=== PATIENT | female | born 1980 | race Caucasian/White ===

== ENCOUNTER 2019-08-20 11:53 | Emergency (ER) | payer BC, SELFPAY ==
--- NOTE | ~2019-08-20 | XR_ITS ---
EXAMINATION: XR knee RT min 4V DATE: 08/20/2019 12:21 INDICATION: Right knee pain post twisting injury 2 days prior TECHNIQUE: Anteroposterior, 2 oblique and crosstable lateral views of the right knee were obtained COMPARISON: None. FINDINGS: Alignment is normal. No fracture. Small right knee joint effusion without layering lipohemarthrosis. Soft tissues are otherwise unremarkable. IMPRESSION: 1. Small right knee joint effusion. No osseous abnormality. Reviewed, dictated and finalized at location A.
[2019-08-20 11:58] VITALS: BP 128/61; PULSE 84; RESP 16; TEMP 36.2; O2SAT 100
--- NOTE | 2019-08-20 12:03 | ED.LOWEXIN ---
HPI - Extremity Injury (Lower) General Chief Complaint: Extremity Injury, Lower Stated Complaint: knee injury Time Seen by Provider: 08/20/19 11:56 Source: patient Mode of arrival: ambulatory Limitations: no limitations History of Present Illness HPI Narrative: A 38 y/o female pt presents to the ED, with c/o rt knee injury that occurred at 1230PM yesterday. Pt states she was trying to help her sister move her anupama size mattress out of the basement and the mattress got stuck in the stairwell and when she tried stepping over the mattress she fell down on her rt knee. She states that she is unable to bare weight on her RLE and notes limited ROM to her rt knee, but states that elevating her knee with a pillow helps to alleviate her pain. She denies any fever, or N/V. Pt notes applying an noelle bandage to her rt knee prior to arrival. She has rt knee elevated in the ED and denies any pain in the ED. MD complaint: knee injury (rt) Onset (ago): day(s) Injury: Right: knee Type of Injury: blunt Place: home Relieving factors: other (elevation with pillow) Exacerbating factors: weight bearing Context: direct blow Associated symptoms: unable to bear weight Treatments prior to arrival: bandage (noelle bandage to rt knee) Related Data Allergies Allergy/AdvReac Type Severity Reaction Status Date / Time Penicillins Allergy Mild RASH Verified 08/20/19 11:58 Review of Systems Review of Systems: All systems reviewed & are unremarkable except as noted in HPI and below Constitutional: Constitutional: Denies fever(s) Gastrointestinal: Gastrointestinal: Denies nausea and Denies vomiting Musculoskeletal: Musculoskeletal: Reports arthralgias (rt knee, alleviated with elevation), Reports limited range of motion (rt knee) and Reports other (unable to bear weight on rt knee) PMF Past Medical History Medical History (Updated 08/20/19 @ 12:48 by Warren Moss DO) Anxiety Depression Herniated disc Mastitis Surgical History Surgical History (Updated 08/20/19 @ 12:32 by MARIEL Hurst) History of section Social History Social History (Updated 08/20/19 @ 12:32 by MARIEL Hurst) Smoking status: Never smoker Gender identity (if verbalized by the patient): Female Exam Narrative: Exam Narrative: APPEARANCE: No acute distress, nontoxic, resting in bed Eyes: EOMI HEENT: Normocephalic, atraumatic, RESPIRATORY: No respiratory distress MUSCULOSKELETAl: Tender palpation of her right anterior knee with mild swelling no ecchymosis, no tenderness with medial lateral posterior knee, pain with flexion greater than 45 degrees, no tenderness of the hip or ankle dorsalis pedis pulse 2+, neurovascular intact NEURO: Awake and alert. Following commands, speech normal, no focal deficits SKIN:: Warm, dry. Normal Color no rash or lesions Course Course Emergency Course: Discussed with patient results of workup and diagnosis. Discussed need for follow-up with primary care, proper use of medication, and reasons to return to the emergency department. Patient understands and agrees to current treatment plan Vital Signs Vital signs: Vital Signs Temperature 97.2 F L 08/20/19 11:58 Pulse Rate 84 08/20/19 11:58 Respiratory Rate 16 08/20/19 11:58 Blood Pressure 128/61 08/20/19 11:58 Pulse Oximetry 100 08/20/19 11:58 Temperature 97.2 F L 08/20/19 11:58 Pulse Rate 84 08/20/19 11:58 Respiratory Rate 16 08/20/19 11:58 Blood Pressure 128/61 08/20/19 11:58 Pulse Oximetry 100 08/20/19 11:58 MDM - Extremity Injury (Lower) Imaging Data Radiologist's impression: ITS Impressions Knee X-Ray 08/20/19 12:27 IMPRESSION: 1. Small right knee joint effusion. No osseous abnormality. Discharge Plan Discharge Clinical Impression: Right knee sprain Patient Disposition: Home, Self-Care Condition: Stable Instructions: Antibiotic Form, Knee Sprain (ED) Additional Instructions: Return
== END 2019-08-20 13:05 | disposition home or self-care (01) ==
PROVIDERS: Emergency Provider Emergency Medicine
DX: S83.91XA Sprain of unspecified site of right knee, initial encounter (principal); W18.09XA Striking against other object with subsequent fall, initial encounter
CPT/HCPCS: 73564; 99283

== ENCOUNTER 2020-12-04 07:48 | Outpatient (RCR) | payer BC, SELFPAY ==
[2020-12-03 10:12] LABS: Hematocrit 32.1 % (37.0-47.0); Hemoglobin 10.4 g/dL (12.0-15.0)
[2020-12-03 10:18] LABS: Glucose 1 Hour PP 50gm Dose 148 mg/dL
[2020-12-03 10:58] LABS: HIV 1/2 Ab P24 Ag Result Negative (Negative)
[2020-12-04 10:31] LABS: Rapid Plasma Reagin Non-Reactive (NonReactive)
[2020-12-04] MEDS: RHO(D) IMMUNE GLOBULIN 300 MCG/2 ML SYRINGE IM (14:19)
== END 2021-03-03 23:59 | disposition home or self-care (01) ==
LOC: ANHLAB 07:48
PROVIDERS: Visit Provider Obstetrics & Gynecology
DX: Z11.4 Encounter for screening for human immunodeficiency virus [HIV] (principal); Z29.13 Encounter for prophylactic Rho(D) immune globulin; O36.0130 Maternal care for anti-D [Rh] antibodies, third trimester, not applicable or unspecified; Z3A.00 Weeks of gestation of pregnancy not specified
CPT/HCPCS: 36415; 82947; 85014; 85018; 85461; 86592; 86703; 90384; 96372; G0432; J2790

== ENCOUNTER 2021-02-20 16:53 | Outpatient (CLI) | payer BC, SELFPAY ==
[2021-02-20 17:28] LABS: Hematocrit 34.7 % (37.0-47.0); Hemoglobin 11.4 g/dL (12.0-15.0); Mean Corpuscular HGB Conc 32.9 g/dl (32-36); Mean Corpuscular Hemoglobin 26.1 pg (26-34); Mean Corpuscular Volume 79.4 fl (80-100); Mean Platelet Volume 12.3 fl (7.4-10.4); Platelet Count Result 178 k/mm3 (150-375); Red Blood Count 4.37 M/mm3 (4.2-5.4); Red Cell Distribution Width 14.6 % (11.5-14.5); White Blood Count 7.2 K/mm3 (4.5-10.0)
[2021-02-21 11:03] LABS: Rapid Plasma Reagin Non-Reactive (NonReactive)
== END 2021-02-20 16:54 | disposition home or self-care (01) ==
LOC: ANHLAB 16:55
PROVIDERS: Visit Provider Obstetrics & Gynecology
DX: O34.211 Maternal care for low transverse scar from previous cesarean delivery (principal); Z3A.39 39 weeks gestation of pregnancy
CPT/HCPCS: 36415; 85027; 86592; 86850; 86900; 86901

== ENCOUNTER 2021-02-21 05:23 | Inpatient (IN) | payer BC, SELFPAY ==
--- NOTE | 2021-01-28 12:48 | PC.NURSE ---
VERIFIED WITH OR SCHEDULE AND PATIENT--C/S ON 02/21/21 AT 0730 PATIENT GIVEN REQUISITION FOR LAB DRAW ON 02/20/21 PATIENT-SURROGATE--BABY'S MOM KATRINA GALICIA WITH PATIENT AT [facility] AND SIGNED HEP B CONSENT
[2021-02-21] VITALS (89 sets, daily range): BP systolic 90–114; BP diastolic 46–97; PULSE 46–72; RESP 16–18; TEMP 35.8–36.3; O2SAT 98–100; BMI 38.0
--- OUTSIDE RECORDS SUMMARY | 2021-02-21 05:32 | XMS_ITS ---
:1980 Author Care Team Providers Name Role Phone [facility] Primary Care Provider [phone] Allergies Code Code System Name Reaction Severity Status Onset Penicillins ? ? Active ? Medications Name Status Start Date Stop Date ? ? aspirin 81 mg chewable tablet Active ? No t available BD Alcohol Swabs Completed ? 08/09/2020 USE DIRECTED BD Luer-Amol Syringe 1 mL Completed ? 021 USE TO DRAW UP AND INJ ESTRADIOL BD Luer-Amol Syringe 3 mL 18 x 1 1/2 Completed ? 08/09/2020 USE TO DRAW UP PROGESTERONE BD Regular Bevel Ericson 18 gauge x 1 1/2 Completed ? 08/09/2020 USE TO DRAW UP ESTRADIOL BD Regular Bevel Ericson 22 gauge x 1 1/2 Completed ? 08/09/2020 USE TO INJECT ESTRADIOL clindamycin HCl 300 mg capsule Completed ? 0 09/08/2019 complete needle collection system Completed ? 08/09/2020 USE DIRECTED dexamethasone 0.75 mg tablet Completed ? TAKE 1 TABLET BY MOUTH EVERY DAY diazepam 5 mg tablet Completed ? 09/08/2019 estradiol valerate 20 mg/mL intramuscular oil Completed ? 08/09/2020 INJECT 0.2 TO 0.6ML IN THE MUSCLE TWICE WEEKLY folic acid 1 mg tablet Active ? Not avail able freestyle mis lancets Active ? Not stephanie ilable FreeStyle Lancets 28 gauge Active ? Not a vailable USE TO TEST BLOOD SUGAR FOUR TIMES DAILY FreeStyle Lite Meter kit Active ? Not stephanie ilable USE TO TEST BLOOD SUGAR FreeStyle Lite Strips Active ?
--- OUTSIDE RECORDS SUMMARY | 2021-02-21 05:32 | XMS_ITS | Encounter Summary ---
:1980 Author Care Team Providers Name Role Phone [facility] Primary Care Provider [phone] Reason for Visit None recorded. Assessment and Plan 1. Gestational diabetes mellitus , class A>1< Diet teaching completed over t he phone. Went over ideal ranges for FBS and pp BS. Went over carb counting and carb ranges for each meal/snack. Gave ideas for foods to eat for meals/snacks. Pt likes oatmeal for breakfast and will switch to eggs instead. Discussed drink options and to avoid soda and juice. Pt likes sweet tea and pt will avoid this and try unsweet tea i f needed. Pt likes chocolate milk and told pt will either have to have a very small gl ass or drink plain skim milk instead. Told pt she can go online to [employer] for meal option s or to look up low carb meal recipes online for ideas as well. Pt hasn't picked up g lucometer yet as they are waiting for test strips to come in. Told pt to check BS Q ID and adjust diet to follow low carb diet to try to keep BS within normal range. Pt a magaña if sugars aren't controlled by diet we would discuss starting insulin. Went ove r NST schedule with pt and importance of keeping these appts and checking BS for her and baby's health. Pts questions were answered and pt verbalized understanding . MICAH good ? US, obstetric, biophysical profile + non-stress test Discussion Note: None recorded.Patient educational handouts: No information available. Plan of Care Reminders Provider Appointments Surg Post Op 02/28/2021 Shazia Tomlinson 10:00AM MD Leo ? Queenie on or around MICAH rodriguez RN 04/03/2021 Lab None ? ? recorded.
--- OUTSIDE RECORDS SUMMARY | 2021-02-21 05:32 | XMS_ITS | Encounter Summary ---
:1980 Author Care Team Providers Name Role Phone [facility] Primary Care Provider [phone] Reason for Visit OB visit Assessment and Plan 1. Advanced maternal age 2. Gestational diabetes mellitus , class A>1< Discussion Note: None recorded.Patient educational handouts: No information available. Plan of Care Reminders Provider Appointments Surg 02/28/2021 Alexis cervantes Post Op 10:00AM MD Leo ? Xany on or around MICAH rodriguez RN 04/03/2021 Lab None ? ? recorded. Referral None ? ? recorded. Procedures None ? ? recorded. Surgeries None ? ? recorded. Imaging None ? ? recorded. Medications Name Start Date ? ? aspirin 81 mg chewable tablet ? CHEW AND SWALLOW ONE TABLET BY MOUTH ONCE DAILY folic acid 1 mg tablet ? TAKE 1 TABLET BY MOUTH EVERY DAY freestyle mis lancets ? FreeStyle Lancets 28 gauge ? USE TO TEST BLOOD SUGAR FOUR TIMES DAILY FreeStyle Lite Meter kit ? USE TO TEST BLOOD SUGAR FreeStyle Lite Strips ? ? valacyclovir 500 mg tablet ? TK 1 T PO BID FOR 5 DAYS Medications Administered None recorded. Vitals Height Weight BMI Blood Pressure
--- OUTSIDE RECORDS SUMMARY | 2021-02-21 05:32 | XMS_ITS | Encounter Summary ---
:1980 Author Care Team Providers Name Role Phone [facility] Primary Care Provider [phone] Reason for Visit OB visit Assessment and Plan 1. Routine care 2. Gestational diabetes mellitus , class A>1< [...] recorded. Vitals Height Weight BMI Blood Pressure 5
--- OUTSIDE RECORDS SUMMARY | 2021-02-21 05:32 | XMS_ITS | Encounter Summary ---
:1980 Author Care Team Providers Name Role Phone [facility] Primary Care Provider [phone] Reason for Visit OB visit Assessment and Plan Assessment Note Patient is ___weeks . Discu ssed plan. 1. Routine care Discussion Note: None recorded.Patient educational handouts: No [...]
--- OUTSIDE RECORDS SUMMARY | 2021-02-21 05:32 | XMS_ITS | Encounter Summary ---
:1980 Author Care Team Providers Name Role Phone [facility] Primary Care Provider [phone] Reason for Visit None recorded. Assessment and [...] and pt verbalized understanding . MICAH good 2. Gestational diabetes mellitus ? US, obstetric, biophysical profile + non-stress test Discussion Note: None recorded.Patient educational handouts: No information available. Plan of Care Reminders Provider Appointments Surg Post Op 02/28/2021 Shazia Tomlinson 10:00AM MD Leo ? Queenie on or around MICAH rodriguez RN 04/03/2021 Lab None ?
--- OUTSIDE RECORDS SUMMARY | 2021-02-21 05:32 | XMS_ITS | Encounter Summary ---
:1980 Author Care Team Providers Name Role Phone [facility] Primary Care Provider [phone] Reason for Visit None recorded. Assessment and [...] pt verbalized understanding . MICAH good ? non-stress test Discussion Note: None recorded.Patient educational handouts: No information available. Plan of Care Reminders Provider Appointments Surg 02/28/2021 Alexis cervantes Post Op 10:00AM MD Leo ? Queenie on or around MICAH rodriguez RN 04/03/2021 Lab None ? ? recorded. Referral None ?
--- OUTSIDE RECORDS SUMMARY | 2021-02-21 05:32 | XMS_ITS | Encounter Summary ---
:1980 Author Care Team Providers Name Role Phone [facility] Primary Care Provider [phone] Reason for Visit None recorded. Assessment and Plan 1. Gestational diabetes mellitus , class A>1< ? non-stress test Discussion Note: None recorded.Patient educational handouts: No information available. Plan of Care Reminders Provider Appointments Surg 02/28/2021 Alexis cervantes Post Op 10:00AM MD Leo ? Xany on or around MICAH rodriguez RN 04/03/2021 Lab None ? ? recorded. Referral None ? ? recorded. Procedures None ? ? recorded. Surgeries None ? ? recorded. Imaging 02/18/2021 [place] Non-stress Test Medications Name Start Date ? ? aspirin [...] 5 DAYS Medications Administered None recorded. Vitals None recorded. Results
--- OUTSIDE RECORDS SUMMARY | 2021-02-21 05:32 | XMS_ITS ---
:1980 Author Care Team Providers Name Role Phone DR. AYAN LOJA Primary Care Provider [phone] DR. AYAN LOJA Referring Provider [phone] AYAN LOJA Primary Care Provider [phone] Allergies Code Code System Name Reaction Severity Status Onset Penicillins Rash ? Active ? Medications Name Status Start Date Stop Date ? ? albuterol sulfate HFA 90 mcg/actuation aerosol inhaler Active ? Not available INHALE 2 PUFFS PO Q 4 H PRN amoxicillin 500 mg capsule Unknown ? Not a vailable amoxicillin 875 mg-potassium clavulanate 125 mg tablet Active ? Not available TK 1 T PO BID WITH MORNING AND EVENING MEAL benzonatate 200 mg capsule Active ? Not a vailable TK ONE C PO TID PRF COUGH cefdinir 300 mg capsule Active ? Not avai lable TAKE 1 CAPSULE BY MOUTH TWICE A DAY cephalexin 500 mg capsule Unknown ? Not av ailable citalopram 40 mg tablet Completed ? 09/05/19 20 clindamycin HCl 300 mg capsule Active ? N ot available codeine 10 mg-guaifenesin 100 mg/5 mL oral liquid Active ? Not available TAKE 5 TO 10 ML BY MOUTH TWICE A DAY NEEDED dextroamphetamine-amphetamine ER 10 mg Unknown ? Not available 24hr capsule,extend release diazepam 5 mg tablet Active ? Not availab le dicyclomine 20 mg tablet Completed ? 020 duloxetine 30 mg capsule,delayed release Active ? Not available TAKE ONE CAPSULE BY MOUTH AT BEDTIME FOR 1 WEEK duloxetine 60 mg capsule,delayed release Active ? Not available TAKE ONE CAPSULE BY MOUTH AT BEDTIME gabapentin 300 mg capsule Active ? Not av
--- OUTSIDE RECORDS SUMMARY | 2021-02-21 05:33 | XMS_ITS | Encounter Summary ---
:1980 Author Care Team Providers Name Role Phone [facility] Primary Care Provider [phone] Reason for Visit None recorded. Assessment and Plan 1. Gestational diabetes mellitus ? US, obstetric, biophysical profile + non-stress test Discussion Note: None recorded.Patient educational handouts: No information available. Plan of Care Reminders Provider Appointments Surg Post Op 02/28/2021 Shazia Tomlinson 10:00AM MD Leo ? Xany on or around MICAH rodriguez RN 04/03/2021 Lab None ? ? recorded. Referral None ? ? recorded. Procedures None ? ? recorded. Surgeries None ? ? recorded. Imaging US, 01/07/2021 [place] [facility], Biophysical Profile + Non-stress Test Medications Name Start Date ? [...] TK 1 T PO BID FOR 5 DAY
--- OUTSIDE RECORDS SUMMARY | 2021-02-21 05:33 | XMS_ITS | Encounter Summary ---
:1980 Author Care Team Providers Name Role Phone [facility] Primary Care Provider [phone] Reason for Visit None recorded. Assessment and Plan 1. condition affecting obs tetrical care of mother ? US, obstetric, biophysical profile Discussion Note: None recorded.Patient educational handouts: No information available. Plan of Care Reminders Provider Appointments Surg Post Op 02/28/2021 Shazia Tomlinson 10:00AM MD Leo ? Xany on or around MICAH rodriguez RN 04/03/2021 Lab None ? ? recorded. Referral None ? ? recorded. Procedures None ? ? recorded. Surgeries None ? ? recorded. Imaging US, 02/04/2021 [place] [facility], Biophysical Profile Medications Name Start Date ? ? aspirin [...]
--- OUTSIDE RECORDS SUMMARY | 2021-02-21 05:33 | XMS_ITS | Encounter Summary ---
:1980 Author Care Team Providers Name Role Phone [facility] Primary Care Provider [phone] Reason for Visit OB visit Assessment and Plan 1. Routine care 2. IVF - in-vitro fertilization Discussion Note: None recorded.Patient educational handouts: No [...] Vitals Height Weight BMI Blood Pressure 5 ft
--- OUTSIDE RECORDS SUMMARY | 2021-02-21 05:33 | XMS_ITS | Encounter Summary ---
:1980 Author Care Team Providers Name Role Phone [facility] Primary Care Provider [phone] Reason for Visit None recorded. Assessment and [...] cervantes Post Op 10:00AM MD Leo ? Qeuenie on or around MIACH rodriguez RN 04/03/2021 Lab None ? ? recorded. Referral None ?
--- OUTSIDE RECORDS SUMMARY | 2021-02-21 05:33 | XMS_ITS | Encounter Summary ---
:1980 Author Care Team Providers Name Role Phone [facility] Primary Care Provider [phone] Reason for Visit None recorded. Assessment and [...]
--- OUTSIDE RECORDS SUMMARY | 2021-02-21 05:33 | XMS_ITS | Encounter Summary ---
:1980 Author Care Team Providers Name Role Phone [facility] Primary Care Provider [phone] Reason for Visit OB visit Assessment and [...]
--- OUTSIDE RECORDS SUMMARY | 2021-02-21 05:33 | XMS_ITS | Encounter Summary ---
:1980 Author Care Team Providers Name Role Phone [facility] Primary Care Provider [phone] Reason for Visit OB visit OB [id number] EDC 02/27/2021 L[facility] 03/24/2020 Assessment and Plan Assessment Note Patient is _33__weeks . Dis cussed plan. 1. Routine care Discussion Note: None recorded.Patient educational handouts: No information available. Plan of Care Reminders Provider Appointments Surg 02/28/2021 Alexis cervantes Post Op 10:00AM MD Leo ? Panfilony on or around RN Rony rodriguez RN 04/03/2021 Lab None ? ? [...] T PO BID FOR 5 DAYS Medications A
--- OUTSIDE RECORDS SUMMARY | 2021-02-21 05:33 | XMS_ITS | Encounter Summary ---
:1980 Author Care Team Providers Name Role Phone [facility] Primary Care Provider [phone] Reason for Visit None recorded. Assessment and [...]
--- OUTSIDE RECORDS SUMMARY | 2021-02-21 05:33 | XMS_ITS | Encounter Summary ---
:1980 Author Care Team Providers Name Role Phone [facility] Primary Care Provider [phone] Reason for Visit None recorded. Assessment and [...]
--- OUTSIDE RECORDS SUMMARY | 2021-02-21 05:33 | XMS_ITS | Encounter Summary ---
:1980 Author Care Team Providers Name Role Phone [facility] Primary Care Provider [phone] Reason for Visit None recorded. Assessment and [...] Surgeries None ? ? recorded. Imaging US, 01/21/2021 [place] [facility], Biophysical Profile + Non-stress Test Medications [...]
--- OUTSIDE RECORDS SUMMARY | 2021-02-21 05:33 | XMS_ITS | Encounter Summary ---
:1980 Author Care Team Providers Name Role Phone [facility] Primary Care Provider [phone] Reason for Visit OB visit Assessment and [...]
--- OUTSIDE RECORDS SUMMARY | 2021-02-21 05:33 | XMS_ITS | Encounter Summary ---
:1980 Author Care Team Providers Name Role Phone [facility] Primary Care Provider [phone] Reason for Visit None recorded. Assessment and [...] Surgeries None ? ? recorded. Imaging US, 01/14/2021 [place] [facility], Biophysical Profile + Non-stress Test Medications [...]
--- OUTSIDE RECORDS SUMMARY | 2021-02-21 05:33 | XMS_ITS | Encounter Summary ---
:1980 Author Care Team Providers Name Role Phone [facility] Primary Care Provider [phone] Reason for Visit None recorded. Assessment and Plan 1. Gestational diabetes mellitus ? US, obstetric, follow-up ? US, obstetric, biophysical profile + non-stress test Discussion Note: None recorded.Patient educational handouts: No information available. Plan of Care Reminders Provider Appointments Surg Post Op 02/28/2021 Shazia Tomlnison 10:00AM MD Leo ? Xany on or around MICAH rodriguez RN 04/03/2021 Lab None ? ? recorded. Referral None ? ? recorded. Procedures None ? ? recorded. Surgeries None ? ? recorded. Imaging US, 01/28/2021 [facility] [facility], Follow-up ? , 01/28/2021 [facility], Biophysical Profile + Non-stress Test Medications Name Start Date ? ? aspirin 81 mg chewable tablet ? CHEW AND SWALLOW ONE TABLET BY MOUTH ONCE DAILY folic acid 1 mg tablet ? TAKE 1 TABLET BY MOUTH EVERY DAY freestyle mis lancets ? FreeStyle Lancets 28 gauge ? USE TO TEST BLOOD SUGAR FOUR TIMES DAILY FreeStyl
--- OUTSIDE RECORDS SUMMARY | 2021-02-21 05:33 | XMS_ITS | Encounter Summary ---
:1980 Author Care Team Providers Name Role Phone [facility] Primary Care Provider [phone] Reason for Visit None recorded. Assessment and [...]
--- OUTSIDE RECORDS SUMMARY | 2021-02-21 05:34 | XMS_ITS | Encounter Summary ---
:1980 Author Care Team Providers Name Role Phone [facility] Primary Care Provider [phone] Reason for Visit None recorded. Assessment and [...] and pt verbalized understanding . MICAH good Discussion Note: None recorded.Patient educational handouts: No information available. Plan of Care Reminders Provider Appointments Surg 02/28/2021 Alexis cervantes Post Op 10:00AM MD Leo ? Queenie on or around MICAH rodriguez RN 04/03/2021 Lab None ? ? recorded. Referral None ? ? recorded.
--- OUTSIDE RECORDS SUMMARY | 2021-02-21 05:34 | XMS_ITS | Encounter Summary ---
:1980 Author Care Team Providers Name Role Phone [facility] Primary Care Provider [phone] Reason for Visit None recorded. Assessment and Plan 1. Gestational diabetes mellitus ? US, obstetric, follow-up Discussion Note: None recorded.Patient educational handouts: No information available. Plan of Care Reminders Provider Appointments Surg 02/28/2021 Alexis cervantes Post Op 10:00AM MD Leo ? Xany on or around MICAH rodriguez RN 04/03/2021 Lab None ? ? recorded. Referral None ? ? recorded. Procedures None ? ? recorded. Surgeries None ? ? recorded. Imaging US, 12/31/2020 [place] [facility], Follow-up Medications Name Start Date ? ? aspirin [...]
--- OUTSIDE RECORDS SUMMARY | 2021-02-21 05:34 | XMS_ITS | Encounter Summary ---
:1980 Author Care Team Providers Name Role Phone [facility] Primary Care Provider [phone] Reason for Visit OB visit 27w5d Assessment and Plan 1. Routine care Discussion Note: None recorded.Patient [...] Height Weight BMI Blood Pressure 5 ft 5 in 233 lbs 38.8 kg/m2 104/70 m
--- OUTSIDE RECORDS SUMMARY | 2021-02-21 05:34 | XMS_ITS | Encounter Summary ---
:1980 Author Care Team Providers Name Role Phone [facility] Primary Care Provider [phone] Reason for Visit OB visit 31w5d Assessment and Plan 1. Routine care Discussion [...] BMI Blood Pressure 5 ft 5 in 225 lbs 37.4 kg/m2 98/66 m
[2021-02-21] MEDS: LACTATED RINGERS 1,000 ML 125 ML IV CONT (06:30)
[2021-02-21 07:21] LABS: Glucose Point of Care 80 mg/dl (65-105)
--- NOTE | 2021-02-21 07:26 | WPDHPUPDATE1 ---
History and Physical Update Update Date/Time: 02/21/21 07:26 History and Physical has been reviewed, including an updated exam of the patient. There are NO changes in the patient's condition. Risks, benefits, and alternatives have been discussed and questions answered. Patient agrees to proceed with procedure.
--- NOTE | 2021-02-21 07:26 | PM.IMHP ---
H&P: HPI History of Present Illness Date/Time: 02/21/21 07:26 this patient is a 40-year-old multiparous female at term with a previous delivery. We have agreed to perform repeat delivery. Patient understands that injuries may occur that result in hospitalization, more surgery, and severe illness. She denies any nausea, vomiting, fever, chills. She denies any chest pain or shortness of breath. She denies any contractions, loss of fluid, vaginal bleeding. Chief Complaint: Term Review of Systems Review of Systems: All systems reviewed & are unremarkable except as noted in HPI and below PMFSH Past Medical History Medical History (Updated 02/21/21 @ 07:28 by Eligio Bailey MD) Anxiety Depression Herniated disc Mastitis Surgical History Surgical History (Updated 02/21/21 @ 07:28 by Eligio Bailey MD) History of section Family History Family History (Updated 01/28/21 @ 12:24 by Stacy Horne RN) Mother ALS (amyotrophic lateral sclerosis) Father Brain cancer Social History Social History (Updated 08/20/19 @ 12:32 by Kim Vilchis, [facility]) Smoking status: Never smoker Substance use: never Gender identity (if verbalized by the patient): Female Spiritual care concerns: No Meds Home Medications and Allergies Home Medications Medication Instructions Recorded Confirmed Type prenat.vits,amauri,[id number] 1 tablet PO DAILY 01/28/21 01/28/21 History [ #2] Allergies Allergy/AdvReac Type Severity Reaction Status Date / Time Penicillins Allergy Mild RASH Verified 08/20/19 11:58 Vital Signs Vital Signs - 24 hr 02/21/21 06:31 02/21/21 06:46 02/21/21 07:01 Pulse Rate 72 66 66 Blood Pressure 95/60 L 108/63 114/62 Exam Const: General: healthy appearing, comfortable and no acute distress Resp: Auscultation: clear to auscultation bilaterally, no rales, no rhonchi and no wheezes Cardio: Rate: regular rate Heart sounds: no click, no murmurs and no rubs GI: Inspection: non-distended Auscultation: normal bowel sounds Extrem: General: normal to inspection, no pedal edema and no calf tenderness Assessment and Plan Assessment and plan (1) Term : Code(s): Z34.90 - Encounter for supervision of normal , unspecified, unspecified trimester Status: Acute (2) Previous delivery, delivered: Code(s): O34.219 - Maternal care for unspecified type scar from previous delivery Status: Acute Additional Plan This patient is a 40-year-old female at term with previous delivery. With agreed to perform repeat delivery. She understands the risks, benefits, and alternatives. She has completed the informed consent process is ready to proceed.
[2021-02-21] MEDS: ceFAZolin 2 GM/D5W 50 ML 2 GM/50 ML BAG IVPB (07:29)
--- NOTE | 2021-02-21 08:30 | W.PM.PROC2 ---
Procedure Note - Detailed Date of Procedure 02/21/21 Pre-op Diagnosis Previous C/S Post-op Diagnosis same Procedure Performed Low-transverse section Surgeon Eligio Bailey MD Anesthesia spinal Indications prevous :LTCS Findings Normal gestational maternal anatomy, average size , normal Apgars. Description of Procedure The patient was taken the operating room. She was prepped and draped in dorsal supine position with a leftward tilt. This was done after spinal anesthetic was applied. A low-transverse skin incision was made and carried down till of the fascia with the knife. The fascial incision was made with the knife. The fascial incision was extended laterally with Crystal scissors. The fascia was tented upward superiorly and inferiorly the rectus muscles were dissected off bluntly. The rectus muscles were the midline. The preperitoneal fat and peritoneum were dissected open bluntly at the superior aspect of the rectus muscles. The peritoneal incision was extended superior and inferior with good position of bladder. The uterine incision was made with a scalpel down to the level of the amniotic cavity. The amniotic cavity was entered bluntly. The infant was delivered. The cord was clamped and cut and the infant was handed off to waiting pediatric staff. Cord bloods were obtained. The placenta was removed manually. The uterus was exteriorized. The uterus was cleared of all clots, debris and membranes. The uterus was closed in 0 Vicryl running lock fashion. An imbricating over a was placed along the incision line as well. The uterus was returned to the abdomen. The gutters were cleared of all clots and debris. The fascia was closed with 0 Vicryl running fashion. The subcutaneous tissue was irrigated pinpoint bleeders were cauterized. The skin was closed with subcuticular absorbable nery. The skin incision line was covered with glue. The patient tolerated the procedure well. She has taken recovery room in stable condition. Sponge lap and needle counts were correct x2. Estimated Blood Loss 670 Pathology yes Complications No immediate complications Condition stable Disposition PACU
--- NOTE | 2021-02-21 08:34 | LDADM ---
This patient, Stacey Gonzáles, was admitted to Labor/Delivery/Recovery 120 on 02/21/21 at 05:23. Plans for labor, pain management and were discussed with patient. Patient/family oriented to hospital policies and general routines including ID bracelet, bed and alarms, visiting hours, pain management, procedures, bathroom and other care routines, personal items, smoking policy, room service/diet and guest tray routines, infant security routines, and visiting hours. Patient/Family are encouraged to report perceived risks to care and to ask questions if they do not understand what they are told or what they should do. See OBIX for further documentation.
[2021-02-21] MEDS: OXYTOCIN 30 UNITS/NS 500 ML 30 UNITS/500 ML BAG 125 UNITS IV CONT ×2 (10:05→11:45)
[2021-02-21] MEDS: miSOPROStol 200 MCG TABLET 1000 MCG (10:05)
--- NOTE | 2021-02-21 10:23 | SUR.OPER ---
Dr Bailey notified of increase in bleeding, will be over to evaluate patient.
--- NOTE | 2021-02-21 10:44 | SUR.OPER ---
Dr Bailey here, by manual exam performed and a few small clots expressed. No further orders at this time.
--- NOTE | 2021-02-21 11:45 | PC.NURSE ---
Patient transferred to post room #279 per stretcher from labor and delivery. Support person present. Oriented to unit, room, information board, rooming in, admission packet and security measures. Patient verbalizes understanding.
[2021-02-21] MEDS: diphenhydrAMINE HCl INJ 50 MG/ML VIAL (12:04)
--- NOTE | 2021-02-21 12:15 | PC.NURSE ---
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 She has her own pump to use. Reviewed supply and demand, pumping schedule, hands on pumping and pumping log. Discussed correct flange size and comfort. Instructions given on breast pump care and usage, pumping schedule, nipple care, and collection and storage of breast milk. Pumping log provided and reviewed. Patient verbalizes understanding of instructions.
--- NOTE | 2021-02-21 13:30 | PC.NURSE ---
12 mls of breastmilk to fridge from pumping session.
[2021-02-21] MEDS: DEXTROSE 5%/0.45% SOD CHL 1,000 ML 125 ML IV CONT (14:49)
[2021-02-21] MEDS: SIMETHICONE 80 MG TAB.CHEW PO ×3 (14:49→19:46)
[2021-02-21] MEDS: IBUPROFEN 600 MG TABLET PO (17:30)
[2021-02-21] MEDS: DOCUSATE SODIUM 100 MG CAPSULE PO (17:30)
[2021-02-21] MEDS: HYDROcodone/acetaminophen (*CRX) 5-325 MG TABLET 1 TAB PO ×2 (19:46→21:23)
[2021-02-21] MEDS: LANOLIN (LANSINOH) 7.5 GM CREAM 1 APPLIC TOPICAL (19:48)
[2021-02-21] MEDS: LORATADINE 10 MG TABLET PO (21:23)
[2021-02-21 21:36] LABS: Hematocrit 27.4 % (37.0-47.0); Hemoglobin 9.1 g/dL (12.0-15.0)
[2021-02-21] MEDS: KCL 20 MEQ/D5/0.45% SOD CHL 1,000 ML 125 ML IV CONT (21:57)
[2021-02-22 00:24] VITALS: BP 92/60; PULSE 65; RESP 16; TEMP 36.1; O2SAT 97
[2021-02-22] MEDS: SIMETHICONE 80 MG TAB.CHEW PO ×5 (00:24→19:04)
[2021-02-22] MEDS: HYDROcodone/acetaminophen (*CRX) 10-325 MG TABLET 1 TAB PO ×5 (00:24→23:20)
[2021-02-22] MEDS: IBUPROFEN 600 MG TABLET PO ×4 (00:24→23:20)
[2021-02-22 05:30] VITALS: BP 90/44; PULSE 70; RESP 16; TEMP 36.1; O2SAT 98
--- NOTE | 2021-02-22 06:29 | PM.OBPNVD ---
OB - PN: Subj Subjective Date/time seen: 02/22/21 06:29 Patient comments: no complaints baby status: doing well OB - PN: Obj Data Labs CBC & Chem 7: 02/22/21 05:43 Labs: Laboratory Results - last 24 hr 02/21/21 02/21/21 07:17 21:30 Hgb 9.1 L Hct 27.4 L POC Capillary Glucose 80 OB - PN A/P Plan day: 1 Plan: routine care Time Spent With Patient Time: Total time spent is greater than 50% in coordination of care (as documented) at patient's floor/unit and/or counseling patient: Review of Systems Review of Systems: All systems reviewed & are unremarkable except as noted in HPI and below Exam Narrative: Incision CDI Const: General: cooperative and healthy appearing Psych: Attitude: cooperative Insight: Good insight present (Psych) Judgement: Good judgement present (Psych)
[2021-02-22 06:30] LABS: Basophils Percent Auto 0.3 % (0.2-1.2); Eosinophils Absolute Auto 0.1 K/mm3 (0-0.3); Eosinophils Percent Auto 1.4 % (0-4.4); Hematocrit 26.7 % (37.0-47.0); Hemoglobin 8.6 g/dL (12.0-15.0); Immature Granulocyte Absolute 0.03 K/mm3 (0.00-0.031); Immature Granulocyte Percent A 0.5 % (0-0.5); Lymphocytes Absolute Auto 1.37 K/mm3 (0.9-3.2); Lymphocytes Percent Auto 21.6 % (18.3-44.2); Mean Corpuscular HGB Conc 32.2 g/dl (32-36); Mean Corpuscular Hemoglobin 26.6 pg (26-34); Mean Corpuscular Volume 82.7 fl (80-100); Mean Platelet Volume 12.1 fl (7.4-10.4); Monocytes Absolute Auto 0.3 K/mm3 (0.1-0.6); Monocytes Percent Auto 5.2 % (2.6-8.5); Neutrophils Absolute Auto 4.5 K/mm3 (1.3-6.7); Platelet Count Result 121 k/mm3 (150-375); Red Blood Count 3.23 M/mm3 (4.2-5.4); Red Cell Distribution Width 14.6 % (11.5-14.5); White Blood Count 6.3 K/mm3 (4.5-10.0)
[2021-02-22 08:00] VITALS: BP 100/50; PULSE 67; RESP 18; TEMP 36.2
[2021-02-22] MEDS: POLYSACCHARIDE IRON COMPLEX 150 MG CAPSULE PO ×2 (08:39→16:08)
[2021-02-22] MEDS: LORATADINE 10 MG TABLET PO (08:40)
[2021-02-22] MEDS: DOCUSATE SODIUM 100 MG CAPSULE PO ×2 (08:40→16:08)
[2021-02-22] MEDS: MULTIVIT/MIN/PREN/FOL AC/IRON TABLET 1 TAB PO (08:40)
[2021-02-22] MEDS: HYDROcodone/acetaminophen (*CRX) 5-325 MG TABLET 1 TAB PO ×2 (08:40→16:09)
--- NOTE | 2021-02-22 11:29 | WPDANLDPN2 ---
Anes-Prog Note L&D Date/Time: 02/22/21 11:29 Comfortable throughout: section Neuraxial method: spinal Epidural/Spinal procedure site: clean & non-tender Neuro status: Neuro function grossly intact. Cardiovascular status: normal Respiratory status: normal Airway patency: baseline Mental status: baseline Post-Op hydration status: normal Vital Signs: Last Vital Signs Temp 36.2 C L 02/22/21 08:00 Pulse 67 02/22/21 08:00 Resp 18 02/22/21 08:00 BP 100/50 L 02/22/21 08:00 Pulse Ox 98 02/22/21 05:30 Pain score (VAS): 0 I/O: Intake & Output 02/21/21 02/22/21 02/22/21 23:59 07:59 15:59 Intake Total 3875 1900 500 Output Total 2200 2450 700 Balance 1675 -550 -200 Post-procedural complaints: none Patient feedback: Patient satisfied with anesthetic care.
--- NOTE | 2021-02-22 11:29 | WPDANLDNPN2 ---
Anes-Prog Note L&D-Neuraxial Date/Time: 02/22/21 11:29 Neuraxial medications: intrathecal PF morphine Opiod-related complaints: none Patient feedback: Patient satisfied with post-operative pain management.
[2021-02-22] MEDS: RHO(D) IMMUNE GLOBULIN 300 MCG/2 ML SYRINGE IM (17:34)
[2021-02-22 19:05] VITALS: BP 101/55; PULSE 82; RESP 18; TEMP 36.1; O2SAT 99
[2021-02-23] MEDS: HYDROcodone/acetaminophen (*CRX) 10-325 MG TABLET 1 TAB PO (06:26)
[2021-02-23] MEDS: IBUPROFEN 600 MG TABLET PO (06:26)
[2021-02-23] MEDS: LORATADINE 10 MG TABLET PO (07:56)
[2021-02-23] MEDS: MULTIVIT/MIN/PREN/FOL AC/IRON TABLET 1 TAB PO (07:56)
[2021-02-23] MEDS: POLYSACCHARIDE IRON COMPLEX 150 MG CAPSULE PO (07:56)
[2021-02-23] MEDS: DOCUSATE SODIUM 100 MG CAPSULE PO (07:56)
[2021-02-23] MEDS: SIMETHICONE 80 MG TAB.CHEW PO (07:56)
[2021-02-23 08:00] VITALS: BP 106/46; PULSE 73; RESP 18; TEMP 36.2
--- NOTE | 2021-02-23 10:09 | PM.OBPNVD ---
OB - PN: Subj Subjective Date/time seen: 02/23/21 10:09 Patient comments: no complaints, pain well controlled, incisional pain, tolerating diet and flatus present OB - PN: Obj Data Labs CBC & Chem 7: 02/22/21 05:43 Labs: Laboratory Results - last 24 hr 02/22/21 05:43 Blood Type B Negative Antibody Screen TNP Screen Negative Baby's Blood Type A pos Baby's ANABEL Negative Doses of RhIg Required 1 OB - PN A/P Plan day: 2 Plan: routine care Comments: POD#2 LTCS - no problems, Time Spent With Patient Time: Total time spent is greater than 50% in coordination of care (as documented) at patient's floor/unit and/or counseling patient: Exam Const: General: comfortable, no acute distress and alert Resp: Effort & Inspection: normal respiratory effort Auscultation: no crackles, no rales and no rhonchi Cardio: Rate: regular rate Heart sounds: no click, no murmurs and no rubs GI: Inspection: non-distended GI Palp: No Tenderness to palpation present (GI) Auscultation: normal bowel sounds Other: Incision - CDI Extrem: General: normal to inspection, no pedal edema and no calf tenderness
[2021-02-23] MEDS: HYDROcodone/acetaminophen (*CRX) 5-325 MG TABLET 1 TAB PO (10:38)
--- NOTE | 2021-02-23 10:46 | PC.NURSE ---
Self care discharge instructions given to pt. including follow up visit date and time. Pt. verbalized understanding. No questions or concerns verbalized.
[2021-02-26 10:15] VITALS: BP 121/71; PULSE 85; RESP 16; TEMP 36.6; O2SAT 99
--- NOTE | 2021-03-23 19:32 | PM.OBDSVD ---
DS: Admitting Diagnosis Discharge Date 02/23/21 Admitting Diagnosis term , previous DS: Discharge Diagnosis Discharge Diagnosis (1) Previous delivery, delivered: Code(s): O34.219 - Maternal care for unspecified type scar from previous delivery Status: Acute (2) Term : Code(s): Z34.90 - Encounter for supervision of normal , unspecified, unspecified trimester Status: Acute OB - DS: Summary OB Procedures : None OB Procedures Intrapartum: OB Procedures: : None Peripartum Data Procedures: Procedures Operation Date: 02/21/21 07:30 Actual Procedure Side Surgeon p Section Bilateral Eligio Bailey MD Time Spent with Patient Time attestation: Total time spent providing and/or coordinating discharge services: DS: Data Data Completed and Pending Completed studies during hospitalization: Pending at discharge 02/21/21 07:54 Surgical [PTH] Routine Discharge Plan Discharge Attending physician on discharge: nimesh Consulting providers: Rona Morelos Discharging Clinician: Rona Morelos Patient Disposition: Home, Self-Care Activity: pelvic rest Diet: regular Discharge Instructions: Education: Mom and Baby Guide Given to: Mother Follow-Up: Call your delivering provider's office for an appointment to be seen in: 1 Week Mom and baby should come to the [facility] for the follow-up appointment. Appointment Date/Time: Friday, February 26, 2021 at 10:00 am What to expect at your follow-up visit: Blood Pressure Check Physical Assessment Call [phone] if you are unable to keep your appointment time. BREAST CARE: * Wear a snug supportive bra. * For engorgement discomfort: Breast Feeding: * Apply warm moist washcloths * Express milk as needed to relieve engorgement * Wear loose clothing Bottle Feeding: * May apply ice packs * For sore nipples: * Identify correct latch-on * Apply warm moist washcloths before and after nursing * Air dry nipples after nursing * May apply Lansinoh cream to nipples ABDOMINAL INCISION: (if applicable) * Allow incision to air dry * Do NOT use lotions for powders on your incision * When showering, allow soap and water to run over the incision, but do not wash incision EPISIOTOMY/PERINEAL CARE: * Until bleeding stops, use your brittney bottle after urinating * Change your pad frequently throughout the day * You may take sitz baths several times a day (fill your bathtub with warm water and soak for 20 minutes.) Do NOT bathe in the water * No tub baths until seen by your physician - You may shower ACTIVITY: * Rest as much as possible. * Do not exercise or lift anything heavier than your baby (such as laundry or other children.) * Avoid stairs or driving as much as possible. * Do not put anything into the vagina. No douching, tampons, or sexual activity until seen by physician. NOTIFY PHYSICIAN IF YOU HAVE ANY QUESTIONS OR IF ANY OF THE FOLLOWING SYMPTOMS OCCUR: * If your incision becomes red, swollen, or more painful than what you have experienced in the hospital. * If your vaginal bleeding becomes foul smelling. * If your vaginal bleeding becomes more heavy than a period or if your bleeding changes from pink to bright red. However, you may pass an occasional walnut-sized clot once or twice for the first week . * If you experience a sharp, shooting pain in you calves. * If you discover a hard, reddened area on your breast or if you experience flu-like symptoms. DIET: * Eat regular, well-balanced meals. * Drink plenty of fluids daily. If , drink to thirst. Patient Instructions: Antibiotic Form Stand Alone Forms: General Discharge Information Follow-up/Referrals: Eligio Bailey MD [Physician
== END 2021-02-23 11:20 | disposition home or self-care (01) | DRG 788 ==
LOC: ANHLDR 05:30 → ANHOB2 12:12
PROVIDERS: Advanced Practice Midwife; Admitting Provider Obstetrics & Gynecology; Visit Provider Obstetrics & Gynecology
PROC: 10D00Z1 Extraction of Products of Conception, Low, Open Approach (ICD-10-PCS; CPT 59514; principal; 2021-02-21 07:30)
DX: O34.211 Maternal care for low transverse scar from previous cesarean delivery (principal); Z37.0 Single live birth; Z3A.39 39 weeks gestation of pregnancy; O24.429 Gestational diabetes mellitus in childbirth, unspecified control; Z23 Encounter for immunization
CPT/HCPCS: 36415; 82948; 85014; 85018; 85025; 85461; 88307; 90384; 90471; 90653; A9270; G0008; J0131; J0690; J1200; J2274; J2405; J2590; J2790; J3480; J7120

== ENCOUNTER 2021-10-03 20:16 | Observation (INO) | payer BC, SELFPAY ==
--- NOTE | ~2021-10-03 | MR_ITS ---
EXAMINATION: MR MRCP wo/w con/w 3D wo ind DATE: 10/05/2021 07:53 INDICATION: Cholecystitis. TECHNIQUE: Magnetic resonance imaging (MRI) of the abdomen was performed without and with 19 mL Multi Taina intravenous contrast. Sequences included coronal T2-weighted FS FSE, coronal T2-weighted FSE, a xial T1-weighted LAVA, coronal FS FIESTA, axial dual-echo T1-weighted SPGR, coronal lava-FLEX, sagitt al T2-weighted FSE, axial T2-weighted FSE, and axial DWI. Thick-slab T2-weighted FSE images were obta ined for magnetic resonance cholangiopancreatography (MRCP). Maximum intensity projection 3-D reconst ructions of the volumetric data were created by the technologist. Postcontrast sequences included cor onal LAVA-flex and time course of axial T1-weighted LAVA. COMPARISON: CT abdomen and pelvis 10/04/2021 FINDINGS: ABDOMEN MRI: There is no intracranial hemorrhage, acute infarction, or abnormal intracranial mass les ion. There are gallstones in the gallbladder which is normal in size. Gallbladder wall thickening is noted. The spleen is normal. Pancreas divisum is noted. The adrenal glands and kidneys are normal. Th ere are no dilated loops of bowel. There are no pathologically enlarged lymph nodes. There is no free intraperitoneal fluid. ABDOMEN MRCP: The common duct is mildly dilated to 7 mm. No choledocholithiasis. IMPRESSION: 1. Cholelithiasis. Gallbladder wall thickening may be seen with interstitial edema, chronic cholecyst itis, or chronic liver disease. 2. Mildly dilated common duct. No choledocholithiasis. Reviewed, dictated and finalized at location B. IMPRESSION: 1. Cholelithiasis. Gallbladder wall thickening may be seen with interstitial ed farzana, chronic cholecystitis, or chronic liver disease. 2. Mildly dilated common duct. No choledocholithiasis.
--- NOTE | ~2021-10-03 | CT_ITS ---
EXAMINATION: CT abdomen pelvis w con DATE: 10/04/2021 00:46 INDICATION: Right abdominal pain, nausea and vomiting. History of gallstones. TECHNIQUE: Computed tomography (CT) of the abdomen and pelvis was performed with 100 CC Omnipaque 300 intravenous contrast. Automated exposure control and iterative reconstruction technique were employe d. Exam dose: 1103.22 mGy-cm total exam DLP. COMPARISON: 01/10/2015 CT abdomen pelvis FINDINGS: Minimal bilateral lower lobe dependent atelectasis. Normal heart size. No pericardial or pleural effusion. Very small sliding hiatal hernia. There are stones in the dependent aspect of the gallbladder. There is gallbladder wall thickening. Ac chitina cholecystitis is suggested. Consider gallbladder ultrasound and possibly radionuclide hepatobilia ry scan as clinically appropriate. The common bile duct measures up to approximately 10 mm. Minimal intrahepatic bile duct dilatation. N o pancreatic duct dilatation. No hepatic, splenic, pancreatic, adrenal or renal space-occupying mass lesion. No urinary tract calcu lorna or hydroureteronephrosis. Normal caliber of the abdominal aorta. No intraperitoneal or retroperitoneal or pelvic mass lesion or adenopathy or ascites. An IUD is identified in appropriate position within the uterus. Adnexal areas and urinary bladder are unremarkable. Normal appendix. No bowel obstruction, bowel wall thickening, pneumatosis or intraperitoneal free air . Very small fat-containing umbilical hernia. IMPRESSION: Cholelithiasis and gallbladder wall thickening, suggesting acute cholecystitis Mild bile duct dilatation, common bile duct measuring up to 10 mm Reviewed, dictated and finalized at Location [facility]. Reviewed, dictated and finalized at location A. IMPRESSION: Cholelithiasis and gallbladder wall thickening, suggesting acute c holecystitis Mild bile duct dilatation, common bile duct measuring up to 10 mm
[2021-10-03 20:28] VITALS: BP 123/80; PULSE 64; RESP 18; TEMP 36.5; O2SAT 100
--- NOTE | 2021-10-03 20:32 | ECG_ITS ---
Measurements Intervals [place] Rate: 60 P: 18 KS: 149 QRS: 72 QRSD: 102 T: 42 QT: 429 QTc: 431 Interpretive Statements SINUS RHYTHM BASELINE ARTIFACT- I, II, III, AVR, AVL, AVF NORMAL ECG Electronically Signed On 10-03-2021 21:35:24 CDT by Eric Lundy D.O.
[2021-10-03 20:56] LABS: Basophils Absolute Auto 0.1 K/mm3 (0.0-0.1); Eosinophils Absolute Auto 0.2 K/mm3 (0-0.3); Eosinophils Percent Auto 1.8 % (0-4.4); Hematocrit 40.3 % (37.0-47.0); Hemoglobin 12.8 g/dL (12.0-15.0); Immature Granulocyte Absolute 0.02 K/mm3 (0.00-0.031); Immature Granulocyte Percent A 0.2 % (0-0.5); Lymphocytes Absolute Auto 2.32 K/mm3 (0.9-3.2); Mean Corpuscular HGB Conc 31.8 g/dl (32-36); Mean Corpuscular Hemoglobin 25.5 pg (26-34); Mean Corpuscular Volume 80.4 fl (80-100); Mean Platelet Volume 11.9 fl (7.4-10.4); Monocytes Absolute Auto 0.4 K/mm3 (0.1-0.6); Monocytes Percent Auto 5.3 % (2.6-8.5); Neutrophils Absolute Auto 5.3 K/mm3 (1.3-6.7); Neutrophils Percent Auto 63.7 % (45.5-73.1); Platelet Count Result 206 k/mm3 (150-375); Red Blood Count 5.01 M/mm3 (4.2-5.4); Red Cell Distribution Width 14.6 % (11.5-14.5); White Blood Count 8.3 K/mm3 (4.5-10.0)
[2021-10-03 20:56] LABS: Appearance Urine Clear (Clear); Bilirubin Urine Negative (Negative); Blood Urine Negative (Negative); Color Urine Yellow (Yellow); Glucose Urine UA Negative (Negative); Ketones Urine Negative (Negative); Leukocyte Esterase Ur Negative LEU/UL (Negative); Nitrate Urine Negative (Negative); Protein Urine Negative (Negative); pH Urine 7.5 (5.0-9.0)
[2021-10-03 20:57] LABS: Alanine Aminotransferase 53 U/L (6-35); Albumin Level 4.6 g/dL (3.5-5.1); Alkaline Phosphatase 92 U/L (38-126); Anion Gap 7 mmol/L (8-16); Aspartate Amino Transferase 98 U/L (14-36); Bilirubin,Total 0.8 mg/dL (0.2-1.3); Blood Urea Nitrogen 11 mg/dL (7-17); Calcium 9.2 mg/dL (8.4-10.2); Carbon Dioxide 29 mmol/L (22-30); Chloride 101 mmol/L (98-107); Estimated CRCL calculation 96 ml/min; Estimated Glomerular Filt Rate > 60; Glucose 99 mg/dL (65-110); Lipase 79 U/L (23-300); Potassium 3.8 mmol/L (3.4-5.0); Sodium 137 mmol/L (137-145)
[2021-10-03 21:09] LABS: Add Urine Microscopic? YES
[2021-10-03 21:12] LABS: Budding Yeast Urine Present /hpf; Mucus Urine Rare /lpf; Squamous Epithelial Cell Urine Moderate /hpf (Few); WBC Urine 0-3 /hpf
[2021-10-04 00:03] VITALS: BP 120/69; PULSE 57; RESP 16; O2SAT 99
[2021-10-04] MEDS: ONDANSETRON INJ 4 MG/2 ML VIAL IV PUSH (00:08)
[2021-10-04] MEDS: fentaNYL CITRATE INJ (*CRX) 100 MCG/2 ML VIAL 50 MCG IV PUSH (00:08)
[2021-10-04] MEDS: FAMOTIDINE 20 MG/2 ML VIAL IV PUSH (00:08)
[2021-10-04] MEDS: SODIUM CHLORIDE 0.9% IV 1,000 ML 999 ML IV CONT (00:09)
--- NOTE | 2021-10-04 01:32 | PC.NURSE ---
Assuming care of pt.
[2021-10-04 01:33] VITALS: BP 98/53; PULSE 54; RESP 18; O2SAT 100
--- NOTE | 2021-10-04 02:17 | ED.ABDPAIN ---
HPI - Abdominal Pain General Chief Complaint: Abdominal Pain Stated Complaint: gallbladder attack Time Seen by Provider: 10/03/21 23:16 Source: patient Mode of arrival: ambulatory History of Present Illness HPI narrative: 40-year-old female presents today with complaints of right shoulder pain and mid epigastric pain that started around 5 PM tonight. Patient with a history of gallstones but states she can normally tolerate the pain until things improve. Tonight she was not able to tolerate the pain. Patient states she ate to fried chicken tenders prior to the pain starting. Patient currently denies any fevers, diarrhea. Patient denies any alleviating factors at this time. Related Data Home Medications Medication Instructions Recorded Confirmed prenat.vits,amauri,[id number] 1 tablet PO DAILY 01/28/21 01/28/21 Allergies Allergy/AdvReac Type Severity Reaction Status Date / Time Penicillins Allergy Mild RASH Verified 08/20/19 11:58 Review of Systems Review of Systems: CONSTITUTIONAL: Denies fever, chills, or sweats. EYES: Denies visual changes, redness, or discharge. ENT: Denies rhinorrhea, congestion, sore throat, or otalgia. CARDIOVASCULAR: Denies chest pain, palpitations, or edema. RESPIRATORY: Denies cough or dyspnea. GASTROINTESTINAL: Right shoulder blade pain and midepigastric pain. Denies nausea, vomiting, or diarrhea. GENITOURINARY: Denies dysuria or hematuria. SKIN: Denies rash or itching. MUSCULOSKELETAL: Denies back pain, joint pain, or myalgia. NEUROLOGIC: Denies headache, numbness, dizziness, or weakness. PSYCHIATRIC: Denies anxiety or depression. [facility] Past Medical History Medical History Anxiety Depression Herniated disc Mastitis Surgical History Surgical History History of section Family History Family History Mother ALS (amyotrophic lateral sclerosis) Father Brain cancer Social History Social History Smoking status: Never smoker Substance use: never Gender identity (if verbalized by the patient): Female Spiritual care concerns: No Exam Narrative: GENERAL: Well-appearing, well-nourished, and in no acute distress. HEAD: Normocephalic, atraumatic. EYES: PERRLA and EOMI. ENT: Nares clear, no rhinorrhea or epistaxis. Mucous membranes moist. Oropharynx without tonsillar hypertrophy exudate or other lesions. Bilateral TMs pearly sosa nonbulging NECK: Supple. No adenopathy or masses. No carotid bruits or JVD CHEST: Clear to auscultation. No respiratory distress. No wheezes rales or rhonchi HEART: Regular rate and rhythm. No murmur heard. Normal peripheral pulses. ABDOMEN: Soft, tender, nondistended, normal active bowel sounds. EXTREMITIES: Normal range of motion. No edema. SKIN: Warm, dry, no rash. NEURO: No focal deficits. Alert and oriented x3. PSYCH: Normal mood and affect. Course Course Emergency Course: HPI as noted. Pain under control after medication. Results discussed with patient. Patient to be admitted to obs for further management with GI, surgery, and hospitalist. White count 8.3 hemoglobin 12.8 sodium 137 potassium 38 AST 98 ALT 53 alk phos 92 total bilirubin 1.8. Patient is nontoxic appearing. Consultations Consultation #1: Dr. Clarke consulted. Will see patient once admitted. Date: 10/04/21 Time: 02:22 Consultation #2: Dr. Dwyer consulted and will see patient in the am Date: 10/04/21 Time: 02:28 Vital Signs Vital signs: Vital Signs Temperature 36.5 C 10/03/21 20:28 Pulse Rate 64 10/03/21 20:28 Respiratory Rate 18 10/03/21 20:28 Blood Pressure 123/80 10/03/21 20:28 Pulse Oximetry 100 10/03/21 20:28 Temperature 36.5 C 10/03/21 20:28 Pulse Rate 54 L 10/04/21 01:33 Respiratory Rate 18 10/04/21 01:3
[2021-10-04 03:49] LABS: SARS-CoV-2 RNA PCR Negative
[2021-10-04 04:15] VITALS: BP 110/71; PULSE 52; RESP 16; O2SAT 100
[2021-10-04] MEDS: MORPHINE SULFATE (*CRX) 2 MG/ML INJ IV PUSH ×2 (04:34→08:58)
[2021-10-04] MEDS: SODIUM CHLORIDE 0.9% IV 1,000 ML 125 ML IV CONT ×2 (04:34→11:40)
[2021-10-04 05:27] VITALS: BP 106/61; PULSE 42; RESP 16; TEMP 36.1; O2SAT 98
[2021-10-04 10:11] LABS: Hematocrit 36.9 % (37.0-47.0); Hemoglobin 11.7 g/dL (12.0-15.0); Mean Corpuscular HGB Conc 31.7 g/dl (32-36); Mean Corpuscular Hemoglobin 25.6 pg (26-34); Mean Corpuscular Volume 80.7 fl (80-100); Mean Platelet Volume 11.8 fl (7.4-10.4); Platelet Count Result 191 k/mm3 (150-375); Red Blood Count 4.57 M/mm3 (4.2-5.4); Red Cell Distribution Width 14.6 % (11.5-14.5); White Blood Count 6.2 K/mm3 (4.5-10.0)
[2021-10-04 10:24] LABS: Alanine Aminotransferase 164 U/L (6-35); Albumin Level 3.6 g/dL (3.5-5.1); Alkaline Phosphatase 91 U/L (38-126); Anion Gap 6 mmol/L (8-16); Aspartate Amino Transferase 270 U/L (14-36); Blood Urea Nitrogen 7 mg/dL (7-17); Carbon Dioxide 24 mmol/L (22-30); Chloride 106 mmol/L (98-107); Estimated CRCL calculation 108 ml/min; Estimated Glomerular Filt Rate > 60; Glucose 101 mg/dL (65-110); Potassium 3.9 mmol/L (3.4-5.0); Sodium 136 mmol/L (137-145)
--- NOTE | 2021-10-04 11:00 | PM.CNGS ---
Assessment and Plan Assessment and plan (1) Cholelithiasis with chronic cholecystitis: Code(s): K80.10 - Calculus of gallbladder with chronic cholecystitis without obstruction Status: Chronic Assessment and Plan: Patient feeling better and thinks she may have passed a stone. She would like to try some solid food. Her exam is negative. All go ahead and start her on a low-fat diet. (2) Common bile duct dilatation: Code(s): K83.8 - Other specified diseases of biliary tract Status: Acute Assessment and Plan: Noted on CT scan done in the emergency room. (3) Transaminitis: Code(s): R74.01 - Elevation of levels of liver transaminase levels Status: Acute Assessment and Plan: Although LFTs are Karl today, patient is feeling better and may have passed a stone. Her exam is negative. Dr. Hollingsworth is to see. Will go ahead and start low-fat diet as I do not expect her to be having any procedures today. Recheck labs again tomorrow. History of Present Illness Consult details Consult date: 10/04/21 Reason for consult: abdominal pain Requesting physician: Liza Miles APRN Narrative: Patient is a 40-year-old woman who came to the emergency room last night with severe epigastric and right upper quadrant pain as well as pain in her right shoulder. The pain started last night after eating some fried chicken tenders. She has had pain like this before and knew she had gallstones. Usually the pain just goes away but this time it was more persistent and severe. She came to the emergency room and was evaluated. CT scan of the abdomen pelvis was done and showed gallstones with evidence of cholecystitis and gallbladder wall thickening. Her common bile duct was felt to be 12 mm in diameter and possibly a stone in the distal bowel common bile duct. Liver function tests were minimally elevated. Lipase and white blood cell count were normal. The patient's pain was severe and persistent and she was admitted. This morning she reports that her pain is not gone but much better. She did have a pain shot about an hour before I saw her. She has been tolerating clear liquids and would like her diet advanced. She reports that she thinks she passed a stone. Patient notes that her symptoms of gallbladder disease really started in May of 2020. She agreed to carried the baby after in vitro fertilization for a friend. The transfer was made in May of 2020 was associated with a lipid infusion. She developed pain after this. She was able to deliver the baby in last February. She has continued to have these kind of pains and was evaluated at 1 point at [place]. An MRI was done but follow-up fell through the cracks. She is seen now in consultation. Review of Systems Review of Systems: All systems reviewed & are unremarkable except as noted in HPI and below Constitutional: Constitutional: Denies chills and Denies fever(s) Cardiovascular: Cardiovascular: Denies chest pain, Denies diaphoresis, Denies dyspnea and Denies paroxysmal nocturnal dyspnea Respiratory: Respiratory: Denies chest congestion, Denies cough and Denies dyspnea Gastrointestinal: Gastrointestinal: Reports abdominal pain, Reports bloating and Reports nausea Integumentary/Breasts: Skin/Breast: Denies lesions and Denies rash PMFSH Past Medical History Medical History Anxiety Depression Herniated disc Mastitis Surgical History Surgical History History of section Family History Family History Mother ALS (amyotrophic lateral sclerosis) Father Brain cancer Social History Social History Smoking status: Never smoker Alcohol intake: never Substance use: never Gender identity (if verbalized by the patient):
--- NOTE | 2021-10-04 11:01 | PM.IMHP ---
H&P: HPI History of Present Illness Date/Time: 10/04/21 11:01 Chief Complaint: Right upper quadrant pain Narrative: Date of service: 10/04/2021 Stacey Gonzáles is a 40-year-old female with a history of anxiety and hypertension who presented to the emergency department on 10/04/2021 with complaints of right upper quadrant pain that radiated to the back. She states these issues correlate back to May 2020 when she was a surrogate and underwent a lipid infusion. Since that time she has had episodes of frequent discomfort that she describes like heartburn that occurs under her right rib cage and wraps around to her back. She has had issues with this for over a year and finally some friends suggested that it might be related to her gallbladder. Sometime last year she was evaluated in the ED for these complaints and was found to have elevated liver enzymes and was recommended to follow-up with GI for MRCP. Unfortunately MRCP was not completed and there was no further follow-up. She states that eventually she learned to manage the symptoms on her own. She identified all pork products as a trigger and avoided these foods. If she did feel symptoms coming on, she would take magnesium citrate to help ?pass stones. She has been taking this about every 2-3 weeks to help manage her symptoms. Yesterday afternoon she had some fried chicken strips and then developed this similar pain in her right upper quadrant like someone was pushing on my diaphragm. She had no relief with magnesium citrate and ultimately decided to seek evaluation in the ED. On presentation, LFTs were slightly elevated with normal total bilirubin and lipase, CT of the abdomen/pelvis showed cholelithiasis and gallbladder wall thickening suggesting acute cholecystitis as well as mild bile duct dilatation. At the time of my evaluation, her pain has improved and she feels that she possibly passed a stone as she is having much less discomfort. She did have an episode of emesis last night. Still endorses some mild nausea but has been able to tolerate clear liquids. Review of Systems Review of Systems: All systems reviewed with pertinent positives and negatives as per HPI. Patient denies shortness of breath, cough, chest pain. Last night had difficulty taking a deep breath due to pain but this has resolved. Last bowel movement was 2 days ago. She states she is prone to diarrhea. She denies dysuria, hematuria, urgency, frequency. No issues with ambulation. Denies dizziness, lightheadedness, weakness. No fevers or chills. PMFSH Past Medical History Medical History (Updated 10/04/21 @ 11:12 by Ozzy Clarke MD) Anxiety Depression Gestational diabetes Herniated disc Mastitis Surgical History Surgical History (Updated 10/04/21 @ 11:25 by Allie Tian PA-C) History of section History of fusion of cervical spine C5-C6 History of repair of ACL Family History Family History Mother ALS (amyotrophic lateral sclerosis) Father Brain cancer Social History Social History (Updated 10/04/21 @ 11:27 by Allie Tian PA-C) Social History: Ms. Gonzáles lives at home with her significant other and her 2 children. She is independent in her daily activities. 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 Shoemaker. She designates her significant other, Sanjay, as her surrogate decision maker. She would like to be a full code. Smoking packs per day: 1 Smoking cigarettes per day: 20.0 Years smoked: 8 Smoking pack-years: 8.00 Smoking status: Former smoker Alcohol intake: current Alcohol use details: Rare alcohol use every 3 months Substance use: never Gender identity (if verbalized by the patient): Female Spiritual care concerns: No Meds Home Medications and Allergies Home Medications Medication Instructions Dominic
--- NOTE | 2021-10-04 12:33 | WPDGICN ---
Assessment and Plan Assessment and plan (1) Cholelithiasis with chronic cholecystitis: Code(s): K80.10 - Calculus of gallbladder with chronic cholecystitis without obstruction Status: Chronic Assessment and Plan: will repeat set of liver enzymes and also get MRCP to assess if stones/sludge in bile duct, based on findings may need ercp already on iv antibiotics, timing of cholecystectomy per surgery team (2) Transaminitis: Code(s): R74.01 - Elevation of levels of liver transaminase levels Status: Acute Assessment and Plan: will repeat again tomorrow and see trend (3) Common bile duct dilatation: Code(s): K83.8 - Other specified diseases of biliary tract Status: Acute Assessment and Plan: mrcp to rule out choledocholithiasis (4) Nausea and vomiting in adult: Code(s): R11.2 - Nausea with vomiting, unspecified Status: Acute Assessment and Plan: improved GI Consult Note Consult date/time: 10/04/21 12:33 Reason for consult: cholecystitis, elevated liver enzymes HPI: Stacey Gonzáles is a 40 year old female with recurrent epigastric pain with radiation to RUQ since she was 05/2020 (she was a surrogate for a friend) and gave February by . She has been having more frequent recurrent pain every 1-2 weeks, she even went on May 2021 to ER at [place] with severe pain that lasted several minutes, she was told that had elevated liver enzymes and had MRI abdomen but sent home. She noted that pain will get worse after eating fatty meals or pork. This time pain was severe with similar distribution and stayed longer also had associated nausea and vomiting, no fever. CT scan reviewed and showed cholelithiasis and gallbladder wall thickening, suggesting acute cholecystitis, mild bile duct dilatation, common bile duct measuring up to 10 mm. Blood work showed bili 0.8 but up to 2, transaminases 160-200. Denies alcohol use, no history of pancreatitis. Lipase normal. Review of Systems Constitutional: Constitutional: Denies chills Eyes: Eyes: Denies blurry vision ENT: Reports Normal hearing present Cardiovascular: Cardiovascular: Denies lightheadedness Respiratory: Respiratory: Denies dyspnea Gastrointestinal: Gastrointestinal: Reports abdominal pain, Reports nausea and Reports vomiting Genitourinary: Genitourinary: Denies hematuria Musculoskeletal: Musculoskeletal: Denies neck pain Integumentary/Breasts: Skin/Breast: Denies dry skin Neurologic: Denies headache(s) Psychiatric: Psychiatric: Denies behavioral changes PMFSH Past Medical History Medical History (Updated 10/04/21 @ 12:40 by Mir Cai MD) Anxiety Depression Gestational diabetes Herniated disc Mastitis Nausea and vomiting in adult Surgical History Surgical History (Updated 10/04/21 @ 11:25 by Allie Tian PA-C) History of section History of fusion of cervical spine C5-C6 History of repair of ACL Family History Family History Mother ALS (amyotrophic lateral sclerosis) Father Brain cancer Social History Social History (Updated 10/04/21 @ 11:27 by Allie Tian PA-C) Social History: Ms. Gonzáles lives at home with her significant other and her 2 children. She is independent in her daily activities. 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 Shoemaker. She designates her significant other, Sanjay, as her surrogate decision maker. She would like to be a full code. Smoking packs per day: 1 Smoking cigarettes per day: 20.0 Years smoked: 8 Smoking pack-years: 8.00 Smoking status: Former smoker Alcohol intake: current Alcohol use details: Rare alcohol use every 3 months Substance use: never Gender identity (if verbalized by the patient): Female Spiritual care concerns: No Meds Home Medic
[2021-10-04 14:00] VITALS: BP 98/58; PULSE 54; RESP 16; TEMP 36.3; O2SAT 97
[2021-10-04] MEDS: FAMOTIDINE 20 MG TABLET PO (19:56)
[2021-10-04] MEDS: ACETAMINOPHEN 325 MG TABLET 650 MG PO (21:53)
[2021-10-04] MEDS: SODIUM CHLORIDE 0.9% IV 1,000 ML 80 ML IV CONT (21:54)
[2021-10-04 22:00] VITALS: BP 101/50; PULSE 53; RESP 18; TEMP 36.1; O2SAT 97
[2021-10-05 06:00] VITALS: BP 105/54; PULSE 60; RESP 16; TEMP 36.2; O2SAT 98
[2021-10-05 08:00] VITALS: O2SAT 100
[2021-10-05] MEDS: FAMOTIDINE 20 MG TABLET PO (08:20)
[2021-10-05 08:27] LABS: Basophils Percent Auto 0.7 % (0.2-1.2); Eosinophils Absolute Auto 0.1 K/mm3 (0-0.3); Eosinophils Percent Auto 2.8 % (0-4.4); Hematocrit 38.5 % (37.0-47.0); Hemoglobin 12.1 g/dL (12.0-15.0); Immature Granulocyte Absolute 0.02 K/mm3 (0.00-0.031); Immature Granulocyte Percent A 0.5 % (0-0.5); Lymphocytes Absolute Auto 1.33 K/mm3 (0.9-3.2); Lymphocytes Percent Auto 31.4 % (18.3-44.2); Mean Corpuscular HGB Conc 31.4 g/dl (32-36); Mean Corpuscular Hemoglobin 25.8 pg (26-34); Mean Corpuscular Volume 82.1 fl (80-100); Mean Platelet Volume 11.5 fl (7.4-10.4); Monocytes Absolute Auto 0.2 K/mm3 (0.1-0.6); Monocytes Percent Auto 5.4 % (2.6-8.5); Neutrophils Absolute Auto 2.5 K/mm3 (1.3-6.7); Neutrophils Percent Auto 59.2 % (45.5-73.1); Platelet Count Result 184 k/mm3 (150-375); Red Blood Count 4.69 M/mm3 (4.2-5.4); Red Cell Distribution Width 14.8 % (11.5-14.5); White Blood Count 4.2 K/mm3 (4.5-10.0)
[2021-10-05 08:35] LABS: Alanine Aminotransferase 182 U/L (6-35); Alkaline Phosphatase 108 U/L (38-126); Anion Gap 3 mmol/L (8-16); Aspartate Amino Transferase 114 U/L (14-36); Bilirubin,Total 0.8 mg/dL (0.2-1.3); Blood Urea Nitrogen 8 mg/dL (7-17); Calcium 8.2 mg/dL (8.4-10.2); Carbon Dioxide 27 mmol/L (22-30); Chloride 107 mmol/L (98-107); Estimated CRCL calculation 108 ml/min; Estimated Glomerular Filt Rate > 60; Glucose 89 mg/dL (65-110); Lipase 71 U/L (23-300); Potassium 4.2 mmol/L (3.4-5.0); Sodium 137 mmol/L (137-145)
--- NOTE | 2021-10-05 10:42 | PM.PNGS ---
Progress Note: A&P Assessment and Plan (1) Cholelithiasis with chronic cholecystitis: Qualifiers: Cholelithiasis location: gallbladder and bile duct Biliary obstruction: with biliary obstruction Qualified Code(s): K80.65 - Calculus of gallbladder and bile duct with chronic cholecystitis with obstruction Code(s): K80.10 - Calculus of gallbladder with chronic cholecystitis without obstruction Status: Chronic Assessment and Plan: patient doing very well at this time. LFTs are improved from yesterday. She has had no pain and is tolerating solid food. We are still pending the MRCP dictation but unless ERCP is planned, patient can be discharged today and my office will call her tomorrow to schedule for outpatient laparoscopic cholecystectomy with intraoperative cholangiogram. This can be done as an outpatient. I explained the procedure the risks the benefits the usual recovery and time off work to the patient. All questions were answered. She is feeling good and would like to go home today if possible. (2) Nausea and vomiting in adult: Code(s): R11.2 - Nausea with vomiting, unspecified Status: Resolved (3) Common bile duct dilatation: Code(s): K83.8 - Other specified diseases of biliary tract Status: Acute Assessment and Plan: Pending reading of MRI. Will do cholangiogram at time of laparoscopic cholecystectomy as mentioned above. (4) Transaminitis: Code(s): R74.01 - Elevation of levels of liver transaminase levels Status: Acute Assessment and Plan: Improved. Subjective Subjective Date/Time Seen: 10/05/21 10:42 Patient reports: feels better, pain is less ( no abdominal pain at all. Feels she passed a stone yesterday morning.), tolerating a regular diet and afebrile Review of Systems Review of Systems: All systems reviewed & are unremarkable except as noted in HPI and below Constitutional: Constitutional: Denies chills and Denies fever(s) Cardiovascular: Cardiovascular: Denies chest pain, Denies diaphoresis, Denies dyspnea and Denies paroxysmal nocturnal dyspnea Respiratory: Respiratory: Denies chest congestion, Denies cough and Denies dyspnea Gastrointestinal: Gastrointestinal: Reports as per HPI, Denies abdominal pain, Denies bloating, Denies heartburn, Denies nausea and Denies vomiting Integumentary/Breasts: Skin/Breast: Denies lesions and Denies rash Exam Const: General: comfortable and no acute distress; No confusion Orientation/consciousness: patient oriented x3 and No confusion GI: Inspection: non-distended and obesity GI Palp: Yes Soft to palpation, No Tenderness to palpation present (GI), No Guarding due to palpation present (GI), No Palpable mass present and No Rebound tenderness present Auscultation: normal bowel sounds Neuro: General: patient oriented x3, no focal motor deficits and No confusion Extrem: General: no calf tenderness and no edema Psych: Affect: normal affect Insight: Good insight present (Psych) Judgement: Good judgement present (Psych) Objective Data Vital Signs Vital Signs: Vital Signs - 24 hr 10/04/21 14:00 10/04/21 22:00 10/05/21 06:00 Temperature 36.3 C L 36.1 C L 36.2 C L Pulse Rate 54 L 53 L 60 Respiratory Rate 16 18 16 Blood Pressure 98/58 L 101/50 L 105/54 L Pulse Oximetry 97 97 98 10/05/21 08:00 Temperature Pulse Rate Respiratory Rate Blood Pressure Pulse Oximetry 100 Intake/Output Intake/Output: Intake & Output 10/02/21 10/03/21 10/04/21 10/05/21 23:59 23:59 23:59 23:59 Intake Total 5050 1370 Balance 5050 1370 Meds/Results Medications: Active Medications Generic Name Dose Route Start Last Admin Trade Name Freq PRN Reason Stop Dose Admin Acetaminophen 650 mg 10/04/21 11:32 10/04/21 21:53 Acetaminophen 325 Mg Tablet PO 650 mg Q4H PRN Administration Pain 1-3 Hydrocodone Bitart/Acetaminophen 1 tab 10/04/21 11:32 Hydrocodone/A
--- NOTE | 2021-10-05 11:05 | WPDGIPROGNO ---
Progress Note: A&P Assessment and Plan (1) Cholelithiasis with chronic cholecystitis: Qualifiers: Cholelithiasis location: gallbladder and bile duct Biliary obstruction: with biliary obstruction Qualified Code(s): K80.65 - Calculus of gallbladder and bile duct with chronic cholecystitis with obstruction Code(s): K80.10 - Calculus of gallbladder with chronic cholecystitis without obstruction Status: Chronic Assessment and Plan: clinically better with no more pain and tolerating diet surgery is planning cholecystectomy as outpatient MRCP was done but waiting for final report- if no stone in bile duct then she can home but if find choledocholithiasis then will need to stay for ercp (2) Nausea and vomiting in adult: Code(s): R11.2 - Nausea with vomiting, unspecified Status: Resolved Assessment and Plan: resolved (3) Common bile duct dilatation: Code(s): K83.8 - Other specified diseases of biliary tract Status: Acute Assessment and Plan: pending on MRCP report (4) Transaminitis: Code(s): R74.01 - Elevation of levels of liver transaminase levels Status: Acute Assessment and Plan: trending down wonder if stone already passed Subjective Date/time seen: 10/05/21 11:05 Interval history: no more pain and has been tolerating diet Review of Systems Review of Systems: All systems reviewed & are unremarkable except as noted in HPI and below Exam Const: General: comfortable and no acute distress HENMT: General nose exam: Normal nares present Eyes: General: appearance normal, both eyes and all related structures Neck: Neck: no JVD Resp: Auscultation: clear to auscultation bilaterally Cardio: Rate: regular rate Rhythm: regular rhythm GI: Inspection: non-distended GI Palp: Yes Soft to palpation and No Guarding due to palpation present (GI) Auscultation: normal bowel sounds Skin: General skin exam: normal color Neuro: Speech: normal speech Motor exam (neuro): Normal motor muscle tone present throughout Extrem: General: normal to inspection Psych: Mental Status: mental status grossly normal Objective Data Vital Signs Vital Signs: Vital Signs - 24 hr 10/04/21 14:00 10/04/21 22:00 10/05/21 06:00 Temperature 97.4 F L 97.0 F L 97.1 F L Pulse Rate 54 L 53 L 60 Respiratory Rate 16 18 16 Blood Pressure 98/58 L 101/50 L 105/54 L Pulse Oximetry 97 97 98 10/05/21 08:00 Temperature Pulse Rate Respiratory Rate Blood Pressure Pulse Oximetry 100 Intake/Output Intake/Output: Intake & Output 10/02/21 10/03/21 10/04/21 10/05/21 23:59 23:59 23:59 23:59 Intake Total 5050 1370 Balance 5050 1370 Meds/Results Medications: Active Medications Generic Name Dose Route Start Last Admin Trade Name Freq PRN Reason Stop Dose Admin Acetaminophen 650 mg 10/04/21 11:32 10/04/21 21:53 Acetaminophen 325 Mg Tablet PO 650 mg Q4H PRN Administration Pain 1-3 Hydrocodone Bitart/Acetaminophen 1 tab 10/04/21 11:32 Hydrocodone/Acetaminophen (*Crx) 5-325 Mg Tablet PO Q6H PRN Pain Rated 4-6 Enoxaparin Sodium 40 mg 10/05/21 09:00 10/05/21 08:20 Enoxaparin 40 Mg/0.4 Ml Syringe SUB-Q Not Given DAILY DALIA Famotidine 20 mg 10/04/21 21:00 10/05/21 08:20 Famotidine 20 Mg Tablet PO 20 mg Q12HR DALIA Administration Morphine Sulfate 2 mg 10/04/21 02:32 10/04/21 08:58 Morphine Sulfate (*Crx) 2 Mg/Ml Inj IV PUSH 2 mg Q2H PRN Administration Pain Rated 7-10 Ondansetron HCl 4 mg 10/04/21 02:32 Ondansetron Inj 4 Mg/2 Ml Vial IV PUSH Q4H PRN Nausea Radiology Results: ITS Impressions Abdomen/Pelvis CT 10/04/21 07:58 IMPRESSION: Cholelithiasis and gallbladder wall thickening, suggesting acute cholecystitis Mild bile duct dilatation, common bile duct measuring up to 10 mm Labs Labs: Laboratory Results - last 24 hr 10/05/21 10/05/21
[2021-10-05 14:00] VITALS: BP 113/60; PULSE 59; RESP 16; TEMP 36.2; O2SAT 99
--- NOTE | 2021-10-05 14:02 | PM.IMPN ---
Progress Note: A&P Assessment and Plan (1) Cholelithiasis with chronic cholecystitis: Qualifiers: Cholelithiasis location: gallbladder and bile duct Biliary obstruction: with biliary obstruction Qualified Code(s): K80.65 - Calculus of gallbladder and bile duct with chronic cholecystitis with obstruction Code(s): K80.10 - Calculus of gallbladder with chronic cholecystitis without obstruction Status: Chronic Assessment and Plan: Patient presented with right upper quadrant pain CT abdomen/pelvis showed cholelithiasis and gallbladder wall thickening concerning for acute cholecystitis Appreciate general surgery consultation Pain has resolved. Patient thinks that she passed a stone. Continue low-fat diet Plan for outpatient cholecystectomy Supportive care. Analgesics available as needed for pain (2) Common bile duct dilatation: Code(s): K83.8 - Other specified diseases of biliary tract Status: Acute Assessment and Plan: Evident on CT on presentation Appreciate gastroenterology consultation MRCP completed this morning, awaiting results Will make NPO at midnight in the event ERCP is indicated (3) Transaminitis: Code(s): R74.01 - Elevation of levels of liver transaminase levels Status: Acute Assessment and Plan: Trending down today Patient believes she has passed a stone which would explain these findings Total bilirubin levels have normalized today Appreciate gastroenterology evaluation Trend LFTs Await MRCP Subjective Date/time seen: 10/05/21 14:02 Interval history: Date of service: 10/05/2021 Stacey Gonzáles is a 40-year-old female with a history of anxiety and hypertension who is seen in follow-up for chronic cholecystitis and common bile duct dilatation. She is feeling better today. She has no abdominal pain. She is tolerating a low-fat diet. She still has a little bit of nausea but denies vomiting. Denies fever, chills, dizziness, lightheadedness, weakness. No SOB, cough, chest pain. She has no additional concerns. Review of Systems Review of Systems: All systems reviewed & are unremarkable except as noted in HPI and below Exam Narrative: General: Well-nourished, well-appearing 40 year-old female, sitting up in bed, comfortable, NARD Neuro: awake, alert and oriented x4, speech clear, no focal neuro deficits noted HEENMT: normocephalic, atraumatic, EOMI, sclerae anicteric, moist oral mucosa Respiratory: clear to auscultation bilaterally, nonlabored breathing Cardio: regular rate, regular rhythm with S1-S2 Abdomen: nondistended, normoactive bowel sounds, soft, nontender to palpation, Purcell sign negative Extremities: no edema, erythema, or tenderness to palpation, DP pulses 2+ bilaterally Skin: no rashes or lesions, warm and dry Psych: appropriate mood and affect, judgment and insight intact Objective Data Vital Signs Vital Signs: Vital Signs - 24 hr 10/04/21 22:00 10/05/21 06:00 10/05/21 08:00 Temperature 97.0 F L 97.1 F L Pulse Rate 53 L 60 Respiratory Rate 18 16 Blood Pressure 101/50 L 105/54 L Pulse Oximetry 97 98 100 Intake/Output Intake/Output: Intake & Output 10/02/21 10/03/21 10/04/21 10/05/21 23:59 23:59 23:59 23:59 Intake Total 5050 1610 Balance 5050 1610 Meds/Results Medications: Active Medications Generic Name Dose Route Start Last Admin Trade Name Daríoq PRN Reason Stop Dose Admin Acetaminophen 650 mg 10/04/21 11:32 10/04/21 21:53 Acetaminophen 325 Mg Tablet PO 650 mg Q4H PRN Administration Pain 1-3 Hydrocodone Bitart/Acetaminophen 1 tab 10/04/21 11:32 Hydrocodone/Acetaminophen (*Crx) 5-325 Mg Tablet PO Q6H PRN Pain Rated 4-6 Enoxaparin Sodium 40 mg 10/05/21 09:00 10/05/21 08:20 Enoxaparin 40 Mg/0.4 Ml Syringe SUB-Q Not Given DAILY [facility] Famotidine 20 mg 10/04/21 21:00 10/05/21 08:20 Famotidine 20 Mg Tablet PO 20 mg
--- NOTE | 2021-10-05 18:01 | PC.NURSE ---
Called Radiologist I have a STAT report of MRCP being sent ZECHARIAH.
--- NOTE | 2021-10-05 18:21 | PM.DS ---
DS: Admitting Diagnosis Discharge Date 10/05/2021 Admitting Diagnosis Cholecystitis DS: Discharge Diagnosis Discharge Diagnosis (1) Cholelithiasis with chronic cholecystitis: Qualifiers: Cholelithiasis location: gallbladder and bile duct Biliary obstruction: with biliary obstruction Qualified Code(s): K80.65 - Calculus of gallbladder and bile duct with chronic cholecystitis with obstruction Code(s): K80.10 - Calculus of gallbladder with chronic cholecystitis without obstruction Status: Chronic Assessment and Plan: Patient presented with right upper quadrant pain CT abdomen/pelvis showed cholelithiasis and gallbladder wall thickening concerning for acute cholecystitis Seen in consultation by General surgery Pain resolved. Patient believes that she passed a stone resulting in resolution of pain Maintain low-fat diet Plan for outpatient cholecystectomy. Follow-up with General surgery outpatient. She will be contacted for an appointment. Supportive care provided. (2) Common bile duct dilatation: Code(s): K83.8 - Other specified diseases of biliary tract Status: Acute Assessment and Plan: Evident on CT on presentation She was seen in consultation by Gastroenterology MRCP revealed mildly dilated common bile duct without evidence of choledocholithiasis Suspect patient passed a stone (3) Transaminitis: Code(s): R74.01 - Elevation of levels of liver transaminase levels Status: Acute Assessment and Plan: LFTs minimally elevated on presentation was sharp increased the following day Total bilirubin increased to 2.0 none normalized LFTs trended down, patient likely passed a stone which would explain these findings. No choledocholithiasis on MRCP Outpatient cholecystectomy being planned Repeat CMP in 1 week to monitor LFTs DS: Summary Hospital Course Hospital Course: Date of admission: 10/04/2021 Date of discharge: 10/05/2021 Stacey Gonzáles is a 40-year-old female with a history of anxiety and hypertension who presented to the emergency department on 10/04/2021 with complaints of right upper quadrant pain. On presentation, LFTs were slightly elevated with normal total bilirubin and lipase, CT of the abdomen/pelvis showed cholelithiasis and gallbladder wall thickening suggesting acute cholecystitis as well as mild bile duct dilatation. She was admitted to the hospitalist service for further evaluation management and seen in consultation by Gastroenterology and General surgery. Please see above for further details. She had symptomatic improvement and was able to tolerate a low-fat diet. She will follow-up with General surgery outpatient to plan cholecystectomy. She was feeling much improved was eager for discharge home. Given overall improvement, she was determined to no longer require inpatient care and was felt to be stable for discharge. Discussed worrisome signs and symptoms for which to return and she was educated on her medications. She was discharged in hemodynamically stable condition on 10/05/2021 Status at Discharge Functional status at discharge: independent ambulation Overall status at discharge: patient is progressing back to baseline Time Spent with Patient Time attestation: Total time spent providing and/or coordinating discharge services:45 minutes Time spent: Greater than 30 minutes Exam Narrative: General: Well-nourished, well-appearing 40 year-old female, sitting up in bed, comfortable, NARD Neuro: awake, alert and oriented x4, speech clear, no focal neuro deficits noted HEENMT: normocephalic, atraumatic, EOMI, sclerae anicteric, moist oral mucosa Respiratory: clear to auscultation bilaterally, nonlabored breathing Cardio: regular rate, regular rhythm with S1-S2 Abdomen: nondistended, normoactive bowel sounds, soft, nontender to palpation, Purcell sign negative Extremities: no edema, erythema, or tenderness to palpation, DP
== END 2021-10-05 18:38 | disposition home or self-care (01) ==
LOC: ANHED 10-04 02:24 → ANH3MEDSUR 10-04 03:25
PROVIDERS: Emergency Medicine; Physician Assistant; Admitting Provider Internal Medicine; Emergency Provider Nurse Practitioner Family; PCP Family Medicine Sports Medicine; Visit Provider Student in an Organized Health Care Education/Training Program
DX: K80.10 Calculus of gallbladder with chronic cholecystitis without obstruction (principal); K83.8 Other specified diseases of biliary tract; R10.13 Epigastric pain; M25.511 Pain in right shoulder; R74.01 Elevation of levels of liver transaminase levels; Z20.822 Contact with and (suspected) exposure to COVID-19
CPT/HCPCS: 36415; 74177; 74183; 76376; 80053; 81001; 81003; 81025; 83690; 85025; 85027; 93005; 96361; 96374; 96375; 96376; 99285; A9270; A9577; C9803; G0378; J2270; J2405; J3010; J7030; Q9967; U0003; U0005

== ENCOUNTER 2021-10-07 17:52 | Outpatient (CLI) | payer BC, SELFPAY ==
[2021-10-07 18:15] LABS: Alanine Aminotransferase 90 U/L (6-35); Albumin Level 4.7 g/dL (3.5-5.1); Alkaline Phosphatase 111 U/L (38-126); Amylase 90 U/L (30-110); Aspartate Amino Transferase 36 U/L (14-36); Bilirubin,Total 0.5 mg/dL (0.2-1.3); Lipase 81 U/L (23-300)
== END 2021-10-07 17:53 | disposition home or self-care (01) ==
LOC: ANHLAB 17:55
PROVIDERS: PCP Family Medicine Sports Medicine; Visit Provider Surgery
DX: K80.10 Calculus of gallbladder with chronic cholecystitis without obstruction (principal); Z01.818 Encounter for other preprocedural examination
CPT/HCPCS: 36415; 80076; 82150; 83690; 86850; 86900; 86901

== ENCOUNTER 2021-10-08 01:06 | Day surgery (SDC) | payer BC, SELFPAY ==
[2021-10-06 15:50] VITALS: BMI 35.6
--- NOTE | 2021-10-06 16:18 | PC.NURSE ---
Report to the Outpatient Waiting Room, entrance under the green pavilion located off [facility], at 1030 on 10-08-2021. OR Time: 1230. - You and your visitor will be asked a series of questions to screen for COVID 19 for your protection. - Only one visitor is allowed at this time. - The patient visitor is requested to leave or wait in car when not with patient. - A mask is required within the hospital. Patients may have clear liquids (water, carbonated beverages, clear teas, apple juice) until 3 hours prior to surgery with a maximum of 20 ounces. 0930 - No food from midnight until time of surgery - Infants may have breast milk until 4 hours before surgery, formula 6 hours prior to surgery. - Children will be allowed to drink immediately following surgery. If applicable, please bring a bottle or sippy cup to assist with drinking. Juice, water, soda, and popsicles are readily available. For infants on formula, please bring formula the day of surgery. Pacifiers are allowed. Take the following medications with a SIP of water the morning of surgery: None Medications to discontinue per physician: N/A Please no make-up, nail thai, hairspray, perfume, deodorant, or body powder the day of surgery. No jewelry (including any body piercings) or valuables the day of surgery, leave them at home. Please take a shower or bath the night before, or the morning of, surgery with an antibacterial soap. (Hibiclens) Wear comfortable, loose fitting clothing. Children are encouraged to wear pajamas. - Jewelry must be removed prior to entering the operating room. Rings and piercings that are not removed may be cut off. - The hospital will not accept responsibility for valuables. - Please leave all valuables, including medications, at home the day of surgery. If you are going home after surgery, a licensed water tanker driver must drive you home. - NO public transportation without another adult. - We recommend that an adult stay with you for 24 hours following discharge. - We also recommend that you do not drive, make important decision, drink alcoholic beverages, or take any drugs that were not prescribed by your health care provider for at least 24 hours after your discharge time. For Pediatric surgeries, we recommend two adults accompany the child home (only one inside the building at this time). Follow any additional instructions given to you from your surgeon. If you or anyone in your household have experienced Covid symptoms in the past week, please notify your surgeon or the nurse liaison at the phone number below for possible testing. Telephone instructions given to Stacey Gonzáles and asked if any additional questions and then verbalized understanding. Patient advised to call surgeon office or pre surgery nurse liaison [phone] if any additional questions.
[2021-10-08] VITALS (11 sets, daily range): BP systolic 111–140; BP diastolic 60–84; PULSE 52–95; RESP 10–20; TEMP 36.1–36.2; O2SAT 99–100
[2021-10-08] MEDS: ACETAMINOPHEN 500 MG TABLET 1000 MG PO (09:58)
[2021-10-08] MEDS: LACTATED RINGERS 1,000 ML 30 ML IV CONT ×2 (10:43→12:21)
[2021-10-08] MEDS: KETOROLAC 15 MG/ML VIAL (*BKC) IV PUSH (10:44)
--- NOTE | 2021-10-08 10:47 | WPDHPUPDATE1 ---
History and Physical Update Update Date/Time: 10/08/21 10:47 History and Physical has been reviewed, including an updated exam of the patient. There are NO changes in the patient's condition. Risks, benefits, and alternatives have been discussed and questions answered. Patient agrees to proceed with procedure.
--- NOTE | 2021-10-08 10:49 | WPDANESEPPF ---
Anes - Initial Pre Proc Eval Procedure: Operation Date: 10/08/21 12:30 Proposed Procedures p Laparoscopic Cholecystectomy with Intraoperative Cholangiogram - Ozzy Clarke MD Date/Time: 10/08/21 10:49 Surgeon: Ozzy Clarke MD Pre Op Diagnosis: Chronic Cholecystitis with Cholelithiasis Patient Data Age: 40 Gender: F Height: 1.65 m Weight: 95.6 kg Last Vital Signs Temp 36.1 C L 10/08/21 10:46 Pulse 66 10/08/21 10:46 Resp 16 10/08/21 10:46 BP 111/72 10/08/21 10:46 Pulse Ox 99 10/08/21 10:46 Allergies Allergy/AdvReac Type Severity Reaction Status Date / Time Penicillins AdvReac Mild RASH Verified 10/08/21 09:53 Home Medications Medication Instructions Recorded Confirmed Type No Home Medications 10/04/21 10/08/21 History Patient hx anesthesia problems: none Family hx anesthesia problems: none Results Review: All pre-operative results and documents have been reviewed as part of the pre-operative evaluation. [facility] Past Medical History Medical History Anxiety Depression Gestational diabetes Herniated disc Mastitis Nausea and vomiting in adult Surgical History Surgical History History of section History of fusion of cervical spine C5-C6 History of repair of ACL Family History Family History Mother ALS (amyotrophic lateral sclerosis) Father Brain cancer Social History Social History Social History: Ms. Gonzáles lives at home with her significant other and her 2 children. She is independent in her daily activities. 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 Shoemaker. She designates her significant other, Sanjay, as her surrogate decision maker. She would like to be a full code. Smoking packs per day: 1 Smoking cigarettes per day: 20.0 Years smoked: 10 Smoking pack-years: 10.00 Smoking status: Former smoker Tobacco type: cigarettes Smoking end date: 06/24/11 Alcohol intake: current Alcohol use details: very rarely Substance use: never Substance use type: does not use Living arrangements: with family Gender identity (if verbalized by the patient): Female Spiritual care concerns: No Anes - Eval Final PreProcedure Day of Procedure 10/08/21 10:49 Patient weight: obese Heart: regular rate and rhythm Lungs: clear to auscultation Airway: Mallampati scale class 1 Neurological: alert and oriented Last oral intake: >/= 8 hours ASA classification: II Emergent: no Anesthetic plan: proceed Anesthesia type and monitoring: general GIVS and standard monitoring Results Review: All pre-operative results and documents have been reviewed as part of the pre-operative evaluation. Informed Consent: The patient's anesthetic plan and its attendant risks and benefits were discussed with the patient/family/POA. Questions were solicited and answers provided to the satisfaction of the patient/family/POA.
[2021-10-08] MEDS: ceFAZolin 2 GM/D5W 50 ML 2 GM/50 ML BAG IVPB (11:21)
[2021-10-08] MEDS: LIDO 1%/EPINEPHRINE/PF 1:200,000 30 ML VIAL XX (11:58)
--- NOTE | 2021-10-08 12:31 | W.PM.PROC2 ---
Procedure Note - Detailed Date of Procedure 10/08/21 Pre-op Diagnosis Chronic Cholecystitis with Cholelithiasis Post-op Diagnosis Same Procedure Performed Laparoscopic cholecystectomy Surgeon Ozzy Clarke MD Wild Animal Caretaker CATRACHO Garcia. Anesthesia General and Local (1% lidocaine with epinephrine) Indications Patient is a 40-year-old woman who came to the emergency room last week with severe epigastric and right upper quadrant pain associated with vomiting. Imaging showed numerous gallstones with gallbladder wall thickening. She also had a slightly dilated common bile duct and elevated liver function tests. She improved while in the hospital and actually felt as though she may have passed a stone. Her pain resolved. Her liver function tests improved. She had an MRCP which was negative. We had initially planned on doing a cholecystectomy with intraoperative cholangiogram but since these other findings indicate common bile duct stones are unlikely, hand there is a nationwide as well as local shortage of contrast, it was explained to the patient that we will forego the cholangiogram. She is taken to surgery now for laparoscopic cholecystectomy. Findings Moderate chronic inflammation, no biliary ductal dilatation, stones evident in the gallbladder, no liver abnormalities. Description of Procedure The patient was taken to surgery and induced into general anesthesia. The abdomen is prepped and draped. Trocars were placed in the usual fashion using 1% lidocaine with epinephrine local anesthetic and applied Medical optical trocars. A 5 mm camera was used. The gallbladder was decompressed with a laparoscopic aspirator. The cholecystotomy was closed with a Vicryl endoloop. The gallbladder was then retracted anterosuperiorly. Traction was placed on the infundibulum and dissection carried out in the cholecystohepatic triangle. The cystic duct and cystic artery were dissected out very clearly. The gallbladder was dissected off the liver at its lower 3rd. Critical view was achieved. We securely clipped and divided the cystic artery and cystic duct. We then dissected the gallbladder off the liver and freed it entirely. The gallbladder was placed in an Endo-Catch bag and retrieved through the 10 11 epigastric trocar site without difficulty. We replaced the epigastric trocar and reviewed the right upper quadrant. There was no evidence of bleeding or bile leakage. We then evacuated CO2 and removed the trocar sleeves. Skin wounds were closed with subcuticular 4-0 Monocryl skin suture. The wounds were dressed with Exofin surgical adhesive. Patient was awakened and taken to recovery in good condition. Sponge and needle counts were correct x2. Estimated Blood Loss -5 Drains No Packing No Pathology Yes (Gallbladder) Complications No immediate complications Condition Stable Disposition PACU [facility] Billing Surgery - Charge Forward: Surgery Billing (Laparoscopic cholecystectomy)
[2021-10-08] MEDS: ONDANSETRON INJ 4 MG/2 ML VIAL IV PUSH (12:38)
[2021-10-08] MEDS: fentaNYL CITRATE INJ (*CRX) 100 MCG/2 ML VIAL 25 MCG IV PUSH ×3 (12:43→13:22)
[2021-10-08] MEDS: diphenhydrAMINE HCl INJ 50 MG/ML VIAL 25 MG IV PUSH (13:12)
[2021-10-08] MEDS: SCOPOLAMINE 1.5 MG PATCH TRANSDERM (13:13)
[2021-10-08] MEDS: oxyCODONE HCL (*CRX) 5 MG TAB IR PO (14:08)
== END 2021-10-08 15:00 | disposition home or self-care (01) ==
PROVIDERS: PCP Family Medicine Sports Medicine; Visit Provider Surgery
PROC: 0FT44ZZ Resection of Gallbladder, Percutaneous Endoscopic Approach (ICD-10-PCS; CPT 47562; principal; 2021-10-08 12:30)
DX: K80.10 Calculus of gallbladder with chronic cholecystitis without obstruction (principal); Z98.1 Arthrodesis status; Z87.891 Personal history of nicotine dependence; E66.9 Obesity, unspecified; Z68.35 Body mass index [BMI] 35.0-35.9, adult
CPT/HCPCS: 47562; 36415; 86850; 86900; 86901; 88304; A9270; C1713; J0690; J1100; J1170; J1200; J1885; J2250; J2405; J2704; J2710; J3010; J7120

== ENCOUNTER 2022-05-20 23:45 | Emergency (ER) | payer BC, SELFPAY ==
--- NOTE | ~2022-05-20 | XR_ITS ---
Clinical Indication: Chest pain PA and lateral views of the chest: Comparison: 08/13/2018 Findings: The lungs are clear, without evidence of focal consolidation or pleural effusion. Cardiome diastinal silhouette is within normal limits. Stable cervical spine fixation hardware. Impression: Clear lungs. Reviewed, dictated and finalized at [facility]. ITUAL MINISTER Impression: Clear lungs.
[2022-05-20 23:46] VITALS: BP 121/57; PULSE 66; RESP 18; TEMP 35.9; O2SAT 99
--- NOTE | 2022-05-20 23:48 | ECG_ITS ---
Measurements Intervals [place] Rate: 67 P: 41 MT: 166 QRS: 72 QRSD: 100 T: 46 QT: 415 QTc: 438 Interpretive Statements SINUS RHYTHM COMPARED TO ECG 10/03/2021 20:34:57 NO SIGNIFICANT CHANGES Electronically Signed On 05-21-2022 14:50:03 VIDEO PHOTOGRAPHER by Kg Marte M.D.
[2022-05-21 00:10] LABS: Basophils Percent Auto 0.6 % (0.2-1.2); Eosinophils Absolute Auto 0.1 K/mm3 (0-0.3); Hematocrit 36.3 % (37.0-47.0); Immature Granulocyte Absolute 0.01 K/mm3 (0.00-0.031); Immature Granulocyte Percent A 0.1 % (0-0.5); Lymphocytes Absolute Auto 1.61 K/mm3 (0.9-3.2); Lymphocytes Percent Auto 23.7 % (18.3-44.2); Mean Corpuscular HGB Conc 33.1 g/dl (32-36); Mean Corpuscular Hemoglobin 27.3 pg (26-34); Mean Corpuscular Volume 82.7 fl (80-100); Mean Platelet Volume 11.4 fl (7.4-10.4); Monocytes Absolute Auto 0.3 K/mm3 (0.1-0.6); Neutrophils Absolute Auto 4.7 K/mm3 (1.3-6.7); Neutrophils Percent Auto 69.6 % (45.5-73.1); Platelet Count Result 189 k/mm3 (150-375); Red Blood Count 4.39 M/mm3 (4.2-5.4); Red Cell Distribution Width 13.8 % (11.5-14.5); White Blood Count 6.8 K/mm3 (4.5-10.0)
[2022-05-21 00:25] LABS: Prothrombin Time 12.5 Seconds (11.1-14.7)
[2022-05-21 00:26] LABS: Partial Thromboplastin Time 31.9 SECONDS (22.3-36.8)
[2022-05-21 00:27] LABS: Alanine Aminotransferase 26 U/L (6-35); Albumin Level 4.6 g/dL (3.5-5.1); Alkaline Phosphatase 74 U/L (38-126); Anion Gap 8 mmol/L (8-16); Aspartate Amino Transferase 27 U/L (14-36); Bilirubin,Total 0.3 mg/dL (0.2-1.3); Blood Urea Nitrogen 13 mg/dL (7-17); Calcium 8.4 mg/dL (8.4-10.2); Carbon Dioxide 25 mmol/L (22-30); Chloride 102 mmol/L (98-107); Estimated CRCL calculation 106 ml/min; Estimated Glomerular Filt Rate > 60; Glucose 104 mg/dL (65-110); Lipase 117 U/L (23-300); Potassium 3.5 mmol/L (3.4-5.0); Sodium 135 mmol/L (137-145)
[2022-05-21 00:39] LABS: Troponin I < 0.012 ng/mL (0.000-0.034)
--- NOTE | 2022-05-21 01:20 | ED.CHESTPAIN ---
HPI - Chest Pain General Chief Complaint: Chest Pain Stated Complaint: chest squeezing Time Seen by Provider: 05/21/22 01:16 History of Present Illness HPI narrative: 41-year-old female history of anxiety and depression presents to the emergency room for evaluation of right-sided burning in her chest that lasted about 40 minutes. Denies any precipitating events. Also reports associated palpitations and diaphoresis. States that she was just sitting around when the symptoms started denies any alleviating or aggravating factors. Currently, patient is asymptomatic. Related Data Home Medications Medication Instructions Recorded Confirmed No Home Medications 10/23/21 10/23/21 Allergies Allergy/AdvReac Type Severity Reaction Status Date / Time Penicillins AdvReac Mild RASH Verified 10/23/21 09:03 Review of Systems Review of Systems: CONSTITUTIONAL: Reports diaphoresis EYES: Denies visual changes, redness, or discharge. ENT: Denies rhinorrhea, congestion, sore throat, or otalgia. CARDIOVASCULAR: Reports chest pain, palpitations RESPIRATORY: Denies cough or dyspnea. GASTROINTESTINAL: Denies abdominal pain, nausea, vomiting, or diarrhea. GENITOURINARY: Denies dysuria or hematuria. SKIN: Denies rash or itching. MUSCULOSKELETAL: Denies back pain, joint pain, or myalgia. NEUROLOGIC: Denies headache, numbness, dizziness, or weakness. PSYCHIATRIC: Denies anxiety or depression. [facility] Past Medical History Medical History Anxiety Depression Gestational diabetes Herniated disc Mastitis Nausea and vomiting in adult Surgical History Surgical History History of section History of fusion of cervical spine C5-C6 History of repair of ACL Hx laparoscopic cholecystectomy with IOC 10/08/21 Family History Family History Mother ALS (amyotrophic lateral sclerosis) Father Brain cancer Social History Social History Social History: Ms. Gonzáles lives at home with her significant other and her 2 children. She is independent in her daily activities. 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 Shoemaker. She designates her significant other, Sanjay, as her surrogate decision maker. She would like to be a full code. Smoking packs per day: 1 Smoking cigarettes per day: 20.0 Years smoked: 10 Smoking pack-years: 10.00 Smoking status: Former smoker Tobacco type: cigarettes Smoking end date: 06/24/11 Alcohol intake: current Alcohol use details: very rarely Substance use: never Substance use type: does not use Gender identity (if verbalized by the patient): Female Spiritual care concerns: No Exam Narrative: GENERAL: Well-appearing, well-nourished, no physical limitations, and in no acute distress. HEAD: Normocephalic, atraumatic. EYES: Conjunctivae normal, PERRLA and EOMI. CHEST: Clear to auscultation. No respiratory distress. No wheezes rales or rhonchi. HEART: Regular rate and rhythm. No murmur heard. Normal peripheral pulses. ABDOMEN: Soft, nontender, nondistended, normal active bowel sounds EXTREMITIES: Normal range of motion. No edema. No clubbing or cyanosis SKIN: Warm, dry, no rash. No noted wounds NEURO: No focal deficits. Alert and oriented x3. MAEW. CN's II-XI intact bilaterally, normal gait PSYCH: Cooperative. Normal mood and affect. Course Vital Signs Vital signs: Vital Signs Temperature 35.9 C L 05/20/22 23:46 Pulse Rate 66 05/20/22 23:46 Respiratory Rate 18 05/20/22 23:46 Blood Pressure 121/57 L 05/20/22 23:46 Pulse Oximetry 99 05/20/22 23:46 Oxygen Delivery Room Air 05/20/22 23:46 Temperature 35.9 C L 05/20/22 23:46 Pulse Rate 66 05/20/22 23:46 Respiratory Rate 18 05/20/22 23:46
[2022-05-21 02:58] LABS: Troponin I < 0.012 ng/mL (0.000-0.034)
== END 2022-05-21 03:22 | disposition home or self-care (01) ==
PROVIDERS: Emergency Medicine; Emergency Provider Nurse Practitioner Family; PCP Family Medicine Sports Medicine
DX: R07.9 Chest pain, unspecified (principal); Z98.1 Arthrodesis status; Z87.891 Personal history of nicotine dependence
CPT/HCPCS: 36415; 71046; 80053; 83690; 84484; 85025; 85610; 85730; 93005; 99284

== ENCOUNTER → 2023-04-29 09:17 | Outpatient (CLI) | payer BC, SELFPAY ==
--- NOTE | ~2023-04-29 | MMUS_ITS ---
EXAMINATION: MM diagnostic viji BI w cierra, US breast BI limited HISTORY: Left breast pain and tenderness TECHNIQUE: Craniocaudal, mediolateral, and mediolateral oblique 3-D tomosynthesis images of the breas ts were performed and synthetic 2-D images were generated. CAD analysis was submitted and interpreted . High resolution limited bilateral breast ultrasound was performed. COMPARISON: None, baseline BREAST PARENCHYMAL COMPOSITION: There are scattered areas of fibroglandular density. FINDINGS: MAMMOGRAPHIC FINDINGS: No suspicious mass, calcification, or architectural distortion are identified in either breast to sug gest malignancy. Focal asymmetry in the subareolar right breast disperses with spot compression. No m ammographic correlate is identified for the patient's reported breast pain. ULTRASOUND: No sonographic correlate is identified for the patient's left breast pain. No suspicious cystic or so lid mass is identified in the subareolar right breast. IMPRESSION: 1. No specific mammographic or sonographic correlate is identified for the patient's right breast maggie n Further evaluation at this time should be based on clinical assessment. Continued follow-up physica l examination is recommended. 2. Recommend routine screening mammography in one year. BI-RADS Category 1: Negative Reviewed, dictated and finalized at location A. OUT WAITER/WAITRESS IMPRESSION: 1. No specific mammographic or sonographic correlate is identified for the lyle ent's right breast pain Further evaluation at this time should be based on clin ical assessment. Continued follow-up physical examination is recommended. 2. Recommend routine screening mammography in one year. BI-RADS Category 1: Negative
== END ==
PROVIDERS: PCP Nurse Practitioner; Visit Provider Nurse Practitioner
DX: L98.8 Other specified disorders of the skin and subcutaneous tissue (principal); R92.8 Other abnormal and inconclusive findings on diagnostic imaging of breast
CPT/HCPCS: 76642; 77062; 77066; G0279

== ENCOUNTER 2023-10-05 23:21 | Inpatient (IN) | payer BC, SELFPAY ==
--- NOTE | ~2023-10-05 | US_ITS ---
EXAMINATION: US OB limited DATE: 10/06/2023 08:12 INDICATION: Possible miscarriage. TECHNIQUE: Real-time ultrasound of the pelvis was performed. The interpreting radiologist was not pre sent for the study. COMPARISON: None. FINDINGS: There is a single living fetus in transverse lie with vertex to maternal left. The placenta is anteri or and appears likely low-lying however the cervix is not clearly visualized. There is a central hypo echoic placental love. There is 3.9 x 2.3 x 4.3 cm hypoechoic likely subchorionic hematoma along the cephalad margin of the placenta. heart rate is 165 beats per minute (bpm). The amniotic fluid v olume is subjectively normal. IMPRESSION: 1. Single living fetus in transverse lie presentation with heart rate of 165 bpm. 2. 4.3 x 3.9 x 2.3 cm likely subchorionic hematoma along the cephalad margin of the placenta which al so appears relatively low-lying although the cervix was unable to be clearly visualized on the transa bdominal imaging. Reviewed, dictated and finalized at location A. IMPRESSION: 1. Single living fetus in transverse lie presentation with heart rate of 165 bpm. 2. 4.3 x 3.9 x 2.3 cm likely subchorionic hematoma along the cephalad margin of the placenta which also appears relatively low-lying although the cervix was u nable to be clearly visualized on the transabdominal imaging.
[2023-10-05 23:25] VITALS: BP 124/57; PULSE 70; RESP 18; TEMP 36.9; O2SAT 100
[2023-10-06] VITALS (137 sets, daily range): BP systolic 100–129; BP diastolic 51–86; PULSE 61–124; RESP 12–20; TEMP 36.1–37.4; O2SAT 96–100; BMI 37.4
[2023-10-06 00:04] LABS: Alanine Aminotransferase 15 U/L (6-35); Albumin Level 4.1 g/dL (3.5-5.1); Alkaline Phosphatase 64 U/L (38-126); Anion Gap 6 mmol/L (4-12); Aspartate Amino Transferase 20 U/L (14-36); Bilirubin,Total 0.5 mg/dL (0.2-1.3); Blood Urea Nitrogen 5 mg/dL (7-17); Calcium 8.9 mg/dL (8.4-10.2); Carbon Dioxide 22 mmol/L (22-30); Chloride 108 mmol/L (98-107); Estimated CRCL calculation 148 ml/min; Estimated Glomerular Filt Rate > 60; Glucose 91 mg/dL (65-110); Potassium 3.6 mmol/L (3.4-5.0); Sodium 136 mmol/L (137-145)
--- NOTE | 2023-10-06 00:05 | ED.FEMALEGU ---
HPI - Female Genitourinary General Chief complaint: Vaginal Bleeding Stated complaint: preg vag bleed Time Seen by Provider: 10/05/23 23:30 Source: patient Mode of arrival: ambulatory Limitations: no limitations History of Present Illness HPI Narrative: This is a 42-year-old female who is approximately 15 weeks who presents to the ED with chief complaint of sudden onset vaginal bleeding this evening 1 hour prior to arrival. Patient reports that she is currently undergoing surgery see for friend. This was an IVF . She is concerned she is having a miscarriage. Denies any abdominal pain or cramps, but does feel bloating. Denies fevers, chills, nausea, vomiting, lightheadedness, syncope, shortness of breath Related Data Home Medications Medication Instructions Recorded Confirmed No Home Medications 10/23/21 10/23/21 Allergies Allergy/AdvReac Type Severity Reaction Status Date / Time Penicillins AdvReac Mild RASH Verified 10/23/21 09:03 Review of Systems Review of Systems: All systems as dictated in [facility] Past Medical History Medical History Anxiety Depression Gestational diabetes Herniated disc Mastitis Nausea and vomiting in adult Surgical History Surgical History History of section History of fusion of cervical spine C5-C6 History of repair of ACL Hx laparoscopic cholecystectomy with IOC 10/08/21 Family History Family History Mother ALS (amyotrophic lateral sclerosis) Father Brain cancer Social History Social History Social History: Ms. Gonzáles lives at home with her significant other and her 2 children. She is independent in her daily activities. 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 Shoemaker. She designates her significant other, Sanjay, as her surrogate decision maker. She would like to be a full code. Smoking packs per day: 1 Smoking cigarettes per day: 20.0 Years smoked: 10 Smoking pack-years: 10.00 Smoking status: Former smoker Tobacco type: cigarettes Smoking end date: 06/24/11 Alcohol intake: current Alcohol use details: very rarely Substance use: never Substance use type: does not use Living arrangements: with family Gender identity (if verbalized by the patient): Female Spiritual care concerns: No Exam Narrative: GENERAL: Well-appearing, well-nourished, and in no acute distress. HEAD: Normocephalic, atraumatic. EYES: PERRLA and EOMI. ENT: Nares clear, no rhinorrhea or epistaxis. Mucous membranes moist. Oropharynx without tonsillar hypertrophy exudate or other lesions. NECK: Supple. No adenopathy or masses. CHEST: No respiratory distress. Clear to auscultation. No wheezes rales or rhonchi HEART: Regular rate and rhythm. No murmur heard. Normal peripheral pulses. ABDOMEN: Soft, nontender, nondistended, normal active bowel sounds. MSK: Normal range of motion. No edema. SKIN: Warm, dry, no rash. NEURO: Alert and oriented x3. No focal deficits. PSYCH: Normal mood and affect. Course Reevaluation(s) Reevaluation #1: Re-evaluation after nursing staff updated the patient is starting to miscarry. Able to visualize multiple blood clots in the container that nursing staff collected. Nursing staff also able to retrieve some of the materials from the toilet, and appears to be more blood clots. No specific visualization of tissue or placental tissue Consultations Consultation #1: Discussed the case with BRYNN Hurtado who was on-call for patient's OB. We discussed that patient is having an active miscarriage. She would like for the patient to be admitted for observation. We will have the patient go to the OB floor. She is
[2023-10-06 00:18] LABS: Basophils Percent Auto 0.5 % (0.2-1.2); Eosinophils Absolute Auto 0.1 K/mm3 (0-0.3); Eosinophils Percent Auto 1.6 % (0-4.4); Hematocrit 34.4 % (37.0-47.0); Hemoglobin 11.6 g/dL (12.0-15.0); Immature Granulocyte Absolute 0.06 K/mm3 (0.00-0.031); Immature Granulocyte Percent A 0.7 % (0-0.5); Lymphocytes Percent Auto 26.3 % (18.3-44.2); Mean Corpuscular HGB Conc 33.7 g/dl (32-36); Mean Corpuscular Volume 83.1 fl (80-100); Mean Platelet Volume 11.9 fl (7.4-10.4); Monocytes Absolute Auto 0.4 K/mm3 (0.1-0.6); Monocytes Percent Auto 4.1 % (2.6-8.5); Neutrophils Absolute Auto 5.8 K/mm3 (1.3-6.7); Neutrophils Percent Auto 66.8 % (45.5-73.1); Platelet Count Result 186 k/mm3 (150-375); Red Blood Count 4.14 M/mm3 (4.2-5.4); Red Cell Distribution Width 12.8 % (11.5-14.5); White Blood Count 8.7 K/mm3 (4.5-10.0)
[2023-10-06 01:14] LABS: INR 0.9; Prothrombin Time 12.5 Seconds (11.1-14.7)
[2023-10-06 01:15] LABS: Partial Thromboplastin Time 32.5 Seconds (22.3-36.8)
[2023-10-06] MEDS: SODIUM CHLORIDE 0.9% IV 1,000 ML 999 ML IV CONT (02:07)
[2023-10-06 02:08] LABS: Basophils Percent Auto 0.3 % (0.2-1.2); Eosinophils Absolute Auto 0.1 K/mm3 (0-0.3); Eosinophils Percent Auto 1.4 % (0-4.4); Hematocrit 31.2 % (37.0-47.0); Hemoglobin 10.7 g/dL (12.0-15.0); Immature Granulocyte Absolute 0.04 K/mm3 (0.00-0.031); Immature Granulocyte Percent A 0.4 % (0-0.5); Lymphocytes Absolute Auto 2.93 K/mm3 (0.9-3.2); Lymphocytes Percent Auto 29.5 % (18.3-44.2); Mean Corpuscular HGB Conc 34.3 g/dl (32-36); Mean Corpuscular Hemoglobin 28.5 pg (26-34); Mean Corpuscular Volume 83.2 fl (80-100); Mean Platelet Volume 11.9 fl (7.4-10.4); Monocytes Absolute Auto 0.4 K/mm3 (0.1-0.6); Monocytes Percent Auto 3.9 % (2.6-8.5); Neutrophils Absolute Auto 6.4 K/mm3 (1.3-6.7); Neutrophils Percent Auto 64.5 % (45.5-73.1); Platelet Count Result 196 k/mm3 (150-375); Red Blood Count 3.75 M/mm3 (4.2-5.4); Red Cell Distribution Width 12.7 % (11.5-14.5); White Blood Count 9.9 K/mm3 (4.5-10.0)
[2023-10-06] MEDS: ONDANSETRON INJ 4 MG/2 ML VIAL IV PUSH (02:08)
--- NOTE | 2023-10-06 02:08 | PC.NURSE ---
On pts arrival to ED pt was spotting bright red blood. Pt denied abd cramping, dizziness, lightheadedness. Around 0010 this RN went to pt room and pt stated I feel like I need to push something out . At this time pt walked to bathroom and sat on toilet. Pt passed 3-4 large clots which were all collected by this RN and placed in specimen container. Provider was made aware of pts condition at this time. Pt was cleaned up and brought back to room where she passed 2-3 more large clots. At this time pt is in room and has continued to have vaginal bleeding. Pt is saturating a pad in around 45 minutes. At this time pt is still actively miscarrying and passing products. Pt has not passed what has appeared to be a fetus at this time.
[2023-10-06] MEDS: HYDROcodone/acetaminophen (*CRX) 5-325 MG TABLET 1 TAB PO ×3 (02:19→16:43)
--- NOTE | 2023-10-06 02:40 | PC.NURSE ---
Called Dr. Etienne, orders received for observation, continuous LR at 100 ml/hr, NPO diet, norco and Tylenol for pain, repeat CBC and ultrasound were ordered for this morning.
[2023-10-06] MEDS: RHO(D) IMMUNE GLOBULIN 300 MCG/2 ML SYRINGE IM (02:48)
--- NOTE | 2023-10-06 03:00 | PC.NURSE ---
erp dr padilla called to bedside - upon rolling pt to clean her and replace depends, pt had approx 60ml of blood come out. ERP examined and approved to continue with transport to OB 1st floor.
[2023-10-06] MEDS: LACTATED RINGERS 1,000 ML 100 ML IV CONT (03:24)
--- NOTE | 2023-10-06 03:36 | PC.NURSE ---
T doppled at 0326. T 165-170's.
--- NOTE | 2023-10-06 03:38 | PC.NURSE ---
Called Dr. Etienne regarding FHT noted in 165-170 range via doppler. Orders for q4 vitals. No TOCO necessary at this time per Dr. Etienne. Orders to watch bleeding overnight and wait for ultrasound to further assess in the AM.
--- NOTE | 2023-10-06 04:53 | PC.NURSE ---
At 0321 scant rubra colored bleeding noted from vagina. No clots noted at this time.
--- NOTE | 2023-10-06 04:54 | PC.NURSE ---
At 0348 scant rubra bleeding noted from vagina. No clots noted at this time.
--- NOTE | 2023-10-06 04:58 | ADMGEN ---
This patient, Stacey Gonzáles, was admitted to Labor/Delivery/Recovery 110-00. Patient/family oriented to hospital policies and general routines including ID bracelet, bed and alarms, visiting hours, pain management, procedures, bathroom and other care routines, personal items, smoking policy, room service/diet, and visiting hours. Information on how to activate the Rapid Response Team has been discussed. Patient/Family are encouraged to report perceived risks to care and to ask questions if they do not understand what they are told or what they should do.
[2023-10-06] MEDS: ACETAMINOPHEN 325 MG TABLET 650 MG PO (05:39)
[2023-10-06 06:53] LABS: Basophils Percent Auto 0.3 % (0.2-1.2); Eosinophils Percent Auto 0.5 % (0-4.4); Hemoglobin 9.3 g/dL (12.0-15.0); Immature Granulocyte Absolute 0.05 K/mm3 (0.00-0.031); Immature Granulocyte Percent A 0.7 % (0-0.5); Lymphocytes Percent Auto 20.9 % (18.3-44.2); Mean Corpuscular HGB Conc 33.2 g/dl (32-36); Mean Corpuscular Hemoglobin 27.7 pg (26-34); Mean Corpuscular Volume 83.3 fl (80-100); Mean Platelet Volume 11.7 fl (7.4-10.4); Monocytes Absolute Auto 0.2 K/mm3 (0.1-0.6); Monocytes Percent Auto 3.1 % (2.6-8.5); Neutrophils Absolute Auto 5.7 K/mm3 (1.3-6.7); Neutrophils Percent Auto 74.5 % (45.5-73.1); Platelet Count Result 179 k/mm3 (150-375); Red Blood Count 3.36 M/mm3 (4.2-5.4); Red Cell Distribution Width 12.9 % (11.5-14.5); White Blood Count 7.7 K/mm3 (4.5-10.0)
--- NOTE | 2023-10-06 08:00 | PC.NURSE ---
0800: Dr. Bailey in unit. Orders for FFP and monitor patient's vital signs and blood loss
[2023-10-06 08:32] LABS: Hematocrit 26.6 % (37.0-47.0); Hemoglobin 8.9 g/dL (12.0-15.0)
[2023-10-06 08:51] LABS: Partial Thromboplastin Time 30.9 Seconds (22.3-36.8); Prothrombin Time 13.3 Seconds (11.1-14.7)
[2023-10-06 08:54] LABS: Fibrinogen 287 mg/dl (215-510)
--- NOTE | 2023-10-06 08:57 | PM.IMHP ---
H&P: HPI History of Present Illness Date/Time: 10/06/23 08:57 Chief Complaint: vaginal bleeding Narrative: 42-year-old 5 para 3013 at 14 weeks and 6 days gestation who presented with vaginal bleeding to the emergency department. She had significant prep flowing blood. The bleeding has persisted. She has lost over 1300 cc at this time. There is active bright red bleeding. Providing blood transfusion to the patient at this time. We are providing flash frozen plasma and copious fluids. The patient knows that she may have to reach a decision here shortly about D&C. She may require urgent/emergency D and C soon. stable at this time with hemoglobin of 8.9. Will likely begin D and C. I explained the procedure to the patient. She understands procedure. She understands the risks. She understands that injuries may occur as result in hospitalization, more surgery, and severe illness. She understands risk of hemorrhage and infection. She denies any nausea, vomiting, fever, chills. She denies any chest pain shortness of breath. Review of Systems Review of Systems: All systems reviewed & are unremarkable except as noted in HPI and below Constitutional: Constitutional: Denies chills, Reports fatigue, Denies fever(s) and Reports weakness Eyes: Eyes: Denies blurry vision, Denies change in vision, Denies loss of peripheral vision, Denies loss of vision, Denies other visual disturbances and Denies eye pain ENT: Denies vertigo, Denies dizziness, Denies hearing loss, Denies mouth pain, Denies nasal obstruction, Denies neck mass and Denies neck pain Cardiovascular: Cardiovascular: Denies chest pain, Denies diaphoresis, Denies syncope, Denies leg edema and Denies dyspnea Respiratory: Respiratory: Denies chest congestion, Denies cough, Denies hemoptysis, Denies dyspnea and Denies wheezing Gastrointestinal: Gastrointestinal: Denies abdominal pain, Denies constipation, Denies diarrhea, Denies nausea and Denies vomiting Genitourinary: Genitourinary: Denies hematuria, Denies change in libido, Denies nocturia, Denies genital lesions, Denies flank pain and Denies urinary urgency Musculoskeletal: Musculoskeletal: Denies abnormal gait, Denies back pain, Denies myalgias, Denies arthralgias, Denies joint swelling, Denies muscle weakness and Denies neck pain Integumentary/Breasts: Skin/Breast: Denies swelling, Denies breast pain, Denies breast mass, Denies dry skin, Denies nipple discharge, Denies unusual bruising and Denies jaundice Neurologic: Denies Neuro-related abnormal movements, Denies Abnormal speech present, Denies abnormal gait, Denies behavioral changes, Denies confusion, Denies vertigo, Denies dizziness, Denies syncope, Denies loss of vision, Denies memory loss, Denies convulsions and Denies weakness Psychiatric: Psychiatric: Denies abnormal sleep pattern, Denies behavioral changes, Denies change in libido, Denies confusion, Denies depression, Denies anhedonia and Denies memory loss Endocrine: Endocrine: Reports no additional endocrine complaints, Denies change in libido and Denies fatigue Hematologic/Lymphatic: Hematologic/Lymphatic: Reports no additional hematologic/lymphatic complaints Allergic/Immunologic: Allergic/Immunologic: Reports no additional allergic/immunologic complaints and Denies wheezing PMFSH Past Medical History Medical History Anxiety Depression Gestational diabetes Herniated disc Mastitis Nausea and vomiting in adult Surgical History Surgical History History of section History of fusion of cervical spine C5-C6 History of repair of ACL Hx laparoscopic cholecystectomy with IOC 10/08/21 Family History Family History Mother ALS (amyotrophic lateral sclerosis) Father Brain cancer Social History Social History (Reviewed
[2023-10-06] MEDS: TUBING, BLOOD PLUM PUMP TUBING 1 EACH XX ×2 (09:00→09:30)
[2023-10-06] MEDS: LACTATED RINGERS 1,000 ML 250 ML IV CONT (09:02)
[2023-10-06] MEDS: SODIUM CHLORIDE 0.9% IV 250 ML 30 ML IV CONT ×2 (09:07→09:18)
--- NOTE | 2023-10-06 09:13 | WPDHPUPDATE1 ---
History and Physical Update Update Date/Time: 10/06/23 09:13 History and Physical has been reviewed, including an updated exam of the patient. There are NO changes in the patient's condition. Risks, benefits, and alternatives have been discussed and questions answered. Patient agrees to proceed with procedure.
--- NOTE | 2023-10-06 10:42 | WPDANESEPPF ---
Anes - Initial Pre Proc Eval Procedure: Operation Date: 10/06/23 11:00 Proposed Procedures p Suction Dilatation and Curettage - Alexis Bailey MD Date/Time: 10/06/23 10:42 Surgeon: Golden Etienne MD Pre Op Diagnosis: Spontaneous Patient Data Age: 42 Gender: F Height: 1.65 m Weight: 102 kg Last Vital Signs Temp 98.5 F 10/06/23 10:21 Pulse 88 10/06/23 10:30 Resp 16 10/06/23 10:21 BP 106/69 10/06/23 10:30 Pulse Ox 100 10/06/23 10:35 O2 Del Method Room Air 10/06/23 04:55 Allergies Allergy/AdvReac Type Severity Reaction Status Date / Time Penicillins AdvReac Mild RASH Verified 10/06/23 06:32 Home Medications Medication Instructions Recorded Confirmed Type enoxaparin 40 mg/0.4 mL 40 mg subcut DAILY 10/06/23 10/06/23 History subcutaneous syringe (Lovenox) folic acid 1 tab-cap BYMOUTH DAILY 10/06/23 10/06/23 History [id number]-[id number] 1 mg 1 tablet PO DAILY 10/06/23 10/06/23 History tablet Laboratory Tests 10/05/23 10/06/23 10/06/23 23:40 00:22 00:22 WBC 8.7 K/mm3 (4.5-10.0) RBC 4.14 L M/mm3 (4.2-5.4) Hgb 11.6 L g/dL (12.0-15.0) Hct 34.4 L % (37.0-47.0) MCV 83.1 fl (80-100) MCH 28.0 pg (26-34) MCHC 33.7 g/dl (32-36) RDW 12.8 % (11.5-14.5) Plt Count 186 k/mm3 (150-375) MPV 11.9 H fl (7.4-10.4) Immature Gran % (Auto) 0.7 H % (0-0.5) Neut % (Auto) 66.8 % (45.5-73.1) Lymph % (Auto) 26.3 % (18.3-44.2) Prairie % (Auto) 4.1 % (2.6-8.5) Eos % (Auto) 1.6 % (0-4.4) Baso % (Auto) 0.5 % (0.2-1.2) Lymph # (Auto) 2.30 K/mm3 (0.9-3.2) Prairie # (Auto) 0.4 K/mm3 (0.1-0.6) Eos # (Auto) 0.1 K/mm3 (0-0.3) Baso # (Auto) 0.0 K/mm3 (0.0-0.1) Abs Immat Gran (auto) 0.06 H K/mm3 (0.00-0.031) Absolute Neuts (auto) 5.8 K/mm3 (1.3-6.7) Absolute Nucleated RBC 0.000 K/mm3 (0.0-0.012) Nucleated RBC % 0.0 % (0.0-0.2) PT INR APTT Fibrinogen Sodium 136 L mmol/L (137-145) Potassium 3.6 mmol/L (3.4-5.0) Chloride 108 H mmol/L (98-107) Carbon Dioxide 22 mmol/L (22-30) Anion Gap 6 mmol/L (4-12) BUN 5 L D mg/dL (7-17) Creatinine 0.50 L mg/dL (0.7-1.0) Estim Creat Clear Calc 148 ml/min Estimated GFR > 60 (59 - ) Glucose 91 mg/dL (65-110) Calcium 8.9 mg/dL (8.4-10.2) Total Bilirubin 0.5 mg/dL (0.2-1.3) AST 20 U/L (14-36) ALT 15 U/L (6-35) Alkaline Phosphatase 64 U/L (38-126) Total Protein 7.0 g/dL (6.3-8.2) Albumin 4.1 g/dL (3.5-5.1) Beta HCG, Quant 41850.00 mIU/ML Blood Type B Negative B Negative Antibody Screen Negative Screen Negative Baby's Blood Type Not Reportable Baby's ANABEL Not Reportable Doses of RhIg Required 1 Crossmatch See Detail 10/06/23 10/06/23 10/06/23 00:58 02:04 06:43 WBC 9.9 K/mm3 7.7 K/mm3 (4.5-10.0) (4.5-10.0) RBC 3.75 L M/mm3 3.36 L M/mm3 (4.2-5.4) (4.2-5.4) Hgb 10.7 L g/dL 9.3 L g/dL (12.0-15.0) (12.0-15.0) Hct 31.2 L % 28.0 L % (37.0-47.0) (37.0-47.0) MCV 83.2 fl 83.3 fl (80-100) (80-100) MCH 28.5 pg 27.7 pg (26-34) (26-34) MCHC 34.3 g/dl 33.2 g/dl (32-36) (32-36) RDW 12.7 % 12.9 % (11.5-14.5) (11.5-14.5) Plt Count 196 k/mm3 179 k/mm3 (150-375) (150-375) MPV 11.9 H fl 11.7 H fl (7.4-10.4) (7.4-10.4) Immature Gran % (Auto) 0.4 % 0.7 H % (0-0.5) (0-0.5) Neut % (Auto) 64.5 % 74.5 H % (45.5-73.1)
--- NOTE | 2023-10-06 10:59 | PC.NURSE ---
0959: ANÍBAL Alfaro at bedside to infuse FFP at a faster rate.
[2023-10-06] MEDS: ceFAZolin SODIUM 1 GM VIAL 2 GM IV PUSH (11:08)
[2023-10-06 11:10] LABS: Hematocrit 27.9 % (37.0-47.0); Hemoglobin 9.4 g/dL (12.0-15.0)
[2023-10-06] MEDS: OXYTOCIN 10 UNITS/ML VIAL 40 UNITS IM (11:10)
[2023-10-06] MEDS: CARBOPROST TROMETHAMINE 250 MCG/ML AMPUL IM (11:10)
[2023-10-06] MEDS: SODIUM CHLORIDE 0.9% IV 1,000 ML 100 ML IV CONT (11:44)
[2023-10-06] MEDS: LACTATED RINGERS 1,000 ML 30 ML IV CONT (11:44)
[2023-10-06] MEDS: fentaNYL CITRATE INJ (*CRX) 100 MCG/2 ML VIAL 25 MCG IV PUSH ×3 (12:04→12:28)
--- NOTE | 2023-10-06 12:17 | PC.NURSE ---
1030: Anesthesiology and OR team is at bedside. Report given to OR team. 1044: Patient taken to the OR.
--- NOTE | 2023-10-06 12:25 | W.PM.PROC2 ---
Procedure Note - Detailed Date of Procedure 10/06/23 Pre-op Diagnosis maternal hemorrhage, living 14 week gestation Post-op Diagnosis Same ( demise with treatment of hemorrhage) Procedure Performed suction D&C Surgeon Alexis Bailey MD Anesthesia MAC Indications missed Findings normal-appearing vulva vagina and cervix to. Large amount of products conception, parts, well-organized placenta, massive hemorrhage Description of Procedure the patient was taken the operating room. She was prepped and draped in dorsal lithotomy position after induction of mac anesthesia. A speculum was placed in the vagina. Cervix grasped with tenaculum. The cervix was dilated to about 2 cm Using Lopez dilators. A 14. Bengali curved curette was used to perform suction D&C. The curette was introduced and vacuum was applied. The curette was removed over all surfaces of the intrauterine cavity multiple times. ring forceps were used to remove parts. This required multiple applications of the ring forceps to obtain all parts. placenta was removed with ring forceps. Massive hemorrhage was occurring during the procedure. This was done until all the surfaces were clear and had the familiar grainy texture they can be felt through the instrument. A sharp curette was then used to curettage all the surfaces. The suction cup was then reapplied 1 more time to remove any debris. The instruments were removed. The speculum and tenaculum were removed. The patient tolerated the procedure well. She was taken recovery room stable condition. Estimated Blood Loss 1,700 Drains No Packing No Pathology Yes Complications No immediate complications Condition Stable Disposition PACU
[2023-10-06 13:08] LABS: Hematocrit 32.5 % (37.0-47.0); Hemoglobin 10.7 g/dL (12.0-15.0)
[2023-10-06 13:20] LABS: Fibrinogen 239 mg/dl (215-510); INR 1.1; Prothrombin Time 14.8 Seconds (11.1-14.7)
[2023-10-06 13:21] LABS: Partial Thromboplastin Time 29.6 Seconds (22.3-36.8)
--- NOTE | 2023-10-06 13:22 | PC.NURSE ---
1322: RN phoned pathology to inform them of parent's choice of home ([facility] in [facility]) and contact information for the receiving family of the surrogacy ([place]).
--- NOTE | 2023-10-06 13:29 | PC.NURSE ---
1329:MICAH Basilio received report from MICAH Churchill in recovery, patient will be transferred over to L & D shortly.
--- NOTE | 2023-10-06 13:40 | PC.NURSE ---
1340: Patient arrived on OB unit.
[2023-10-06] MEDS: miSOPROStol 25 MCG TABLET 1000 MCG VAGINAL (13:51)
[2023-10-06] MEDS: IBUPROFEN 600 MG TABLET PO (14:36)
--- NOTE | 2023-10-06 14:56 | PC.NURSE ---
1320: RN phoned OB to report vital signs, patient's pain, and patient's upset stomach. RN received orders for pain meds, regular diet, and repeat labs. OB stated can walk around and vital signs should be taken Q2H.
--- NOTE | 2023-10-06 16:08 | PC.NURSE ---
1530: MICAH Toussaint phoned Pathology to ask for the original copy of the disposition that was sent down earlier in the day. Pathology was gone for the day but library technical assistant stated they were looking at getting the paper sent back up to labor and delivery. 1550: RN phoned OR charge nurse to confirm time of . OR charge nurse stated the time of is 1110 on 10/06/23. 1600: [facility] coroner notified of . RN received permission to release the body from the dishwashing machine repairer. 1615: [facility] notified. Reference number [id number]
[2023-10-06] MEDS: SIMETHICONE 80 MG TAB.CHEW PO (16:42)
[2023-10-06 20:25] LABS: Hematocrit 29.5 % (37.0-47.0); Hemoglobin 9.9 g/dL (12.0-15.0); Mean Corpuscular HGB Conc 33.6 g/dl (32-36); Mean Corpuscular Hemoglobin 29.8 pg (26-34); Mean Corpuscular Volume 88.9 fl (80-100); Platelet Count Result 166 k/mm3 (150-375); Red Blood Count 3.32 M/mm3 (4.2-5.4); White Blood Count 10.1 K/mm3 (4.5-10.0)
[2023-10-06 20:37] LABS: Alanine Aminotransferase 41 U/L (6-35); Albumin Level 3.1 g/dL (3.5-5.1); Alkaline Phosphatase 57 U/L (38-126); Anion Gap 8 mmol/L (4-12); Aspartate Amino Transferase 70 U/L (14-36); Bilirubin,Total 0.7 mg/dL (0.2-1.3); Blood Urea Nitrogen 6 mg/dL (7-17); Calcium 8.4 mg/dL (8.4-10.2); Carbon Dioxide 15 mmol/L (22-30); Chloride 109 mmol/L (98-107); Estimated CRCL calculation 148 ml/min; Estimated Glomerular Filt Rate > 60; Glucose 180 mg/dL (65-110); Potassium 3.7 mmol/L (3.4-5.0); Sodium 132 mmol/L (137-145)
[2023-10-06 20:38] LABS: Prothrombin Time 13.7 Seconds (11.1-14.7)
[2023-10-06 20:39] LABS: Partial Thromboplastin Time 26.1 Seconds (22.3-36.8)
--- NOTE | 2023-10-06 22:09 | PC.NURSE ---
Spoke with Marta EL regarding patients recent lab results. Reported I &O's, QBL minimal at this time. Vitals stable. Orders received to removed 1 IV per patient request.
--- NOTE | 2023-10-06 22:21 | PC.NURSE ---
Half Dollar sized blood clot noted in urine at 1805. No other clots noted since that time.
[2023-10-07] VITALS (8 sets, daily range): BP systolic 110–126; BP diastolic 58–63; PULSE 69–85; RESP 16; TEMP 36.8–37.1; O2SAT 97–100
--- NOTE | 2023-10-07 02:28 | PC.NURSE ---
Scant old bleed noted on brittney pad. No bright red bleeding at this time.
--- NOTE | 2023-10-07 05:32 | PC.NURSE ---
at 0420 scant old bleed noted on brittney pad. No bright red bleeding at this time.
[2023-10-07 06:07] LABS: Hematocrit 23.4 % (37.0-47.0); Hemoglobin 8.1 g/dL (12.0-15.0); Immature Platelet Fraction Pct 9.4 % (0.9-11.2); Mean Corpuscular HGB Conc 34.6 g/dl (32-36); Mean Corpuscular Volume 86.7 fl (80-100); Mean Platelet Volume 12.2 fl (7.4-10.4); Platelet Count Result 125 k/mm3 (150-375); Red Cell Distribution Width 14.3 % (11.5-14.5); White Blood Count 8.2 K/mm3 (4.5-10.0)
[2023-10-07] MEDS: ACETAMINOPHEN 500 MG TABLET 1000 MG PO (07:17)
--- NOTE | 2023-10-07 07:50 | PC.NURSE ---
Dr. Bailey at the bedside. discussing POC with the pt. Pt requesting to go home today. okay with pt going home at this time. wanted the pt to see him early next week in the office. All question by pt and support person answered by Dr. Bailey in the room. Discharge order received.
--- NOTE | 2023-10-07 07:51 | PM.OBPNVD ---
OB - PN: Subj Subjective Date/time seen: 10/07/23 07:51 Interval history: ambulating, weak, denies shortness of breath or chest pain, OB - PN: Obj Data Labs 10/07/23 05:37 10/06/23 19:46 Labs: Laboratory Results - last 24 hr 10/06/23 10/06/23 10/06/23 00:22 00:22 08:06 WBC RBC Hgb 8.9 L Hct 26.6 L MCV MCH MCHC RDW Plt Count MPV % Immature Plt Fraction PT INR APTT Fibrinogen Sodium Potassium Chloride Carbon Dioxide Anion Gap BUN Creatinine Estim Creat Clear Calc Estimated GFR Glucose Calcium Total Bilirubin AST ALT Alkaline Phosphatase Total Protein Albumin Blood Type B Negative B Negative Antibody Screen Negative Screen Negative Doses of RhIg Required 1 Crossmatch See Detail 10/06/23 10/06/23 10/06/23 08:31 11:00 12:59 WBC RBC Hgb 9.4 L 10.7 L Hct 27.9 L 32.5 L MCV MCH MCHC RDW Plt Count MPV % Immature Plt Fraction PT 13.3 14.8 H INR 1.0 1.1 APTT 30.9 29.6 Fibrinogen 287 239 Sodium Potassium Chloride Carbon Dioxide Anion Gap BUN Creatinine Estim Creat Clear Calc Estimated GFR Glucose Calcium Total Bilirubin AST ALT Alkaline Phosphatase Total Protein Albumin Blood Type Antibody Screen Screen Doses of RhIg Required Crossmatch 10/06/23 10/07/23 19:46 05:37 WBC 10.1 H 8.2 RBC 3.32 L 2.70 L Hgb 9.9 L 8.1 L Hct 29.5 L 23.4 L MCV 88.9 D 86.7 MCH 29.8 D 30.0 MCHC 33.6 34.6 RDW 14.0 14.3 Plt Count 166 125 L MPV 12.0 H 12.2 H % Immature Plt Fraction 9.4 PT 13.7 INR 1.0 APTT 26.1 Fibrinogen Sodium 132 L Potassium 3.7 Chloride 109 H Carbon Dioxide 15 L Anion Gap 8 BUN 6 L Creatinine 0.50 L Estim Creat Clear Calc 148 Estimated GFR > 60 Glucose 180 H Calcium 8.4 Total Bilirubin 0.7 AST 70 H ALT 41 H Alkaline Phosphatase 57 Total Protein 5.0 L Albumin 3.1 L Blood Type Antibody Screen Screen Doses of RhIg Required Crossmatch Imaging Radiologist's impression: Impressions Obstetrics Ultrasound 10/06/23 08:20 IMPRESSION: 1. Single living fetus in transverse lie presentation with heart rate of 165 bpm. 2. 4.3 x 3.9 x 2.3 cm likely subchorionic hematoma along the cephalad margin of the placenta which also appears relatively low-lying although the cervix was unable to be clearly visualized on the transabdominal imaging. OB - PN A/P Assessment and Plan (1) Maternal hemorrhaging affecting delivery: Code(s): O67.9 - Intrapartum hemorrhage, unspecified Status: Acute Plan 42-year-old with placenta previa / marginal previa/ low-lying placenta with hemorrhage that required delivery of 14 week gestation. Hemoglobin 8, ambulating, minimal symptoms. Discharge home. Given discharge instructions. Tolerating p.o., ambulating, minimal vaginal bleeding. Vital signs normal Time Spent With Patient Time: Total time spent is greater than 50% in coordination of care (as documented) at patient's floor/unit and/or counseling patient: Review of Systems Review of Systems: All systems reviewed & are unremarkable except as noted in HPI and below Constitutional: Constitutional: Denies chills, Denies fatigue, Denies fever(s) and Denies weakness Eyes: Eyes: Denies blurry vision, Denies change in vision, Denies loss of peripheral vision, Denies loss of vision, Denies other visual disturbances and Denies eye pain ENT: Denies vertigo, Denies dizziness, Denies hearing loss, Denies mouth pain, Denies nasal obstruction, Denies neck mass and Denies neck pain Cardiovascular: Cardiovascular: Denies chest pain, Denies diaphoresis, Denies syncope, Denies leg edema and Denies dyspnea Respiratory: Respiratory:
--- NOTE | 2023-10-07 08:01 | PM.OBDSVD ---
DS: Admitting Diagnosis Discharge Date October 07, 2023 Admitting Diagnosis maternal hemorrhage DS: Discharge Diagnosis Discharge Diagnosis (1) Maternal hemorrhaging affecting delivery: Code(s): O67.9 - Intrapartum hemorrhage, unspecified Status: Acute (2) 14 weeks gestation of : Code(s): Z3A.14 - 14 weeks gestation of Status: Acute (3) Termination of : Status: Acute OB - DS: Summary OB Procedures : None and Other ( transfusion) OB Procedures Intrapartum: Other ( termination, suction D&C) OB Procedures: : Transfusion Peripartum Data Procedures: Procedures Operation Date: 10/06/23 11:00 Actual Procedure Side Surgeon p Suction Dilatation and Curettage Not Applicable Alexis Bailey MD Time Spent with Patient Time attestation: Total time spent providing and/or coordinating discharge services: DS: Data Data Completed and Pending Pending studies at discharge: Pending at discharge 10/06/23 00:56 Surgical [PTH] Routine 10/06/23 11:23 Surgical [PTH] Routine Labs on day of discharge: Labs from last 24 hours 10/07/23 10/06/23 10/06/23 05:37 19:46 12:59 WBC 8.2 10.1 H RBC 2.70 L 3.32 L Hgb 8.1 L 9.9 L 10.7 L Hct 23.4 L 29.5 L 32.5 L MCV 86.7 88.9 D MCH 30.0 29.8 D MCHC 34.6 33.6 RDW 14.3 14.0 Plt Count 125 L 166 MPV 12.2 H 12.0 H % Immature Plt Fraction 9.4 PT 13.7 14.8 H INR 1.0 1.1 APTT 26.1 29.6 Fibrinogen 239 Sodium 132 L Potassium 3.7 Chloride 109 H Carbon Dioxide 15 L Anion Gap 8 BUN 6 L Creatinine 0.50 L Estim Creat Clear Calc 148 Estimated GFR > 60 Glucose 180 H Calcium 8.4 Total Bilirubin 0.7 AST 70 H ALT 41 H Alkaline Phosphatase 57 Total Protein 5.0 L Albumin 3.1 L Blood Type Antibody Screen Screen Doses of RhIg Required Crossmatch 10/06/23 10/06/23 10/06/23 11:00 08:31 08:06 WBC RBC Hgb 9.4 L 8.9 L Hct 27.9 L 26.6 L MCV MCH MCHC RDW Plt Count MPV % Immature Plt Fraction PT 13.3 INR 1.0 APTT 30.9 Fibrinogen 287 Sodium Potassium Chloride Carbon Dioxide Anion Gap BUN Creatinine Estim Creat Clear Calc Estimated GFR Glucose Calcium Total Bilirubin AST ALT Alkaline Phosphatase Total Protein Albumin Blood Type Antibody Screen Screen Doses of RhIg Required Crossmatch 10/06/23 10/06/23 00:22 00:22 WBC RBC Hgb Hct MCV MCH MCHC RDW Plt Count MPV % Immature Plt Fraction PT INR APTT Fibrinogen Sodium Potassium Chloride Carbon Dioxide Anion Gap BUN Creatinine Estim Creat Clear Calc Estimated GFR Glucose Calcium Total Bilirubin AST ALT Alkaline Phosphatase Total Protein Albumin Blood Type B Negative B Negative Antibody Screen Negative Screen Negative Doses of RhIg Required 1 Crossmatch See Detail Discharge Plan Discharge Consulting providers: Darrion Callahan Discharging Clinician: Alexis Bailey Patient Disposition: Home, Self-Care Activity: as tolerated and pelvic rest Diet: as tolerated Discharge Instructions: Follow-Up: Call your Provider's office for an appointment to be seen in: [facility] to [facility] for a follow-up visit: Appointment Date/Time: at What to expect at your follow-up visit: Call [phone] if you are unable to keep your appointment time. EPISIOTOMY/PERINEAL CARE: * Until bleeding stops, use your brittney bottle after urinating * Change your pad frequently throughout the day * You may take sitz baths several times a day (fill your bathtub with warm water and soak for 20 minutes.) Do NOT bathe in the water * No tub baths until seen by your physician - You may show
== END 2023-10-07 08:58 | disposition home or self-care (01) | DRG 770 ==
LOC: ANHED 10-06 01:16 → ANHLDR 10-06 02:14
PROVIDERS: Admitting Provider Obstetrics & Gynecology; Emergency Provider Physician Assistant; PCP Family Medicine; Visit Provider Obstetrics & Gynecology
PROC: 10D17ZZ Extraction of Products of Conception, Retained, Via Natural or Artificial Opening (ICD-10-PCS; principal; 2023-10-06 11:00)
DX: O02.1 Missed abortion (principal); Z3A.14 14 weeks gestation of pregnancy; O67.8 Other intrapartum hemorrhage
CPT/HCPCS: 36415; 36430; 76815; 80053; 84702; 85014; 85018; 85025; 85027; 85055; 85384; 85461; 85610; 85730; 86850; 86900; 86901; 86920; 86923; 88305; 90384; 96361; 96372; 96374; 99285; A9270; G0378; G0379; J0690; J2210; J2250; J2405; J2590; J2790; J3010; J7030; J7050; J7120; P9016; P9017

== ENCOUNTER 2023-10-18 20:33 | Emergency (ER) | payer BC, SELFPAY ==
[2023-10-18 20:35] VITALS: BP 116/69; PULSE 80; RESP 16; TEMP 36.6; O2SAT 100
[2023-10-18 21:47] LABS: Basophils Absolute Auto 0.1 K/mm3 (0.0-0.1); Basophils Percent Auto 0.8 % (0.2-1.2); Eosinophils Absolute Auto 0.2 K/mm3 (0-0.3); Hematocrit 29.4 % (37.0-47.0); Hemoglobin 9.3 g/dL (12.0-15.0); Immature Granulocyte Absolute 0.08 K/mm3 (0.00-0.031); Immature Granulocyte Percent A 1.1 % (0-0.5); Lymphocytes Absolute Auto 2.72 K/mm3 (0.9-3.2); Mean Corpuscular HGB Conc 31.6 g/dl (32-36); Mean Corpuscular Hemoglobin 28.4 pg (26-34); Mean Corpuscular Volume 89.9 fl (80-100); Mean Platelet Volume 11.4 fl (7.4-10.4); Monocytes Absolute Auto 0.4 K/mm3 (0.1-0.6); Monocytes Percent Auto 4.8 % (2.6-8.5); Neutrophils Absolute Auto 4.2 K/mm3 (1.3-6.7); Neutrophils Percent Auto 55.3 % (45.5-73.1); Platelet Count Result 247 k/mm3 (150-375); Red Blood Count 3.27 M/mm3 (4.2-5.4); Red Cell Distribution Width 14.1 % (11.5-14.5); White Blood Count 7.6 K/mm3 (4.5-10.0)
[2023-10-18 21:57] LABS: Alanine Aminotransferase 27 U/L (6-35); Albumin Level 4.2 g/dL (3.5-5.1); Alkaline Phosphatase 62 U/L (38-126); Anion Gap 9 mmol/L (4-12); Aspartate Amino Transferase 24 U/L (14-36); Bilirubin,Total 0.4 mg/dL (0.2-1.3); Blood Urea Nitrogen 10 mg/dL (7-17); Calcium 9.2 mg/dL (8.4-10.2); Carbon Dioxide 23 mmol/L (22-30); Chloride 106 mmol/L (98-107); Estimated CRCL calculation 108 ml/min; Estimated Glomerular Filt Rate > 60; Glucose 101 mg/dL (65-110); Potassium 3.5 mmol/L (3.4-5.0); Sodium 138 mmol/L (137-145)
[2023-10-18 21:58] LABS: INR 0.9; Prothrombin Time 12.9 Seconds (11.1-14.7)
--- NOTE | 2023-10-18 22:00 | ED.FEMALEGU ---
HPI - Female Genitourinary General Chief complaint: Vaginal Bleeding Stated complaint: vaginal bleeding Time Seen by Provider: 10/18/23 21:27 History of Present Illness HPI Narrative: 42-year-old female, presents to the emergency department for vaginal bleeding pain. Patient was seen in our emergency department on 10/06/2023 for vaginal bleeding during 14 weeks of . Patient was admitted to to the OB floor for heavy vaginal bleeding. Unfortunately patient had undergo blood transfusion during admission. She underwent a D&C with Dr. Bailey on 10/06/23 for demise with treatment of hemorrhage. She is discharged home on 10/07/2023. States he has had steady bleeding since her D and C, however she presents today due to increase and flow. States last night around 10:00 p.m. she had a gush of blood. Then today around 10:00 a.m. she be and past seen clots the size of golf balls with increase in flow. She states she was having to change her pad every 2 hours. She is reporting some lightheadedness but denies loss of consciousness, abdominal pain, fever, nausea or vomiting, dysuria. Related Data Home Medications Medication Instructions Recorded Confirmed folic acid 1 tab-cap BYMOUTH DAILY 10/06/23 10/06/23 [id number] 1 mg 1 tablet PO DAILY 10/06/23 10/06/23 tablet Allergies Allergy/AdvReac Type Severity Reaction Status Date / Time Penicillins AdvReac Mild RASH Verified 10/18/23 20:37 PMFSH Past Medical History Medical History Anxiety Depression Gestational diabetes Herniated disc Mastitis Nausea and vomiting in adult Surgical History Surgical History History of section History of fusion of cervical spine C5-C6 History of repair of ACL Hx laparoscopic cholecystectomy with IOC 10/08/21 Family History Family History Mother ALS (amyotrophic lateral sclerosis) Father Brain cancer Social History Social History Social History: Ms. Gonzáles lives at home with her significant other and her 2 children. She is independent in her daily activities. 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 Shoemaker. She designates her significant other, Sanjay, as her surrogate decision maker. She would like to be a full code. Smoking packs per day: 1 Smoking cigarettes per day: 20.0 Years smoked: 10 Smoking pack-years: 10.00 Smoking status: Former smoker Tobacco type: cigarettes Smoking end date: 06/24/11 Alcohol intake: current Alcohol use details: very rarely Substance use: never Substance use type: does not use Living arrangements: with family Gender identity (if verbalized by the patient): Female Spiritual care concerns: No Exam Narrative: GENERAL: Well-appearing, well-nourished, and in no acute distress. HEAD: Normocephalic, atraumatic. EYES: PERRLA and EOMI. ENT: Nares clear, no rhinorrhea or epistaxis. Mucous membranes moist. NECK: Supple. No adenopathy or masses. CHEST: No respiratory distress. Clear to auscultation. HEART: Regular rate and rhythm. No murmur heard. Normal peripheral pulses. ABDOMEN: Soft, nontender, nondistended, normal active bowel sounds. : Normal external genitalia. Moderate blood in vaginal vault with 1 dime-sized clot removed. Noadnexal masses or tenderness. MSK: Normal range of motion. No edema. SKIN: Warm, dry, no rash. NEURO: Alert and oriented x3. No focal deficits. PSYCH: Normal mood and affect. Course Vital Signs Vital signs: Vital Signs Temperature 98 F 10/18/23 20:35 Pulse Rate 80 10/18/23 20:35 Respiratory Rate 16 10/18/23 20:35 Blood Pressure 116/69 10/18/23 20:35 Pulse Oximetry 100 10/18/23 20:35 Oxygen D
[2023-10-18 22:01] LABS: Bacteria Urine None Seen /hpf; Non Pathogenic Casts 0-2; RBC Urine >100 /hpf (0-2); Squamous Epithelial Cell Urine None Seen /hpf (Few)
[2023-10-18] MEDS: SODIUM CHLORIDE 0.9% IV 1,000 ML 999 ML IV CONT ×2 (22:01→22:40)
[2023-10-18 22:11] LABS: Appearance Urine Turbid (Clear); Bilirubin Urine 1+ (Negative); Blood Urine 3+ (Negative); Glucose Urine UA Negative (Negative); Ketones Urine Negative (Negative); Leukocyte Esterase Ur 1+ LEU/UL (Negative); Nitrate Urine Negative (Negative); Protein Urine 2+ mg/dL (Negative); Specific Grav Ur 1.024 (1.001-1.035)
[2023-10-18 22:14] LABS: Color Urine Dark Brown (Yellow)
[2023-10-18 22:15] LABS: Add Urine Microscopic? YES
[2023-10-18 22:26] LABS: Beta HCG Quantitative 75.94 mIU/ML
[2023-10-18 23:45] VITALS: BP 118/60; PULSE 74; RESP 16; O2SAT 100
[2023-10-19] MEDS: CEPHALEXIN 500 MG CAPSULE PO (00:14)
== END 2023-10-19 00:22 | disposition home or self-care (01) ==
PROVIDERS: Emergency Provider Physician Assistant; PCP Family Medicine
DX: O02.1 Missed abortion (principal); R82.90 Unspecified abnormal findings in urine; Z98.1 Arthrodesis status; Z90.49 Acquired absence of other specified parts of digestive tract; Z87.891 Personal history of nicotine dependence
CPT/HCPCS: 36415; 80053; 81001; 84702; 85025; 85610; 85730; 86850; 86880; 86900; 86901; 86902; 87086; 87088; 96360; 99284; A9270; J7030

== ENCOUNTER 2024-07-14 10:16 | Outpatient (CLI) | payer BC, SELFPAY ==
[2024-07-14 10:40] LABS: Basophils Absolute Auto 0.1 K/mm3 (0.0-0.1); Eosinophils Absolute Auto 0.2 K/mm3 (0-0.3); Eosinophils Percent Auto 2.9 % (0-4.4); Hematocrit 38.3 % (37.0-47.0); Hemoglobin 12.3 g/dL (12.0-15.0); Immature Granulocyte Absolute 0.02 K/mm3 (0.00-0.031); Immature Granulocyte Percent A 0.3 % (0-0.5); Lymphocytes Percent Auto 30.8 % (18.3-44.2); Mean Corpuscular HGB Conc 32.1 g/dl (32-36); Mean Corpuscular Hemoglobin 25.9 pg (26-34); Mean Corpuscular Volume 80.8 fl (80-100); Mean Platelet Volume 11.8 fl (7.4-10.4); Monocytes Absolute Auto 0.3 K/mm3 (0.1-0.6); Monocytes Percent Auto 4.6 % (2.6-8.5); Neutrophils Absolute Auto 3.5 K/mm3 (1.3-6.7); Neutrophils Percent Auto 60.4 % (45.5-73.1); Platelet Count Result 260 k/mm3 (150-375); Red Blood Count 4.74 M/mm3 (4.2-5.4); Red Cell Distribution Width 14.6 % (11.5-14.5); White Blood Count 5.9 K/mm3 (4.5-10.0)
[2024-07-14 10:48] LABS: Add Urine Microscopic? YES; Appearance Urine Cloudy (Clear); Bacteria Urine None Seen /hpf; Bilirubin Urine Negative (Negative); Blood Urine Negative (Negative); Color Urine Yellow (Yellow); Glucose Urine UA Negative (Negative); Ketones Urine Negative (Negative); Leukocyte Esterase Ur Negative LEU/UL (Negative); Nitrate Urine Negative (Negative); Non Pathogenic Casts 0-2; Protein Urine Trace mg/dL (Negative); RBC Urine 0-2 /hpf (0-2); Specific Grav Ur 1.017 (1.001-1.035); Squamous Epithelial Cell Urine Occasional /hpf (Few); Urobilinogen Urine 0.2 mg/dL (<2.0); WBC Urine 0-5 /hpf (0-3); pH Urine 8.5 (5.0-9.0)
--- OUTSIDE RECORDS SUMMARY | 2024-07-14 10:53 | XMS_ITS | Continuity of Care Document ---
Author Organization [facility] Address [address] [place] [address] Phone Care Team Providers Care Commissary Agent Name Role Phone No Information Unavailable Unavailable Medications Medication Instructions Dosage Effective Dates (start - stop) Status Comments Ultram 50 mg Tab Take one tablet by m outh every six to eight hours as needed - Active Advance Directives Directive Yes / No Effective Date File Name No Information Encounters Encounter Description Practice Location Reason(s) For Visit Diagnoses Date Provider Providers Copied on Encounter [facility], [facility] [place], [place], [id number], tel:[phone] No Information Jan- 2200 7 No Information [facility], [address] [place] [address], [id number], tel:[phone] No Information Jan- 2200 7 Dilcia Johnston. [facility] [place], [place], [facility], . tel:[phone] Referring Provider: Black Can MD B, [address] [place] [address] [address], [place], [address]. tel:[phone] Family History Family Member Type Diagnosis Age At Onset No Information Payers Payer name Insurance type Covered alliance party ID Authoriza tion(s) No Information Social History Type Description Quantity Date Captured Comments Sex Female Smoking Status No Information Chief Complaint And Reason For Visit No Information Reason For Referral Reason For Referral No Information History Of Present Illness Encounter Date Complaint History Of Prese nt Illness No Information Functional Status Date Functional Assessmen t No Information Instructions Date Instruction Additional Infor mation No Information Assessments Type Assessment Date No Information Patient Care Teams Name Effective Dates (start - stop) Status Members No Information
--- OUTSIDE RECORDS SUMMARY | 2024-07-14 10:53 | XMS_ITS | Encounter Summary ---
Author Organization [facility] Address [address] [place] [address] Care Team Providers Care Corporate Services Manager Name Role Phone Unavailable Primary Care Provider Unavailabl e Encounter Details Date Type Department Care Team (Late st Contact Info) Description 07/11/2024 External Device Data [facility] ABSTRACTION Provider, Abstract NO ADDRESS ON FILE Social History Tobacco Use Types Packs/Day Years Used Date Smoking Tobacco: Former Cigarettes Smokeless Tobacco: Never Alcohol Use Standard Drinks/Week Comments Not Currently 0 (1 standard drink = 0.6 oz pur e alcohol) Feeling Safe Answer Date Recorded Are you in a relationship wi th someone who hurts you emotionally and/or physically? 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 Gender Identity Not on file Sexual Orientation Not on file documented as of this encounter Plan of Treatment Upcoming Encounters Date Type Department Care Team (Late st Contact Info) Description 08/09/2024 9:00 AM CDT Office Visit [facility] at the [facility] Medicine [address] [place] [address] Ashley Felix PA-C [address] [place] [address] documented as of this encounter Visit Diagnoses Not on filedocumented in this encounter
--- OUTSIDE RECORDS SUMMARY | 2024-07-14 10:53 | XMS_ITS | Patient Health Record ---
Author Organization [facility] Address [address] [place] [place] [address] Care Team Providers Care Biofuels Research Scientist Name Role Phone Roberth Sunshine [phone] ALLERGIES No Known Allergies REASON FOR REFERRAL No Information MEDICATIONS Medication SIG (Take, Route, Frequency, Duration) Notes Start Date End Date Status Methylphenidate HCl ER 20 MG Oral for 30 Active Diclofenac Sodium 75 MG 1 tablet with fo od or milk Orally Twice a day for 30 day(s) 11/18/2021 Active SOCIAL HISTORY Tobacco Use: Social History Observation Description Date Details (start date - stop date) Never Smoker NA - NA Sex Assigned At : Social History Observation Description Sex Assigned At Unknown Tobacco Use/Smoking Question Answer Notes Are you a nonsmoker PROBLEMS Problem Type ICD Code Onset Dates Problem Status W/U Status Risk SNOMED Code Notes Problem Cervical post-laminectomy syndrome (M96.1) Active confirmed Cervical post-laminectomy syndrome (115375548) Problem Cervical spinal stenosis (M48.02) Active confirmed Cervical s tracey stenosis (18447430) Problem Bulge of cervical disc without myelopathy (M50.20) Active confirmed Displacement of cervical intervertebral disc without myelopathy (25611239) Problem 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
--- OUTSIDE RECORDS SUMMARY | 2024-07-14 10:54 | XMS_ITS | Data Portability ---
Author Organization [facility] [place] Address [address] [place] [address] [place] [address] Care Team Providers Care Field Enumerator Name Role Phone MULTICARE SPECIALIST Primary Care Provider [phone] Assessment No assessment recorded. Plan of Treatment Reminders Order Date Submit Date Provider Last Modified By Organization Details Last Modified Time Details Appointments None recorded. Lab CBC w/ auto diff [address] [facility] (Lab), [address] [facility], [place], [address], 4 03:58:59 iron + TIBC + ferritin, serum [address] [facility] (Lab), [address] [place], [address], 4 03:59:00 hCG, qualitative , serum [address] [facility] (Lab), [address] [place], [address], 4 03:59:01 drug screen, urine 2023 024 [email or web address] [place], [address], [address], [place], [address], 4 12:55:15 CT + NG + TV, RNA, unspecified specimen [address] [facility] (Lab), [address], [place], [address], 17:33:01 test, urine 2023 024 [email or web address] 1 [address], [address], [place], [address], 16:04:18 Referral None recorded. Procedures None recorded. Surgeries None recorded. Imaging US, obstetric, nuchal translucenc y 2023 024 [email or web address] [address], [address], [place], [address], 18:40:57 Medication Orders None recorded. Patient TargetsNo targets recorded. Patient InstructionsNo instructions recorded. Reason for Referral None Reported. Results Created Date Observation Date Name Description Value Unit Range Abnormal Flag Note LastModifiedBy Organization Detail LastModifiedTime 09/28/19 24 09/28/2023 [UNIT Y] GENA Vincent sickle cell disease/beta -thalassemia /hemoglobino pathies carrier screen NEGATI VE normal Not Available [facility] [address] [facility], [place], [address], 09/28/2023 02:01:25 09/28/19 24 09/28/2023 [UNIT Y] GENA Vincent alpha-thalas semia carrier screen NEGATI VE normal Not Available [facility] [address] [facility], [place], [address], 09/28/2023 02:01:25 09/28/19 24 09/28/2023 [UNIT Y] GENA Vincent cystic fibrosis carrier screen NEGATI VE normal Not Available [facility] [address], [place], [address], 09/28/2023 02:01:25 09/28/19 24 09/28/2023 [UNIT Y] GENA Vincent spinal muscular atrophy carrier screen NEGATI VE 2 SMN1 copies , SNP not presen t normal Not Available [facility] [address], [place], [address], 09/28/2023 02:01:25 09/28/19 24 09/28/2023 [UNIT Y] GENA Vincent for detailed report, see pdf See PDF normal Not Available [facility] [address] [facility], [place], [address], 09/28/2023 02:01:25 09/29/19 24 09/29/2023 [UNIT Y] ANEUP LOIDY NIPT redraw requested? No normal Not Available [facility] [address] [facility], [place], [address], 09/29/2023 02:59:08 09/29/19 24 09/29/2023 [UNIT Y] ANEUP LOIDY NIPT fraction 9.5% normal Not Available [facility] [address] [facility], [place], [address], 09/29/2023 02:59:08 09/29/19 24 09/29/2023 [UNIT Y] ANEUP LOIDY NIPT nipt comment abnormal NIPT was unabl e to deter mine sex. In addit ion, monos louis X and sex chrom osome aneup loidy canno t be exclu ded for this sampl e. Prena devorah diagn osis via [facility] or amnio cente sis can be consi dered for monos louis X and sex chrom osome aneup loidy . Not Available [facility] [address] [facility], [place], [address], 09/29/2023 02:59:08 09/29/19 24 09/29/2023 [UNIT Y] ANEUP LOIDY NIPT sex chromosome aneuploidy NO CALL abnormal Not Available [facility] [address] [facility], [place], [address], 09/29/2023 02:59:08 09/29/19 24 09/29/2023 [UNIT Y] ANEUP LOIDY NIPT monosomy X NO CALL abnormal Not Available [facility] [address] [facility], [place], [address], 09/29/2023 02:59:08 09/29/19 24 09/29/2023 [UNIT Y] ANEUP LOIDY NIPT trisomy 13 LOW RISK <1 in 10,000 normal Not Available [facility] [address] [facility], [place], [address], 09/29/2023 02:59:08 09/29/19 24 09/29/2023 [UNIT Y] ANEUP LOIDY NIPT trisomy 18 LOW RISK <1 in 10,000 normal Not Available [facility] [address] [facility], [place], [address], 09/29/2023 02:59:08 09/29/19 24 09/29/2023 [UNIT Y] ANEUP LOIDY NIPT trisomy 21 LOW RISK <1 in 10,000 normal Not Available [facility] [address] [facility], [place], [address], 09/29/2023 02:59:08 09/29/19 24 09/29/2023 [UNIT Y] ANEUP LOIDY NIPT sex N/A abnormal Not Available [facility] [address] [place] [address], [place], [address], 09/29/2023 02:59:08 09/29/19 24 09/29/2023 [UNIT Y] ANEUP LOIDY NIPT gestation SINGLE TON normal Not Available [facility] [address] [facility], [place], [address], 09/29/2023 02:59:08 09/29/19 24 09/29/2023 [UNIT Y] ANEUP LOIDY NIPT for detailed report, see pdf See PDF normal Not Available [facility] [address] [facility], [place], [address], 09/29/2023 02:59:08 10/01/19 24 10/01/2023 [UNIT Y] ANEUP LOIDY NIPT fraction 9.0% normal Not Available [facility] [address] [facility] , [place], [address], 10/01/2023 17:01:56 10/01/19 24 10/01/2023 [UNIT Y] ANEUP LOIDY NIPT sex chromosome aneuploidy NOT DETECT ED normal Not Available [facility] [address] [facility], [place], [address], 10/01/2023 17:01:56 10/01/19 24 10/01/2023 [UNIT Y] ANEUP LOIDY NIPT monosomy X LOW RISK <1 in 10,000 normal Not Available [facility] [address] [facility], [place], [address], 10/01/2023 17:01:56 10/01/19 24 10/01/2023 [UNIT Y] ANEUP LOIDY NIPT trisomy 13 LOW RISK <1 in 10,000 normal Not Available [facility] [address] [facility], [place], [address], 10/01/2023 17:01:56 10/01/19 24 10/01/2023 [UNIT Y] ANEUP LOIDY NIPT trisomy 18 LOW RISK <1 in 10,000 normal Not Available [facility] [address] [facility], [place], [address], 10/01/2023 17:01:56 10/01/19 24 10/01/2023 [UNIT Y] ANEUP LOIDY NIPT trisomy 21 LOW RISK <1 in 10,000 normal Not Available [facility] [address] [facility], [place], [address], 10/01/2023 17:01:56 10/01/19 24 10/01/2023 [UNIT Y] ANEUP LOIDY NIPT sex MALE normal Not Available [facility] [address] [facility], [place], [address], 10/01/2023 17:01:56 10/01/19 24 10/01/2023 [UNIT Y] ANEUP LOIDY NIPT gestation SINGLE TON EGG DONOR normal Not Available [facility] [address], [place], [address], 10/01/2023 17:01:56 10/01/19 24 10/01/2023 [UNIT Y] ANEUP LOIDY NIPT this result reflects an amended result normal AMEND ED REPOR T: Origi nal repor t was a no call for sex/S Rylie. Clini c repor ts an egg donor (age unkno wn) was used for this pregn scott. This amend ed repor t repla louisa the previ ous repor t and provi melissa resul ts for sex/S Rylie. Not Available [facility] [address], [place], [address], 10/01/2023 17:01:56 10/01/19 24 10/01/2023 [UNIT Y] ANEUP LOIDY NIPT for detailed report, see pdf See PDF normal Not Available [facility] [address], [place], [address], 10/01/2023 17:01:56 08/26/19 24 08/26/2023 CT/GC AND TRICH OMONA S VAGIN RAMIRO (RRNA ), URINE chlamydia trachomatis, PCR Negati ve negati ve Not Available [facility] (Lab) [address] [place], [address], 08/27/2023 17:33:01 08/26/19 24 08/26/2023 CT/GC AND TRICH OMONA S VAGIN RAMIRO (RRNA ), URINE neisseria gonorrhoeae, PCR Negati ve negati ve Not Available [facility] (Lab) [address] [facility], [place], [address], 08/27/2023 17:33:01 08/26/19 24 08/26/2023 CT/GC AND TRICH OMONA S VAGIN RAMIRO (RRNA ), URINE trichomonas vaginalis ribosomal RNA (rrna) Negati ve negati ve Not Available [facility] (Lab) [address] [facility], [place], [address], 08/27/2023 17:33:01 08/26/19 24 08/26/2023 pregn scott test, urine HCG positi ve Not Available [address], [place], [address], 08/26/2023 16:04:03 09/20/19 24 09/20/2023 CBC W/DIF F WBC 6.1 10'3/ uL 3.5-10 .5 Not Available [facility] (Lab) [address], [place], [address], 09/21/2023 05:41:55 09/20/19 24 09/20/2023 CBC W/DIF F RBC 4.74 10'6/ uL (based on docume nted legal sex) 3.80-5 .20 Not Available [facility] (Lab) [address], [place], [address], 09/21/2023 05:41:55 09/20/19 24 09/20/2023 CBC W/DIF F HGB 13.1 g/dL (based on docume nted legal sex) 11.6-1 5.4 Not Available [facility] (Lab) [address], [place], [address], 09/21/2023 05:41:55 09/20/19 24 09/20/2023 CBC W/DIF F HCT 40.0 % (based on docume nted legal sex) 34.0-4 5.0 Not Available [facility] (Lab) [address], [place], [address], 09/21/2023 05:41:55 09/20/19 24 09/20/2023 CBC W/DIF F MCV 84.4 fL 80.0-9 9.0 Not Available [facility] (Lab) [address], [place], [address], 09/21/2023 05:41:55 09/20/19 24 09/20/2023 CBC W/DIF F MCH 27.6 pg 27.0-3 4.0 Not Available [facility] (Lab) [address], [place], [address], 09/21/2023 05:41:55 09/20/19 24 09/20/2023 CBC W/DIF F MCHC 32.8 g/dL 32.0-3 5.5 Not Available [facility] (Lab) [address], [place], [address], 09/21/2023 05:41:55 09/20/19 24 09/20/2023 CBC W/DIF F RDW 13.2 % 11.0-1 5.0 Not Available [facility] (Lab) [address], [place], [address], 09/21/2023 05:41:55 09/20/19 24 09/20/2023 CBC W/DIF F plt 167 10'3/ uL 150-40 0 Not Available [facility] (Lab) [address], [place], [address], 09/21/2023 05:41:55 09/20/19 24 09/20/2023 CBC W/DIF F MPV 12.7 fL 8.8-12 .1 high Not Available [facility] (Lab) [address], [place], [address], 09/21/2023 05:41:55 09/20/19 24 09/20/2023 CBC W/DIF F NRBC's 0.0 % 0.0 Not Available [facility] (Lab) [address], [place], [address], 09/21/2023 05:41:55 09/20/19 24 09/20/2023 CBC W/DIF F absolute NRBCs 0.0 10'3/ uL no refere nce range establ ished Not Available [facility] (Lab) [address], [place], [address], 09/21/2023 05:41:55 09/20/19 24 09/20/2023 CBC W/DIF F neutrophils 66.1 % 34.0-7 3.0 Not Available [facility] (Lab) [address] [facility], [place], [address], 09/21/2023 05:41:55 09/20/19 24 09/20/2023 CBC W/DIF F lymphocytes 26.3 % 15.0-5 0.0 Not Available [facility] (Lab) [address] [facility], [place], [address], 09/21/2023 05:41:55 09/20/19 24 09/20/2023 CBC W/DIF F monocytes 4.8 % 1.0-15 .0 Not Available [facility] (Lab) [address] [facility], [place], [address], 09/21/2023 05:41:55 09/20/19 24 09/20/2023 CBC W/DIF F eosinophils 1.8 % 0.0-8. 0 Not Available [facility] (Lab) [address] [facility], [place], [address], 09/21/2023 05:41:55 09/20/19 24 09/20/2023 CBC W/DIF F basophils 0.5 % 0.0-2. 0 Not Available [facility] (Lab) [address] [place], [address], 09/21/2023 05:41:55 09/20/19 24 09/20/2023 CBC W/DIF F immature granulocytes 0.5 % no define d refere nce range Not Available [facility] (Lab) [address] [place], [address], 09/21/2023 05:41:55 09/20/19 24 09/20/2023 CBC W/DIF F absolute neutrophils 4.0 10'3/ uL 1.5-8. 0 Not Available [facility] (Lab) [address] [place], [address], 09/21/2023 05:41:55 09/20/19 24 09/20/2023 CBC W/DIF F absolute lymphocytes 1.6 10'3/ uL 1.0-4. 0 Not Available [facility] (Lab) [address] [facility], [place], [address], 09/21/2023 05:41:55 09/20/19 24 09/20/2023 CBC W/DIF F absolute monocytes 0.3 10'3/ uL 0.2-1. 0 Not Available [facility] (Lab) [address] [facility], [place], [address], 09/21/2023 05:41:55 09/20/19 24 09/20/2023 CBC W/DIF F absolute eosinophils 0.1 10'3/ uL 0.0-0. 6 Not Available [facility] (Lab) [address] [facility], [place], [address], 09/21/2023 05:41:55 09/20/19 24 09/20/2023 CBC W/DIF F absolute basophils 0.0 10'3/ uL 0.0-0. 3 Not Available [facility] (Lab) [address] [facility], [place], [address], 09/21/2023 05:41:55 09/20/19 24 09/20/2023 CBC W/DIF F absolute immature granulocytes 0.0 10'3/ uL 0.00-0 .10 2023 2:22 AM: P indic ates parti al resul ts on a panel have been relea sed. Addit ional resul ts will follo w. 2023 2:22 AM: This resul t has been final verif ied. No addit ional or cain ed resul ts are expec margaret. Not Available [facility] (Lab) [address] [facility], [place], [address], 09/21/2023 05:41:55 04/29/09/20/2023 HEPAT ITIS B SURFA CE ANTIG EN hepatitis B surface antigen Non-re active non-re active This assay was perfo rmed using [employer] n reage nts and test kits. Value s obtai nila with other assay metho ds or kits canno t be used inter cain eably . Not Available [facility] (Lab) [address] [place], [address], 09/21/2023 05:41:56 09/20/19 24 09/20/2023 HEPAT ITIS C ANTIB TANO SCREE N, REFLE X TO CONFI RMATI ON hepatitis C antibody Non-re active non-re active Antib odies to HCV Not Detec margaret, does not exclu de the possi bilit y of expos ure to HCV. Not Available [facility] (Lab) [address] [facility], [place], [address], 09/21/2023 05:41:56 09/20/19 24 09/20/2023 HIV 1/2 ANTIG EN/AN TIBOD Y, REFLE X CONFI RMATI ON HIV antigen/anti body Nonrea ctive nonrea ctive HIV-1 antig en and HIV-1 /HIV- 2 antib odies were not detec margaret. No labor atory evide nce of HIV infec tion. Not Available [facility] (Lab) [address] [place], [address], 09/21/2023 05:41:57 09/20/19 24 09/20/2023 RUBEL LA IGG ANTIB TANO, QUANT rubella antibodies, IgG Reacti ve reacti ve Not Available [facility] (Lab) [address] [place], [address], 09/21/2023 05:41:57 09/20/19 24 09/20/2023 RUBEL LA IGG ANTIB TANO, QUANT rubella antibodies, IgG quant 16.8 IU/mL >=10 Non-r eacti ve (Non- Immun e) <10 IU/mL React caroline (Immu ne) > or = 10 IU/mL Not Available [facility] (Lab) [address], [place], [address], 09/21/2023 05:41:57 09/20/19 24 09/20/2023 TYPE/ RH/SC REEN ABO/Rh type B NEG Not Available [facility] (Lab) [address] [facility], [place], [address], 09/21/2023 05:41:57 09/20/19 24 09/20/2023 TYPE/ RH/SC REEN antibody screen NEG Not Available [facility] (Lab) [address] [facility], [place], [address], 09/21/2023 05:41:57 09/20/19 24 09/20/2023 TYPE/ RH/SC REEN exp date 2023 23:59 Not Available [facility] (Lab) [address], [place], [address], 09/21/2023 05:41:57 09/20/19 24 09/20/2023 RPR SCREE N, REFLE X TITER /CONF IRMAT ION RPR screen Nonrea ctive nonrea ctive Not Available [facility] (Lab) [address], [place], [address], 09/21/2023 05:41:58 09/20/19 24 09/20/2023 HEMOG LOBIN A1C hemoglobin A1C 5.0 % 0-5.6 The Ameri can Diabe magaly [employer] iatio n recom mends that a prima ry goal of thera py jae d be a HBA1C of < 7% and that physi cians shoul d reeva luate the treat ment regim en in patie nts with HBA1C value s consi stent ly > 8%. <5.7% Marysol l 5.7 - 6.4% Incre ased risk for diabe magaly >=6.5 % Diagn ostic of diabe magaly <7.0% Goal of thera py >8.0% Actio n sugge sted Not Available [facility] (Lab) [address] [place], [address], 09/21/2023 05:41:58 09/20/19 24 09/20/2023 CULTU RE: URINE result report SEE RESULT S BELOW Test: Cultu re: Urine Speci men Sourc e: Urine Voide d Speci men Type: Urine Speci men Date: 2023 12:16 PM Resul t Date: 024 5:43 AM Resul t Statu s: Final resul t Abnor mal: No Resul ting Lab: [facility] [address] [facility] [address] Tel: CULTU RE ----- ----- ----- --- No growt h in 1 day (dete ction level of 10,00 0 colon ies / ml.) Not Available [facility] (Lab) [address] [facility], [place], [address], 09/22/2023 06:54:46 09/20/19 24 09/20/2023 drug scree n, urine Amphetamines : negati ve Not Available [facility] [address], [place], [address], 09/20/2023 12:54:48 09/20/19 24 09/20/2023 drug scree n, urine Cannabinoids : negati ve Not Available [facility] [address], [place], [address], 09/20/2023 12:54:48 09/20/19 24 09/20/2023 drug scree n, urine Cocaine: negati ve Not Available [facility] [address], [place], [address], 09/20/2023 12:54:48 09/20/19 24 09/20/2023 drug scree n, urine Opiates: negati ve Not Available [facility] [address], [place], [address], 09/20/2023 12:54:48 09/20/19 24 09/20/2023 drug scree n, urine Phenocyclidi ne: negati ve Not Available [facility] [address], [place], [address], 09/20/2023 12:54:48 09/20/19 24 09/20/2023 drug scree n, urine Barbiturates : negati ve Not Available [facility] [address], [place], [address], 09/20/2023 12:54:48 09/20/19 24 09/20/2023 drug scree n, urine Benzodiazepi ramiro: negati ve Not Available [facility] [address], [place], [address], 09/20/2023 12:54:48 09/20/19 24 09/20/2023 drug scree n, urine Ethanol: negati ve Not Available [facility] [address], [place], [address], 09/20/2023 12:54:48 09/20/19 24 09/20/2023 drug scree n, urine Hallucinogen s: negati ve Not Available [facility] [address], [place], [address], 09/20/2023 12:54:48 09/20/19 24 09/20/2023 drug scree n, urine Inhalants: negati ve Not Available [facility] [address], [place], [address], 09/20/2023 12:54:48 09/20/19 24 09/20/2023 drug scree n, urine Anabolic Steroids: negati ve Not Available [facility] [address], [place], [address], 09/20/2023 12:54:48 09/20/19 24 09/20/2023 drug scree n, urine Other: negati ve Not Available [facility] [address], [place], [address], 09/20/2023 12:54:48 10/12/19 24 10/12/2023 CBC W/DIF F WBC 5.9 10'3/ uL 3.5-10 .5 Not Available [facility] (Lab) [address], [place], [address], 10/13/2023 03:58:59 10/12/19 24 10/12/2023 CBC W/DIF F RBC 3.07 10'6/ uL (based on docume nted legal sex) 3.80-5 .20 low Not Available [facility] (Lab) [address], [place], [address], 10/13/2023 03:58:59 10/12/19 24 10/12/2023 CBC W/DIF F HGB 9.1 g/dL (based on docume nted legal sex) 11.6-1 5.4 low Not Available [facility] (Lab) [address], [place], [address], 10/13/2023 03:58:59 10/12/19 24 10/12/2023 CBC W/DIF F HCT 28.7 % (based on docume nted legal sex) 34.0-4 5.0 low Not Available [facility] (Lab) [address], [place], [address], 10/13/2023 03:58:59 10/12/19 24 10/12/2023 CBC W/DIF F MCV 93.5 fL 80.0-9 9.0 Not Available [facility] (Lab) [address], [place], [address], 10/13/2023 03:58:59 10/12/19 24 10/12/2023 CBC W/DIF F MCH 29.6 pg 27.0-3 4.0 Not Available [facility] (Lab) [address] [facility], [place], [address], 10/13/2023 03:58:59 10/12/19 24 10/12/2023 CBC W/DIF F MCHC 31.7 g/dL 32.0-3 5.5 low Not Available [facility] (Lab) [address] [facility], [place], [address], 10/13/2023 03:58:59 10/12/19 24 10/12/2023 CBC W/DIF F RDW 14.8 % 11.0-1 5.0 Not Available [facility] (Lab) [address] [facility], [place], [address], 10/13/2023 03:58:59 10/12/19 24 10/12/2023 CBC W/DIF F plt 179 10'3/ uL 150-40 0 Not Available [facility] (Lab) [address] [facility], [place], [address], 10/13/2023 03:58:59 10/12/19 24 10/12/2023 CBC W/DIF F MPV 12.5 fL 8.8-12 .1 high Not Available [facility] (Lab) [address] [facility], [place], [address], 10/13/2023 03:58:59 10/12/19 24 10/12/2023 CBC W/DIF F NRBC's 0.0 % 0.0 Not Available [facility] (Lab) [address] [facility], [place], [address], 10/13/2023 03:58:59 10/12/19 24 10/12/2023 CBC W/DIF F absolute NRBCs 0.0 10'3/ uL no refere nce range establ ished Not Available [facility] (Lab) [address] [facility], [place], [address], 10/13/2023 03:58:59 10/12/19 24 10/12/2023 CBC W/DIF F neutrophils 62.4 % 34.0-7 3.0 Not Available [facility] (Lab) [address] [facility], [place], [address], 10/13/2023 03:58:59 10/12/19 24 10/12/2023 CBC W/DIF F lymphocytes 28.8 % 15.0-5 0.0 Not Available [facility] (Lab) [address] [place], [address], 10/13/2023 03:58:59 10/12/19 24 10/12/2023 CBC W/DIF F monocytes 3.9 % 1.0-15 .0 Not Available [facility] (Lab) [address] [place], [address], 10/13/2023 03:58:59 10/12/19 24 10/12/2023 CBC W/DIF F eosinophils 2.9 % 0.0-8. 0 Not Available [facility] (Lab) [address] [facility], [place], [address], 10/13/2023 03:58:59 10/12/19 24 10/12/2023 CBC W/DIF F basophils 0.7 % 0.0-2. 0 Not Available [facility] (Lab) [address] [place], [address], 10/13/2023 03:58:59 10/12/19 24 10/12/2023 CBC W/DIF F immature granulocytes 1.3 % no define d refere nce range Not Available [facility] (Lab) [address] [place], [address], 10/13/2023 03:58:59 10/12/19 24 10/12/2023 CBC W/DIF F absolute neutrophils 3.7 10'3/ uL 1.5-8. 0 Not Available [facility] (Lab) [address] [place], [address], 10/13/2023 03:58:59 05/21/20 24 10/12/2023 CBC W/DIF F absolute lymphocytes 1.7 10'3/ uL 1.0-4. 0 Not Available [facility] (Lab) [address] [facility], [place], [address], 10/13/2023 03:58:59 10/12/19 24 10/12/2023 CBC W/DIF F absolute monocytes 0.2 10'3/ uL 0.2-1. 0 Not Available [facility] (Lab) [address] [facility], [place], [address], 10/13/2023 03:58:59 10/12/19 24 10/12/2023 CBC W/DIF F absolute eosinophils 0.2 10'3/ uL 0.0-0. 6 Not Available [facility] (Lab) [address] [facility], [place], [address], 10/13/2023 03:58:59 10/12/19 24 10/12/2023 CBC W/DIF F absolute basophils 0.0 10'3/ uL 0.0-0. 3 Not Available [facility] (Lab) [address] [facility], [place], [address], 10/13/2023 03:58:59 10/12/19 24 10/12/2023 CBC W/DIF F absolute immature granulocytes 0.1 10'3/ uL 0.00-0 .10 2023 2:02 AM: P indic ates parti al resul ts on a panel have been relea sed. Addit ional resul ts will follo w. 2023 2:02 AM: This resul t has been final verif ied. No addit ional or cain ed resul ts are expec margaret. Not Available [facility] (Lab) [address] [facility], [place], [address], 10/13/2023 03:58:59 10/12/19 24 10/12/2023 AUBREY TIN / IRON / TRANS AUBREY N / TIBC iron 28 ug/dL 40-170 low Not Available [facility] (Lab) [address] [facility], [place], [address], 10/13/2023 03:59:00 10/12/19 24 10/12/2023 AUBREY TIN / IRON / TRANS AUBREY N / TIBC transferrin 319 mg/dL 200-36 0 Not Available [facility] (Lab) [address], [place], [address], 10/13/2023 03:59:00 10/12/19 24 10/12/2023 AUBREY TIN / IRON / TRANS AUBREY N / TIBC ferritin 11.9 NG/mL 8.0-25 2.0 Not Available [facility] (Lab) [address], [place], [address], 10/13/2023 03:59:00 10/12/19 24 10/12/2023 AUBREY TIN / IRON / TRANS AUBREY N / TIBC TIBC 447 ug/dL 250-45 0 Not Available [facility] (Lab) [address], [place], [address], 10/13/2023 03:59:00 10/12/19 24 10/12/2023 AUBREY TIN / IRON / TRANS AUBREY N / TIBC iron saturation 6 % 20-55 low Not Available [facility] (Lab) [address], [place], [address], 10/13/2023 03:59:00 10/12/19 24 10/12/2023 HCG(H UMAN CHORI ONIC GONAD OTROP IN), QUALI TATIV E SERUM bhcg, qualitative, blood Positi ve negati ve abnormal Not Available [facility] (Lab) [address], [place], [address], 10/13/2023 03:59:01 08/25/19 24 04/29/2023 MAMMO , diagn ostic , digit al, bilat eral No observ ation record ed. [email or web address] [address], [place], [address], 08/25/2023 15:22:33 08/26/19 24 08/26/2023 US, obste tric, 1st trime ster No observ ation record ed. [email or web address] [address] [address], [place], [address], 08/30/2023 11:48:24 09/16/19 24 09/16/2023 US, obste tric, nucha l trans lucen cy No observ ation record ed. [email or web address] [facility] [address], [place], [address], 09/16/2023 17:46:11 09/16/19 24 09/16/2023 US, obste tric, follo w-up No observ ation record ed. [email or web address] [address], [place], [address], 09/17/2023 15:39:42 10/06/19 24 10/06/2023 US, obste tric, 2nd or 3rd trime ster No observ ation record ed. [email or web address] [facility] [address], [place], [address], 10/06/2023 14:19:29 06/17/19 25 06/17/2024 imagi ng/di agnos tic resul t No observ ation record ed. [facility] [address], [place], [address], 06/18/2024 10:53:55 Result Notes None recorded. Problems Name Problem SNOMED Code Status Onset Date Resolution Date Notes Provider Name and Address Organization Details Recorded Time Pregnanc y 90625434 Completed 202003/10/2021 Maria Cohen [place], [place] - [facility] 13:52:40 IVF - in-vitro fertiliz ation pregnanc y [id number] 102 Completed Surrogat e- MFM - 12/04/20 1430. echo was WNL. 36 wk antenata l testing Kerline coombs, [facility] 12:02:46 Deliveri es by [id number] Completed X2 - to repeat - Pt schd 02/21/21 Kerline coombs, [facility] 12:02:46 Low lying placenta 435759545 Completed 202012/04/2020 Complete Previa noted 10/09/20. Placenta location being followed by MFM. REsolved Kerline coombs, [facility] 12:02:46 Advanced maternal age 811763428 Completed ASA per MFM Kerline coombs, [facility] 12:02:46 Gestatio nal diabetes mellitus 20468544 Completed BS QID, Getting 1x/wk antenata l testing Kerline hernandez null, [facility] 12:02:46 Obesity 444046419 Completed 37 wk antenata l testing - 1x/wk Kerline coombs, [facility] 12:02:46 Pregnanc y 20068865 Completed 202310/15/2023 Maria Cohen [facility], [facility] 4 13:52:40 Deliveri es by [id number] Completed X3 Maria Cohen [facility], [facility] 4 13:52:38 IVF - in-vitro fertiliz ation pregnanc y [id number] 102 Completed Maria Cohen [facility], [facility] 4 13:52:38 Surrogat e pregnanc y 743123657 Completed disconti nue Lovenox at 18 weeks Maria Cohen null, [facility] 13:52:38 Problem Notes None recorded. Procedures Surgical History Date Name Laterality Status Provider Name and Address Organization Details Recorded Time 024 embryo transfer [facility] 08/27/2023 20:05:57 023 Date of Last Mammogram completed [facility] 08/27/2023 20:03:03 023 Date of Last Pap Smear completed [facility] 08/26/2023 15:58:46 022 Hysteroscopy completed [facility] 08/26/2023 16:02:36 022 SECTION (SURG) completed [facility] 08/26/2023 16:03:33 022 cholecystectomy completed [facility] 08/26/2023 16:03:00 021 IUD Insertion completed [facility] 04/29/2021 15:50:56 021 IUD Insertion completed Alexis Bailey MD [address], [place], [address], [facility] 04/02/2021 15:23:53 021 SECTION (SURG) completed Selina Blackmon [facility] 02/24/2021 10:39:01 021 embryo transfer completed [facility] 08/27/2023 20:06:35 020 reconstruction of anterior cruciate ligament of knee joint completed [facility] 08/09/2020 14:47:19 020 IUD Removal completed Rona Morelos CNM [address], [place], [address], [place] [facility] 09/08/2019 11:07:49 020 cervical discography completed Estefanía [facility] 09/08/2019 19:16:55 014 section completed [facility] 01/16/2021 12:13:14 012 section completed Estefanía [facility] 01/16/2021 12:13:21 Endometrial Biopsy completed [facility] [email or web address] [facility] 08/26/2023 15:57:36 Imaging Results Imaging Date Name Status LastModified by Organization Details LastModified Time 04/29/2023 MAMMO, diagnostic, digital, bilateral completed [facility] [address], [place], [address], 08/25/2023 15:22:33 08/26/2023 US, obstetric, 1st trimester completed [email or web address] [address], [place], [address], 08/30/2023 11:48:24 09/16/2023 US, obstetric, nuchal translucency completed [email or web address] [facility] [address], [place], [address], 09/16/2023 17:46:11 09/16/2023 US, obstetric, follow-up completed [facility], [place], [address], 09/17/2023 15:39:42 10/06/2023 US, obstetric, 2nd or 3rd trimester completed [email or web address] [facility] [address], [place], [address], 10/06/2023 14:19:29 06/17/2024 imaging/diagnost ic result completed [facility] [address] [place], [place], [address], 06/18/2024 10:53:55 Procedure Notes None recorded. Medical Equipment None Reported. Allergies Allergen ID Allergen Name Allergen Category Reaction Reaction Severity Criticality Documentation Date Start Date Code Code System Note Provider Name and Address Organization Details Recorded Time 214 Product containin g penicilli n (product) medicatio n Not available Not available Not available 09/08/2019 [id number] SNOMED Estefanía Espinal [facility] 0 11:08:40 Medications Name Sig Start Date Stop Date Status Note LastModified by Organization Details LastModified Time complete needle collection system USE DIRECTED 08/09 completed Not Available Not Available Not Available freestyle mis lancets 03/19 completed Not Available Not Available Not Available insulin syringe U-100 with needle 1/2 mL 29 USE TO INJECT LEUPROLID E 04/07 completed Not Available Not Available Not Available medroxyprog esterone 10 mg tablet TAKE 1 TABLET BY MOUTH DAILY 04/07 completed Not Available Not Available Not Available Mirena 21 mcg/24 hr (up to 8 years) 52 mg intrauterin e device Take by intrauter ine route. 04/07 completed Not Available Not Available Not Available clindamycin HCl 300 mg capsule 09/07 completed Not Available Not Available Not Available cefpodoxime 200 mg tablet active Not Available Not Available Not Available valacyclovi r 1 gram tablet TAKE 2 TABLETS BY MOUTH TWICE DAILY active Not Available Not Available No t Available hydrocodone 5 mg-acetamin ophen 325 mg tablet TAKE 1 TABLET BY MOUTH EVERY 3 HOURS NEEDED FOR PAIN 03/19 completed Not Available Not Available Not Available ondansetron HCl 8 mg tablet 08/09 completed Not Available Not Available Not Available FreeStyle Lancets 28 gauge USE TO TEST BLOOD SUGAR FOUR TIMES DAILY 03/19 completed Not Available Not Available Not Available metronidazo le 0.75 % (37.5 mg/5 gram) vaginal gel Insert 1 applicato rful every day by vaginal route at bedtime for 5 days. 08/09 completed Not Available Not Available Not Available insulin syringe U-100 with needle 1 mL 29 gauge x 7/16 USE DIRECTED TO INJECT LEUPROLID 04/07 completed Not Available Not Available Not Available valacyclovi r 500 mg tablet TK 1 T PO BID FOR 5 DAYS 03/19 completed Not Available Not Available Not Available ciprofloxac in 500 mg tablet TAKE 1 TABLET BY MOUTH TWICE DAILY 04/07 completed Not Available Not Available Not Available ketorolac 10 mg tablet 08/09 completed Not Available Not Available Not Available progesteron e 50 mg/mL intramuscul ar oil INJECT 1 TO 2 ML INTO THE MUSCLE IN THE EVENING DIRECTED ON THE CYCLE CALENDAR active Not Available Not Available No t Available methocarbam ol 750 mg tablet 08/09 completed Not Available Not Available Not Available estradiol valerate 20 mg/mL intramuscul ar oil INJECT 0.2 ML TO 0.6 ML IN THE MUSCLE IN THE EVENING 2 TIMES A WEEK DIRECTED ON CYCLE CALENDAR 04/07 completed Not Available Not Available Not Available hydrocodone 7.5 mg-acetamin ophen 325 mg tablet 08/09 completed Not Available Not Available Not Available dexamethaso ne 0.75 mg tablet TAKE 1 TABLET BY MOUTH DAILY active Not Available Not Available No t Available aspirin 81 mg chewable tablet CHEW AND SWALLOW ONE TABLET BY MOUTH ONCE DAILY 04/29 completed Not Available Not Available Not Available estradiol 2 mg tablet TAKE 1 TABLET BY MOUTH TWICE DAILY FOR 1 WEEK DIRECTED. INCREASE TO 3 TIMES DAILY WEEKS FOLLOWING DIRECTED ON CYCLE CALENDAR 09/19 completed Not Available Not Available Not Available BD Regular Bevel [place] 22 gauge x 1 1/2 USE TO INJECT ESTRADIOL 08/09 completed Not Available Not Available Not Available folic acid 1 mg tablet TAKE 1 TABLET BY MOUTH DAILY active Not Available Not Available No t Available alcohol swabs USE DIRECTED 04/07 completed Not Available Not Available Not Available norethindro ne acetate 1 mg-ethinyl estradiol 20 mcg tablet TK 1 T PO QD 08/09 completed Not Available Not Available Not Available ergocalcife rol (vitamin D2) 1,250 mcg (50,000 unit) capsule TAKE ONE CAPSULE BY MOUTH WEEKLY active Not Available Not Available No t Available ibuprofen 600 mg tablet 09/07 completed Not Available Not Available Not Available methylpredn isolone 4 mg tablets in a dose pack 09/07 completed Not Available Not Available Not Available BD Luer-Amol Syringe 3 mL 18 x 1 1/2 USE FOR INJECTION OF PROGESTER ONE 08/25 completed Not Available Not Available Not Available doxycycline hyclate 100 mg tablet TAKE 1 TABLET BY MOUTH TWICE DAILY 04/07 completed Not Available Not Available Not Available leuprolide 1 mg/0.2 mL subcutaneou s kit INJECT 5-10 UNITS UNDER THE SKIN IN THE MORNING DIRECTED ON CYCLE CALENDAR 08/25 completed Not Available Not Available Not Available diazepam 5 mg tablet 09/07 completed Not Available Not Available Not Available amoxicillin 875 mg-potassiu m clavulanate 125 mg tablet TAKE 1 TABLET BY MOUTH TWICE DAILY FOR 7 DAYS 04/07 completed Not Available Not Available Not Available enoxaparin 40 mg/0.4 mL subcutaneou s syringe ADMINISTE R 0.4 ML UNDER THE SKIN EVERY DAY active Not Available Not Available No t Available Sharps Container FOR DISPOSAL OF NEEDLES 08/25 completed Not Available Not Available Not Available Ovidrel 250 mcg/0.5 mL subcutaneou s syringe SUBCUTANE OUS DIRECTED 08/09 completed Not Available Not Available Not Available 03/19 completed Not Available Not Available Not Available Synera 70 mg-70 mg patch UNWRAP AND APPLY 1 PATCH TO SKIN 20 MINUTES BEFORE INJECTION 08/09 completed Not Available Not Available Not Available BD Luer-Amol Syringe 1 mL USE FOR ESTRADIOL VALERATE 04/07 completed Not Available Not Available Not Available FreeStyle Lite Meter kit USE TO TEST BLOOD SUGAR 03/19 completed Not Available Not Available Not Available FreeStyle Lite Strips 03/19 completed Not Available Not Available Not Available BD Regular Bevel [place] 21 gauge x 1 1/2 USE TO INJECT PROGESTER ONE 08/25 completed Not Available Not Available Not Available BD Regular Bevel [place] 18 gauge x 1 1/2 USE DIRECTED TO DRAW UP ESTRADIOL 04/07 completed Not Available Not Available Not Available Thrivite Rx 29 mg iron-1 mg tablet TAKE ONE TABLET BY MOUTH DAILY active Not Available Not Available No t Available Isibloom 0.15 mg-0.03 mg tablet TAKE 1 ACTIVE TABLET BY MOUTH DAILY. TAKE ACTIVE TABLETS ONLY. 04/07 completed Not Available Not Available Not Available Vitals Date Recorded Body height Body mass index (BMI) Body weight Systolic blood pressure Diastolic blood pressure Provider Name and Address Organization Details Last Updated DateTime 08/26/2023 165.1 cm 37.8 kg/m2 776390.4 7 g 112 mm[Hg] 61 mm[Hg] Estefanía Espinal [facility] 15:56:51 Date Recorded Body height Body mass index (BMI) Body weight Systolic blood pressure Diastolic blood pressure Provider Name and Address Organization Details Last Updated DateTime 09/20/2023 165.1 cm 37.4 kg/m2 052373.2 8325 g 119 mm[Hg] 78 mm[Hg] Courtney [facility] 12:50:08 Date Recorded Body height Body mass index (BMI) Systolic blood pressure Diastolic blood pressure Provider Name and Address Organization Details Last Updated DateTime 10/12/2023 165.1 cm 36.6 kg/m2 129 mm[Hg] 81 mm[Hg] [facility] 10/12/2023 11:09:14 Date Recorded Body weight Provider Name an d Address Organization Details Last Updated DateTime 10/12/2023 48185.3214 g Maria Cohen [facility] 10/15/2023 13:52:38 Social History Question Answer Notes LastModified by Organizat ion Details LastModified Time Tobacco Smoking Status [facility]/07/2023 15:33:35 Do You Have An Advance Directive? No [email or web address] Information not available 08/09/2020 What Is Your Level Of Alcohol Consumption? None [email or web address] Information not available 09/08/2019 If You Are , What Was Your Level Of Alcohol Consumption Prior To ? Occasional Information not available 04/07/2023 Are You Blind Or Do You Have Difficulty Seeing? No Information not available 08/09/2020 What Is Your Level Of Caffeine Consumption? Occasional [email or web address] Information not available 09/06/2020 How Much Tobacco Do You Chew? None [email or web address] Information not available 08/09/2020 In The 14 Days Before Symptom Onset, Have You Had Close Contact With A Laboratory-confir med COVID-19 While That Case Was Ill? No [email or web address] Information not available 08/09/2020 In The 14 Days Before Symptom Onset, Have You Had Close Contact With A Person Who Is Under Investigation For COVID-19 While That Person Was Ill? No [email or web address] Information not available 08/09/2020 Have You Been To An Area Known To Be High Risk For COVID-19? No [email or web address] Information not available 02/11/2021 Are You Currently Employed? Yes [email or web address] Information not available 09/20/2023 Are You Deaf Or Do You Have Serious Difficulty Hearing? No [email or web address] Information not available 08/09/2020 What Type Of Diet Are You Following? REGULAR [email or web address] Information not available 08/09/2020 What Is The Highest Grade Or Level Of School You Have Completed Or The Highest Degree You Have Received? 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 No [email or web address] Information not available 08/09/2020 What Was The Date Of Your Most Recent Tobacco Screening? 08/26/2023 [email or web address] Information not available 08/26/2023 Do You Use Protection During Sex? Always [email or web address] Information not available 08/09/2020 Do You Use Your Seat Belt Or Car Seat Routinely? Yes [email or web address] Information not available 08/09/2020 Do You Have Smoke And Carbon Monoxide Detectors In Your Home? Yes [email or web address] Information not available 08/09/2020 How Much Tobacco Do You Smoke? No [email or web address] Information not available 08/09/2020 Do You Feel Stressed (tense, Restless, Nervous, Or Anxious, Or Unable To Sleep At Night)? IT4460-1 [email or web address] Information not available 08/09/2020 Do You Use Any Illicit Or Recreational Drugs? No [email or web address] Information not available 08/09/2020 Do You Use Sunscreen Routinely? Yes [email or web address] Information not available 08/09/2020 Have You Used IV Drugs? No [email or web address] Information not available 08/09/2020 Do You Or Have You Ever Used Any Other Forms Of Tobacco Or Nicotine? No [email or web address] Information not available 04/07/2023 Sex: Unknown Functional Status Question Answer Note LastModified by Organizat ion Details LastModified Time Do you have difficulty walking or climbing stairs? No [email or web address] Information not available 08/26/2023 Are you able to walk? [email or web address] Information not available 08/09/2020 Are you able to care for yourself? Yes [email or web address] Information not available 08/26/2023 Do you have difficulty dressing or bathing? No [email or web address] Information not available 08/26/2023 What is your exercise level? Moderate [email or web address] Information not available 08/09/2020 Mental Status None recorded. Family History Relationship Description Onset Age of this Age Resolved Age Notes LastModified by Organization Details LastModified Time Mother Depressive disorder [email or web address] Not available 2020 10:59:29 Mother Depressive disorder [email or web address] Not available 2023 13:52:26 Maternal Aunt Acute hepatitis [email or web address] Not available 2023 13:52:26 Medical History Condition Response Allergies (Food, seasonal, environmental ) N Other N Breast Cancer N Drug/Latex Allergies/Reactions N Blood Transfusion N Dermatologic Disorders N Lung Disease N Defects or Inherited Disease N Breast Problem N Gestational Diabetes N Hematologic disorders N Anesthesia Complications N History of STI Y Deep Vein Thrombosis N Polycystic ovary syndrome N Anxiety Disorder N Autoimmune disease N Arthritis N Infertility N Polyps N Acid Reflux (GERD) N History of abnormal pap N Cancer N Stroke N Varicosities N Neurologic/Epilepsy Y Endometriosis N High Cholesterol N Headaches N Fibromyalgia N Kidney Disease N Heart Problems N Kidney or Bladder Problems N Thyroid Problems N GI Problems N Eating Disorder N Anemia N Art (IVF or FET) Y Psychiatric Illness N Ovarian Cancer N Diabetes N Pulmonary (TB, Asthma) N Hepatitis/Liver Disease N No Past Medical History N Eczema N Urinary Tract Infection N Abuse/Domestic Violence N Asthma N Trauma/Violence N Depression/ depression N Heart Disease N Pre-Eclampsia N Hypertension N Osteoporosis N Thrombophilias N Gynecological History Statement/Question Response Date of Last Mammogram 04/29/2023 Date of LMP 06/07/2023 On BCP's at Conception? N N Was last menstrual period normal Y STIs/STDs Y HPV Vaccine N Duration of Flow (days) 5 14 Age at First Child 31 Frequency of Cycle (Q days) 30 Sexually Active? N Menses Monthly Y Date of DEXA bone scan Age of first menstrual cycle 16 Date of Last Pap Smear 04/07/2023 Sexual Problems? N LMP Approximate N Obstetrics History GPAL:G 5 P 3 0 1 3 Type Value Full Term 3 Spontaneous 1 Living 3 Total 5 Past Encounters Encounter ID Performer Location Encounter Start Date Encounter Closed Date Diagnosis/Indication Diagnosis SNOMED-CT Code Diagnosis ICD10 Code Diagnosis Note [id number] Rona Morelos [facility] [address] [address] 09/08/2019 10:34:09 09/08/2019 11:45:01 [id number] Rona Morelos [facility] [address],[place] [address] 08/09/2020 13:56:28 08/09/2020 15:46:17 Amenorrhea 75270661 N91.2 reviewed folder, precaution s, office, f/u new ob and first look [id number] Maria [facility] [address],[place] [address] 08/09/2020 13:57:13 08/12/2020 08:01:48 [id number] [facility] [address],[place] [address] 08/20/2020 11:51:20 08/20/2020 12:42:05 screening 405062377 Z36.89 [id number] Alexis Bailey MD [facility] [address],[place] [address] 09/06/2020 15:35:29 09/06/2020 16:52:33 Routine care 824654304 Z34.82 [id number] [facility] [address],[place] [address] 10/08/2020 11:51:50 10/08/2020 12:07:59 Routine care 492711893 Z34.92 [id number] [facility] [address],[place] [address] 11/05/2020 10:17:22 11/05/2020 10:50:14 Routine care 243065060 Z34.92 [id number] [facility] [address],[place] [address] 12/03/2020 11:05:47 12/04/2020 13:28:33 Routine care 479723663 Z34.92 [id number] [facility] [address],[place] [address] 12/17/2020 10:12:17 12/17/2020 11:03:58 Routine care 689153845 Z34.92 [id number] Maria [facility] [address],[place] [address] 12/13/2020 12:24:11 12/13/2020 13:20:37 Gestational diabetes mellitus class A1 90280871 O24.410 Diet teaching completed over the phone. Went over ideal ranges for FBS and pp BS. Went over carb counting and carb ranges for each meal/snack . Gave ideas for foods to eat for meals/snac ks. Pt likes oatmeal for breakfast and will switch to eggs instead. Discussed drink options and to avoid soda and juice. Pt likes sweet tea and pt will avoid this and try unsweet tea if needed. Pt likes chocolate milk and told pt will either have to have a very small glass or drink plain skim milk instead. Told pt she can go online to [employer] for meal options or to look up low carb meal recipes online for ideas as well. Pt hasn't picked up glucometer yet as they are waiting for test strips to come in. Told pt to check BS QID and adjust diet to follow low carb diet to try to keep BS within normal range. Pt aware if sugars aren't controlled by diet we would discuss starting insulin. Went over NST schedule with pt and importance of keeping these appts and checking BS for her and baby's health. Pts questions were answered and [place] [id number] Ofelia Pancharissetamra [facility] [address],[place] [address] 12/31/2020 10:42:25 12/31/2020 11:52:06 Routine care 784366523 Z34.92 [id number] [facility] [address],[place] [address] 12/31/2020 10:40:50 12/31/2020 11:16:04 Gestational diabetes mellitus 45443620 O24.410 O36.63X0 Z3A.31 [id number] Paty [facility] [address],[place] [address] 01/07/2021 09:25:07 01/07/2021 10:09:14 Gestational diabetes mellitus class A1 35902088 O24.410 Diet teaching completed over the phone. Went over ideal ranges for FBS and pp BS. Went over carb counting and carb ranges for each meal/snack . Gave ideas for foods to eat for meals/snac ks. Pt likes oatmeal for breakfast and will switch to eggs instead. Discussed drink options and to avoid soda and juice. Pt likes sweet tea and pt will avoid this and try unsweet tea if needed. Pt likes chocolate milk and told pt will either have to have a very small glass or drink plain skim milk instead. Told pt she can go online to [employer] for meal options or to look up low carb meal recipes online for ideas as well. Pt hasn't picked up glucometer yet as they are waiting for test strips to come in. Told pt to check BS QID and adjust diet to follow low carb diet to try to keep BS within normal range. Pt aware if sugars aren't controlled by diet we would discuss starting insulin. Went over NST schedule with pt and importance of keeping these appts and checking BS for her and baby's health. Pts questions were answered and [place] [id number] [facility] [address],[place] [address] 01/07/2021 09:26:23 01/07/2021 10:31:17 Gestational diabetes mellitus [id number] O24.410 O36.63X0 Z3A.32 [id number] Alexis Bailey MD [facility] [address],[place] [address] 01/07/2021 09:26:39 01/07/2021 11:29:20 Routine care [id number] Z34.92 [id number] [facility] [address],[place] [address] 01/14/2021 09:39:34 01/14/2021 10:44:37 Gestational diabetes mellitus [id number] O24.410 Z3A.33 [id number] Aelxis Bailey MD [facility] [address],[place] [address] 01/14/2021 09:39:34 01/14/2021 10:44:37 Gestational diabetes mellitus class A1 [id number] O24.410 Diet teaching completed over the phone. Went over ideal ranges for FBS and pp BS. Went over carb counting and carb ranges for each meal/snack . Gave ideas for foods to eat for meals/snac ks. Pt likes oatmeal for breakfast and will switch to eggs instead. Discussed drink options and to avoid soda and juice. Pt likes sweet tea and pt will avoid this and try unsweet tea if needed. Pt likes chocolate milk and told pt will either have to have a very small glass or drink plain skim milk instead. Told pt she can go online to ADA for meal options or to look up low carb meal recipes online for ideas as well. Pt hasn't picked up glucometer yet as they are waiting for test strips to come in. Told pt to check BS QID and adjust diet to follow low carb diet to try to keep BS within normal range. Pt aware if sugars aren't controlled by diet we would discuss starting insulin. Went over NST schedule with pt and importance of keeping these appts and checking BS for her and baby's health. Pts questions were answered and pt verbalized understand ing. MICAH good [id number] Rona Morelos CNM [facility] [address],[place] [address] 01/14/2021 09:39:34 01/14/2021 10:44:37 Routine care [id number] Z34.93 [id number] Quique Rocmarisolseymour [facility] [address],[place] [address] 01/21/2021 09:26:12 01/21/2021 11:03:11 Gestational diabetes mellitus class A1 [id number] O24.410 Diet teaching completed over the phone. Went over ideal ranges for FBS and pp BS. Went over carb counting and carb ranges for each meal/snack . Gave ideas for foods to eat for meals/snac ks. Pt likes oatmeal for breakfast and will switch to eggs instead. Discussed drink options and to avoid soda and juice. Pt likes sweet tea and pt will avoid this and try unsweet tea if needed. Pt likes chocolate milk and told pt will either have to have a very small glass or drink plain skim milk instead. Told pt she can go online to ADA for meal options or to look up low carb meal recipes online for ideas as well. Pt hasn't picked up glucometer yet as they are waiting for test strips to come in. Told pt to check BS QID and adjust diet to follow low carb diet to try to keep BS within normal range. Pt aware if sugars aren't controlled by diet we would discuss starting insulin. Went over NST schedule with pt and importance of keeping these appts and checking BS for her and baby's health. Pts questions were answered and pt verbalized understand ing. MICAH good [id number] Adeline Barksdale [facility] [address],[place] [address] 01/21/2021 09:27:39 01/21/2021 11:04:50 Gestational diabetes mellitus [id number] O24.410 Z3A.34 [id number] Alexis Bailey MD [facility] [address],[place] [address] 01/21/2021 09:27:56 01/21/2021 11:26:33 Routine care [id number] Z34.92 51153 Adeline Barksdale [facility] [address],[facility] [place] [address] 01/28/2021 09:31:47 01/28/2021 12:21:48 Gestational diabetes mellitus [id number] O24.410 O36.8330 Z3A.35 78954 M Paty [facility] [address],[place] [address] 01/28/2021 09:34:07 01/28/2021 10:40:08 Gestational diabetes mellitus class A1 [id number] O24.410 Diet teaching completed over the phone. Went over ideal ranges for FBS and pp BS. Went over carb counting and carb ranges for each meal/snack . Gave ideas for foods to eat for meals/snac ks. Pt likes oatmeal for breakfast and will switch to eggs instead. Discussed drink options and to avoid soda and juice. Pt likes sweet tea and pt will avoid this and try unsweet tea if needed. Pt likes chocolate milk and told pt will either have to have a very small glass or drink plain skim milk instead. Told pt she can go online to ADA for meal options or to look up low carb meal recipes online for ideas as well. Pt hasn't picked up glucometer yet as they are waiting for test strips to come in. Told pt to check BS QID and adjust diet to follow low carb diet to try to keep BS within normal range. Pt aware if sugars aren't controlled by diet we would discuss starting insulin. Went over NST schedule with pt and importance of keeping these appts and checking BS for her and baby's health. Pts questions were answered and pt verbalized understand ing. MICAH good [id number] Radha Rosado MD [facility] [address],[place] [address] 01/28/2021 09:39:14 01/29/2021 12:46:06 Routine care [id number] Z34.83 IVF - in-v itro fertilization [id number] 2102 O09.819 26519 Phuong Avalos [facility] [address],[place] [address] 02/04/2021 09:22:14 02/04/2021 11:53:50 Gestational diabetes mellitus class A1 [id number] O24.410 Diet teaching completed over the phone. Went over ideal ranges for FBS and pp BS. Went over carb counting and carb ranges for each meal/snack . Gave ideas for foods to eat for meals/snac ks. Pt likes oatmeal for breakfast and will switch to eggs instead. Discussed drink options and to avoid soda and juice. Pt likes sweet tea and pt will avoid this and try unsweet tea if needed. Pt likes chocolate milk and told pt will either have to have a very small glass or drink plain skim milk instead. Told pt she can go online to ADA for meal options or to look up low carb meal recipes online for ideas as well. Pt hasn't picked up glucometer yet as they are waiting for test strips to come in. Told pt to check BS QID and adjust diet to follow low carb diet to try to keep BS within normal range. Pt aware if sugars aren't controlled by diet we would discuss starting insulin. Went over NST schedule with pt and importance of keeping these appts and checking BS for her and baby's health. Pts questions were answered [place] [id number] Maria Cohen [facility] [address],[facility] [place] [address] 02/04/2021 09:22:44 02/04/2021 12:12:02 condition affecting obstetrical care of mother [id number] O36.8330 [id number] Radha Rosado MD [facility] [address],[facility] [place] [place] [address] 02/04/2021 09:23:06 02/05/2021 14:26:13 Advanced maternal age [id number] O09.523 Gestationa l diabetes mellitus class A1 [id number] O24.410 [id number] M Paty [facility] [address],[place] [address] 02/11/2021 09:38:41 02/11/2021 11:01:00 Gestational diabetes mellitus class A1 [id number] O24.410 Diet teaching completed over the phone. Went over ideal ranges for FBS and pp BS. Went over carb counting and carb ranges for each meal/snack . Gave ideas for foods to eat for meals/snac ks. Pt likes oatmeal for breakfast and will switch to eggs instead. Discussed drink options and to avoid soda and juice. Pt likes sweet tea and pt will avoid this and try unsweet tea if needed. Pt likes chocolate milk and told pt will either have to have a very small glass or drink plain skim milk instead. Told pt she can go online to ADA for meal options or to look up low carb meal recipes online for ideas as well. Pt hasn't picked up glucometer yet as they are waiting for test strips to come in. Told pt to check BS QID and adjust diet to follow low carb diet to try to keep BS within normal range. Pt aware if sugars aren't controlled by diet we would discuss starting insulin. Went over NST schedule with pt and importance of keeping these appts and checking BS for her and baby's health. Pts questions were answered and pt verbalized understand ing. MICAH good [id number] Alexis Bailey MD [facility] [address],[place] [address] 02/11/2021 09:39:20 02/11/2021 11:59:34 Routine care [id number] Z34.92 [id number] Stacey Pollack [facility] [address],[facility] [place] [address] 02/11/2021 09:40:24 02/11/2021 13:38:05 Gestational diabetes mellitus class A1 [id number] O24.410 Z3A.37 Diet teaching completed over the phone. Went over ideal ranges for FBS and pp BS. Went over carb counting and carb ranges for each meal/snack . Gave ideas for foods to eat for meals/snac ks. Pt likes oatmeal for breakfast and will switch to eggs instead. Discussed drink options and to avoid soda and juice. Pt likes sweet tea and pt will avoid this and try unsweet tea if needed. Pt likes chocolate milk and told pt will either have to have a very small glass or drink plain skim milk instead. Told pt she can go online to ADA for meal options or to look up low carb meal recipes online for ideas as well. Pt hasn't picked up glucometer yet as they are waiting for test strips to come in. Told pt to check BS QID and adjust diet to follow low carb diet to try to keep BS within normal range. Pt aware if sugars aren't controlled by diet we would discuss starting insulin. Went over NST schedule with pt and importance of keeping these appts and checking BS for her and baby's health. Pts questions were answered and [place] [id number] Quique Paty [facility] [address],[place] [address] 02/18/2021 09:31:47 02/18/2021 10:37:11 Gestational diabetes mellitus class A1 [id number] O24.410 [id number] Kathleen Leggett [facility] [address],[place] [address] 02/18/2021 09:34:30 02/18/2021 11:21:07 Gestational diabetes mellitus class A1 [id number] O24.410 Z3A.37 Diet teaching completed over the phone. Went over ideal ranges for FBS and pp BS. Went over carb counting and carb ranges for each meal/snack . Gave ideas for foods to eat for meals/snac ks. Pt likes oatmeal for breakfast and will switch to eggs instead. Discussed drink options and to avoid soda and juice. Pt likes sweet tea and pt will avoid this and try unsweet tea if needed. Pt likes chocolate milk and told pt will either have to have a very small glass or drink plain skim milk instead. Told pt she can go online to ADA for meal options or to look up low carb meal recipes online for ideas as well. Pt hasn't picked up glucometer yet as they are waiting for test strips to come in. Told pt to check BS QID and adjust diet to follow low carb diet to try to keep BS within normal range. Pt aware if sugars aren't controlled by diet we would discuss starting insulin. Went over NST schedule with pt and importance of keeping these appts and checking BS for her and baby's health. Pts questions were answered and pt verbalized understand ing. MICAH good Gestationa l diabetes mellitus [id number] O24.410 Z3A.38 [id number] Radha Rosado MD [facility] [address],[place] [address] 02/18/2021 09:34:48 02/18/2021 11:21:19 Routine care 737019454 Z34.83 Gestationa l diabetes mellitus class A1 [id number] O24.410 [id number] Alexis Bailey MD [facility] [address],[place] [address] 02/28/2021 10:53:52 02/28/2021 11:47:48 Postoperative care 080290569 Z48.89 This patient is a 40-year-ol d female who presents for postop follow-up. She is 1 week postop from a delivery. Her incision is clean dry and intact. She has no complaints . Her bleeding is minimal. She denies any nausea, vomiting, fever, chills. She denies any chest pain or shortness of breath. Her baby is doing well. Her mood is good. [id number] Alexis Bailey MD [facility] [address],[place] [address] 03/12/2021 16:35:02 03/12/2021 17:06:57 Complication of obstetrical surgical wound 82122475 O90.89 40-year-ol d female who is about 2 weeks post from a delivery. She had concerned about a a subcuticul ar suture that was exposed. It was a staple. The staple was removed. There was an area that was weeping slightly. I think it will be fine. She will observe closely. [id number] Alexis Bailey MD [facility] [address],[place] [address] 03/19/2021 15:14:24 03/19/2021 15:47:43 care 348342021 Z39.2 this patient is a 40-year-ol d female presents for follow-up. She is not bleeding. She is no longer breastfeed ing. She would like Mirena IUD. Her mood is good. The baby is well. She has not had sex. She will follow-up for IUD insertion. [id number] Alexis Bailey MD [facility] [address],[place] [address] 04/02/2021 14:47:10 04/02/2021 15:56:04 Screening procedure 53271910 Z13.9 Venereal d isease screening 872157378 Z11.3 Contracept ion care management 889143955 Z30.9 IUD was inserted. She tolerated well. She will follow-up in 1 month. [id number] Alexis Bailey MD [facility] [address],[place] [address] 04/29/2021 15:30:25 04/30/2021 09:58:50 Contraception care management 981727671 Z30.9 This patient is a 40-year-ol d who presents for IUD check. She has no complaints . She was examined with a speculum. The cervix appears normal, the IUD string appears normally placed, the IUD was not visible. She will follow up as needed. [id number] MELITA Shirley [facility] [address],[place] [address] 04/07/2023 15:33:04 04/07/2023 16:21:47 Gynecologic examination 28758310 Z01.419 WWEpap updatedSTI testing declinedUT D with PCP for routine labs Suggested Calcium with Vitamin D daily. Patient advised to get an annual flu shot in the fall and she could obtain at [facility] or [facility] take care clinic. Also to obtain TDap vaccinatio n if you have not had one in the last 10 years. Recommend yearly mammograms . Encouraged monthly self breast exams. Encourage safe sexual practices, to use condoms and limit partners if not already in a monogamous relationsh ip. Engage in daily exercise of low impact aerobic exercise 45-60 minutes 4-5 times weekly. Avoid tobacco and illicit drugs as well as using moderation with alcohol intake less than 1-2 8 oz beverages daily. This lifestyle behavior pattern will lead to less health conditions and longer life span. If BMI greater than 25 dietary consult advised. All questions have been answered. Patient appears to understand informatio n, but if you have any questions please call or respond to this email. Lesion of skin of breast [id number] 79959 L98.8 imaging orderedpre cautions discussed [id number] Stacey Pollack [facility] [address],[place] [address] 08/26/2023 14:54:46 08/26/2023 15:21:01 [id number] Alexis Bailey MD [facility] [address],[place] [address] 08/26/2023 14:55:29 08/26/2023 16:27:21 Amenorrhea 53546715 N91.2 42-year-ol d female, multiparou s with amenorrhea and a positive test. She had an ultrasound today that revealed a 9 week gestation. She is a surrogate for another colpo. She had IVF. Her date should be solid. We talked about care in detail. Talked about genetic screening, exercise, diet, over-the-c ounter medication s. She will begin routine care next visit Venereal d isease screening [id number] Z11.3 [id number] Adeline [facility] [address],[place] [address] 09/16/2023 13:52:18 09/16/2023 14:38:47 screening 006397614 Z36.82 Z3A.12 [id number] Alexis Bailey MD [facility] [address],[place] [address] 09/20/2023 12:15:03 09/20/2023 13:41:25 Routine care 834117611 Z34.92 [id number] Alexis Bailey MD [facility] [address],[place] [address] 10/12/2023 10:57:25 10/12/2023 12:03:10 Anemia 848239131 D64.9 -mate rnal hemorrhage 28381559 O36.8999 this patient is a 42-year-ol d female with recent surgically terminated due to massive maternal hemorrhage . Her bleeding is minimal today. As expected it is light. She has reasonable energy. She denies any shortness of breath or dizziness. We will check CBC iron levels. To check quantitati ve HCG as well. We discussed the events of last week. She is doing well emotionall y. Her mood seems reasonable . She will follow-up as needed. spent 20 minutes face-to-fa ce. More than 50% was counseling . Health Concerns Section Related Observation LastModified by Organization Detai ls LastModified Time None Recorded Concern Status LastModified by Organization Details LastModified Time None Recorded Advance Directives Directive N: Payers Encounter Date Sequence Insurance Name Policy Number Policy Gonzalez Covered Member ID Gonzalez Member ID Guarantor Name 08/26/2023 1 [place] [id number] Stacey Gonzáles [id number] Stacey Gonzáles 08/26/2023 1 [place] [id number] Stacey Gonzáles [id number] Stacey Gonzáles 09/16/2023 1 [place] [id number] Stacey Gonzáles [id number] Stacey Gonzáles 09/20/2023 1 [place] [id number] Stacey Gonzáles [id number] Stacey Gonzáles 10/12/2023 1 [place] [id number] Stacey Gonzáles [id number] Stacey Gonzáles Notes Date Note Type Note Provider Name and Address Organization Details Recorded Time 08/26/2023 text/html 42-year-old female, multiparous with amenorrhea and a positive test. She had an ultrasound today that revealed a 9 week gestation. She is a surrogate for another colpo. She had IVF. Her date should be solid. We talked about care in detail. Talked about genetic screening, exercise, diet, hurp-unp-wccaagn medications. She will begin routine care next visit Alexis Bailey MD [address], [place], [address], [facility] 08/26/2023 16:22:59 10/12/2023 text/html this patient is a 42-year-old female with recent surgically terminated due to massive maternal hemorrhage. Her bleeding is minimal today. As expected it is light. She has reasonable energy. She denies any shortness of breath or dizziness. We will check CBC iron levels. To check quantitative HCG as well. We discussed the events of last week. She is doing well emotionally. Her mood seems reasonable. She will follow-up as needed. Alexis Bailey MD [address], [place], [address], [facility] 10/12/2023 11:58:48 OBGyn Episode Ob Episode Information Episode Created Date Number of Fetuses Patient Bloodtype Patient rh Status Prepregnancy Weight lbs Domestic Partner Domestic Partner Phone Father Name Honing Machine Operator Semiautomatic Status 09/08/19 20 1 CLOSED Fetus Data First Name Last Name Admitted to NICU Weight (g) Sex Living Outcome Pediatric Complications Fetus ID Race Codes Race Delivery Type 4252.42 5 M Full Term 602 Primary Geovanny Calculation Initial Geovanny Date Initial Exam Date Initial Exam Provider Initial Ultrasound Date Last Menstrual Period Date Ultra Sound Weeks Gestation 0 Eighteen To Twenty Week Geovanny Update Ultra Sound Date Fundal Height At Umbil Quickening Date Ultra Sound Latest Weeks Gestation Final Geovanny Confirmed By Final Geovanny Confirmed Date Final Geovanny Date Ultra Sound Latest Days Gestation 0 0 Menstrual History Last Menstrual Date Menses Monthly On Bcp Conception Prior Menses Frequency Hcg Plus Date Menarche Onset Age Delivery Information Delivery Date Delivery Type Labor Anesthesia Weeks Gestation Incision Type Labor Labor Length Hrs Delivered By Post Complications Tubal Sterilization Discharge Date Comments 2 41 Finn- transvers e Discharge Information Feeding Method Contraceptive Method Maternal HG B and HCT Levels Ob Episode Information Episode Created Date Number of Fetuses Patient Bloodtype Patient rh Status Prepregnancy Weight lbs Domestic Partner Domestic Partner Phone Father Name Honing Machine Operator Semiautomatic Status 09/08/19 20 1 CLOSED Fetus Data First Name Last Name Admitted to NICU Weight (g) Sex Living Outcome Pediatric Complications Fetus ID Race Codes Race Delivery Type 3997.05 2704 M Full Term 603 Repeat Geovanny Calculation Initial Geovanny Date Initial Exam Date Initial Exam Provider Initial Ultrasound Date Last Menstrual Period Date Ultra Sound Weeks Gestation 0 Eighteen To Twenty Week Geovanny Update Ultra Sound Date Fundal Height At Umbil Quickening Date Ultra Sound Latest Weeks Gestation Final Geovanny Confirmed By Final Geovanny Confirmed Date Final Geovanny Date Ultra Sound Latest Days Gestation 0 0 Menstrual History Last Menstrual Date Menses Monthly On Bcp Conception Prior Menses Frequency Hcg Plus Date Menarche Onset Age Delivery Information Delivery Date Delivery Type Labor Anesthesia Weeks Gestation Incision Type Labor Labor Length Hrs Delivered By Post Complications Tubal Sterilization Discharge Date Comments 4 39 Emigdio Discharge Information Feeding Method Contraceptive Method Maternal HG B and HCT Levels Ob Episode Information Episode Created Date Number of Fetuses Patient Bloodtype Patient rh Status Prepregnancy Weight lbs Domestic Partner Domestic Partner Phone Father Name Honing Machine Operator Semiautomatic Status 09/08/19 20 1 CLOSED Fetus Data First Name Last Name Admitted to NICU Weight (g) Sex Living Outcome Pediatric Complications Fetus ID Race Codes Race Delivery Type , Spontane ous 604 Geovanny Calculation Initial Geovanny Date Initial Exam Date Initial Exam Provider Initial Ultrasound Date Last Menstrual Period Date Ultra Sound Weeks Gestation 0 Eighteen To Twenty Week Geovanny Update Ultra Sound Date Fundal Height At Umbil Quickening Date Ultra Sound Latest Weeks Gestation Final Geovanny Confirmed By Final Geovanny Confirmed Date Final Geovanny Date Ultra Sound Latest Days Gestation 0 0 Menstrual History Last Menstrual Date Menses Monthly On Bcp Conception Prior Menses Frequency Hcg Plus Date Menarche Onset Age Delivery Information Delivery Date Delivery Type Labor Anesthesia Weeks Gestation Incision Type Labor Labor Length Hrs Delivered By Post Complications Tubal Sterilization Discharge Date Comments 2008 miscarria ge Discharge Information Feeding Method Contraceptive Method Maternal HG B and HCT Levels Ob Episode Information Episode Created Date Number of Fetuses Patient Bloodtype Patient rh Status Prepregnancy Weight lbs Domestic Partner Domestic Partner Phone Father Name Honing Machine Operator Semiautomatic Status 09/07/19 21 1 B Negative 223 CLOSED Fetus Data First Name Last Name Admitted to NICU Weight (g) Sex Living Outcome Pediatric Complications Fetus ID Race Codes Race Delivery Type Sarah la 3657.08 57 F true Full Term 9173 Repeat Problems Problem Notes declines CF/SMAKP spoke with Amina Pedraza and pt is allowed to have 1 support person and 2 parents in the hospital with her as of 12/31/20 Problem Name Start Date End Date Resolution Snomed Code Not e Advanced maternal age [id number] ASA per [facility] Obesity [id number] 37 wk ante testing - 1x/wk IVF - in-vitro fertilization [id number] Surrogate- [facility] - 12/04/20 1430. echo was WNL.36 wk testing Low lying placenta 11/05/2020 12/04/2020 SELFRESOLVED [id number] Complete Previa noted 10/09/20. Placenta location being followed by [facility]. REsolved Gestational diabetes mellitus 11860878 BS QID, Getting 1x/wk testing Deliveries by [id number] X2 - to repeat - Pt schd 02/21/21 Geovanny Calculation Initial Geovanny Date Initial Exam Date Initial Exam Provider Initial Ultrasound Date Last Menstrual Period Date Ultra Sound Weeks Gestation 02/27/2021 09/06/2020 08/09/2020 11 Eighteen To Twenty Week Geovanny Update Ultra Sound Date Fundal Height At Umbil Quickening Date Ultra Sound Latest Weeks Gestation Final Geovanny Confirmed By Final Geovanny Confirmed Date Final Geovanny Date Ultra Sound Latest Days Gestation 0 [email or web address] 09/06/2020 02/28/20 21 0 Pre- Flowsheet Flowsheet Date 09/06/2020 Wright Score Blood Edema Fundus Height Fundus Units Glucose Ketones Leukocytes Nitrite Labor Signs Protein Cervic Dilation Cervic Effacement Cervic Station 15 Type Weight in lbs Pre/Post Dialysis Refused Weight 230.594986858143 BP Diastolic BP Location Tested BP Systolic BP Type 71 R arm 109 sitting Fetus Heart Rate Present A 150 Fetus Movement Comments This patient is a 39-year-ol d 4 para 2011 at 15 weeks gestation who presents for initial visit. She has a history of 2 deliveries. We plan to repeat that. She is an IVF . We will obtain a 20 week level 2 ultrasound and MFM consult. She will follow-up in 4 weeks. We will begin routine care. Likely NSTs and growth ultrasounds , possible echo. Await MFM recommendation. Flowsheet Date 10/08/2020 Wright Score Blood Edema Fundus Height Fundus Units Glucose Ketones Leukocytes Nitrite Labor Signs Protein Cervic Dilation Cervic Effacement Cervic Station none 20 trace Type Weight in lbs Pre/Post Dialysis Refused Weight 228.742329109898 BP Diastolic BP Location Tested BP Systolic BP Type 72 113 Fetus Heart Rate Present A 150 Fetus Movement A Yes Comments Doing well. Baseline anatomy tomorrow. Exam per Z. Due SNM. Flowsheet Date 11/05/2020 Wright Score Blood Edema Fundus Height Fundus Units Glucose Ketones Leukocytes Nitrite Labor Signs Protein Cervic Dilation Cervic Effacement Cervic Station none 23 trace Type Weight in lbs Pre/Post Dialysis Refused Weight 231.489823540820 BP Diastolic BP Location Tested BP Systolic BP Type 67 104 Fetus Heart Rate Present A 145 Fetus Movement A Yes Comments Doing great. U/S yesterday. Plan to repeat in 4 weeks. Visit per Z. Due SNM. Flowsheet Date 12/03/2020 Wright Score Blood Edema Fundus Height Fundus Units Glucose Ketones Leukocytes Nitrite Labor Signs Protein Cervic Dilation Cervic Effacement Cervic Station none 29 trace Type Weight in lbs Pre/Post Dialysis Refused Weight 233.731067885971 BP Diastolic BP Location Tested BP Systolic BP Type 70 104 Fetus Heart Rate Present A 142 Fetus Movement A Yes Comments Doing well. States echo was normal. Results requested. U/S with mfm tomorrow. Had 28 week labs today. Will return tonight or tomorrow for rhogam. Flowsheet Date 12/13/2020 Wright Score Blood Edema Fundus Height Fundus Units Glucose Ketones Leukocytes Nitrite Labor Signs Protein Cervic Dilation Cervic Effacement Cervic Station Type Weight in lbs Pre/Post Dialysis Refused BP Diastolic BP Location Tested BP Systolic BP Type Fetus Heart Rate Present Fetus Movement Comments Flowsheet Date 12/17/2020 Wright Score Blood Edema Fundus Height Fundus Units Glucose Ketones Leukocytes Nitrite Labor Signs Protein Cervic Dilation Cervic Effacement Cervic Station neg trace 30 trace Type Weight in lbs Pre/Post Dialysis Refused Weight 228.194592008699 BP Diastolic BP Location Tested BP Systolic BP Type 72 107 Fetus Heart Rate Present A 162 Fetus Movement A Yes Comments Doing well. Blood sugars loo k great. Flowsheet Date 12/31/2020 Wright Score Blood Edema Fundus Height Fundus Units Glucose Ketones Leukocytes Nitrite Labor Signs Protein Cervic Dilation Cervic Effacement Cervic Station Type Weight in lbs Pre/Post Dialysis Refused BP Diastolic BP Location Tested BP Systolic BP Type Fetus Heart Rate Present Fetus Movement Comments Flowsheet Date 12/31/2020 Wright Score Blood Edema Fundus Height Fundus Units Glucose Ketones Leukocytes Nitrite Labor Signs Protein Cervic Dilation Cervic Effacement Cervic Station trace 34 trace Type Weight in lbs Pre/Post Dialysis Refused Weight 225.396271414910 BP Diastolic BP Location Tested BP Systolic BP Type 66 98 Fetus Heart Rate Present Fetus Movement A Yes Comments Doing well. U/S today. LGA w ith increased abd circ. Placental sonolucencies as seen on previous u/s. Will await recommendations. Blood sugar very well controlled. Encouraged tdap. Encouraged to schedule pre admit. Will call to discuss visitor plan d/t surrogacy. Flowsheet Date 01/07/2021 Wright Score Blood Edema Fundus Height Fundus Units Glucose Ketones Leukocytes Nitrite Labor Signs Protein Cervic Dilation Cervic Effacement Cervic Station Type Weight in lbs Pre/Post Dialysis Refused BP Diastolic BP Location Tested BP Systolic BP Type Fetus Heart Rate Present Fetus Movement Comments Flowsheet Date 01/07/2021 Wright Score Blood Edema Fundus Height Fundus Units Glucose Ketones Leukocytes Nitrite Labor Signs Protein Cervic Dilation Cervic Effacement Cervic Station Type Weight in lbs Pre/Post Dialysis Refused BP Diastolic BP Location Tested BP Systolic BP Type Fetus Heart Rate Present Fetus Movement Comments Flowsheet Date 01/07/2021 Wright Score Blood Edema Fundus Height Fundus Units Glucose Ketones Leukocytes Nitrite Labor Signs Protein Cervic Dilation Cervic Effacement Cervic Station 32 trace Type Weight in lbs Pre/Post Dialysis Refused Weight 224.382707394918 BP Diastolic BP Location Tested BP Systolic BP Type 68 R arm 122 sitting Fetus Heart Rate Present A 145 Fetus Movement A Yes Comments normal blood glucose, discus se breast pump, reminded that legal papers for surrogacy need to be in order before admission Flowsheet Date 01/14/2021 Wright Score Blood Edema Fundus Height Fundus Units Glucose Ketones Leukocytes Nitrite Labor Signs Protein Cervic Dilation Cervic Effacement Cervic Station Type Weight in lbs Pre/Post Dialysis Refused BP Diastolic BP Location Tested BP Systolic BP Type Fetus Heart Rate Present Fetus Movement Comments Flowsheet Date 01/14/2021 Wright Score Blood Edema Fundus Height Fundus Units Glucose Ketones Leukocytes Nitrite Labor Signs Protein Cervic Dilation Cervic Effacement Cervic Station Type Weight in lbs Pre/Post Dialysis Refused BP Diastolic BP Location Tested BP Systolic BP Type Fetus Heart Rate Present Fetus Movement Comments Flowsheet Date 01/14/2021 Wright Score Blood Edema Fundus Height Fundus Units Glucose Ketones Leukocytes Nitrite Labor Signs Protein Cervic Dilation Cervic Effacement Cervic Station neg trace trace Type Weight in lbs Pre/Post Dialysis Refused Weight 224.878451813519 BP Diastolic BP Location Tested BP Systolic BP Type 66 100 Fetus Heart Rate Present Fetus Movement A Yes Comments patient states that having s ome BH contractions and swelling. growth 80% BPP 12/29, doing well, preadmit scheduled Flowsheet Date 01/21/2021 Wright Score Blood Edema Fundus Height Fundus Units Glucose Ketones Leukocytes Nitrite Labor Signs Protein Cervic Dilation Cervic Effacement Cervic Station Type Weight in lbs Pre/Post Dialysis Refused BP Diastolic BP Location Tested BP Systolic BP Type Fetus Heart Rate Present Fetus Movement Comments Flowsheet Date 01/21/2021 Wright Score Blood Edema Fundus Height Fundus Units Glucose Ketones Leukocytes Nitrite Labor Signs Protein Cervic Dilation Cervic Effacement Cervic Station Type Weight in lbs Pre/Post Dialysis Refused BP Diastolic BP Location Tested BP Systolic BP Type Fetus Heart Rate Present Fetus Movement Comments Flowsheet Date 01/21/2021 Wright Score Blood Edema Fundus Height Fundus Units Glucose Ketones Leukocytes Nitrite Labor Signs Protein Cervic Dilation Cervic Effacement Cervic Station 34 trace Type Weight in lbs Pre/Post Dialysis Refused Weight 224.371166930376 BP Diastolic BP Location Tested BP Systolic BP Type 67 R arm 108 sitting Fetus Heart Rate Present A 140 Fetus Movement A Yes Comments to schedule Octobe r, 1 reactive NST, normal BPP Flowsheet Date 01/28/2021 Wright Score Blood Edema Fundus Height Fundus Units Glucose Ketones Leukocytes Nitrite Labor Signs Protein Cervic Dilation Cervic Effacement Cervic Station Type Weight in lbs Pre/Post Dialysis Refused BP Diastolic BP Location Tested BP Systolic BP Type Fetus Heart Rate Present Fetus Movement Comments Flowsheet Date 01/28/2021 Wright Score Blood Edema Fundus Height Fundus Units Glucose Ketones Leukocytes Nitrite Labor Signs Protein Cervic Dilation Cervic Effacement Cervic Station Type Weight in lbs Pre/Post Dialysis Refused BP Diastolic BP Location Tested BP Systolic BP Type Fetus Heart Rate Present Fetus Movement Comments Flowsheet Date 01/28/2021 Wright Score Blood Edema Fundus Height Fundus Units Glucose Ketones Leukocytes Nitrite Labor Signs Protein Cervic Dilation Cervic Effacement Cervic Station neg trace trace Type Weight in lbs Pre/Post Dialysis Refused Weight 224.247580912598 BP Diastolic BP Location Tested BP Systolic BP Type 67 111 Fetus Heart Rate Present A 155 Fetus Movement A Yes Comments Doing well. Sugars perfect. Tdap is done, also had COVID vaccine. GBS next visit. R CS scheduled. NSt today NR, but BPP 12/29, growth 66%. Precautions given. Flowsheet Date 02/04/2021 Wright Score Blood Edema Fundus Height Fundus Units Glucose Ketones Leukocytes Nitrite Labor Signs Protein Cervic Dilation Cervic Effacement Cervic Station Type Weight in lbs Pre/Post Dialysis Refused BP Diastolic BP Location Tested BP Systolic BP Type Fetus Heart Rate Present Fetus Movement Comments Flowsheet Date 02/04/2021 Wright Score Blood Edema Fundus Height Fundus Units Glucose Ketones Leukocytes Nitrite Labor Signs Protein Cervic Dilation Cervic Effacement Cervic Station Type Weight in lbs Pre/Post Dialysis Refused BP Diastolic BP Location Tested BP Systolic BP Type Fetus Heart Rate Present Fetus Movement Comments Flowsheet Date 02/04/2021 Wright Score Blood Edema Fundus Height Fundus Units Glucose Ketones Leukocytes Nitrite Labor Signs Protein Cervic Dilation Cervic Effacement Cervic Station neg trace 37 trace Type Weight in lbs Pre/Post Dialysis Refused Weight 228.564968736859 BP Diastolic BP Location Tested BP Systolic BP Type 68 111 Fetus Heart Rate Present A 135 Fetus Movement A Yes Comments Doing very well. GBS done. N ST reactive. BS perfect with fastings 69-86, Flowsheet Date 02/11/2021 Wright Score Blood Edema Fundus Height Fundus Units Glucose Ketones Leukocytes Nitrite Labor Signs Protein Cervic Dilation Cervic Effacement Cervic Station Type Weight in lbs Pre/Post Dialysis Refused BP Diastolic BP Location Tested BP Systolic BP Type Fetus Heart Rate Present Fetus Movement Comments Flowsheet Date 02/11/2021 Wright Score Blood Edema Fundus Height Fundus Units Glucose Ketones Leukocytes Nitrite Labor Signs Protein Cervic Dilation Cervic Effacement Cervic Station Type Weight in lbs Pre/Post Dialysis Refused BP Diastolic BP Location Tested BP Systolic BP Type Fetus Heart Rate Present Fetus Movement Comments Flowsheet Date 02/11/2021 Wright Score Blood Edema Fundus Height Fundus Units Glucose Ketones Leukocytes Nitrite Labor Signs Protein Cervic Dilation Cervic Effacement Cervic Station 37 trace Type Weight in lbs Pre/Post Dialysis Refused Weight 227.363537918168 BP Diastolic BP Location Tested BP Systolic BP Type 70 R arm 109 sitting Fetus Heart Rate Present A 149 Fetus Movement A Yes Comments Excellent blood sugar contro l, reassuring testing Flowsheet Date 02/18/2021 Wright Score Blood Edema Fundus Height Fundus Units Glucose Ketones Leukocytes Nitrite Labor Signs Protein Cervic Dilation Cervic Effacement Cervic Station Type Weight in lbs Pre/Post Dialysis Refused BP Diastolic BP Location Tested BP Systolic BP Type Fetus Heart Rate Present Fetus Movement Comments Flowsheet Date 02/18/2021 Wright Score Blood Edema Fundus Height Fundus Units Glucose Ketones Leukocytes Nitrite Labor Signs Protein Cervic Dilation Cervic Effacement Cervic Station Type Weight in lbs Pre/Post Dialysis Refused BP Diastolic BP Location Tested BP Systolic BP Type Fetus Heart Rate Present Fetus Movement Comments Flowsheet Date 02/18/2021 Wright Score Blood Edema Fundus Height Fundus Units Glucose Ketones Leukocytes Nitrite Labor Signs Protein Cervic Dilation Cervic Effacement Cervic Station neg trace 39 trace Type Weight in lbs Pre/Post Dialysis Refused Weight 228.754491513352 BP Diastolic BP Location Tested BP Systolic BP Type 71 104 Fetus Heart Rate Present A 155 Fetus Movement A Yes Comments Sugars perfect. Monitoring g reat today. CS in 3 days. Questions answered. Flowsheet Date 02/28/2021 Wright Score Blood Edema Fundus Height Fundus Units Glucose Ketones Leukocytes Nitrite Labor Signs Protein Cervic Dilation Cervic Effacement Cervic Station Type Weight in lbs Pre/Post Dialysis Refused Weight 214.152865347286 BP Diastolic BP Location Tested BP Systolic BP Type 77 R arm 118 sitting Fetus Heart Rate Present Fetus Movement Comments Menstrual History Last Menstrual Date Menses Monthly On Bcp Conception Prior Menses Frequency Hcg Plus Date Menarche Onset Age Genetic Screening And Infection History Question Response Note Mental Retardation/Autism false Patient's Age Will Be 35 Years Or Older At Estim ated Date of Delivery false Thalassemia (Chinese, Burkinan, Mediterranean, Or Background): MCV < 80 false Neural Tube Defect (Meningomyelocele, Spina Bifi da, Or Anencephaly) false Congenital Heart Defect false Down Syndrome false Nghia-Sachs (eg, Adventism, Cajun, Wallisian-Honduran) f alse Sawyer Disease false Sickle Cell Disease Or Trait () false Hemophilia Or Other Blood Disorders false Muscular Dystrophy false Cystic Fibrosis false Kirksey's Chorea false Intellectual Disability/Autism false If Yes, Was Person Tested For Fragile X? false Other Inherited Genetic Or Chromosomal Disorder false Maternal Metabolic Disorder (eg, Type 1 Diabetes , PKU) false Patient Or Baby's Father Had A Child With Defects Not Listed Above false Recurrent Loss, Or A Stillbirth false Medications (including Suppl ements, Vitamins, Herbs, OTC Drugs), Illicit/Recreational Drugs, Alcohol false If Yes, Agent(s) And Strength/Dosage false Any Other Genetic History false Live With Someone With TB Or Exposed To TB false Patient Or Partner Has History Of Genital Herpes false Rash Or Viral Illness Since Last Menstrual Perio d false History Of STD, Gonorrhea, Chlamydia, HPV, Syphi lis false Other Infection History false History of HIV false History of Hepatitis false Prior GBS-infected child false Hemoglobinopathy Or Carrier false Other Structural Defect false Recent Travel History Outside of Country false Delivery Information Delivery Date Delivery Type Labor Anesthesia Weeks Gestation Incision Type Labor Labor Length Hrs Delivered By Post Complications Tubal Sterilization Discharge Date Comments 1 None [facility] 39.1 Low Transvers e false Alexis Bailey MD c/s x2, maternal obesity, gdm, ama, ivf surrogate Discharge Information Feeding Method Contraceptive Method Maternal HG B and HCT Levels Ob Episode Information Episode Created Date Number of Fetuses Patient Bloodtype Patient rh Status Prepregnancy Weight lbs Domestic Partner Domestic Partner Phone Father Name Honing Machine Operator Semiautomatic Status 09/20/19 24 1 B Negative 227 CLOSED Fetus Data First Name Last Name Admitted to NICU Weight (g) Sex Living Outcome Pediatric Complications Fetus ID Race Codes Race Delivery Type [id number] Problems Problem Notes Problem Name Start Date End Date Resolution Snomed Code Not e Deliveries by [id number] X3 IVF - in-vitro fertilization [id number] Surrogate [id number] discontinue Lovenox at 18 weeks Geovanny Calculation Initial Geovanny Date Initial Exam Date Initial Exam Provider Initial Ultrasound Date Last Menstrual Period Date Ultra Sound Weeks Gestation 03/28/2024 09/20/2023 09/16/2023 06/24/2023 12 Eighteen To Twenty Week Geovanny Update Ultra Sound Date Fundal Height At Umbil Quickening Date Ultra Sound Latest Weeks Gestation Final Geovanny Confirmed By Final Geovanny Confirmed Date Final Geovanny Date Ultra Sound Latest Days Gestation 0 [email or web address] 09/20/2023 03/30/20 24 0 Pre- Flowsheet Flowsheet Date 09/20/2023 Wright Score Blood Edema Fundus Height Fundus Units Glucose Ketones Leukocytes Nitrite Labor Signs Protein Cervic Dilation Cervic Effacement Cervic Station neg none none trace Type Weight in lbs Pre/Post Dialysis Refused Weight 225.074981507982 BP Diastolic BP Location Tested BP Systolic BP Type 78 L arm 119 sitting Fetus Heart Rate Present A 145 Fetus Movement A No Comments 42-year-old 5 para 3 013 at 12 weeks' gestation who presents for initial care. This is an IVF . She has a surrogate . It is IVF. Discussed IVF additional care. Twenty week ultrasound here and echo at [facility]. Discussed genetic testing. Discussed care in detail : Vaccinations, precautions. To begin care. Flowsheet Date 10/12/2023 Wright Score Blood Edema Fundus Height Fundus Units Glucose Ketones Leukocytes Nitrite Labor Signs Protein Cervic Dilation Cervic Effacement Cervic Station Type Weight in lbs Pre/Post Dialysis Refused Weight 220.516904193357 BP Diastolic BP Location Tested BP Systolic BP Type 81 L arm 129 sitting Fetus Heart Rate Present Fetus Movement Comments Menstrual History Last Menstrual Date Menses Monthly On Bcp Conception Prior Menses Frequency Hcg Plus Date Menarche Onset Age 0206/24/2023 Genetic Screening And Infection History Question Response Note Mental Retardation/Autism false Patient's Age Will Be 35 Years Or Older At Estim ated Date of Delivery false Thalassemia (Chinese, Burkinan, Mediterranean, Or Background): MCV < 80 false Neural Tube Defect (Meningomyelocele, Spina Bifi da, Or Anencephaly) false Congenital Heart Defect false Down Syndrome false Nghia-Sachs (eg, Adventism, Cajun, Wallisian-Honduran) f alse Sawyer Disease false Sickle Cell Disease Or Trait () false Hemophilia Or Other Blood Disorders false Muscular Dystrophy false Cystic Fibrosis false Kirksey's Chorea false Intellectual Disability/Autism false If Yes, Was Person Tested For Fragile X? false Other Inherited Genetic Or Chromosomal Disorder false Maternal Metabolic Disorder (eg, Type 1 Diabetes , PKU) false Patient Or Baby's Father Had A Child With Defects Not Listed Above false Recurrent Loss, Or A Stillbirth false Medications (including Suppl ements, Vitamins, Herbs, OTC Drugs), Illicit/Recreational Drugs, Alcohol false If Yes, Agent(s) And Strength/Dosage false Any Other Genetic History false Live With Someone With TB Or Exposed To TB false Patient Or Partner Has History Of Genital Herpes false Rash Or Viral Illness Since Last Menstrual Perio d false History Of STD, Gonorrhea, Chlamydia, HPV, Syphi lis false Other Infection History false History of HIV false History of Hepatitis false Prior GBS-infected child false Hemoglobinopathy Or Carrier false Other Structural Defect false Recent Travel History Outside of Country false Delivery Information Delivery Date Delivery Type Labor Anesthesia Weeks Gestation Incision Type Labor Labor Length Hrs Delivered By Post Complications Tubal Sterilization Discharge Date Comments 4 14.6 Maternal hemorrhag e. demise with suction D&C to stop hemorrhag e. Discharge Information Feeding Method Contraceptive Method Maternal HG B and HCT Levels
--- OUTSIDE RECORDS SUMMARY | 2024-07-14 10:54 | XMS_ITS | Patient Health Record ---
Author Organization [facility] Address [address] [place] [address] Care Team Providers Care Client Support Associate Name Role Phone Bal Antonio Unavailable [phone] [facility], Provider Unavailable Unavailab le Allergies Allergen (clinical drug ingredient) Drug/Non Drug Allergy documented on EMR Reaction Allergy Type Onset Date Status Penicillin Urinary burning Drug Allergy Active Reason For Referral No Information Medications Medication SIG (Take, Route, Frequency, Duration) Notes Start Date End Date Status METHYLPHENIDATE 20 mg/8 hr 1 tab(s) orally once a day for 30 day(s) Active NASAL WASHES N/A DIRECTED INTRANASALLY NEEDED for 30 *Please review for potential replacement for e-prescription and drug interaction check* Active Methylphenidate 20 MG/8 HR 1 TAB(S) ORALLY ONCE A DAY for 30 DAY(S) *Please review and pick correct strength-formulat ion from [employer] options. If intended option is not shown, discontinue and re-order from Quick Search* Active Fluticasone Propionate 50 MCG/ACT 2 spray(s) in each nostril BID for 30 day(s) Active FLUTICASONE NASAL 50 mcg/inh 2 spray(s) in each nostril BID for 30 day(s) Active Cetirizine HCl 10 MG 1 tab(s) orally once a day for 30 days Active CETIRIZINE 10 mg 1 tab(s) orally once a day for 30 days Active Social History Tobacco Use: Social History Observation Description Date Details (start date - stop date) Never Smoker NA - NA Smoking Smart Form: Question Answer Notes Are you a: never smoker Problems Problem Type SNOMED Code ICD Code Onset Dates Problem Status W/U Status Risk Notes Problem Chronic allergic conjunctivitis (79767681) Other chronic allergic conjunctivitis (H10.45) Active confirmed Problem Allergic rhinitis caused by pollen (disorder) (89015819) Allergic rhinitis due to pollen (J30.1) Active confirmed Problem Allergic rhinitis (84688536) Other allergic rhinitis (J30.89) Active confirmed Problem Allergic rhinitis caused by animal hair and dander (211260784991091) Allergic rhinitis due to animal (cat) (dog) hair and dander (J30.81) Active confirmed Problem Elevated blood pressure reading without diagnosis of hypertension (938042533) Elevated blood-pressure reading, without diagnosis of hypertension (R03.0) Active confirmed Problem Pruritus (364759947) Pruritus, unspecified (L29.9) Active confirmed Problem Allergy to penicillin (90456019) Allergy status to penicillin (Z88.0) Active confirmed Problem Lactose intolerance, unspecified (E73.9) Active confirmed Encounters Encounter Location Date Provider Diagnosis [address] [address] 11/06/2023 Provider [facility] Plan Of Treatment No Information Insurance Providers Payer Name Payer Address Payer Phone Subscriber Number Group Number Insured Name Patient Relationship to Insured Coverage Start Date Coverage End Date [facility] [address] [place] [address] [id number] Stacey Gonzáles Self - patient is the insured Medical (General) History Medical History History ICD Code acdf Torn ACL Csection 2011, 11/2013, 02/2021 Gall bladder removal Surgical History Surgery Date(Month/Year) ACDF 05/2019 ACL 12/2019 C sections gall bladder 10/2021
--- OUTSIDE RECORDS SUMMARY | 2024-07-14 10:54 | XMS_ITS | Clinical Summary ---
Author Organization [facility] Address [address] [place] [address] Phone Care Team Providers Care Environmental Technology Professor Name Role Phone Unavailable Primary Care Provider Unavailabl e Allergies Active Allergy Reactions Criticality Noted Date Comments Milk Containing Products (Dairy) Abdominal Pain Low 02/10/2022 Penicillins Other (See Comments) 08/27/2021 Skin burning effect Medications multivitamin (DAILY-JEAN-CLAUDE) tablet Take 1 Tablet by mouth daily. Active ondansetron (ZOFRAN ODT) 8 mg Tablet, Rapid Dissolve Dissolve 1 tablet on top of tongue then swallow with saliva every 8 hours as needed for nausea or vomiting 20 Tablet 5 9:57 AM STITCHER FEEDER 06/26/19 25 Active HYDROcodone-acet aminophen (NORCO) 5-325 mg tabletIndication s:Left knee pain, unspecified chronicity Take 1-2 Tablets by mouth every 6 hours as needed for Pain, Moderate. Max Daily Amount: 8 Tablets 20 Tablet 07/07/19 25 Active ketorolac tromethamine (TORADOL) 10 mg tablet Take 1 Tablet (10 mg) by mouth every 6 hours as needed for Pain. 20 Tablet 5 9:57 AM STITCHER FEEDER 06/26/19 25 025 HYDROcodone-acet aminophen (NORCO) 7.5-325 mg TabletIndication s:Left knee pain, unspecified chronicity Take 1-2 Tablets by mouth every 4 hours as needed for Pain, Moderate. Max Daily Amount: 12 Tablets 20 Tablet 06/26/19 25 025 Discontinued HYDROcodone-acet aminophen (NORCO) 7.5-325 mg TabletIndication s:Left knee pain, unspecified chronicity Take 1-2 Tablets by mouth every 4 hours as needed for Pain, Moderate. Max Daily Amount: 12 Tablets 20 Tablet 9:57 AM STITCHER FEEDER 06/26/19 25 025 Discontinued Active Problems No known active problems Encounters Date Type Department Care Team Description 07/12/2024 9:00 AM STITCHER FEEDER Office Visit [facility] Orthopedic Surgery at the [facility] [address] [place] [address] Ashley Felix PA-C Left knee pain, unspecified chronicity (Primary Dx) 07/11/2024 External Device Data STL ABSTRACTION Provider, Abstract 07/07/2024 Orders Only [facility] Orthopedic Surgery at the [facility] [address] [place] [address] Ashley Felix PA-C Left knee pain, unspecified chronicity (Primary Dx) 07/04/2024 External Device Data STL ABSTRACTION Provider, Abstract 06/28/2024 11:28 AM STITCHER FEEDER - 06/28/2024 11:59 PM STITCHER FEEDER Hospital Encounter [facility] Radiology [address] [place] [address] Rodolfo Dinh MD Discharge Disposition: Home or Self Care 06/28/2024 9:52 AM STITCHER FEEDER Anesthesia Event [facility] [address] [place] [address] Jordan Reyna MD Friedrich, Daniel R, AA-C 06/28/2024 9:34 AM STITCHER FEEDER - 06/28/2024 11:12 AM STITCHER FEEDER Surgery [facility] [address] [place] [address] Rodolfo Dinh MD LT KNEE ACL REPAIR W/ AUTOGRAFT ARTHROSCOPIC 06/28/2024 6:40 AM STITCHER FEEDER - 06/28/2024 11:59 PM STITCHER FEEDER Hospital Encounter [facility] Radiology [address] [place] [address] Discharge Disposition: Home or Self Care 06/28/2024 6:33 AM STITCHER FEEDER - 06/28/2024 1:16 PM STITCHER FEEDER Hospital Encounter [facility] [address] [place] [address] Rodolfo Dinh MD Rupture of anterior cruciate ligament of left knee, initial encounter Discharge Disposition: Home or Self Care 06/26/2024 Orders Only [facility] Orthopedic Surgery at the [facility] [address] [place] [address] Rodolfo Dinh MD Left knee pain, unspecified chronicity (Primary Dx) 06/26/2024 Orders Only [facility] Orthopedic Surgery at the [facility] [address] [place] [address] Ashley Felix PA-C Left knee pain, unspecified chronicity (Primary Dx) 06/22/2024 Orders Only [facility] Orthopedic Surgery at the [facility] [address] [place] [address] Katie Garcia 06/20/2024 External Device Data STL ABSTRACTION Provider, Abstract 06/14/2024 External Device Data STL ABSTRACTION Provider, Abstract 06/14/2024 External Device Data STL ABSTRACTION Provider, Abstract 05/23/2024 9:00 AM STITCHER FEEDER Office Visit [facility] Orthopedic Surgery at the [facility] [address] [place] [address] Rodolfo Dinh MD Complete tear of anterior cruciate ligament of left knee, initial encounter (Primary Dx) 05/06/2024 10:15 AM STITCHER FEEDER Ancillary Procedure [facility] [address] [place] [address] Crow Vázquez, Chronic pain of left knee; Knee instability, left 05/02/2024 External Device Data STL ABSTRACTION Provider, Abstract 05/01/2024 11:15 AM STITCHER FEEDER Ancillary Procedure [facility] Orthopedic Surgery at the [facility] [address] [place] [address] Crow Vázquez, Left knee pain, unspecified chronicity 05/01/2024 11:00 AM STITCHER FEEDER Office Visit [facility] Sports Medicine at the [facility] Performance Medicine [address] [place] [address] Crow Vázquez, Chronic pain of left knee (Primary Dx); Knee instability, left from Last 3 Months Social History Tobacco Use Types Packs/Day Years Used Date Smoking Tobacco: Former Cigarettes Smokeless Tobacco: Never Tobacco Cessation:Counseling Given: Not Answered Alcohol Use Standard Drinks/Week Comments Not Currently 0 (1 standard drink = 0.6 oz pur e alcohol) Feeling Safe Answer Date Recorded Are you in a relationship wi th someone who hurts you emotionally and/or physically? Patient unable to answer 06/28/2024 Comments No Sex and Gender Information Value Date Recorded Sex Assigned at Not on file Legal Sex Female 11:56 AM STITCHER FEEDER Gender Identity Not on file Sexual Orientation Not on file Last Filed Vital Signs Vital Sign Reading Time Taken Comments Blood Pressure 107/63 06/28/2024 1:00 PM STITCHER FEEDER Pulse 50 06/28/2024 1:00 PM STITCHER FEEDER Temperature 36.4 C (97.6 F) 06/28/2024 11:55 AM STITCHER FEEDER Respiratory Rate 13 06/28/2024 1:00 PM STITCHER FEEDER Oxygen Saturation 100% 06/28/2024 1:00 PM STITCHER FEEDER Inhaled Oxygen Concentration - - Weight 84.8 kg (187 lb) 06/28/2024 6:53 AM STITCHER FEEDER Height 165.1 cm (5' 5 ) 06/28/2024 6:53 AM STITCHER FEEDER Body Mass Index 31.12 06/28/2024 6:53 AM STITCHER FEEDER Plan of Treatment Upcoming Encounters Date Type Department Care Team (Late st Contact Info) Description 08/09/2024 9:00 AM CDT Office Visit [facility] Orthopedic Surgery at the [facility] Medicine [address] [place] [address] Ashley Felix PA-C [address] [place] [address] Health Maintenance Due Date Last Done Comments Pre-Diabetes and Diabetes Screening 1982 DTAP/TDAP/TD VACCINES (1 - Tdap) 2001 HEPATITIS B VACCINES (1 of 3 - 19+ 3-dose series) 2001 CERVICAL CANCER SCREENING 2012 BREAST CANCER SCREENING 2022 INFLUENZA VACCINE (#1) 2023 Preventative Visit- Commercial 05/24/2024 04/07/2023, 09/08/2019 HPV VACCINES Aged Out No longer eligi ble based on patient's age to complete this topic Medical Devices Implanted Type Area Cutter Hand Device Identifier Shelf Expiration Date Model / Serial / Lot Barrier Interceed Adh 3x4in 4350 - [id number] Implanted:Qty: 1 on 03/12/2022 by Mitch Gee MD at [facility] Adhesion Barrier N/A: Uterus [employer]- [employer] [id number] 07/21/2026 4350 / / [id number] Tightrope Ii Btb W/ Deploying Suture [id number] - [id number] Implanted:Qty: 1 on 06/28/2024 by Rodolfo Dinh MD at [facility] [place] Left: Knee [employer] 01/22/2028 [id number]-[id number] / / [id number] Description:REQ [id number] Screw Mary Intfr [id number] - [id number] Implanted:Qty: 1 on 06/28/2024 by Rodolfo Dinh MD at [facility] Screw Left: Knee J[employer]J- [employer] 10/21/2026 [id number] Description:Requisition # [id number] Acdf Plate And Screws Whole Patella Ligament Implanted:Qty: 1 on 06/28/2024 by Rodolfo Dinh MD at [facility] Left: Knee [employer] 09/19/[id number] / [id number] / Explanted Type Area Cutter Hand Device Identifier Shelf Expiration Date Model / Serial / Lot Iud Explanted:Qty: 1 on 03/12/2022 by Mitch Gee MD at [facility] N/A: Uterus Procedures Procedure Name Priority Date/Time Associated Diagnosis Comments AL ARTHRS AIDED ANT CRUCIATE LIGM RPR/AGMNTJ/RCNSTJ 06/28/2024 9:34 AM STITCHER FEEDER Rupture of anterior cruciate ligament of left knee, initial encounter IR INJECTION Routine 06/28/2024 9:17 AM STITCHER FEEDER AL ANESTHESIA BLOCK PB PLACEHOLDER CHARGE Routine 06/28/2024 9:12 AM STITCHER FEEDER POC , URINE Routine 06/28/2024 6:56 AM STITCHER FEEDER XR SURGICAL IMAGES LINK Routine 06/28/2024 MRI KNEE WO CONTRAST LEFT Routine 05/06/2024 10:02 AM STITCHER FEEDER Chronic pain of left knee Knee instability, left XR KNEE 4+ VW LEFT Stat 05/01/2024 11 :19 AM STITCHER FEEDER Left knee pain, unspecified chronicity from Last 3 Months Results * IR INJECTION (06/28/2024 9:17 AM STITCHER FEEDER) Narrative 06/28/2024 9:17 AM STITCHER FEEDER Order information only. Exam was auto-finalized. Jordan Reyna MD IR ORDERABLES Final Result * AL ANESTHESIA BLOCK PB PLACEHOLDER CHARGE (06/28/2024 9:12 AM STITCHER FEEDER) Narrative Jordan Reyna MD - 06/28/2024 9:12 AM STITCHER FEEDER Jordan Reyna MD 06/28/2024 9:13 AM Patient location during procedure: Pre-op Reason for block: at surgeon's request and post-op pain management Staffing Performed: Anesthesiologist (/) Authorized by: Jordan Reyna MD Performed by: Jordan Reyna MD Preanesthetic Checklist Completed: patient identified, IV checked, site marked, risks and benefits discussed, surgical consent, monitors and equipment checked, pre-op evaluation and timeout performed Hand hygiene performed prior to procedure Patient was prepped and draped in usual sterile fashion Patient position: Supine Prep: ChloraPrep Patient monitoring: Continuous pulse oximetry and Heart rate Block Region: Lower Extremity Block Block Type: Adductor Canal Block Laterality: Left Injection technique: Single-shot Oracle Identification: ultrasound guided Local infiltration anesthetic: Lidocaine 2%- 1 mL. Local injected: Bupivacaine 0.25% Total Volume Injected (mL): 30 Needle Needle type: Short-bevel Needle gauge: 22 G Needle length: 8 cm. Needle localization: Ultrasound guidance Nerve Stimulator or Paresthesia Response Motor response or paresthesia obtained mA ms Depth (cm) Sedation Given: Midazolam (mg): 2 Patient Response: Awake and Responsive to verbal stimuli Assessment Paresthesia pain: None Heart rate change: no Slow fractionated injection: yes Narrative Injections made incrementally with aspirations every (mL): 5 Events: easy and well tolerated and no block events Outcome: Complete Additional Notes I have discussed with the patient, and/or surrogate, the placement of an adductor canal nerve block for postoperative pain management. We have discussed the risks, benefits, complications and side effects. We have also discussed alternative methods of postoperative analgesia. The patient, and/or surrogate, understands and wishes to proceed with the procedure. Heart rate and Sp02 monitored during and immediately following procedure and stable throughout. us Jordan Reyna MD PROCEDURE/MINOR SURGICAL ORDERA BLES Final Result * POC , URINE (06/28/2024 6:56 AM STITCHER FEEDER) HCG QUAL URINE Negative Negative 06/28/2024 6:[address] [facility] Urine 06/28/2024 6:56 AM STITCHER FEEDER 06/28/2024 7:03 AM STITCHER FEEDER [facility] - 06/28/2024 6:56 AM STITCHER FEEDER Positive : Result is greater than or equal to 25 mIU/mL Negative: Result is less than 25 mIU/mL Invalid: Result is borderline or indeterminate,send to lab for serum test methodology. us Rodolfo Dinh MD POINT OF CARE TESTING Final Result [facility] CLIA# [id number] [address] [place] [address] * XR SURGICAL IMAGES LINK (06/28/2024) Anatomical Region Laterality Modality Other 06/28/2024 us Rodolfo Dinh MD DIAGNOSTIC IMAGING ORDERABLE S Final Result * MRI KNEE WO CONTRAST LEFT (05/06/2024 10:02 AM STITCHER FEEDER) Anatomical Region Laterality Modality Lower Extremity Magnetic Resonan ce 05/06/2024 10:0 2 AM STITCHER FEEDER Impressions 05/06/2024 10:25 AM STITCHER FEEDER IMPRESSION: 1. Complete or near-complete tear of the left anterior cruciate ligament at its mid substance. 2. Bone contusions of the posterior aspects of the left medial and lateral tibial plateau. 3. Mild partial-thickness tricompartmental left knee chondrosis with trace effusion and small Dominguez's cyst. Narrative 05/06/2024 10:25 AM STITCHER FEEDER EXAM: MRI KNEE WO CONTRAST LEFT DATE: 05/06/2024 CLINICAL HISTORY: Left knee pain, swelling and instability TECHNIQUE: Multiplanar, multisequence magnetic resonance images of the left knee were obtained by the technologist and submitted for review. Comparison was made to left knee radiographs performed May 01, 2024. FINDINGS: In the medial compartment, the meniscus is intact. There is mild partial-thickness chondrosis of the central weightbearing medial femoral condyle and medial tibial plateau. There is a focus of moderate bone marrow edema in the posterior aspect of medial tibial plateau without associated fracture line. In the lateral compartment, the meniscus is intact. There is mild partial-thickness chondrosis of the central weightbearing lateral femoral condyle and lateral tibial plateau. There is a focus of moderate bone marrow edema in the posterior aspect of the lateral tibial plateau without associated fracture line. In the patellofemoral compartment, there is mild partial-thickness chondrosis of the median ridge and lateral patellar facet and trochlear articular cartilage without subchondral edema. There is a complete or near complete tear of the anterior cruciate ligament at its midsubstance. The posterior cruciate ligament and collateral ligaments are normal. The extensor mechanism is intact. A trace effusion is present with a small Dominguez's cyst. No loose bodies are identified in the knee joint. There is mild anterior subluxation of the tibia and relation to the femur. 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 A tiny T1 and T2 hypointense bone marrow lesion in the posterior aspect of the medial femoral condyle without surrounding bone marrow edema is energy conservation representative of a bone island. The surrounding muscles are normal. There is mild anterior knee subcutaneous edema. Procedure Note Stacey Abbasi MD - 05/06/2024 EXAM: MRI KNEE WO CONTRAST LEFT DATE: 05/06/2024 CLINICAL HISTORY: Left knee pain, swelling and instability TECHNIQUE: Multiplanar, multisequence magnetic resonance images of the left knee were obtained by the technologist and submitted for review. Comparison was made to left knee radiographs performed May 01, 2024. FINDINGS: In the medial compartment, the meniscus is intact. There is mild partial-thickness chondrosis of the central weightbearing medial femoral condyle and medial tibial plateau. There is a focus of moderate bone marrow edema in the posterior aspect of medial tibial plateau without associated fracture line. In the lateral compartment, the meniscus is intact. There is mild partial-thickness chondrosis of the central weightbearing lateral femoral condyle and lateral tibial plateau. There is a focus of moderate bone marrow edema in the posterior aspect of the lateral tibial plateau without associated fracture line. In the patellofemoral compartment, there is mild partial-thickness chondrosis of the median ridge and lateral patellar facet and trochlear articular cartilage without subchondral edema. There is a complete or near complete tear of the anterior cruciate ligament at its midsubstance. The posterior cruciate ligament and collateral ligaments are normal. The extensor mechanism is intact. A trace effusion is present with a small Dominguez's cyst. No loose bodies are identified in the knee joint. There is mild anterior subluxation of the tibia and relation to the femur. 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 A tiny T1 and T2 hypointense bone marrow lesion in the posterior aspect of the medial femoral condyle without surrounding bone marrow edema is energy conservation representative of a bone island. The surrounding muscles are normal. There is mild anterior knee subcutaneous edema. IMPRESSION: 1. Complete or near-complete tear of the left anterior cruciate ligament at its mid substance. 2. Bone contusions of the posterior aspects of the left medial and lateral tibial plateau. 3. Mild partial-thickness tricompartmental left knee chondrosis with trace effusion and small Dominguez's cyst. us Crow Vázquez DO MR ORDERABLES Final Result * XR KNEE 4+ VW LEFT (05/01/2024 11:19 AM STITCHER FEEDER) Anatomical Region Laterality Modality Lower Extremity Computed Radiogr aphy 05/01/2024 11:1 9 AM STITCHER FEEDER Impressions 05/01/2024 12:48 PM STITCHER FEEDER IMPRESSION: 1. Minimal degenerative changes of the left knee without acute radiographic process. DICTATION LOCATION: Location 4 Narrative 05/01/2024 12:48 PM STITCHER FEEDER EXAM: XR left knee four views. DATE: 05/01/2024 11:19 AM. HISTORY: Left knee pain. COMPARISON: None. FINDINGS: AP standing views and tunnel views of both knees, with lateral and patellar sunrise views of the left knee. On the right side there is postoperative change with a metallic density along the distal lateral aspect of the femoral diaphysis. Normal alignment of the medial and lateral compartments of the right knee without visible fracture. On the left side there is mild spurring of the tibial spines. Normal osseous alignment. No fracture or dislocation. No suprapatellar effusion. Mild medial compartment narrowing. Procedure Note Omar Moses DO - 05/01/2024 EXAM: XR left knee four views. DATE: 05/01/2024 11:19 AM. HISTORY: Left knee pain. COMPARISON: None. FINDINGS: AP standing views and tunnel views of both knees, with lateral and patellar sunrise views of the left knee. On the right side there is postoperative change with a metallic density along the distal lateral aspect of the femoral diaphysis. Normal alignment of the medial and lateral compartments of the right knee without visible fracture. On the left side there is mild spurring of the tibial spines. Normal osseous alignment. No fracture or dislocation. No suprapatellar effusion. Mild medial compartment narrowing. IMPRESSION: 1. Minimal degenerative changes of the left knee without acute radiographic process. DICTATION LOCATION: Location 4 Crow Vázquez DO DIAGNOSTIC IMAGING OR DERABLES Final Result from Last 3 Months Insurance BS BLUE ACCESS/TRUE BLUE PPO RX [employer]ER[employer] Commercial BS BLUE ACCESS CHOICE Advance Directives For more information, please contact: [phone] * Full Code (Latest Code Status on File) Date Activated Date Inactivated Comments 06/28/2024 6:40 AM 06/28/2024 3:26 PM * Full Code Date Activated Date Inactivated Comments 03/12/2022 9:23 AM 03/12/2022 6:26 PM
--- OUTSIDE RECORDS SUMMARY | 2024-07-14 10:54 | XMS_ITS | Encounter Summary ---
Author Organization [facility] Address [address] [place] [address] Care Team Providers Care Barge Loader Name Role Phone Mark Gonzalez MD Primary Care Provider [phone] Reason for Visit * Reason Onset Date Comments Appointment 01/04/2024 Encounter Details Date Type Department Care Team (Late st Contact Info) Description 01/04/2024 Telephone [facility] - Centralized Scheduling [address] [place] [id number] Jayy Argueta MD [address] [id number] Appointment Social History Tobacco Use Types Packs/Day Years Used Date Smoking Tobacco: Never Smokeless Tobacco: Never Alcohol Use Standard Drinks/Week Comments Not Currently 0 (1 standard drink = 0.6 oz pur e alcohol) Sex and Gender Information Value Date Recorded Sex Assigned at Not on file Gender Identity Not on file Sexual Orientation Not on file documented as of this encounter Miscellaneous Notes * Telephone Encounter - May Meza - 01/04/2024 12:32 PM CDT Pt returning office call to schedule for MFM. Pt can be reached at [phone]. documented in this encounter Plan of Treatment Not on file documented as of this encounter Visit Diagnoses Not on filedocumented in this encounter Care Teams Barge Loader Relationship Specialty Start Date End Date Mark Gonzalez MD [facility] [place] [address] PCP - General Family Medicine 05/02/18 documented as of this encounter
--- OUTSIDE RECORDS SUMMARY | 2024-07-14 10:54 | XMS_ITS | Referral Summary ---
Author Organization [facility] Address [address] [place] [address] Care Team Providers Care Group Leader Name Role Phone Mark Gonzalez MD Primary Care Provider [phone] Source Comments [facility],non-[facility] Affiliates and Associated Physician Practices is amultiple site organization consisting of ambulatory clinics and hospital sitesin [place], [place], [place] and [place]. This disclosure is being madepursuant to the Care Everywhere program and may not contain all information available regarding this patient. Last updated 18.[facility] Allergies Active Allergy Reactions Criticality Noted Date Comments Penicillins Other 10/07/2020 Pain with urination Medications * Be aware that medications may not be up to date on this document. Alwaysverify current medications with the patient. Medication Sig Dispensed Refills Start Date End Date Status folic acid (FOLVITE) 1 MG tablet Take 1 mg by mouth once daily Active Vit-Fe Fumarate-FA ( VITAMIN) 28-0.8 MG tablet Take 1 tablet by mouth once daily Active aspirin (ASPIRIN) 81 MG chew tabletIndications: preeclampsia prevention Take 1 (one) tablet by mouth once daily Reasons: preeclampsia prevention 100 tablet 10/09/2020 Active Additional Information Patient not taking.Reported on 02/02/2024 calcium carbonate (TUMS) 500 MG chew tablet Take 1 tablet by mouth as needed for Heartburn Active Active Problems Problem Noted Date Diagnosed Date History of placenta previa 02/02/2024 in person acting as gestational surrog ate 10/09/2020 Overview (12/04/2020): Biological mother of fetus is Bal Lr [healthy mom]. Brother with cleft palate. Preimplantation screening & genetics. echocardiogram: unremarkable History of delivery, antepartum 021 Assessment & Plan (10/09/2020 6:24 PM CDT): Planning for repeat CS. Placenta previa without hemorrhage, antepartum 0 10/09/2020 Assessment & Plan (12/04/2020 4:22 PM CDT): Resolved. Assessment & Plan (10/09/2020 6:52 PM CDT): We discussed the potential for placenta accreta in the setting of placenta previa and previous deliveries. The frequency of placenta accreta in women having their 3rd , with the diagnosis of placenta previa, was: 40%. I discussed the nature and complication of placenta previa including the indication for delivery prior to 39 weeks. Maternal Medicine recommendations: 1. Increased supervision of the patient around the time of the 2nd COVID-19 vaccine 2. re-evaluate for signs of placenta accreta and placentation in 4 weeks In vitro fertilization 10/07/2020 Overview (10/09/2020): Embryo transfer day: 06/11/20= JOHNNIE 02/28/2021. Assessment & Plan (10/09/2020 6:39 PM CDT): Biological mother of fetus reports that 40 embryos were evaluated and aneuploidy screening was performed--records of pre implantation evaluation NOT available for review to know what screening was performed. No malformations demonstrated on today's exam. Maternal Medicine recommendations: 1. please provide the records of the preimplantation genetic screening 2. echocardiogram at 28 weeks Resolved Problems Problem Noted Date Diagnosed Date Resolved Date AMA (advanced maternal age) multigravida 35+, second trimester 10/07/2020 02/02/2024 Overview (10/07/2020): B-, Ab:Negative, Rubella-?, Rpr-NR, HIV-NR, Hbsag-NR H/h/p: 13.7; 41.2; 251 Assessment & Plan (12/04/2020 4:22 PM CDT): Increased risk of gestational hypertension, preeclampsia, gestational diabetes, labor, morbidity, placental complications such as abruption and previa, delivery via and dysfunctional labor, and other maternal morbidity/mortality. 1. Continue aspirin Assessment & Plan (10/09/2020 6:27 PM CDT): Advanced maternal age The obstetric risks of advanced maternal age were discussed, including but not limited to the increased risk of gestational hypertension, preeclampsia, gestational diabetes, labor, morbidity, placental complications such as abruption and previa, delivery via and dysfunctional labor, and other maternal morbidity/mortality. Maternal Medicine recommendations: 1. aspirin prescribed for preeclampsia risk reduction--81 mg daily due to comorbid placenta previa Social History Tobacco Use Types Packs/Day Years Used Date Smoking Tobacco: Never Smokeless Tobacco: Never Alcohol Use Standard Drinks/Week Comments Not Currently 0 (1 standard drink = 0.6 oz pur e alcohol) Education Answer Date Recorded What is the highest level of school you have completed or the highest degree you have received? Some college, no degree 02/02/2024 Sex and Gender Information Value Date Recorded Sex Assigned at Not on file Gender Identity Not on file Sexual Orientation Not on file Last Filed Vital Signs Vital Sign Reading Time Taken Comments Blood Pressure 126/84 02/02/2024 9:13 AM CDT Pulse 80 02/02/2024 9:13 AM CDT Temperature 37.1 C (98.7 F) 05/19/2019 10:59 AM WORK COUNSELOR Respiratory Rate 16 05/19/2019 10:59 AM WORK COUNSELOR Oxygen Saturation 98% 05/19/2019 10:59 AM WORK COUNSELOR Inhaled Oxygen Concentration - - Weight 93.9 kg (207 lb) 02/02/2024 9:13 AM CDT Height 165.1 cm (5' 5 ) 02/02/2024 9:13 AM CDT Body Mass Index 34.45 02/02/2024 9:13 AM CDT Plan of Treatment Not on file Care Teams Group Leader Relationship Specialty Start Date End Date Mark Gonzalez MD [address] [place] [address] PCP - General Family Medicine 05/02/18
--- OUTSIDE RECORDS SUMMARY | 2024-07-14 10:54 | XMS_ITS | Clinical Summary ---
Author Organization [facility] Address [address] [place] [address] Care Team Providers Care Glory Hole Tender Name Role Phone Mark Gonzalez MD Primary Care Provider [phone] Allergies Active Allergy Reactions Criticality Noted Date Comments Milk Containing Products (Dairy) Other (See comments) Low 02/10/2022 Penicillins Other (See comments) Low 03/14/2019 States turns my urine to acid Skin burning effect Pain with urination Medications venlafaxine XR (EFFEXOR-XR) 37.5 mg 24 hr capsule Take 37.5 mg by mouth daily. 4 8 Active methylphenidate CD (METADATE CD) 40 mg CR capsuleIndicati ons:hypersomnia Take 1 capsule (40 mg total) by mouth every morning 30 capsule 9 Active Additional Information Patient not taking.Reported on 09/06/2023 methylphenidate HCl (RITALIN) 5 mg tabletIndicatio ns:hypersomnia Take one or two as needed during the day for severe sleepiness 60 tablet 9 Active Additional Information Patient not taking.Reported on 09/06/2023 leuprolide 1 mg/0.2 mL kit INJECT 5-10 UNITS UNDER THE SKIN IN THE MORNING DIRECTED ON CYCLE CALENDAR 4 Active enoxaparin (LOVENOX) 40 mg/0.4 mL syringe INJECT 40 MG UNDER THE SKIN ONCE DAILY DIRECTED 4 Active folic acid (FOLVITE) 1 mg tablet Take 1 tablet (1,000 mcg total) by mouth daily Active progesterone 50 mg/mL injection INJECT 1 TO 2 ML INTO THE MUSCLE IN THE EVENING DIRECTED ON THE CYCLE CALENDAR Active Active Problems Problem Noted Date Diagnosed Date Hypersomnia 02/23/2018 Arthralgia of ankle 10/10/2014 Surgical History Surgery Date Site/Laterality Comments SECTION Family History Medical History Relation Name Comments Alcohol abuse Father Family history of alcoholism - (Added by TW Conv) Cancer Father Family history of malignant neoplasm - (Added by TW Conv) Relation Name Status Comments Father Social History Tobacco Use Types Packs/Day Years Used Date Smoking Tobacco: Former Cigarettes Q uit: 2012 Smokeless Tobacco: Never Alcohol Use Standard Drinks/Week Comments Yes 1 (1 standard drink = 0.6 oz pur e alcohol) Comments Unknown Sex and Gender Information Value Date Recorded Sex Assigned at Not on file Legal Sex Female 5:58 AM YARDING SUPERVISOR Gender Identity Not on file Sexual Orientation Not on file 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 on file Not o n file Obstetrics History Para Term AB IAB SAB Ectopic Multiple Livin g Live Births 1 Date Outcome GA Total Labor Labor/2nd/3rd Weight Sex Type Anes PTL Lisa A1 A5 Name Clin Last Filed Vital Signs Vital Sign Reading Time Taken Comments Blood Pressure 105/72 09/06/2023 12:41 PM CDT Pulse 75 09/06/2023 12:41 PM CDT Temperature 36.6 C (97.9 F) 09/06/2023 12:41 PM CDT Respiratory Rate 16 09/06/2023 12:41 PM CDT Oxygen Saturation 98% 09/06/2023 12:41 PM CDT Inhaled Oxygen Concentration - - Weight 82.1 kg (181 lb) 05/31/2018 1:08 PM YARDING SUPERVISOR Height 165.1 cm (5' 5 ) 05/31/2018 1:08 PM YARDING SUPERVISOR Body Mass Index 30.12 05/31/2018 1:08 PM YARDING SUPERVISOR Plan of Treatment Health Maintenance Due Date Last Done Comments Breast Cancer Screening-Mammogram 1982 Cervical Cancer Screening 1982 Depression Screening 1982 Hepatitis C Screening 1982 Varicella Vaccines (1 of 2 - 13+ 2-dose series) 12/12/1995 Hepatitis B Screening 2000 Regular Well Visit/Exam 18-64 2000 Pneumococcal vaccine <65 (1 of 2 - PCV) 2001 Zoster Vaccine (1 of 2) 2001 Covid-19 Vaccine (3 - Pfizer risk series) 09/08/2020 08/11/2020, 07/18/2020 Influenza Vaccine (#1) 2024 02/23/2021 DTaP/Tdap/Td Vaccine (2 - Td or Tdap) 12/31/2030 12/31/2020 HPV Vaccines Aged Out No longer eligi ble based on patient's age to complete this topic Insurance [facility] Address: [address] [address] [place] [address] [facility]/PPO Address: [address] [address] [place] [address] [facility] Care Teams Glory Hole Tender Relationship Specialty Start Date End Date Mark Gonzalez MD [facility] [place] [address] PCP - General Family Medicine 12/29/17
--- OUTSIDE RECORDS SUMMARY | 2024-07-14 10:54 | XMS_ITS | Referral Summary ---
Author Organization [facility] Address [address] [place] [address] Care Team Providers Care Community Support Professional Name Role Phone Mark Gonzalez MD Primary Care Provider [phone] Allergies Active Allergy Reactions Criticality Noted Date [...] THE EVENING DIRECTED ON THE CYCLE CALENDAR 4 Active Active Problems Problem Noted Date Diagnosed Date Hypersomnia 02/23/2018 Arthralgia of ankle 10/10/2014 Social History Tobacco Use Types Packs/Day Years Used Date Smoking Tobacco: Former Cigarettes Q uit: 2011 Smokeless Tobacco: Never Alcohol Use Standard Drinks/Week Comments Yes 1 (1 standard drink = 0.6 oz pur e alcohol) Comments Unknown Sex and Gender Information Value Date Recorded Sex Assigned at Not on file Legal Sex Female 5:58 AM SURGICAL INSTRUMENTS INSPECTOR Gender Identity Not on file Sexual Orientation Not on file 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 on file Not o n file Last Filed Vital Signs Vital Sign Reading Time Taken Comments Blood Pressure 105/72 09/06/2023 12:41 PM CDT Pulse 75 09/06/2023 12:41 PM CDT Temperature 36.6 C (97.9 F) 09/06/2023 12:41 PM CDT Respiratory Rate 16 09/06/2023 12:41 PM CDT Oxygen Saturation 98% 09/06/2023 12:41 PM CDT Inhaled Oxygen Concentration - - Weight 82.1 kg (181 lb) 05/31/2018 1:08 PM SURGICAL INSTRUMENTS INSPECTOR Height 165.1 cm (5' 5 ) 05/31/2018 1:08 PM SURGICAL INSTRUMENTS INSPECTOR Body Mass Index 30.12 05/31/2018 1:08 PM SURGICAL INSTRUMENTS INSPECTOR Plan of Treatment Not on file Insurance [facility] Address: [facility] [address] [place] [address] [facility] Address: [address] [address] [place] [address] Care Teams Community Support Professional Relationship Specialty Start Date End Date Mark Gonzalez MD [address] [place] [address] PCP - General Family Medicine 12/29/17
--- OUTSIDE RECORDS SUMMARY | 2024-07-14 10:54 | XMS_ITS | Patient Health Summary ---
Author Organization [facility] Address [address] [place] [address] Care Team Providers Care Senior Asic Engineer Name Role Phone Mark Gonzalez MD Primary Care Provider Note from [facility],non-owned Affiliates and Associated Physician Practices is amultiple site organization consisting of ambulatory clinics and hospital sitesin [place], [place], [place] and [place]. This disclosure is being madepursuant to the Care Everywhere program and may not contain all information available regarding this patient. Last updated 18.[facility] Allergies * Penicillins(Other) Medications * Be aware that medications may not be up to date on this document. Alwaysverify current medications with the patient. * folic acid (FOLVITE) 1 MG tablet Take 1 mg by mouth once daily * Vit-Fe Fumarate-FA ( VITAMIN) 28-0.8 MG tablet Take 1 tablet by mouth once daily * aspirin (ASPIRIN) 81 MG chew tablet(Started 10/09/2020) Take 1 (one) tablet by mouth once daily Reasons: preeclampsia prevention * calcium carbonate (TUMS) 500 MG chew tablet Take 1 tablet by mouth as needed for Heartburn Active Problems Problem Noted Date Diagnosed Date History of placenta previa 02/02/2024 in person acting as gestational surrog ate 10/09/2020 History of delivery, antepartum 021 Placenta previa without hemorrhage, antepartum 0 10/09/2020 In vitro fertilization 10/07/2020 Resolved Problems Problem Noted Date Diagnosed Date Resolved Date AMA (advanced maternal age) multigravida 35+, second trimester 10/07/2020 02/02/2024 Social History Tobacco Use Types Packs/Day Years [...] 37.1 C (98.7 F) 05/19/2019 10:59 AM HIGH PRESSURE FIRER Respiratory Rate 16 05/19/2019 10:59 AM HIGH PRESSURE FIRER Oxygen Saturation 98% 05/19/2019 10:59 AM HIGH PRESSURE FIRER Inhaled Oxygen Concentration - - Weight 93.9 kg (207 lb) 02/02/2024 9:13 AM CDT Height 165.1 cm (5' 5 ) 02/02/2024 9:13 AM CDT Body Mass Index 34.45 02/02/2024 9:13 AM CDT Procedures * SONOGRAM - COMPLETE(Performed 12/04/2020) Performed for Placenta previa without hemorrhage, antepartum (HCC), History of delivery, antepartum ([facility]), In vitro fertilization, in person acting as gestational surrogate ([facility]), AMA (advanced maternal age) multigravida 35+, second trimester ([facility]) * ECHO CONSULT - (Performed 11/27/2020) Performed for in person acting as gestational surrogate ([facility]) * SONOGRAM - COMPLETE(Performed 11/05/2020) Performed for Placenta previa without hemorrhage, antepartum (HCC), History of delivery, antepartum (HCC), In vitro fertilization, in person acting as gestational surrogate ([facility]), AMA (advanced maternal age) multigravida 35+, second trimester (HCC) * SONOGRAM - COMPLETE(Performed 10/09/2020) Performed for In vitro fertilization, AMA (advanced maternal age) multigravida 35+, second trimester ([facility]), Encounter for anatomic survey (HCC) * CULTURE URINE(Performed 11/02/2013) Results * SONOGRAM - COMPLETE (12/04/2020 2:36 PM CDT) Only the most recent of3 resultswithin the time period is included. Anatomical Region Laterality Modality Other 12/04/2020 2:36 PM CDT Narrative 12/04/2020 4:15 PM CDT [facility] PHONE: FAX: [email or web address]. Name: MARYLIN NAVARRETE. No: [id number] Study Date: 12/04/2020 2:36pm , Age: 07 1980, 39 Pregnancies: 4, Para 2 Height: 65 in Weight: 224 lb LMP: Unknown GA by Base: 27w5d JOHNNIE: 02/28/2021 GA by US: 28w4d JOHNNIE: 02/22/2021 GA Selected: 27w5d (From [facility]) JOHNNIE: 02/28/2021 Referring MD: Alexis Bailey MD Route Cdl Driver: Alem Manning, [facility], RDCS CPT4: 41792,94371 BMI: 37.27 Hist/Ind: IVF /Surrogate AMA x2 Low-lying placenta MEASUREMENTS & AGE GROWTH EVALUATION Measurement GA Range Srce %for GA Ratios ----- ---- ------- BPD 7.0 cm 28w0d (96r9b-04a5s) Hadl BPD 46% FL/BPD 0.79 (0.71 - 0.87) HC 26.5 cm 28w6d (41f0l-35b6g) Hadl HC 57% FL/AC 0.21 (0.20 - 0.24) AC 25.9 cm 30w0d (30n1c-70h7l) Hadl AC 94% HC/AC 1.02 (1.00 - 1.18) FL 5.5 cm 29w0d (73l9w-71s4r) Hadl FL 72% CI 0.73 (0.70 - 0.86) HL 5.1 cm 30w0d (63g3z-26x0l) Young HL 87% GA for sonogram 28w4d (71w7m-07e1m) Weight Estimate: based on (BPD,HC,AC,FL) Hadlock Weight: 1390 gm (1187-1593gm) Had : 3lbs, 1oz Normal: 1166 gm (875-1458gm) Hadl Wt% 93% for 27w5d Cervix: Length: 4.3 cm Approach: transvaginal Heart Rate: 158 bpm Amniotic Fluid Index: 05.5cm (Deepest Pocket) EVAL, PLACENTA Presentation: cephalic Placenta: posterior:fundal Previa: no previa seen Heart Rate: 158 bpm Amniotic Fluid Volume: normal Anatomy!Normal!Abnormal!Suboptimal!Prev. Seen!Comments Cranium ! x ! ! ! ! Stomach ! x ! ! ! ! Kidneys ! x ! ! ! ! Bladder ! x ! ! ! ! CLINICAL SUMMARY Study Number: 3 A follow up exam was performed. A single fetus is identified in the cephalic presentation. The measurements today are consistent with Excessive growth. The JOHNNIE is based on embryo transfer day ( confirmed ). The amniotic fluid volume is normal. The placenta is posterior,fundal. There are multiple placental sonolucencies--one of them underlies the placental cord insertion. IMPRESSION: Single, live, IUP 27w5d. excessive growth. Enlarged abdominal circumference normal amniotic fluid. No major malformations demonstrated within the limitations of today's exam No placenta previa Multiple placental sonolucencies RECOMMEND: Reevaluate growth at 32 weeks due to BMI Thank you for the opportunity to participate in the care of your patient. Kathy Rice MD <Electronic Signature> 12/04/2020 03:57pm R Davi Bailey MD [facility] ORDERABLES * ECHO CONSULT - (11/27/2020 1:10 PM CDT) 11/27/2020 1:10 PM CDT Narrative Procedure Note Loren Lao MD - 11/27/[address] [place] [address] Fax Echocardiogram Report Pat.Name: MARYLIN NAVARRETE.ID: [id number] St.Date: 11/27/2020 Refer.MD: Loren Lao Exam Time: 1:10:00 PM Study Type: Echo Age: 7 1980,39Y Sex: FEMALE Sonogrphr: Katie Sandoval, [facility] Pat. Stat.:Outpatient Reason for Study: IVF, surrogate, MOB had a PDA ligation. SUMMARY: Study Data: GA: 26/6 weeks. JOHNNIE: 02/27/2021 . : 4. Para: 2. Type: Monte. Lie: Vertex. Impression: The echocardiogram was within normal limits; however small atrial and ventricular septal defects and persistent ductus arteriosus cannot be excluded as findings. Findings: Anatomic Relationships: Left sided cardiac apex (levocardia). There is normal visceral-cardiac situs, and normal segmental cardiac anatomical relationship. Systemic Veins: There is normal systemic venous return. Pulmonary Veins: The visualized pulmonary veins drain normally to the left atrium. Right Atrium: The right atrial size is normal. Left Atrium: The left atrial size is normal. Atrial Septum: Patent foramen ovale is seen with the foramen flap bowing from right to left and color flow is right to left. Tricuspid Valve: The tricuspid valve is structurally normal. The inflow pattern is normal. Tricuspid velocity is within the normal range. There is no regurgitation present. Mitral Valve: The mitral valve is structurally normal. The inflow pattern is normal. Mitral velocity is within the normal range. There is no regurgitation present. Right Ventricle: The cavity size is normal. The wall thickness is normal. The systolic function is normal. RV Outflow Tract: The outflow tract is normal. Left Ventricle: The cavity size is normal. The wall thickness is normal. The systolic function is normal. LV Outflow Tract: The outflow tract is normal. Ventricular Septum: There is no defect with no shunting. Pulmonary Valve: Leaflets exhibited normal mobility. The transpulmonic velocity is within the normal range. There is no regurgitation present. Aortic Valve: Leaflets exhibited normal mobility. The transaortic velocity is within the normal range. There is no regurgitation present. Pulmonary Artery: The MPA is normal with confluent branch pulmonary arteries. Aorta: aortic arch visualized and is without obstruction by 2D, color flow and Doppler. Ductus Arteriosus: The antegrade flow velocity and pattern in the ductal arch is normal. A normal ductus arteriosus is appreciated. Hydrops Assessment: No pericardial effusion. No evidence of ascites or pleural effusion. Rhythm: The rhythm is normal. There is 1:1 AV conduction. Dopplers: Flow in the ductus venosus is normal. The umbilical vein flow pattern is normal. The umbilical artery flow pattern is normal. MEASUREMENTS: DOPPLER Mitral Valve MV pkE -0.36 m/s MV E/A 0.72 no unit MV pkA -0.5 m/s Tricuspid Valve TV pkE -0.37 m/s TV E/A 0.6 no unit TV pkA -0.62 m/s Aortic Valve AVpkVel 0.57 m/s Pulmonic Valve PV pkVel 0.44 m/s Heart Rate HR 134 bpm Signed 11/27/2020 05:49 PM Loren Lao MD Loren Lao MD ECHO ORDERABLES Performing Organization Address [facility] de Phone Number [facility] [address] [place] [address] * CULTURE URINE (11/02/2013 12:30 PM CDT) Culture Urine Less than 10,000 CFU/ML of Normal Urogenital/ Skin Holli [facility] Comment:After 24 hours Urine specimen (specimen) URINE SPECIMEN OBTAINED BY CLEAN CATCH PROCEDURE / Unknown 11/02/2013 12:30 PM CDT 11/03/2013 12:36 PM CDT Narrative [facility] - 11/04/2013 2:26 PM CDT HarshaSpecimen#[id number] Harsha Loc/Rm/Bed: POST PART/117/00 CLN CATCH U No additional growth at 48 hours Historical Provider LAB - MICROBIOLOG Y ORDERABLES [facility] [address] [place] [address], [facility] [phone] Care Teams Senior Asic Engineer Relationship Specialty Start Date End Date Mark Gonzalez MD [address] [place] [address] PCP - General Family Medicine 05/02/18
--- OUTSIDE RECORDS SUMMARY | 2024-07-14 10:54 | XMS_ITS ---
Author Organization [facility] Address [address] [place] [address] Care Team Providers Care Pathology Secretary/Transcriptionist Name Role Phone Bal Antonio Unavailable [phone] ZZ-Migration, Provider Unavailable Unavailab le Allergies Allergen (clinical drug ingredient) Drug/Non Drug Allergy documented on EMR Reaction Allergy Type Onset Date Status Penicillin Urinary burning Drug Allergy Active REASON FOR VISIT Multum To Medispan Conversion Encounter Medications Medication SIG (Take, Route, Frequency, Duration) Notes Start Date End Date Status NASAL WASHES N/A DIRECTED INTRANASALLY NEEDED for 30 *Please review for potential replacement for e-prescription and drug interaction check* Active Methylphenidate 20 MG/8 HR 1 TAB(S) ORALLY ONCE A DAY for 30 DAY(S) *Please review and pick correct strength-formulat ion from Medispan options. If intended option is not shown, discontinue and re-order from Quick Search* Active Fluticasone Propionate 50 MCG/ACT 2 spray(s) in each nostril BID for 30 day(s) Active Cetirizine HCl 10 MG 1 tab(s) orally once a day for 30 days Active Encounters Encounter Location Date Provider Diagnosis [facility] [address] [place] [address] 11/06/2023 Provider ZZ-Migration Plan Of Treatment No Information Progress Notes * Stacey NAVARRETEDOB: 3 (43 yo F)Acc No.[id number]:11/06/2023 Patient: Stacey GRIDER Provider: Zoya Dimas :1980 A ge:42 Y S ex:Female Date:11/06/2023 Address:[facility] Subjective: * Chief Complaints: * 1 . Multum To Medispan Conversion Encounter. * Medical History: * Medications: T aking Methylphenidate 20 MG/8 HR TABLET, EXTENDED RELEASE 1 TAB(S) ORALLY ONCE A DAY , Notes to Pharmacist: *Please review and pick correct strength-[facility]ulation from [facility] options. If intended option is not shown, discontinue and re-order from Quick Search*, Taking Cetirizine HCl 10 MG Tablet 1 tab(s) orally once a day , Taking Fluticasone Propionate 50 MCG/ACT Suspension 2 spray(s) in each nostril BID , Taking NASAL WASHES N/A 1 QUART OF STERILIZED TAP WATER OR DISTILLED WATER, 1 TSP NACL, 1 PINCH OF BAKING SODA DIRECTED INTRANASALLY NEEDED , Notes to Pharmacist: *Please review for potential replacement for e-prescription and drug interaction check* * Allergies: P enicillin: Urinary burning. Objective: * Vitals: Assessment: Plan: * Treatment: * Billing Information: * Visit Code: * Procedure Codes: * Electronic signature of Aure SandovalJaime-Migration on 07/14/2024 at 10:53 AM BRAN MIXER Sign off status: Pending * Provider: Zoya Dimas Date: 0 11/06/2023 Generated for Ja santana/Kalie/Sharath on: 0 07/14/2024 10:53 AM BRAN MIXER
--- OUTSIDE RECORDS SUMMARY | 2024-07-14 10:54 | XMS_ITS | Clinical Summary ---
Author Organization [facility] Address [address] [place] [address] Care Team Providers Care Assembler Dc Field Yoke Name Role Phone Mark Gonzalez MD Primary Care Provider [phone] Source Comments [facility],non[facility] Affiliates and Associated Physician Practices is amultiple site organization consisting of ambulatory clinics and hospital sitesin [place], [place], [place] and [place]. This disclosure is being madepursuant to the Care Everywhere program and may not contain all information available regarding this patient. 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 Oxygen Saturation 98% 05/19/2019 10:59 AM PANAMA HAT 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 PRESS OPERATOR Inhaled Oxygen Concentration - - Weight 93.9 kg (207 lb) 02/02/2024 9:13 AM CDT Height 165.1 cm (5' 5 ) 02/02/2024 9:13 AM CDT Body Mass Index 34.45 02/02/2024 9:13 AM CDT Plan of Treatment Health Maintenance Due Date Last Done Comments LIPID TESTING 1982 MAMMOGRAM 1982 HIV SCREENING 1997 HEPATITIS C SCREENING 12/06/2000 DTAP/TDAP/TD VACCINES (1 - Tdap) 2001 HEPATITIS B VACCINE (1 of 3 - 19+ 3-dose series) 2001 COVID-19 VACCINE (3 - 2023-2 5 season) 2024 08/11/2020, 07/18/2020 INFLUENZA VACCINE (#1) 2024 02/23/2021 SCREENING FOR DIABETES 02/02/2024 DEPRESSION SCREENING 05/24/2024 PAP SMEAR 08/25/2026 08/26/2023, 08/09/2020 ZOSTER VACCINE (1 of 2) 2032 HIB VACCINE Aged Out No longer eligi ble based on patient's age to complete this topic HPV VACCINE Aged Out No longer eligi ble based on patient's age to complete this topic MENINGOCOCCAL (Group B) VACCINE Aged Out No longer eligible b ased on patient's age to complete this topic MENINGOCOCCAL VACCINE Aged Out No sonia ruperto eligible based on patient's age to complete this topic PNEUMOCOCCAL VACCINE Aged Out No long er eligible based on patient's age to complete this topic Care Teams Assembler Dc Field Yoke Relationship Specialty Start Date End Date Mark Gonzalez MD [facility] [place] [address] PCP - General Family Medicine 05/02/18
--- OUTSIDE RECORDS SUMMARY | 2024-07-14 10:54 | XMS_ITS | Clinical Summary ---
Author Organization [facility] Address [address] [place] [address] Care Team Providers Care Seo Expert Name Role Phone Crow Jay MD [facility] Viki Covington MD Primary Care Provider [phone] Allergies Active Allergy Reactions Criticality Noted Date Comments Penicillins Other (see comment) 03/14/2019 States turns my urine to acid Medications venlafaxine XR 37.5 MG 24 hr capsule Take 37.5 mg by mouth daily. 8 Active levonorgestrel 20 MCG/24HR IUD 1 Device by Intrauterine route. Active Calcium Carbonate Antacid 600 MG Chew Tab Chew 1 tablet by mouth daily. Active Cholecalciferol (VITAMIN D) 125 MCG (5000 UT) Cap Take 1 tablet by mouth daily. Will start Active hydrocodone-noelle taminophen 5-325 MG tabletIndicatio ns:Acute Pain < 7 Day Supply Take 1-2 tablets by mouth every 6 (six) hours as needed for Pain (incisional). Indications: Acute Pain < 7 Day Supply 40 tablet 0 Active diazepam (VALIUM) 5 MG tabletIndicatio ns:Foraminal stenosis of cervical region,Cervical disc herniation,S/P cervical spinal fusion,Spinal stenosis of cervical region Take 1 tablet (5 mg total) by mouth every 8 (eight) hours as needed (Spasms). 30 tablet 0 Active Additional Information Patient taking differently:5 mg Oral Every 8 hours PRN, Spasms,Indications: taking sporadically, does not seem to help much, Reported on 06/22/2019 methylPREDNISol one, SANJUANITA, 4 MG tabletIndicatio ns:S/P cervical spinal fusion,Cervical disc herniation Follow package directions 1 each 0 Active methocarbamol 750 MG TabIndications: S/P cervical spinal fusion,Cervical disc herniation Take 1 tablet (750 mg total) by mouth 4 (four) times daily. 50 tablet 1 0 Active Active Problems Problem Noted Date Diagnosed Date Other muscle spasm 07/03/2019 S/P cervical spinal fusion 06/07/2019 Spinal stenosis of cervical region 02/24/2019 Cervical disc herniation 02/24/2019 Foraminal stenosis of cervical region 02/24/2019 Degenerative disc disease, cervical 02/24/2019 Facet arthropathy, cervical 02/24/2019 Family History Medical History Relation Comments Cancer Father brain Seizures Father 06/25 pastora surger y Stroke Father due to brain can cer ALS Mother Relation Status Comments Brother Alive Father Mother Son Alive Social History Tobacco Use Types Packs/Day Years Used Date Smoking Tobacco: Former Cigarettes Q uit: 2011 Smokeless Tobacco: Never Alcohol Use Standard Drinks/Week Comments No 0 (1 standard drink = 0.6 oz pur e alcohol) AUDIT-C Answer Date Recorded Frequency of Alcohol Consumption Never 03/14/2019 Average Number of Drinks Not on file 019 Frequency of Binge Drinking Not on file 02/22 Comments No Sex and Gender Information Value Date Recorded Sex Assigned at Not on file Legal Sex Female 3:23 PM CDT Gender Identity Not on file Sexual Orientation Not on file Last Filed Vital Signs Vital Sign Reading Time Taken Comments Blood Pressure 130/70 07/03/2019 9:31 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 Pulse 66 07/03/2019 9:31 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 Temperature 36.8 C (98.3 F) 06/14/2019 8:18 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 Respiratory Rate 18 06/08/2019 12:1 6 PM ASSISTANT FIELD HOCKEY COACH Oxygen Saturation 98% 07/03/2019 9:31 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 Inhaled Oxygen Concentration - - Weight 100.1 kg (220 lb 9.6 oz) 07/03/2019 9:31 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 Height 165.1 cm (5' 5 ) 07/03/2019 9:31 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 Body Mass Index 36.71 07/03/2019 9:31 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 Plan of Treatment Health Maintenance Due Date Last Done Comments Cervical Cancer Screening Pa p Smear (Age 30 to 64) Every 3 Years 1982 Annual Physical 1985 Hepatitis C 2000 DTaP, Tdap and Td Vaccines ( 1 - Tdap) 2001 Hepatitis B Vaccines (1 of 3 - 19+ 3-dose series) 2001 Cervical Cancer Screening Pa p with HPV Testing (Age 30 to 64) Every 5 Years 2012 Cervical Cancer Screening with HPV 2012 Mammogram Screening 2022 COVID-19 Vaccine ( - 2023-2 5 season) 2024 Influenza Adult (#1) 2024 HPV Vaccines Aged Out No longer eligi ble based on patient's age to complete this topic Meningococcal B Vaccine Aged Out No l onger eligible based on patient's age to complete this topic Meningococcal Vaccine Aged Out No sonia ruperto eligible based on patient's age to complete this topic Pneumococcal Vaccine: Pediat rics (0 to 5 Years) and At-Risk Patients (6 to 64 Years) Aged Out No longer eligible b ased on patient's age to complete this topic RSV Immunizations Under 20 Months Aged Out No longer eligible based on patient's age to complete this topic Medical Devices Implanted Type Area Director Dermatology Device Identifier Shelf Expiration Date Model / Serial / Lot Putty Appling Matrix Dbm/Dbf Bone 6cc - [id number] Implanted:Qty : 1 on 06/07/2019 by Crow Jay MD at [facility] N/A: Spine Cervical [employer] 06/14/2019 [id number] / / [id number] [place] Metalene 6mm Spacer Implanted:Qty : 1 on 06/07/2019 by Crow Jay MD at [facility] N/A: Spine Cervical SEASPINE [id number] 04/06/2023 [id number] / / [id number] Screw Variable Self Drilling Chava 14mm - [id number] Implanted:Qty : 4 on 06/07/2019 by Crow Jay MD at [facility] N/A: Spine Cervical CHAVA SPINE - DIV CHAVA HERMINIO [id number] / / Plate Cervical Aviator Chava 12mm - [id number] Implanted:Qty : 1 on 06/07/2019 by Crow Jay MD at [facility] N/A: Spine Cervical CHAVA SPINE - DIV CHAVA HERMINIO [id number] / / Explanted Type Area Director Dermatology Device Identifier Shelf Expiration Date Model / Serial / Lot Distration Pin 12mm - [id number] Explanted:Qty: 2 on 06/07/2019 at [facility] N/A: Spine Cervical MEDICAL INC [id number]-[id number] / / Insurance [facility] [address] Advance Directives * Full Code (Latest Code Status on File) Date Activated Date Inactivated Comments 06/07/2019 2:41 PM 06/08/2019 6:48 PM Care Teams Seo Expert Relationship Specialty Start Date End Date Viki Martin MD [address] [place] [address] PCP - General RHEUMATOLOGY 06/13/19 Crow Jay MD Surgeon NEUROLOGICAL SURGERY 05/26/19
[2024-07-14 11:05] LABS: Alanine Aminotransferase 23 U/L (6-35); Albumin Level 4.4 g/dL (3.5-5.1); Alkaline Phosphatase 65 U/L (38-126); Anion Gap 9 mmol/L (4-12); Aspartate Amino Transferase 23 U/L (14-36); Bilirubin,Total 0.7 mg/dL (0.2-1.3); Blood Urea Nitrogen 10 mg/dL (7-17); Calcium 9.3 mg/dL (8.4-10.2); Carbon Dioxide 27 mmol/L (22-30); Chloride 103 mmol/L (98-107); Cholesterol 181 mg/dL (0-200); Estimated Glomerular Filt Rate > 60; Glucose 90 mg/dL (65-110); HDL Direct 55 mg/dL; Potassium 4.2 mmol/L (3.4-5.0); Sodium 139 mmol/L (137-145); Triglycerides 142 mg/dL (<150)
[2024-07-14 11:15] LABS: LDL Cholesterol Direct 83 mg/dL
== END 2024-07-14 10:17 | disposition home or self-care (01) ==
LOC: ANHLAB 10:18
PROVIDERS: PCP Nurse Practitioner; Visit Provider Nurse Practitioner
DX: Z00.00 Encounter for general adult medical examination without abnormal findings (principal)
CPT/HCPCS: 36415; 80053; 80061; 81001; 84443; 85025

== ENCOUNTER 2024-10-21 07:18 | Emergency (ER) | payer BC, SELFPAY ==
[2024-10-21] VITALS (23 sets, daily range): BP systolic 92–111; BP diastolic 51–68; PULSE 53–67; RESP 12–20; TEMP 36.6; O2SAT 97–100
--- NOTE | ~2024-10-21 | XR_ITS ---
EXAMINATION: XR chest 2V 10/21/2024 07:53 INDICATION: Chest pain PROCEDURE: 2 view chest COMPARISON: 05/21/2022 FINDINGS: The lungs are clear. The cardiomediastinal silhouette is within normal limits. There are no pleural effusions. There is no pneumothorax suspected. IMPRESSION: 1: NO ACUTE CARDIOPULMONARY DISEASE. Reviewed, dictated and finalized at location A.
--- NOTE | 2024-10-21 07:20 | ECG_ITS ---
Test Date: 2024-10-21 07:28:59 Measurements Intervals Hayden Rate: 64 P: 49 MO: 168 QRS: 65 QRSD: 98 T: 45 QT: 408 QTc: 423 Interpretive Statements SINUS RHYTHM WITHIN NORMAL LIMITS WARNING: DATA QUALITY MAY AFFECT INTERPRETATION No previous ECG available for comparison Electronically Signed On 10-21-2024 07:47:26 CDT by Ángel Riggs M.D.
--- OUTSIDE RECORDS SUMMARY | 2024-10-21 07:20 | XMS_ITS | Continuity of Care Document ---
Author Organization [facility] Address [address] [place] [address] Phone Care Team Providers Care R&D Lab Technician Name Role Phone No Information Unavailable Unavailable [...] Diagnoses Date Provider Providers Copied on Encounter [facility], [facility] [place], [place], [id number], tel:[phone] No Information Jan- 2200 7 No Information [facility], [address] [place] [address], [id number], tel:[phone] [facility] No Information Jan- 2200 7 Dilcia Johnston. [facility] [place], [place], [facility], . tel:[phone] Referring Provider: Black Can MD B, [address] [place] [address] [address], [place], [address]. tel:[phone] Family History Family Member Type Diagnosis Age At Onset No Information Payers Payer name Insurance type Covered libertarian ID Authoriza tion(s) No Information Social History [...]
--- OUTSIDE RECORDS SUMMARY | 2024-10-21 07:20 | XMS_ITS | Patient Health Record ---
Author Organization Replaced By [facility] [place] ([address]) Address [address] [place] [address] Care Team Providers Care Radio Installer Automobile Name Role Phone Bal Antonio Unavailable [phone] ZZ-Migration, Provider Unavailable Unavailab le Allergies Allergen [...] review and pick correct strength-formulat ion from [employer]end[employer]an options. If intended option is not shown, [...] Status Risk Notes Problem Chronic allergic conjunctivitis (78107334) Other chronic allergic conjunctivitis (H10.45) Active confirmed Problem Allergic rhinitis caused by pollen (disorder) (33966496) Allergic rhinitis due to pollen (J30.1) Active confirmed Problem Allergic rhinitis (85923155) Other allergic rhinitis (J30.89) Active confirmed Problem Allergic rhinitis caused by animal hair and dander (548761861507866) Allergic rhinitis due to animal (cat) (dog) hair and dander (J30.81) Active confirmed Problem Elevated blood pressure reading without diagnosis of hypertension (950723198) Elevated blood-pressure reading, without diagnosis of hypertension (R03.0) Active confirmed Problem Pruritus (377119253) Pruritus, unspecified (L29.9) Active confirmed Problem Allergy to penicillin (05317128) Allergy status to penicillin (Z88.0) Active confirmed Problem Intolerance to lactose (finding) (786610675) Lactose intolerance, unspecified (E73.9) Active confirmed Encounters Encounter Location Date Provider Diagnosis [facility] - [address] [address] 11/06/2023 Provider ZZ-Migration Plan Of Treatment No Information Insurance Providers Payer Name Payer Address Payer Phone Subscriber Number Group Number Insured Name Patient Relationship to Insured Coverage Start Date Coverage End Date [facility] [id number] [place] [phone] [id number] Stacey Gonzáles Self - patient is the insured Medical (General) History Medical History History ICD Code acdf Torn ACL Csection 2011, 11/2013, 02/2021 Gall bladder removal Surgical History Surgery Date(Month/Year) ACDF 05/2019 ACL 12/2019 C sections gall bladder 10/2021
--- OUTSIDE RECORDS SUMMARY | 2024-10-21 07:21 | XMS_ITS | Clinical Summary ---
Author Organization [facility] Address [address] [place] [address] Phone Care Team Providers Care Replanter Name Role Phone Unavailable Primary Care Provider [...] needed for nausea or vomiting 20 Tablet 06/28/2024 9:57 AM BRAZER HELPER INDUCTION 5 Active HYDROcodone-acet aminophen (NORCO) 5-325 mg tabletIndication s:Left knee pain, unspecified chronicity Take 1-2 Tablets by mouth every 6 hours as needed for Pain, Moderate. Max Daily Amount: 8 Tablets 20 Tablet 5 Active Active Problems No known active problems Encounters Date Type Department Care Team Description 10/12/2024 External Device Data [facility] ABSTRACTION Provider, Abstract 10/11/2024 External Device Data [facility] ABSTRACTION Provider, Abstract 10/10/2024 External Device Data [facility] ABSTRACTION Provider, Abstract 08/09/2024 9:10 AM CDT Ancillary Procedure [facility] at the [facility] [address] [place] [address] Ashley Felix PA-C Aftercare for anterior cruciate ligament (ACL) repair 08/09/2024 9:00 AM CDT Office Visit [facility] Orth[facility] Surgery at the [facility] [address] [place] [address] Ashley Felix PA-C Aftercare for anterior cruciate ligament (ACL) repair (Primary Dx); Left knee pain, unspecified chronicity 08/09/2024 External Device Data [facility] ABSTRACTION Provider, Abstract 08/01/2024 External Device Data [facility] ABSTRACTION Provider, Abstract 08/01/2024 External Device Data [facility] ABSTRACTION Provider, Abstract 07/29/2024 External Device Data [facility] ABSTRACTION Provider, Abstract 07/28/2024 External Device Data [facility] ABSTRACTION Provider, Abstract 07/26/2024 External Device Data [facility] ABSTRACTION Provider, Abstract from Last 3 Months Social History Tobacco [...] on file Legal Sex Female 11:56 AM BRAZER HELPER INDUCTION Gender Identity Not on file Sexual Orientation Not on file Last Filed Vital Signs Vital Sign Reading Time Taken Comments Blood Pressure 107/63 06/28/2024 1:00 PM BRAZER HELPER INDUCTION Pulse 50 06/28/2024 1:00 PM BRAZER HELPER INDUCTION Temperature 36.4 C (97.6 F) 06/28/2024 11:55 AM BRAZER HELPER INDUCTION Respiratory Rate 13 06/28/2024 1:00 PM BRAZER HELPER INDUCTION Oxygen Saturation 100% 06/28/2024 1:00 PM BRAZER HELPER INDUCTION Inhaled Oxygen Concentration - - Weight 84.8 kg (187 lb) 06/28/2024 6:53 AM BRAZER HELPER INDUCTION Height 165.1 cm (5' 5) 06/28/2024 6:53 AM BRAZER HELPER INDUCTION Body Mass Index 31.12 06/28/2024 6:53 AM BRAZER HELPER INDUCTION Plan of Treatment Health Maintenance Due Date Last Done Comments Pre-Diabetes and Diabetes Screening 1982 DTAP/TDAP/TD VACCINES (1 - Tdap) 2001 HEPATITIS B VACCINES (1 of 3 - 19+ 3-dose series) 2001 HPV/Cotest (21-29) 12/12/2003 CERVICAL CANCER SCREENING 2012 HPV/Cotest (30-65) 2012 PAP SMEAR 2012 BREAST CANCER SCREENING 2022 INFLUENZA VACCINE (#1) 2023 HPV VACCINES Aged Out No longer eligi ble based on patient's age to complete this topic Medical Devices Implanted Type Area Director Of Religious Activities Device Identifier Shelf Expiration Date Model / Serial / Lot Barrier Interceed Adh 3x4in 4350 - [id number] Implanted:Qty: 1 on 03/12/2022 by Mitch Gee MD at [facility] Adhesion Barrier N/A: Uterus J&J- [employer] [id number] 07/21/2026 [id number] / / [id number] Tightrope Ii Btb W/ Deploying Suture [id number] - [id number] Implanted:Qty: 1 on 06/28/2024 by Rodolfo Dinh MD at [facility] Left: Knee [employer] INC 01/22/2028 [id number]-2J / / [id number] Description:REQ [id number] Screw Mary Intfr [id number] - [id number] Implanted:Qty: 1 on 06/28/2024 by Rodolfo Dinh MD at [facility] Screw Left: Knee J&J- DE[employer] 10/21/2026 [id number] Description:Requisition # [id number] Acdf Plate And Screws Whole Patella Ligament Implanted:Qty: 1 on 06/28/2024 by Rodolfo Dinh MD at [facility] Left: Knee LIFENET 09/19/[id number] / [id number] / Explanted Type Area Director Of Religious Activities Device Identifier Shelf Expiration Date Model / Serial / Lot Iud Explanted:Qty: 1 on 03/12/2022 by Mitch Gee MD at [facility] N/A: Uterus Procedures Procedure Name Priority Date/Time Associated Diagnosis Comments XR KNEE 1 OR 2 VW BILAT Routine 08/09/2024 9:20 AM CDT Aftercare for anterior cruciate ligament (ACL) repair from Last 3 Months Results * XR KNEE 1 OR 2 VW BILAT (08/09/2024 9:20 AM CDT) Anatomical Region Laterality Modality Lower Extremity Computed Radiogr aphy 08/09/2024 9:20 AM CDT Impressions 08/09/2024 10:59 AM CDT IMPRESSION: 1. Status post bilateral knee anterior cruciate ligament repair. DICTATION LOCATION: Location [address] [place] [address] Narrative 08/09/2024 10:59 AM CDT EXAMINATION: XR KNEE 1 OR 2 VW BILAT HISTORY: See Diagnosis. Aftercare for anterior cruciate ligament (ACL) repair FINDINGS: Comparison is made with a study from May 01, 2024. On both sides, alignment is normal. No acute fracture is identified. Sequela of prior anterior cruciate ligament repair is present on both sides. No joint space abnormality is seen. Procedure Note Tramaine Mcnamara MD - 08/09/2024 EXAMINATION: XR KNEE 1 OR 2 VW BILAT HISTORY: See Diagnosis. Aftercare for anterior cruciate ligament (ACL) repair FINDINGS: Comparison is made with a study from May 01, 2024. On both sides, alignment is normal. No acute fracture is identified. Sequela of prior anterior cruciate ligament repair is present on both sides. No joint space abnormality is seen. IMPRESSION: 1. Status post bilateral knee anterior cruciate ligament repair. DICTATION LOCATION: Location [address] [place] [address] Ashley Felix PA-C DIAGNOSTIC IMAGING ORDERA BLES Final Result from Last 3 Months Insurance BS BLUE ACCESS/TRUE BLUE PPO RX PRIME THERAPEUTICS Commercial BCBS BLUE ACCESS CHOICE Advance Directives For more information, please contact: [phone] * Full Code (Latest Code Status on File) Date Activated Date Inactivated Comments 06/28/2024 6:40 AM 06/28/2024 3:26 PM * Full Code Date Activated Date Inactivated Comments 03/12/2022 9:23 AM 03/12/2022 6:26 PM
--- OUTSIDE RECORDS SUMMARY | 2024-10-21 07:21 | XMS_ITS | Clinical Summary ---
Author Organization [facility] Address [address] [place] [address] Care Team Providers Care Nursing Administrator Name Role Phone Mark Gonzalez MD Primary Care Provider [phone] Source Comments [facility] Affiliates and Associated Physician Practices is amultiple site organization consisting of ambulatory clinics and hospital sitesin [place], [place], [place] and [place]. This disclosure is being madepursuant to the Care Everywhere program and may not contain all information available regarding this patient. Last updated 18.[facility] Allergies Active Allergy Reactions Criticality Noted Date Comments Milk-Related Compounds GI Discomfort,Other Low 01/23 Penicillins Other 10/07/2020 Pain with urination Medications * Be aware that medications may not be up to date on this document. Alwaysverify current medications with the patient. Vit-Fe Fumarate-FA ( VITAMIN) 28-0.8 MG tablet Take 1 tablet by mouth once daily Active folic acid (FOLVITE) 1 MG tablet Take 1 mg by mouth once daily 025 Discontin ued(List Clean-Up) aspirin (ASPIRIN) 81 MG chew tabletIndicati ons:preeclamps ia prevention Take 1 (one) tablet by mouth once daily Reasons: preeclampsia prevention 100 tablet 1 025 Discontin ued(List Clean-Up) calcium carbonate (TUMS) 500 MG chew tablet Take 1 tablet by mouth as needed for Heartburn 025 Discontin ued(List Clean-Up) ibuprofen (Motrin) 200 MG tablet Take 1 (one) tablet by mouth every 6 hours as needed for Pain 025 Discontin ued(Dose Adjustmen t) Active Problems Problem Noted Date Diagnosed Date Fibromyalgia syndrome 10/11/2024 Assessment & Plan (10/11/2024 3:11 PM CDT): Her clinical presentation is not completely c/w an inflammatory process. She has several areas of the body elicit point tenderness. Facial rash more c/w acne rosacea, not lupus malar rash. No evidence of synovitis on exam. Suspecting clinical presentation likely fibromyalgia related pain. I discussed the approach to the clinical diagnosis of a fibromyalgia syndrome as a cause for chronic musculoskeletal pain. I do not provide long-term care for the treatment of fibromyalgia and I have suggested that Marylin Navarrete follow-up with her primary care provider/physician for any additional needed long-term treatment approach recommendations that may be of benefit for relief of symptoms related to this non-inflammatory hypersensitivity pain disorder. I strongly encourage the avoidance of opiate analgesic medication (narcotics), as well as benzodiazepines, in the treatment of fibromyalgia associated pain given their potential risk for serious side effects and/or dependency issues and opiate induced hyperalgesia (use of stitch wheeler opiate/narcotic actually causing more pain rather than less) that can be associated with such use. Marylin Navarrete might be a good candidate for a trial of gabapentin, amitriptyline, nortriptyline, trazodone, desipramine or cyclobenzaprine taken at low dose taken at bedtime if needed to improve restorative sleep quality and may also help to reduce pain symptoms if not yet tried and not contraindicated. Additionally, the use of gabapentin or other available FDA approved medications for the treatment of fibromyalgia including Cymbalta (duloxetine), Lyrica (pregabalin), or Savella could be considered for future symptomatic pain treatment if not previously tried and without contraindication to use but will defer mcc treatment management decisions to her primary care provider/physician for future treatment consideration of this type of a non-inflammatory chronic pain syndrome. I would also strongly encourage non pharmacologic interventions, including working with a pain psychologist trained in cognitive behavioral therapy such is relaxation techniques, biofeedback and visual imagery that can also be helpful, as well as aerobic conditioning exercise in the treatment of this type of non-inflammatory chronic pain condition. Marylin Navarrete was provided additional written information regarding fibromyalgia for further educational information. Fibromyalgia is a painful condition that is not completely understood by medical experts. The cause of fibromyalgia is not known. A person may feel tired and ache all over. It causes tender spots on the body that hurt only when pressed upon. A patient may have trouble sleeping, as well as other symptoms. These problems can upset work and home life. Symptoms tend to come and go, although they may never go away completely. Fibromyalgia does not harm the muscles, joints or organs or cause any permanent deformity or disability in the body. Fibromyalgia syndrome is characterized by generalized noninflammatory pain and is associated with long-standing pain that may come and go and be variable or at time persistently contant. The pain may be located in the soft tissues including tendons or muscles or joints. The pain can occur in any of the extremities and also be felt along the spine or torso. This is the reason some people feel that they have arthritis. Other unusual symptoms that may suggest an underlying neurologic disorder have also been described in patients with fibromyalgia including numbness and tingling type sensations and shooting pains. Patients often describe fatigue and may awaken with non restorative sleep quality. The condition can occur in men or women in any age but is most common in women routine the ages of 20 in 50. There is no specific test used that can confirm the diagnosis of fibromyalgia and is considered a diagnosis of exclusion where by other conditions need to be excluded and this may or may not require additional test to be performed. The current nature of fibromyalgia seems to suggest that this syndrome represents a disorder of increased sensitivity in pain perception or so-called central pain amplification. Unfortunately, the exact cause of this disorder still remains elusive and unknown and limits the treatment to symptom relief without any known cure at this time. 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 Approximately 15% of the normal population will have a positive RAHEL test;and can also be seen in other conditions, such as thyroid diseases, viral infections or caused by some medications. The finding of a positive antinuclear antibody (RAHEL), especially with a low pretest probability for an associated connective tissue disease, is currently considered to be of undetermined clinical significance (often referred to as a false positive result) with her historical elements/symptoms reviewed, current clinical examination findings, and additional available laboratory results reviewed, regarding this result not consistent with a specific diagnosis of a defined systemic connective tissue disease including systemic lupus erythematosus or systemic inflammatory rheumatic disorder by [employer] (ACR) diagnostic classification criteria at this time. Marylin Navarrete lacks features of any systemic autoimmune RAHEL-related connective tissue disease. RAHEL positivity is present in up to 30% of the normal population . Since the prevalence of SLE is only ~0.1%, most positive RAHEL results can be attributed to other etiologies or considered represent f alse-positive results. RAHEL positivity increases in prevalence with female gender, older age, and numerous other conditions. Antinuclear antibody overview: A test for antinuclear antibodies (RAHEL) is common in people who are suspected of having an autoimmune or systemic connective tissue disease disorder. Antibodies are proteins that are made as part of the immune response. The result of an RAHEL test may be used in 1 or more ways: To aid in diagnosis of an autoimmune or connective tissue disease disorder, to rule out autoimmune or connective tissue disease disorders in people presenting only with a few symptoms, to measure disease activity, and order to determine the specific type of disease that affects the patient. Of people with the following disorders or characteristics may have positive RAHEL test results including systemic lupus erythematosus, scleroderma, mixed connective tissue disease, polymyositis/dermatomyositis, rheumatoid arthritis, rheumatoid vasculitis, Sjogren syndrome, drug-induced lupus, discoid lupus, possibly articular juvenile chronic idiopathic arthritis or ANCA related vasculitic syndromes. In addition, some people with autoimmune diseases that affect the gastrointestinal tract, thyroid gland, liver, or lung (including Fadia's thyroiditis, Graves disease, autoimmune hepatitis, primary biliary cirrhosis, primary autoimmune cholangitis, inflammatory bowel disease including Crohn's disease or ulcerative colitis, and idiopathic pulmonary arterial hypertension) can have a positive RAHEL test. Additionally, certain chronic infectious diseases, such as mononucleosis/EBV, hepatitis C virus infection, subacute bacterial endocarditis, tuberculosis, lymphoproliferative diseases, and human immunodeficiency virus (HIV) may also produce a positive RAHEL test. As such, a positive RAHEL does not necessarily mean that the person has lupus or another systemic connective tissue disease disorder. As noted earlier, many healthy people may have a positive RAHEL test. The RAHEL test is said to be a f alse positive test result when a person test positive but does not have any other features of autoimmune disease. This situation occurs more often in women and elderly people especially when tested in individuals with a low pretest probability for systemic lupus erythematosus or other systemic rheumatic connective tissue disease. Certain medications also may increase the chance of having a positive RAHEL test which may or may not represent a drug-induced lupus type syndrome. Depending on the symptoms that led to the initial RAHEL screening testing may be necessary and ordered for further evaluation may or may not be recommended for 1 or more of the disorders that can be associated with a positive RAHEL. History of placenta previa 02/02/2024 in person [...] mg daily due to comorbid placenta previa Encounters Date Type Department Care Team Description 10/11/2024 8:40 AM CDT Office Visit [facility] - Rheumatology [address] [place] [address], [address] [place] [address] Karthik Courtney DO Fibromyalgia syndrome (Primary Dx); Anticardiolipin antibody positive; False positive rahel; Acne rosacea 09/26/2024 Telephone [facility] - Rheumatology [address], [address] [place] [address] Karthik Courtney DO Referral from Last 3 Months Family History Medical History Relation Name Comments Brain Tumor Father ALS - Amyotrophic Lateral Sclerosis Mother Relation Name Status Comments Father Maternal Grandfather Maternal Grandmother Mother Paternal Grandfather Paternal Grandmother Social History Tobacco Use Types Packs/Day Years Used Date Smoking Tobacco: Never Smokeless Tobacco: Never Alcohol Use Standard Drinks/Week Comments Not Currently 0 (1 standard drink = 0.6 oz pur e alcohol) PHQ-2 Answer Date Recorded Patient Health Questionnaire-2 Score 2 10/11/2024 Education Answer Date Recorded What is the highest level of school you have completed or the highest degree you have received? 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 Not on file Not on file Last Filed Vital Signs Vital Sign Reading Time Taken Comments Blood Pressure 110/80 10/11/2024 8:45 AM CDT Pulse 80 10/11/2024 8:45 AM CDT Temperature 36.1 C (97 F) 10/11/2024 8:45 AM CDT Respiratory Rate 16 10/11/2024 8:45 AM CDT Oxygen Saturation 97% 10/11/2024 8:45 AM CDT Inhaled Oxygen Concentration - - Weight 91.6 kg (202 lb) 10/11/2024 8:45 AM CDT Height 165.1 cm (5' 5) 02/02/2024 9:13 AM CDT Body Mass Index 33.61 02/02/2024 9:13 AM CDT Plan of Treatment Health Maintenance Due Date Last Done Comments LIPID TESTING 1980 MAMMOGRAM 1980 PAP SMEAR 1982 DTAP/TDAP/TD VACCINES (1 - Tdap) 2001 HEPATITIS B VACCINE (1 of 3 - 19+ 3-dose series) 2001 COVID-19 VACCINE (3 - 2023- season) 2024 08/11/2020, 07/18/2020 INFLUENZA VACCINE (Season Ended) 2025 02/23/2021 SCREENING FOR DIABETES 08/18/2027 , 08/17/2024, 10/12/2023, Additional history exists ZOSTER VACCINE (1 of 2) 2032 HEPATITIS C SCREENING Completed 09/06/2020, HIV SCREENING Completed 09/20/2023, 09/06/2020 DEPRESSION SCREENING Completed 10/11/2024 HIB VACCINE Aged Out No longer eligi ble based on patient's age to complete this topic HPV VACCINE Aged Out No longer eligi ble based on patient's age to complete this topic MENINGOCOCCAL (Group B) VACCINE SHARED DECISION-MAKING Aged Out No longer eligible based on patient's age to complete this topic MENINGOCOCCAL GROUPS A/C/Y/W VACCINE Aged Out No longer eligible based on patient's age to complete this topic PNEUMOCOCCAL VACCINE Aged Out No long er eligible based on patient's age to complete this topic Insurance [facility] SELF PAY NO INSURANCE Member Subscriber Plan / Payer (Ef fective for All Dates) Name:Marylin Navarrete Member ID:Not on file Relation to Subscriber:Not on file Name:MARYLIN NAVARRETE Subscriber ID:Not on file Address: [address] [place] [id number] Payer ID:Not on file Group ID:Not on file Type:Self Pay Address: [place], [place] [facility] SELF PAY NO INSURANCE Member Subscriber Plan / Payer (Ef fective for All Dates) Name:Marylin Navarrete Member ID:Not on file Relation to Subscriber:Not on file Name:MARYLIN NAVARRETE Subscriber ID:Not on file Address: [address] [place], [place] [id number] Payer ID:Not on file Group ID:Not on file Type:Self Pay Address: [place], [place] SELF PAY NO INSURANCE Member Subscriber Plan / Payer (Ef fective for All Dates) Name:Marylin Navarrete Member ID:Not on file Relation to Subscriber:Not on file Name:MARYLIN NAVARRETE Subscriber ID:Not on file Address: [address] [place], [place] [id number] Payer ID:Not on file Group ID:Not on file Type:Self Pay Address: [place], [place] Care Teams Nursing Administrator Relationship Specialty Start Date End Date Mark Gonzalez MD [facility] [place] [address] PCP - General Family Medicine 05/02/18
--- OUTSIDE RECORDS SUMMARY | 2024-10-21 07:21 | XMS_ITS | Clinical Summary ---
Author Organization [facility] [address] Address [address] [place] [address] Care Team Providers Care Stock Grader Name Role Phone Mark Gonzalez MD Primary Care Provider [phone] Allergies Active Allergy Reactions Criticality Noted Date [...] on file Legal Sex Female 5:58 AM CASTING COORDINATOR Gender Identity Not on file Sexual Orientation [...] 82.1 kg (181 lb) 05/31/2018 1:08 PM CASTING COORDINATOR Height 165.1 cm (5' 5) 05/31/2018 1:08 PM CASTING COORDINATOR Body Mass Index 30.12 05/31/2018 1:08 PM CASTING COORDINATOR Plan of Treatment Health Maintenance Due Date [...] risk series) 09/08/2020 08/11/2020, 07/18/2020 Influenza Vaccine (Season Ended) 2025 02/23/2021 DTaP/Tdap/Td Vaccine (2 - Td or Tdap) 12/31/2030 12/31/2020 HPV Vaccines Aged Out No longer eligi ble based on patient's age to complete this topic Insurance [facility] Address: [address] [address] [place] [address] [facility] Address: [address] [address] [place] [address] [facility] Care Teams Stock Grader Relationship Specialty Start Date End Date Mark Gonzalez MD [employer] [place] [address] PCP - General Family Medicine 12/29/17
--- OUTSIDE RECORDS SUMMARY | 2024-10-21 07:21 | XMS_ITS | Patient Health Record ---
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
--- OUTSIDE RECORDS SUMMARY | 2024-10-21 07:21 | XMS_ITS ---
Author Organization [facility] ([address]) Address [address] [place] [address] Care Team Providers Care Computer Recycling Worker Name Role Phone Bal Antonio Unavailable [phone] ZZ[facility]Migration, Provider Unavailable Unavailab le Allergies Allergen (clinical drug ingredient) Drug/Non Drug Allergy documented on EMR Reaction Allergy Type Onset Date Status Penicillin Urinary burning Drug Allergy Active [facility]AS[facility]ISIT [facility] Encounter Medications Medication SIG (Take, Route, [...] Active Encounters Encounter Location Date Provider Diagnosis [place] [address] 11/06/2023 Provider ZZ-Migration Plan Of Treatment No Information Progress Notes * Stacey NAVARRETEDOB: 3 (43 yo F)Acc No.[id number]:11/06/2023 Patient: Stacey GRIDER Provider: Zoya Dimas :1980 A ge:42 Y S ex:Female Date:11/06/2023 Address:[address] [facility] Subjective: * Chief Complaints: * 1 . Multum To [facility] Conversion Encounter. * Medical History: * Medications: T aking Methylphenidate 20 MG/8 HR TABLET, EXTENDED RELEASE 1 TAB(S) ORALLY ONCE A DAY , Notes to Pharmacist: *Please review and pick correct strength-formulation [facility] options. If intended option is not shown, [...] Procedure Codes: * Electronic signature of Aure LEAL-Migration on 10/21/2024 at 07:20 AM CDT Sign off status: Pending * Provider: Zoya Dimas Date: 0 11/06/2023 Generated for Ja santana/Kalie/Sharath on: 10/21/2024 07:20 AM CDT
--- OUTSIDE RECORDS SUMMARY | 2024-10-21 07:21 | XMS_ITS | Referral Summary ---
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 Gender Identity Not on file Sexual Orientation [...] 82.1 kg (181 lb) 05/31/2018 1:08 PM KNOWLEDGE ANALYST Height 165.1 cm (5' 5) 05/31/2018 1:08 PM KNOWLEDGE ANALYST Body Mass Index 30.12 05/31/2018 1:08 PM KNOWLEDGE ANALYST Plan of Treatment Not on file Insurance [facility]PPO Address: [facility] [address] [place] [address] [facility] Address: [address] [address] [place] [address] Care Teams Applied Anthropologist Relationship Specialty Start Date End Date Mark Gonzalez MD [address] [place] [address] PCP - General Family Medicine 12/29/17
--- OUTSIDE RECORDS SUMMARY | 2024-10-21 07:21 | XMS_ITS | Encounter Summary ---
Author Organization [facility] Address [address] [place] [address] Care Team Providers Care High School Football Coach Name Role Phone Mark Gonzalez MD Primary Care Provider Reason for Visit * Reason Onset Date Comments Appointment 01/04/2024 Encounter Details Date Type Department Care Team (Late st Contact Info) Description 01/04/2024 Telephone [facility] - Centralized Scheduling [address] [place] [id number] Jayy Argueta MD [address] [id number] Appointment Social History Tobacco Use Types Packs/Day Years Used Date Smoking Tobacco: Never Smokeless Tobacco: Never Alcohol Use Standard Drinks/Week Comments Not Currently 0 (1 standard drink = 0.6 oz pur e alcohol) Comments No Sex and Gender Information Value Date Recorded Sex Assigned at Not on file Legal Sex Female 8:15 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 Pt can be reached at [phone]. documented in this encounter Plan of Treatment Not on file documented as of this encounter Visit Diagnoses Not on filedocumented in this encounter Care Teams High School Football Coach Relationship Specialty Start Date End Date Mark Gonzalez MD [address] [id number] PCP - General Family Medicine 05/02/18 documented as of this encounter
--- OUTSIDE RECORDS SUMMARY | 2024-10-21 07:39 | XMS_ITS | Continuity of Care Document ---
Author Organization [facility] Address [address] [place] [address] Phone Care Team Providers Care Ruffling Hemmer Automatic Name Role Phone No Information Unavailable Unavailable [...] Diagnoses Date Provider Providers Copied on Encounter [facility], [facility] [place], [place], [id number], tel:[phone] No Information Jan- 2200 7 No Information [facility], [address] [place] [address], [id number], tel:[phone] No Information Jan- 2200 7 Dilcia Johnston. [facility] [place], [place], [facility], . tel:[phone] Referring Provider: Black Can MD B, [address] [place] [address] [address], [place], [address]. tel:[phone] Family History Family Member Type Diagnosis Age At Onset No Information Payers Payer name Insurance type Covered green party ID Authoriza tion(s) No Information Social [...]
[2024-10-21 07:40] LABS: Basophils Percent Auto 0.7 % (0.2-1.2); Eosinophils Absolute Auto 0.1 K/mm3 (0-0.3); Hematocrit 35.6 % (37.0-47.0); Hemoglobin 11.6 g/dL (12.0-15.0); Immature Granulocyte Absolute 0.22 K/mm3 (0.00-0.031); Immature Granulocyte Percent A 3.9 % (0-0.5); Lymphocytes Absolute Auto 1.43 K/mm3 (0.9-3.2); Lymphocytes Percent Auto 25.4 % (18.3-44.2); Mean Corpuscular HGB Conc 32.6 g/dl (32-36); Mean Corpuscular Hemoglobin 26.2 pg (26-34); Mean Corpuscular Volume 80.5 fl (80-100); Mean Platelet Volume 11.2 fl (7.4-10.4); Monocytes Absolute Auto 0.3 K/mm3 (0.1-0.6); Monocytes Percent Auto 5.3 % (2.6-8.5); Neutrophils Absolute Auto 3.5 K/mm3 (1.3-6.7); Neutrophils Percent Auto 62.7 % (45.5-73.1); Platelet Count Result 223 k/mm3 (150-375); Red Blood Count 4.42 M/mm3 (4.2-5.4); Red Cell Distribution Width 12.8 % (11.5-14.5); White Blood Count 5.6 K/mm3 (4.5-10.0)
[2024-10-21 07:48] LABS: Alanine Aminotransferase 18 U/L (6-35); Albumin Level 4.3 g/dL (3.5-5.1); Alkaline Phosphatase 64 U/L (38-126); Anion Gap 9 mmol/L (4-12); Aspartate Amino Transferase 23 U/L (14-36); Bilirubin,Total 0.7 mg/dL (0.2-1.3); Blood Urea Nitrogen 12 mg/dL (7-17); Calcium 9.3 mg/dL (8.4-10.2); Carbon Dioxide 24 mmol/L (22-30); Chloride 105 mmol/L (98-107); Estimated CRCL calculation 104 ml/min; Estimated Glomerular Filt Rate > 60; Glucose 99 mg/dL (65-110); Lipase 84 U/L (23-300); Potassium 3.7 mmol/L (3.4-5.0); Sodium 138 mmol/L (137-145)
[2024-10-21 08:00] LABS: Troponin I < 0.012 ng/mL (0.000-0.034)
[2024-10-21 08:23] LABS: Prothrombin Time 13.6 Seconds (11.1-14.7)
[2024-10-21 08:31] LABS: Partial Thromboplastin Time 32.6 Seconds (22.3-36.8)
[2024-10-21] MEDS: KETOROLAC 30 MG/ML VIAL (*BKC) IV PUSH (08:37)
--- NOTE | 2024-10-21 10:30 | ED.CHESTPAIN ---
HPI - Chest Pain General Chief Complaint: Chest Pain Stated Complaint: chest pain Time Seen by Provider: 10/21/24 07:27 History of Present Illness HPI narrative: Patient is a 43-year-old female who presents ER with chest pain. Left-sided and sharp. Associated with some tingling left arm. No exertional chest pain. No difficulty breathing. No cough. She was sleeping and woke up and felt the pain. It lasted for about a minute. No history of cardiac disease or PE. No alleviating factors. Related Data Home Medications ?Medication ?Instructions ?Recorded ?Confirmed ?Last Taken ?Type folic acid 1 tab-cap BYMOUTH DAILY 10/06/23 10/06/23 10/05/23 History mkqubvmi-jiz-Gg-FA 1 mg 1 tablet PO DAILY 10/06/23 10/06/23 10/05/23 History tablet Allergies Allergy/AdvReac Type Severity Reaction Status Date / Time Penicillins AdvReac Mild RASH Verified 10/21/24 08:57 Review of Systems Review of Systems: All systems reviewed & are unremarkable except as noted in HPI and below Constitutional: Constitutional: Reports no additional constitutional complaints Cardiovascular: Cardiovascular: Reports no additional cardiovascular complaints Respiratory: Respiratory: Reports no additional respiratory complaints Gastrointestinal: Gastrointestinal: Reports no additional gastrointestinal complaints Musculoskeletal: Musculoskeletal: Reports no additional musculoskeletal complaints [facility] Past Medical History Medical History Anxiety Depression Gestational diabetes Herniated disc Mastitis Nausea and vomiting in adult Surgical History Surgical History History of section History of fusion of cervical spine C5-C6 History of repair of ACL Hx laparoscopic cholecystectomy with IOC 10/08/21 Family History Family History Mother ALS (amyotrophic lateral sclerosis) Father Brain cancer Social History Social History Social History: Ms. Gonzáles lives at home with her significant other and her 2 children. She is independent in her daily activities. 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 Shoemaker. She designates her significant other, Sanjay, as her surrogate decision maker. She would like to be a full code. Smoking packs per day: 1 Smoking cigarettes per day: 20.0 Years smoked: 10 Smoking pack-years: 10.00 Smoking status: Former smoker Tobacco type: cigarettes Smoking end date: 06/24/11 Alcohol intake: current Alcohol use details: very rarely Substance use: never Substance use type: does not use Living arrangements: with family Gender identity (if verbalized by the patient): Female Spiritual care concerns: No Exam Narrative: GENERAL: Well-appearing, well-nourished, and in no acute distress. HEAD: Normocephalic, atraumatic. ENT: Mucous membranes moist. Neck: No midline tenderness or paraspinal muscle tenderness. Normal range of motion. CHEST: Clear to auscultation. No respiratory distress. HEART: Regular rate and rhythm. Normal peripheral pulses. ABDOMEN: Soft, nontender, nondistended. EXTREMITIES: Normal range of motion. No edema. SKIN: Warm, dry, no rash. NEURO: Alert and oriented x3. PSYCH: Normal mood and affect. Course Course Emergency Course: Patient resting comfortably. Troponin negative x2. Normal EKG. Unremarkable x-ray. Discharge home. Vital Signs Vital signs: Vital Signs Temperature 97.9 F 10/21/24 07:25 Pulse Rate 67 10/21/24 07:25 Respiratory Rate 19 10/21/24 07:25 Blood Pressure 111/68 10/21/24 07:25 Pulse Oximetry 97 10/21/24 07:25 Oxygen Delivery Room Air 10/21/24 07:25 Temperature 97.9 F 10/21/24 07:25 Pulse Rate 53 L 10/21/24 12:06 Respiratory Rate 16 10/21/24 12:06 Blood Pressure 111/64 10/21/24 12:06 Pulse Oximetry 100 10/21/24 12:06 Oxygen Delivery Room Air 10/21/24 07:28 MDM - Chest Pain Lab Data 10/21/24 07:34 10/21/24 07:34 Labs: Lab Results 10/21/24 10/21/24 Range/Units 07:34 10:26 WBC 5.6 (4.5-10.0) K/mm3 RBC 4.42 (4.2-5.4) M/mm3 Hgb 11.6 L (12.0-15.0) g/dL Hct 35.6 L (37.0-47.0) % MCV 80.5 (80-100) fl MCH 26.2 (26-34) pg MCHC 32.6 (32-36) g/dl RDW 12.8 (11.5-14.5) % Plt Count 223 (150-375) k/mm3 MPV 11.2 H (7.4-10.4) fl Immature Gran % (Auto) 3.9 H (0-0.5) % Neut % (Auto) 62.7 (45.5-73.1) % Lymph % (Auto) 25.4 (18.3-44.2) % Gage % (Auto) 5.3 (2.6-8.5) % Eos % (Auto) 2.0 (0-4.4) % Baso % (Auto) 0.7 (0.2-1.2) % Lymph # (Auto) 1.43 (0.9-3.2) K/mm3 Gage # (Auto) 0.3 (0.1-0.6) K/mm3 Eos # (Auto) 0.1 (0-0.3) K/mm3 Baso # (Auto) 0.0 (0.0-0.1) K/mm3 Abs Immat Gran (auto) 0.22 H (0.00-0.031) K/mm3 Absolute Neuts (auto) 3.5 (1.3-6.7) K/mm3 Absolute Nucleated RBC 0.000 (0.0-0.012) K/mm3 Nucleated RBC % 0.0 (0.0-0.2) % PT 13.6 (11.1-14.7) Seconds INR 1.0 APTT 32.6 (22.3-36.8) Seconds Sodium 138 (137-145) mmol/L Potassium 3.7 (3.4-5.0) mmol/L Chloride 105 (98-107) mmol/L Carbon Dioxide 24 (22-30) mmol/L Anion Gap 9 (4-12) mmol/L BUN 12 (7-17) mg/dL Creatinine 0.69 L (0.7-1.0) mg/dL Estim Creat Clear Calc 104 ml/min Estimated GFR > 60 (59 - ) Glucose 99 (65-110) mg/dL Calcium 9.3 (8.4-10.2) mg/dL Total Bilirubin 0.7 (0.2-1.3) mg/dL AST 23 (14-36) U/L ALT 18 (6-35) U/L Alkaline Phosphatase 64 (38-126) U/L Troponin I < 0.012 < 0.012 (0.000-0.034) ng/mL Total Protein 7.0 (6.3-8.2) g/dL Albumin 4.3 (3.5-5.1) g/dL Lipase 84 (23-300) U/L Imaging Data Radiologist's impression: ITS Impressions Chest X-Ray 10/21/24 07:55 IMPRESSION: 1: NO ACUTE CARDIOPULMONARY DISEASE. ECG Data EKG #1: ECG completion date: 10/21/24 ECG completion time: 07:28 EKG Interpretation: normal rate (64), sinus rhythm, normal QRS, normal QT and NL axis Discharge Plan Discharge Clinical Impression: Chest pain Patient Disposition: Home Condition: Stable Instructions: Chest Pain (ED) Additional Instructions: Please return to the emergency department if you develop severe and persistent chest pain, difficulty breathing, dizziness, leg swelling or if you are coughing up blood as these can be signs of a medical emergency. Please call your doctor for a follow up appointment to determine the need for further testing. Patient Language: Palauan Prescriptions: New naproxen 375 mg tablet 375 mg PO BID Qty: 14 0RF No Action wnddyqjf-qcx-Jz-FA 1 mg Tablet 1 tablet PO DAILY folic acid 1 tab-cap BYMOUTH DAILY cephalexin 500 mg capsule 500 mg PO Q6H Qty: 28 0RF Follow-up/Referrals: Lisa,Mark Tineo MD [Primary Care Provider] - 1 Week Quality HEART score for chest pain patients History: slightly suspicious ECG: normal Age: < or = to 45 years Risk factors: no risk factors known Troponin: < or = to 1x normal limit Heart score: 0
[2024-10-21 11:07] LABS: Troponin I < 0.012 ng/mL (0.000-0.034)
--- NOTE | 2024-10-21 13:11 | ECG_ITS ---
Test Date: 2024-10-21 10:24:34 Measurements Intervals [place] Rate: 51 P: 33 WY: 169 QRS: 71 QRSD: 99 T: 57 QT: 442 QTc: 408 Interpretive Statements SINUS BRADYCARDIA BORDERLINE ECG Compared to ECG 10/21/2024 07:28:59 HEART RATE HAS DECREASED Electronically Signed On 10-22-2024 06:45:23 CDT by Eric Lundy D.O.
== END 2024-10-21 12:32 | disposition home or self-care (01) ==
PROVIDERS: Emergency Provider Emergency Medicine; PCP Family Medicine
DX: R07.9 Chest pain, unspecified (principal)
CPT/HCPCS: 36415; 71046; 80053; 83690; 84484; 85025; 85610; 85730; 93005; 96374; 99284; J1885

== ENCOUNTER 2024-11-21 15:57 | Outpatient (CLI) | payer BC, SELFPAY ==
--- OUTSIDE RECORDS SUMMARY | 2024-11-21 16:02 | XMS_ITS | Continuity of Care Document ---
Author Organization [facility] Address [address] [place] [address] Phone Care Team Providers Care Quality Engineer Medical Device Name Role Phone No Information Unavailable Unavailable [...] Diagnoses Date Provider Providers Copied on Encounter [facility], [facility] [place], [place], [id number], tel:[phone] No Information Jan- 2200 7 No Information [facility], [address] [place] [address], [id number], tel:[phone] No Information Jan- 2200 7 Dilcia Johnston. [facility] [place], [place], [facility], . tel:[phone] Referring Provider: Black Can MD B, [address] [place] [address] 100, [place], [address]. tel:[phone] Family History Family Member Type Diagnosis Age At Onset No Information Payers Payer name Insurance type Covered republican ID Authoriza tion(s) No Information Social History [...]
--- OUTSIDE RECORDS SUMMARY | 2024-11-21 16:03 | XMS_ITS | Clinical Summary ---
Author Organization [facility] Address [address] [place] [address] Care Team Providers Care Harmonic Analyst Name Role Phone Mark Gonzalez MD Primary Care Provider [phone] Source Comments [facility] Affiliates and Associated Physician Practices is amultiple site organization consisting of ambulatory clinics and hospital sitesin [place], [place], [place] and [place]. This disclosure is being madepursuant to the Care Everywhere program and may not contain all information available regarding this patient. Last updated 18.[facility] Allergies Active Allergy Reactions Criticality Noted Date Comments Milk-Related Compounds GI Discomfort,Other Low 01/23 Penicillins Other 10/07/2020 Pain with urination Medications * Be aware that medications may not be up to date on this document. Alwaysverify current medications with the patient. Vit-Fe Fumarate-FA ( VITAMIN) 28-0.8 MG tablet Take 1 tablet by mouth once daily Active Active Problems Problem Noted Date Diagnosed [...] issues and opiate induced hyperalgesia (use of adjunct faculty for medical terminology opiate/narcotic actually causing more pain rather than [...] without contraindication to use but will defer adjunct faculty for medical terminology treatment management decisions to her primary care [...] Assessment & Plan (10/11/2024 9:48 AM CDT): [id number]+ anticardiolipin antibody IGM + No current criteria [...] erythematosus or systemic inflammatory rheumatic disorder by [employer] (ACR) diagnostic classification criteria [...] Description 10/11/2024 8:40 AM CDT Office Visit [facility] - Rheumatology [address] [place] [address], [address] [place] [address] Karthik Courtney DO Fibromyalgia syndrome (Primary Dx); Anticardiolipin antibody positive; False positive rahel; Acne rosacea 09/26/2024 Telephone [facility] - Rheumatology [address] [place] [address], [address] [place] [address] Karthik Courtney DO Referral from [...] on file Legal Sex Female 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 Gender Identity Not on file Sexual Orientation [...] Done Comments LIPID TESTING 1980 MAMMOGRAM 1980 DTAP/TDAP/TD VACCINES (1 - Tdap) 2001 HEPATITIS B VACCINE (1 of 3 - 19+ 3-dose series) 2001 PAP SMEAR 12/12/2003 COVID-19 VACCINE ( - season) 2024 08/11/2020, 07/18/2020 INFLUENZA VACCINE (Season Ended) 2025 02/23/2021 SCREENING FOR DIABETES 08/18/2027 , 08/17/2024, 10/12/2023, Additional history exists ZOSTER VACCINE (1 of 2) 2032 HEPATITIS C SCREENING Completed 09/06/2020, 021 HIV SCREENING Completed 09/20/2023, 09/06/2020 DEPRESSION SCREENING [...] patient's age to complete this topic Insurance [address] [place], [place] [address]EM ANTHEM * Guarantor: MARYLIN NAVARRETE Account Type Relation to Patient Date of Phone Billing Address Personal/Family 1980 [address] [id number] [facility] SELF PAY NO INSURANCE Member Subscriber Plan / Payer (Ef fective for All Dates) Name:Marylin Navarrete Member ID:Not on file Relation to Subscriber:Not on file Name:MARYLIN NAVARRETE Subscriber ID:Not on file Address: [address] [place] [address] Payer ID:Not on file Group ID:Not on file Type:Self Pay Address: [place], [place] SELF PAY NO INSURANCE Member Subscriber Plan / Payer (Ef fective for All Dates) Name:Marylin Navarrete Member ID:Not on file Relation to Subscriber:Not on file Name:MARYLIN NAVARRETE Subscriber ID:Not on file Address: [address] [place] [address] Payer ID:Not on file Group ID:Not on file Type:Self Pay Address: [place], [place] [facility] SELF PAY NO INSURANCE Member Subscriber Plan / Payer (Ef fective for All Dates) Name:Marylin Navarrete Member ID:Not on file Relation to Subscriber:Not on file Name:MARYLIN NAVARRETE Subscriber ID:Not on file Address: [address] [place] [id number] Payer ID:Not on file Group ID:Not on file Type:Self Pay Address: [place], [place] Care Teams Harmonic Analyst Relationship Specialty Start Date End Date Mark Gonzalez MD [facility] [place] [address] PCP - General Family Medicine 05/02/18
--- OUTSIDE RECORDS SUMMARY | 2024-11-21 16:03 | XMS_ITS | Referral Summary ---
Author Organization [facility] [address] Address [address] [facility] [place] [address] Care Team Providers Care Abap Developer Name Role Phone Mark Gonzalez MD Primary Care Provider Encounters Date Type Department Care Team Description 10/26/2024 Orders Only [facility]REACH [address] [place] [address] Unknown, Notinfile from Last 3 Months Allergies Active Allergy Reactions Criticality Noted Date [...] on file Legal Sex Female 5:58 AM CONTINUITY WRITER Gender Identity Not on file Sexual Orientation [...] 82.1 kg (181 lb) 05/31/2018 1:08 PM CONTINUITY WRITER Height 165.1 cm (5' 5) 05/31/2018 1:08 PM CONTINUITY WRITER Body Mass Index 30.12 05/31/2018 1:08 PM CONTINUITY WRITER Plan of Treatment Not on file Procedures Procedure Name Priority Date/Time Associated Diagnosis Comments SURGICAL PATHOLOGY Routine 10/26/2024 11 :50 AM CDT from Last 3 Months Results * Surgical pathology (10/26/2024 11:50 AM CDT) Skin, shave biopsy 10/26/2024 11:50 AM CDT 10/27/2024 7:29 AM CDT Narrative 10/31/2024 2:20 PM CDT EPIC results best viewed via link to PDF [facility] [address], [place] [address] [email or web address] Note to Patients: This report may contain a detailed description of human tissue sent by a health care provider to the laboratory for pathologic evaluation. The content of this report is essential for diagnosis and may provide important critical findings. This information may be unfamiliar to patients to review without a medical professional present. It is advised that the patient review this report in the presence of a health care provider who can answer questions and explain the details. FINAL REPORT Patient Information: PATIENT NAME: MARYLIN NAVARRETE SEX: F : 1980 (Age: 43) Specimen Information: COLLECTED: 10/26/2024 RECEIVED: 10/27/2024 REPORTED: 10/31/2024 Submitting Physician Information: Josette Miranda, [facility], [address] [place] [address], DERMATOPATHOLOGY REPORT RESULTS DIAGNOSIS: SKIN, LEFT INFERIOR LATERAL MALAR CHEEK, SHAVE BIOPSY: PERIVASCULAR AND PERIFOLLICULAR DERMATITIS WITH SCATTERED EOSINOPHILS Note: There is a granulomatous component to the inflammatory infiltrate. A diagnosis of rosacea is favored but the differential diagnosis includes a dermal hypersensitivity reaction. There is also an incidental junctional melanocytic proliferation at the edge of the specimen that I am not able to definitively classify but probably represents part of a nevus. This is confirmed by an immunostain for Rut[place]-1. latonya/ibrahima By this signature, I attest that the above diagnosis is based upon my personal examination of the slides(and/or other material indicated in the diagnosis). Jesi Forman M.D. Report Electronically Reviewed and Signed Out By Jesi Forman M.D. 10/31/2024 14:20:48 CLINICAL INFORMATION PAPULES AND PATCHES: DERMATITIS UNSPECIFIED VS HYPERSENSITIVITY REACTION VS ROSACEA VS CUTANEOUS LUPUS SPECIMEN DATA MICROSCOPIC DESCRIPTION: The sections show telangiectases and a perivascular and perifollicular inflammatory cell infiltrate with lymphocytes, histiocytes including multinucleate forms and scattered eosinophils. (L71.9) GROSS DESCRIPTION: Received in a formalin-containing bottle is a superficial fragment of pale espinoza, finely scaling, and semi-translucent skin measuring 1.0 by 0.8 by 0.1 cm. The surgical margin is inked blue. The specimen is sectioned into 4 pieces and submitted entirely in a single cassette. Due to shrinkage, measurements may be different than those at the time of procedure. [facility] Clerical Data A; [address], [id number] The characteristics of special, immunohistochemical, and immunofluorescence stains and in-situ hybridization tests performed by the [facility] were deemed acceptable in ongoing associate quality engineer measures and in compliance with regulations drawn from the Clinical Laboratory Improvement Act mk6588 (CLIA '88). Control reactions for all stains performed were deemed adequate and appropriate by a pathologist prior to evaluation of patient tissue. Some diagnoses were rendered with the assistance of laboratory-developed tests utilizing analyte-specific reagents; the performance characteristic of these tests were determined by [facility] and are not cleared or approved by the [place] Food an Drug administration. Laboratory developed test may only be performed in a facility that is certified by the [facility] as a high-complexity laboratory under CLIA '88. These tests are used for clinical purposes and are not investigational. us Notinfile Unknown LAB PATHOLOGY ORDERABLES Final Result from Last 3 Months Insurance [facility] CHO[facility] PLUS [facility] Care Teams Abap Developer Relationship Specialty Start Date End Date Mark Gonzalez MD [facility] [place] [address] PCP - General Family Medicine 12/29/17
--- OUTSIDE RECORDS SUMMARY | 2024-11-21 16:03 | XMS_ITS | Clinical Summary ---
Author Organization [facility] Address [address] [place] [address] Care Team Providers Care Technical Sales Engineer Name Role Phone Crow Jay MD [facility] Viki Covington MD Primary Care Provider [phone] Allergies Active Allergy Reactions Criticality Noted Date [...] Comments Blood Pressure 130/70 07/03/2019 9:31 AM SENIOR JAVASCRIPT ENGINEER Pulse 66 07/03/2019 9:31 AM SENIOR JAVASCRIPT ENGINEER Temperature 36.8 C (98.3 F) 06/14/2019 8:18 AM SENIOR JAVASCRIPT ENGINEER Respiratory Rate 18 06/08/2019 12:1 6 PM SENIOR JAVASCRIPT ENGINEER Oxygen Saturation 98% 07/03/2019 9:31 AM SENIOR JAVASCRIPT ENGINEER Inhaled Oxygen Concentration - - Weight 100.1 kg (220 lb 9.6 oz) 07/03/2019 9:31 AM SENIOR JAVASCRIPT ENGINEER Height 165.1 cm (5' 5) 07/03/2019 9:31 AM SENIOR JAVASCRIPT ENGINEER Body Mass Index 36.71 07/03/2019 9:31 AM SENIOR JAVASCRIPT ENGINEER Plan of Treatment Health Maintenance Due Date [...] Vaccine ( - 2023-2 5 season) 2024 HPV Vaccines Aged Out No longer eligi ble based on patient's age to complete this topic Meningococcal B Vaccine Aged Out No l onger eligible based on patient's age to complete this topic Meningococcal Vaccine Aged Out No sonia ruperto eligible based on patient's age to complete this topic Pneumococcal Vaccine: Pediat rics (0 to 5 Years) and At-Risk Patients (6 to 49 Years) Aged Out No longer eligible b ased on patient's age to complete this topic RSV Immunizations Under 20 Months Aged Out No longer eligible based on patient's age to complete this topic Medical Devices Implanted Type Area Cut Filer Device Identifier Shelf Expiration Date Model / Serial / Lot Putty Tyner Matrix Dbm/Dbf Bone 6cc - [id number] Implanted:Qty : 1 on 06/07/2019 by Crow Jay MD at [facility] N/A: Spine Cervical [employer] 06/14/2019 [id number] / / [id number] Gage Rachele Metalene 6mm Spacer Implanted:Qty : 1 on 06/07/2019 by Crow Jay MD at [facility] N/A: Spine Cervical SE[employer]INE [id number] 04/06/2023 [id number] / / [id number] Screw Variable Self Drilling [place] 14mm - [id number] Implanted:Qty : 4 on 06/07/2019 by Crow Jay MD at [facility] N/A: Spine Cervical CHAVA SPINE - DIV CHAVA HERMINIO [id number] / / Plate Cervical Aviator Chava 12mm - [id number] Implanted:Qty : 1 on 06/07/2019 by Crow Jay MD at [facility] N/A: Spine Cervical [employer] - DIV CHAVA HERMINIO [id number] / / Explanted Type Area Cut Filer Device Identifier Shelf Expiration Date Model / Serial / Lot Distration Pin 12mm - [id number] Explanted:Qty: 2 on 06/07/[address] [facility] N/A: Spine Cervical [employer] [id number]-[id number] / / Insurance [facility] Advance Directives * Full Code (Latest Code Status on File) Date Activated Date Inactivated Comments 06/07/2019 2:41 PM 06/08/2019 6:48 PM Care Teams Technical Sales Engineer Relationship Specialty Start Date End Date Viki Martin MD [facility] [place] [place] [address] PCP - General RHEUMATOLOGY 06/13/19 Crow Jay MD Surgeon NEUROLOGICAL SURGERY 05/26/19
--- OUTSIDE RECORDS SUMMARY | 2024-11-21 16:03 | XMS_ITS | Clinical Summary ---
Author Organization [facility] [address] Address [address] [place] [address] Care Team Providers Care Braider Tender Name Role Phone Mark Gonzalez MD Primary Care Provider [phone] Allergies Active Allergy Reactions Criticality Noted Date [...] Date Hypersomnia 02/23/2018 Arthralgia of ankle 10/10/2014 Encounters Date Type Department Care Team Description 10/26/2024 Orders Only [facility] [address] [place] [address] Unknown, Notinfile from Last 3 Months Surgical History Surgery Date Site/Laterality Comments SECTION [...] on file Legal Sex Female 5:58 AM [employer]ATING [employer] Gender Identity Not on file Sexual Orientation [...] 82.1 kg (181 lb) 05/31/2018 1:08 PM [employer] Height 165.1 cm (5' 5) 05/31/2018 1:08 PM [employer] Body Mass Index 30.12 05/31/2018 1:08 PM [employer] Plan of Treatment Health Maintenance Due Date [...] on patient's age to complete this topic Procedures Procedure Name Priority Date/Time Associated Diagnosis Comments SURGICAL PATHOLOGY Routine 10/26/2024 11 :50 AM CDT from Last 3 Months Results * Surgical pathology (10/26/2024 11:50 AM CDT) Skin, shave biopsy 10/26/2024 11:50 AM CDT 10/27/2024 7:29 AM CDT Narrative 10/31/2024 2:20 PM CDT EPIC results best viewed via link to PDF [facility] [address] [place] [address], [address], [place] [address] [email or web address] Note to Patients: This report may contain [...] REPORTED: 10/31/2024 Submitting Physician Information: Josette Miranda, [facility], [facility] [id number], DERMATOPATHOLOGY REPORT RESULTS DIAGNOSIS: SKIN, LEFT INFERIOR [...] This is confirmed by an immunostain for [place]-1. latonya/[facility] By this signature, I attest that the [...] than those at the time of procedure. [facility] Clerical Data A; [id number], [id number] The characteristics of special, immunohistochemical, and immunofluorescence stains and in-situ hybridization tests performed by the [facility] were deemed acceptable in ongoing quality assurance technician measures and in compliance with regulations drawn from the Clinical Laboratory Improvement Act ru8376 (CLIA '88). Control reactions for all stains performed were deemed adequate and appropriate by a pathologist prior to evaluation of patient tissue. Some diagnoses were rendered with the assistance of laboratory-developed tests utilizing analyte-specific reagents; the performance characteristic of these tests were determined by [facility] and are not cleared or approved by the [place] Food an Drug administration. Laboratory developed test may only be performed in a facility that is certified by the [facility] as a high-complexity laboratory under CLIA '88. These tests are used for clinical purposes and are not investigational. us Notinfile Unknown LAB PATHOLOGY ORDERABLES Final Result from Last [address] [facility] [address] [facility] Care Teams Braider Tender Relationship Specialty Start Date End Date Mark Gonzalez MD [address] [place] [address] PCP - General Family Medicine 12/29/17
--- OUTSIDE RECORDS SUMMARY | 2024-11-21 16:03 | XMS_ITS | Encounter Summary ---
Author Organization [facility] Address [address] [place] [address] Care Team Providers Care Employment Training Specialist Name Role Phone Mark Gonzalez MD Primary Care Provider [phone] Reason for Visit * Reason Onset Date Comments Appointment 01/04/2024 Encounter Details Date Type Department Care Team (Late st Contact Info) Description 01/04/2024 Telephone [facility] - Centralized Scheduling [address] [place] [id number] Jayy Argueta MD [address] [id number] Appointment Social History Tobacco Use Types Packs/Day Years Used Date Smoking Tobacco: Never Smokeless Tobacco: Never Alcohol Use Standard Drinks/Week Comments Not Currently 0 (1 standard drink = 0.6 oz pur e alcohol) Comments No Sex and Gender Information Value Date Recorded Sex Assigned at Not on file 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 Pt can be reached at [phone]. documented in this encounter Plan of Treatment Not on file documented as of this encounter Visit Diagnoses Not on filedocumented in this encounter Care Teams Employment Training Specialist Relationship Specialty Start Date End Date Mark Gonzalez MD [address] [place] [phone] PCP - General Family Medicine 05/02/18 documented as of this encounter
--- OUTSIDE RECORDS SUMMARY | 2024-11-21 16:03 | XMS_ITS | Patient Health Record ---
Author Organization [facility] [place] Address [address] [facility] [place] [address] Care Team Providers Care Percussion Instructor Name Role Phone Roberth Sunshine [phone] Allergies No Known Allergies Reason For Referral No Information Medications Medication SIG (Take, Route, Frequency, Duration) Notes Start Date End Date Status Methylphenidate HCl ER 20 MG Oral; Duration: 30 Active Diclofenac Sodium 75 MG 1 tablet with fo od or milk Orally Twice a day; Duration: 30 day(s) 11/18/2021 Active Social History Tobacco Use: Social History Observation Description Date Details (start date - stop date) Never Smoker NA - NA Tobacco Use/Smoking Question Answer Notes Are you a nonsmoker Problems Problem Type SNOMED Code ICD Code Onset Dates Problem Status W/U Status Risk Notes Problem Cervical post-laminectomy syndrome (008578473) Cervical post-laminectomy syndrome (M96.1) Active confirmed Problem Cervical spinal stenosis (59469104) Cervical spinal stenosis (M48.02) Active confirmed Problem Displacement of cervical intervertebral disc without myelopathy (52868262) Bulge of cervical disc without myelopathy (M50.20) Active confirmed Problem Cervical spondylosis without myelopathy (471970457) Spondylosis of cervicothoracic region w/o myelopathy or radiculopathy (M47.813) Active confirmed Plan Of Treatment Pending Test Test Name Order Date MRI : Cervical without Contrast 11/19/19 22 Medical (General) History Surgical History Surgery Date(Month/Year) section x3 cholecystectomy 08/2021 achilles tendon repair 12/2019 cervical fusion 05/2019 Hospitalization History Reason Date(Month/Year) section x3 cervical fusion 05/2019
--- OUTSIDE RECORDS SUMMARY | 2024-11-21 16:03 | XMS_ITS ---
Author Organization [facility] ([address]) Address [address] [place] [address] Care Team Providers Care Personnel Counselor Name Role Phone Bal Antonio Unavailable [phone] ZZ-Migration, Provider Unavailable Unavailab le Allergies Allergen (clinical drug ingredient) Drug/Non Drug Allergy documented on EMR Reaction Allergy Type Onset Date Status Penicillin Urinary burning Drug Allergy Active REASON FOR VISIT [facility] Encounter Medications Medication SIG (Take, Route, Frequency, Duration) Notes Start Date End Date Status NASAL WASHES N/A DIRECTED INTRANASALLY NEEDED; Duration: 30 *Please review for potential replacement for e-prescription and drug interaction check* Active Methylphenidate 20 MG/8 HR 1 TAB(S) ORALLY ONCE A DAY; Duration: 30 DAY(S) *Please review and pick correct strength-formulat ion [facility] options. If intended option is not shown, discontinue and re-order from Quick Search* Active Fluticasone Propionate 50 MCG/ACT 2 spray(s) in each nostril BID; Duration: 30 day(s) Active Cetirizine HCl 10 MG 1 tab(s) orally once a day; Duration: 30 days Active Encounters Encounter Location Date Provider Diagnosis [facility] [address] [address] 11/06/2023 Provider ZZ-Migration Plan Of Treatment No Information Progress Notes * Stacey NAVARRETEDOB: 3 (43 yo F)Acc No.[id number]:11/06/2023 Patient: Stacey GRIDER Provider: Zoya Dimas :1980 A ge:42 Y S ex:Female Date:11/06/2023 Address:[facility] Subjective: * Chief Complaints: * 1 . [facility] En[facility]. * Medical History: * Medications: T aking Methylphenidate 20 MG/8 HR TABLET, EXTENDED RELEASE 1 TAB(S) ORALLY ONCE A DAY , Notes to Pharmacist: *Please review and pick [facility]. If intended option is not [...] * Electronic signature of Aure LEAL-Migration on 11/21/2024 at 04:03 PM CDT Sign off status: Pending * Provider: Zoya Dimas Date: 11/06/2023 Generated for Ja santana/Kalie/Sharath on: 11/21/2024 04:03 PM CDT
--- OUTSIDE RECORDS SUMMARY | 2024-11-21 16:03 | XMS_ITS | Patient Health Record ---
Author Organization [facility] [place] ([address]) Address [address] [place] [address] Care Team Providers Care Distribution Operation Supervisor Name Role Phone Bal Antonio Unavailable [phone] Allergies Allergen (clinical drug ingredient) Drug/Non Drug Allergy documented on EMR Reaction Allergy Type Onset Date Status Penicillin Urinary burning Drug Allergy Active Reason For Referral No Information Medications Medication SIG (Take, Route, Frequency, Duration) Notes Start Date End Date Status METHYLPHENIDATE 20 mg/8 hr 1 tab(s) orally once a day; Duration: 30 day(s) Active NASAL WASHES N/A DIRECTED INTRANASALLY NEEDED; Duration: 30 *Please review for potential replacement for e-prescription and drug interaction check* Active Methylphenidate 20 MG/8 HR 1 TAB(S) ORALLY ONCE A DAY; Duration: 30 DAY(S) *Please review and pick correct strength-formulat ion from [facility] options. If intended option is not shown, discontinue and re-order from Quick Search* Active Fluticasone Propionate 50 MCG/ACT 2 spray(s) in each nostril BID; Duration: 30 day(s) Active FLUTICASONE NASAL 50 mcg/inh 2 spray(s) in each nostril BID; Duration: 30 day(s) Active Cetirizine HCl 10 MG 1 tab(s) orally once a day; Duration: 30 days Active CETIRIZINE 10 mg 1 tab(s) orally once a day; Duration: 30 days Active Social History Tobacco Use: Social History Observation Description Date Details (start date - stop date) Never Smoker NA - NA Smoking Smart Form: Question Answer Notes Are you a: never smoker Problems Problem Type SNOMED Code ICD Code Onset Dates Problem Status W/U Status Risk Notes Problem Chronic allergic conjunctivitis (70710067) Other chronic allergic conjunctivitis (H10.45) Active confirmed Problem Allergic rhinitis caused by pollen (disorder) (22113648) Allergic rhinitis due to pollen (J30.1) Active confirmed Problem Allergic rhinitis (08939132) Other allergic rhinitis (J30.89) Active confirmed Problem Allergic rhinitis caused by animal hair and dander (480903134967134) Allergic rhinitis due to animal (cat) (dog) hair and dander (J30.81) Active confirmed Problem Elevated blood pressure reading without diagnosis of hypertension (100465874) Elevated blood-pressure reading, without diagnosis of hypertension (R03.0) Active confirmed Problem Pruritus (880564382) Pruritus, unspecified (L29.9) Active confirmed Problem Allergy to penicillin (64168250) Allergy status to penicillin (Z88.0) Active confirmed Problem Intolerance to lactose (finding) (487021964) Lactose intolerance, unspecified (E73.9) Active confirmed Plan Of Treatment No Information Insurance Providers Payer Name Payer Address Payer Phone Subscriber Number Group Number Insured Name Patient Relationship to Insured Coverage Start Date Coverage End Date [facility] [address] [place] [address] [id number] Stacey Gonzáles Self - patient is the insured Medical (General) History Medical History History ICD Code acdf Torn ACL Csection 2011, 11/2013, 02/2021 Gall bladder removal Surgical History Surgery Date(Month/Year) ACDF 05/2019 ACL 12/2019 C sections gall bladder 10/2021
--- OUTSIDE RECORDS SUMMARY | 2024-11-21 16:03 | XMS_ITS | Data Portability ---
Author Organization [facility] Address [address] [place] [address] [place] [address] Care Team Providers Care Paralegal Internship Name Role Phone [employer] SPECIALIST Primary Care Provider Assessment Encounter Date Assessment Date Assessment LastModified by Organization Details LastModified Time 08/12/2024 08/12/2024 The patient and I disscussed the various causes of abnormal uterine bleeding, including polyps, fibroids, hyperplasia, atypia, anovulation, etc. We reviewed the typical evaluation with labs, pelvic US and possible endometrial biopsy. Briefly discussed the options available for treatment (depending on the results of evaluation) such as hormonal treatment (OCPs, progestins), Mirena, endometrial ablation, and surgery. We spent more than 30 minutes face to face. [email or web address] Not available 08/12/2024 11:00:37 Plan of Treatment Reminders Order Date Submit Date Provider Last Modified By Organization Details Last Modified Time Details Appointments None recorded. Lab test, urine 2024 025 [email or web address] [place], [address], [place], [address], 12:48:24 unlisted lab - 17-oh progesteron e, lc/MS/MS 2024 025 [facility] (Lab), [address] [facility], [place], [address], 21:34:11 dhea-sulfat e, serum 2024 025 [facility] (Lab), [address], [place], [address], 5 21:34:08 hormone panel, serum or plasma 2024 025 [facility] (Lab), [address], [place], [address], 5 21:34:09 HbA1c (hemoglobin A1c), blood 2024 025 [facility] (Lab), [address], [place], [address], 5 21:34:10 progesteron e, serum 2024 025 [facility] (Lab), [address], [place], [address], 5 21:34:08 prolactin, serum 2024 025 [facility] (Lab), [address] [place], [address], 5 21:34:09 shbg (sex hormone-bin ding globulin), serum 2024 025 [facility] (Lab), [address], [place], [address], 5 21:34:10 testosteron e free/testos terone total, ratio, serum 2024 025 [facility] (Lab), [address] [place], [address], 5 21:34:10 TSH, serum or plasma 2024 025 [facility] (Lab), [address] [place], [address], 21:34:09 Referral None recorded. Procedures None recorded. Surgeries None recorded. Imaging US, pelvis 2024 025 [email or web address] [place], [address], [address], [place], [address], 21:06:13 US, transvagina l 2024 025 [email or web address] [place], [address], [address], [place], [address], 21:06:13 US, pelvis, complete 2024 025 [email or web address] [facility], [address], [address] [facility], [place], [address], 15:33:58 Medication Orders Mirena 21 mcg/24 hr (up to 8 years) 52 mg intrauterin e device 2024 025 [id number], [address], [place], [place], [id number], 12:48:24 Patient TargetsNo targets recorded. Patient InstructionsNo instructions recorded. Reason for Referral None Reported. Results Created Date Observation Date Name Description Value Unit Range Abnormal Flag Note LastModifiedBy Organization Detail LastModifiedTime 08/18/1908/17/2024 DHEA SULFA TE DHEA-sulfate 123 ug/dL Femal e Range s Age(y ) Range (ug/d L) 10-15 34-28 0 15-20 65-36 8 20-25 148-4 07 25-35 99-34 0 35-45 61-33 7 45-55 35-25 6 55-65 19-20 5 65-75 9-246 > 75 12-15 4 Not Available [facility] (Lab) [address], [place], [address], 08/27/2024 21:34:08 08/18/1908/17/2024 PROGE STERO NE progesterone 12.10 NG/mL This assay was perfo rmed using [employer] ratio n reage nts and test kits. Value s obtai nila with other assay metho ds or kits canno t be used [facility] . Femal e Proge stero ne Range s: Folli cular phase 0.06- 0.89 ng/mL Ovula tion phase 0.12- 12.00 ng/mL Lutea l phase 1.83- 23.90 ng/mL Postm enopa usal <0.05 -0.13 ng/mL Healt hy Pregn ant Women 1st Trime ster 11.0- 44.30 2nd Trime ster 25.40 -83.3 0 3rd Trime ster 58.70 -214. 00 Not Available [facility] (Lab) [address] [place], [address], 08/27/2024 21:34:08 08/18/19 25 08/17/2024 PROLA CTIN prolactin, total 14.50 NG/mL 4.79-2 3.30 This assay was perfo rmed using [employer] ratio n reage nts and test kits. Value s obtai nila with other assay metho ds or kits canno t be used [facility] . Not Available [facility] (Lab) [address] [place], [address], 08/27/2024 21:34:09 08/18/19 25 08/17/2024 FSH, LH, ESTRA DIOL estradiol 144.0 pg/mL This assay was perfo rmed using [employer] n reage nts and test kits. Value s obtai nila with other assay metho ds or kits canno t be used [facility] . Femal e Estra diol Range s: Folli cular phase 12.4- 233 pg/mL Ovula tion phase 41.0- 398 pg/mL Lutea l phase 22.3- 341 pg/mL Postm enopa usal <5-13 8 pg/mL Healt hy Pregn ant Women 1st Trime ster 154-3 243 pg/mL 2nd Trime ster 1561- 61952 pg/mL 3rd Trime ster 8525- >3000 0 pg/mL Not Available [facility] (Lab) [address] , [place], [address], 08/27/2024 21:34:09 08/18/1908/17/2024 FSH, LH, ESTRA DIOL FSH 3.8 mIU/m L This assay was perfo rmed using [employer] n reage nts and test kits. Value s obtai nila with other assay metho ds or kits canno t be used inter [facility] e[facility] . Femal es Folli cular : 3.5-1 2.5 mIU/m L Ovula tion: 4.7-2 1.5 mIU/m L Lutea l: 1.7-7 .7 mIU/m L Postm enopa use: 25.8- 134.8 mIU/m L Not Available [facility] (Lab) [address], [place], [address], 08/27/2024 21:34:09 08/18/19 25 08/17/2024 FSH, LH, ESTRA DIOL LH 6.1 mIU/m L This assay was perfo rmed using [employer] n reage nts and test kits. Value s obtai nila with other assay metho ds or kits canno t be used inter cain eay . Femal es Mid-F ollic ular: 2.4-1 2.6 mIU/m L Mid-C ycle: 14.0- 95.6 mIU/m L Mid-L uteal : 1.0-1 1.4 mIU/m L Postm enopa use: 7.7-5 8.5 mIU/m L Not Available [facility] (Lab) [address] , [place], [address], 08/27/2024 21:34:09 08/18/1908/17/2024 TSH, REFLE X FREE T4 TSH 1.14 uIU/m L 0.30-5 .33 Not Available [facility] (Lab) [address], [place], [address], 08/27/2024 21:34:09 08/18/19 25 08/17/2024 HUMAN SEX HORMO NE VANESA NG GLOBU LÁZARO sex hormone binding globulin 73.9 nmole s/L 18.2-1 35.5 Not Available [facility] (Lab) [address] [facility] [facility], [place], [address], 08/27/2024 21:34:10 08/18/19 25 08/17/2024 HEMOG LOBIN A1C hemoglobin A1C 5.1 % 4.0-5. 6 The Ameri can Diabe magaly Assoc iatio n recom mends that a prima ry goal of thera py shoul d be a HBA1C of < 7% and that physi cians shoul d reeva luate the treat ment regim en in patie nts with HBA1C value s consi stent ly > 8%. <5.7% Marysol l 5.7 - 6.4% Incre ased risk for diabe magaly >=6.5 % Diagn ostic of diabe magaly <7.0% Goal of thera py >8.0% Actio n sugge sted Not Available [facility] (Lab) [address] [facility] [facility], [place], [address], 08/27/2024 21:34:10 08/18/19 25 08/17/2024 TESTO STERO NE, FREE( DIALY SIS) AND TOTAL (LC/M S/MS) testosterone , total 24 NG/dL 2-45 For addit ional infor christos hammond e refer to http: //liliya stephens.que stdia gnost ics.c om/fa q/ Total Testo stero neLCM SMSFA Q165 (This link is being provi ded for infor fernando medina/ educa lilli l purpo ses only. ) This test was devel oped and its sam tical perfo rmanc e cheri cteri stics have been deter mined by [facility] marisol Choudharyi JENNY Barker. It has not been clear ed or appro rayshawn by the U.S. Food and Drug Admin istra tion. This assay has been valid ated pursu ant to the CLIA regul ation s and is used for clini amauri purpo ses. Not Available [facility] (Lab) [address] [place], [address], 08/27/2024 21:34:10 08/18/19 25 08/17/2024 TESTO STERO NE, FREE( DIALY SIS) AND TOTAL (LC/M S/MS) testosterone , free 2.2 pg/mL 0.1-6. 4 This test was devel rodney and its sam tical perfo rmanc e cheri cteri stics have been deter mined by [facility] marisol s [place]. It has not been clear ed or appro rayshawn by the U.S. Food and Drug Admin istra tion. This assay has been valid ated pursu ant to the CLIA regul ation s and is used for clini amauri purpo ses. Perfo rming Organ izati on Infor matio n: Site ID: [id number] Name: [employer] ostjeffrey s Chacorta romero [facility] tree Addre ss: [id number] [employer] Site Lock [place], [place] Direc tor: Braulio Miranda MD PhD Not Available [facility] (Lab) [address] [place], [address], 08/27/2024 21:34:10 08/18/19 25 08/17/2024 17-OH PROGE STERO NE 17-hydroxypr ogesterone, lc/MS/MS 234 NG/dL Adult Femal e Refer ence Range s for 17-Hy droxy proge stero ne: Pre-M enopa usal Mid Folli cular : 23-10 2 ng/dL Pre-M enopa usal Surge : 67-34 9 ng/dL Pre-M enopa usal Mid Lutea l: 139-4 31 ng/dL Postm enopa usal Phase : < or = 45 ng/dL Pregn scott: First Trime ster: 78-45 7 ng/dL Secon d Trime ster: 90-35 7 ng/dL Third Trime ster: 144-5 78 ng/dL This test was devel oped and its sam tical perfo rmanc e cheri cteri stics have been deter mined by [facility] ostjeffrey s. It has not been clear ed or appro rayshawn by the FDA. This assay has been valid ated pursu ant to the CLIA regul ation s and is used for clini amauri purpo ses. Perfo rming Organ izati on Infor matio n: Site ID: [id number] Name: [facility]/Chandrakant vito [facility]-S adrien Iglesias trano , Addre ss: [id number] [address] [facility] Memorial HospitalChambers[place]é [place] [address] Direc tor: Estefani maya MD,Ph D,MERCEDEZ Not Available [facility] (Lab) [address] [facility], [place], [address], 08/27/2024 21:34:11 09/05/19 25 09/04/2024 pregn scott test, urine HCG negati ve Not Available [place] [address], [place], [address], 09/04/2024 12:34:39 08/18/19 25 08/17/2024 US, pelvi s No observ ation record ed. [email or web address] [place] [address], [place], [address], 08/17/2024 12:14:14 08/18/19 25 08/17/2024 US, trans vagin al No observ ation record ed. [email or web address] [place] [address], [place], [address], 08/17/2024 12:14:28 08/18/19 25 08/17/2024 US, pelvi s No observ ation record ed. [email or web address] [address] [address], [place], [address], 08/21/2024 21:01:01 Result Notes None recorded. Problems Name Problem SNOMED Code Status Onset Date Resolution Date Notes Provider Name and Address Organization Details Recorded Time Pregnanc y 24025107 Completed 202003/10/2021 Maria coombs [facility] 4 13:52:40 IVF - in-vitro fertiliz ation pregnanc y [id number] 102 Completed Surrogat e- MFM - 12/04/20 1430. echo was WNL. 36 wk antenata l testing Kerline coombs [facility] 12:02:46 Deliveri es by Completed X2 - to repeat - Pt schd 02/21/21 Kerline coombs [facility] 12:02:46 Low lying placenta 127077659 Completed 202012/04/2020 Complete Previa noted 10/09/20. Placenta location being followed by MFM. REsolved Kerline coombs, [facility] 12:02:46 Advanced maternal age 768367359 Completed ASA per MFM Kerline coombs [facility] 12:02:46 Gestatio nal diabetes mellitus 36905221 Completed BS QID, Getting 1x/wk antenata l testing Kerline hernandez [facility] 12:02:46 Obesity 391747557 Completed 37 wk antenata l testing - 1x/wk Kerline hernandez [facility] 12:02:46 Pregnanc y 42518490 Completed 202310/15/2023 Maria coombs [facility] 4 13:52:40 Deliveri es by [id number] Completed X3 Maria coombs [facility] 4 13:52:38 IVF - in-vitro fertiliz ation pregnanc y 53858992788 102 Completed Maria Cohen [facility], [facility] 4 13:52:38 Surrogat e pregnanc y 608487205 Completed disconti nue Lovenox at 18 weeks [facility]afshan [facility], [facility] 4 13:52:38 Problem Notes None recorded. Procedures Surgical History Date Name Laterality Status Provider Name and Address Organization Details Recorded Time 025 IUD Insertion completed SVITLANA CONTRERAS NP [address], [place], [address], [facility] 09/04/2024 12:46:34 024 embryo transfer completed [facility] 08/27/2023 20:05:57 023 Date of Last Mammogram completed [facility] 08/27/2023 20:03:03 023 Date of Last Pap Smear completed [facility] 08/26/2023 15:58:46 022 Hysteroscopy completed [facility] 08/26/2023 16:02:36 022 SECTION (SURG) completed [facility] 08/26/2023 16:03:33 022 cholecystectomy completed [facility] 08/26/2023 16:03:00 021 IUD Insertion completed [facility] 04/29/2021 15:50:56 021 IUD Insertion completed Alexis Bailey MD [address], [place], [address], [facility] 04/02/2021 15:23:53 021 SECTION (SURG) completed Selina Blackmon [facility] 02/24/2021 10:39:01 021 embryo transfer completed Estefanía Espinal [facility] 08/27/2023 20:06:35 020 reconstruction of anterior cruciate ligament of knee joint completed Estefanía Espinal [facility] 08/09/2020 14:47:19 020 IUD Removal completed Rona Morelos CNM [address], [place], [address], [facility] 09/08/2019 11:07:49 020 cervical discography completed Estefanía Espinal [facility] 09/08/2019 19:16:55 014 section completed Estefanía Espinal [facility] 01/16/2021 12:13:14 012 section completed Estefanía Espinal [facility] 01/16/2021 12:13:21 Endometrial Biopsy completed [facility] 08/26/2023 15:57:36 Imaging Results None recorded. Procedure Notes None recorded. Medical Equipment None Reported. Allergies Allergen ID Allergen Name Allergen Category Reaction Reaction Severity Criticality Documentation Date Start Date Code Code System Note Provider Name and Address Organization Details Recorded Time 214 Product containin g penicilli n (product) medicatio n Not available Not available Not available 09/08/2019 47013 8001 SNOMED Estefanía Espinal [facility] 0 11:08:40 Medications Name Sig Start Date Stop Date Status Note LastModified by Organization Details LastModified Time complete needle collection system USE DIRECTED 08/09 completed Not Available Not Available Not Available hugo mis lancets 03/19 completed Not Available Not [...] years) 52 mg intrauterin e device Take 1 device by intrauter ine route. 2024 active Not Available Not Available Not Avai lable clindamycin HCl 300 mg capsule 09/07 completed Not Available Not Available Not Available cefpodoxime 200 mg tablet 08/12 completed Not Available Not Available Not Available valacyclovi r 1 gram tablet TAKE 2 TABLETS BY MOUTH TWICE DAILY FOR 1 DAY 09/04 completed Not Available Not Available Not Available hydrocodone 5 mg-acetamin ophen 325 mg tablet TAKE 1 TABLET BY MOUTH EVERY 3 HOURS NEEDED FOR PAIN 08/12 completed Not Available Not Available Not Available [...] THE EVENING DIRECTED ON THE CYCLE CALENDAR 08/12 completed Not Available Not Available Not Available methocarbam ol 750 mg tablet 08/09 [...] completed Not Available Not Available Not Available cephalexin 500 mg capsule TAKE 1 CAPSULE BY MOUTH EVERY 6 HOURS 08/12 completed Not Available Not Available Not Available dexamethaso ne 0.75 mg tablet TAKE 1 TABLET BY MOUTH DAILY 08/12 completed Not Available Not Available Not Available aspirin 81 mg chewable tablet CHEW AND SWALLOW ONE TABLET BY MOUTH ONCE DAILY 04/29 completed Not Available Not Available Not Available estradiol 2 mg tablet TAKE 1 TABLET BY MOUTH TWICE DAILY FOR 1 WEEK DIRECTED. INCREASE TO 3 TIMES DAILY WEEKS FOLLOWING DIRECTED ON CYCLE CALENDAR 09/19 completed Not Available Not Available Not Available BD Regular Bevel Robins 22 gauge x 1 1/2 USE TO INJECT ESTRADIOL 08/09 completed Not Available Not Available Not Available folic acid 1 mg tablet TAKE 1 TABLET BY MOUTH DAILY 08/12 completed Not Available Not Available Not Available alcohol swabs USE DIRECTED 04/07 completed Not Available Not Available Not Available norethindro ne acetate 1 mg-ethinyl estradiol 20 mcg tablet TK 1 T PO QD 08/09 completed Not Available Not Available Not Available ergocalcife rol (vitamin D2) 1,250 mcg (50,000 unit) capsule TAKE ONE CAPSULE BY MOUTH WEEKLY 08/12 completed Not Available Not Available Not Available ibuprofen 600 mg tablet 09/07 completed [...] 0.4 ML UNDER THE SKIN EVERY DAY 08/12 completed Not Available Not Available Not Available Sharps Container FOR DISPOSAL OF NEEDLES 08/25 completed Not Available Not Available Not Available Ovidrel 250 mcg/0.5 mL subcutaneou s syringe SUBCUTANE OUS DIRECTED 08/09 completed Not Available Not Available Not Available iron 09/04 completed Not Available Not Available Not Available 03/19 completed Not Available Not Available Not Available multivitami n active Not Available Not Available Not Available Synera [...] Not Available Not Available BD Regular Bevel Robins 21 gauge x 1 1/2 USE TO INJECT PROGESTER ONE 08/25 completed Not Available Not Available Not Available BD Regular Bevel Robins 18 gauge x 1 1/2 USE DIRECTED TO DRAW UP ESTRADIOL 04/07 completed Not Available Not Available Not Available Thrivite Rx 29 mg iron-1 mg tablet TAKE ONE TABLET BY MOUTH DAILY 08/12 completed Not Available Not Available Not Available Isibloom 0.15 mg-0.03 mg tablet TAKE 1 ACTIVE TABLET BY MOUTH DAILY. TAKE ACTIVE TABLETS ONLY. 04/07 completed Not Available Not Available Not Available Vitals Date Recorded Body height Body mass index (BMI) Body weight Systolic blood pressure Diastolic blood pressure Provider Name and Address Organization Details Last Updated DateTime 08/12/2024 165.1 cm 32 kg/m2 98714.17 g 107 mm[Hg] 73 mm[Hg] Alka Seaman [facility] 10:54:30 Date Recorded Body height Body mass index (BMI) Body weight Systolic blood pressure Diastolic blood pressure Provider Name and Address Organization Details Last Updated DateTime 08/31/2024 165.1 cm 32.6 kg/m2 73277.1 g 108 mm[Hg] 66 mm[Hg] Guerda Freeman [facility] 5 11:23:31 Date Recorded Body height Body mass index (BMI) Body weight Systolic blood pressure Diastolic blood pressure Provider Name and Address Organization Details Last Updated DateTime 09/04/2024 165.1 cm 32.6 kg/m2 28049.1 g 106 mm[Hg] 69 mm[Hg] Alka Gottliebton [facility] 5 12:29:46 Date Recorded Body height Body mass index (BMI) Body weight Systolic blood pressure Diastolic blood pressure Provider Name and Address Organization Details Last Updated DateTime 10/11/2024 165.1 cm 33.5 kg/m2 01666.5 g 140 mm[Hg] 82 mm[Hg] KEN Cheek [facility] 5 14:13:33 Social History Question Answer Notes LastModified by Organizat ion Details LastModified Time Tobacco Smoking Status Former Smoker Maria Bogdan coombs, [facility] 04/07/2023 15:33:35 Do You Have An Advance Directive? No [email or web address] Information not available 08/09/2020 If You Are , What Was Your Level Of Alcohol Consumption Prior To ? Occasional [email or web address] Information not available 04/07/2023 Are You Blind Or Do You Have Difficulty Seeing? No [email or web address] Information not available 08/09/2020 What Is Your Level Of Caffeine Consumption? Occasional [email or web address] Information not available 09/06/2020 How Much Tobacco Do You Chew? None [email or web address] Information not available 08/09/2020 In The 14 Days Before Symptom Onset, Have You Had Close Contact With A Laboratory-confir [facility] COVKS-19 While That Case Was Ill? No [email or web address] Information not available 08/09/2020 In The 14 Days Before Symptom Onset, Have You Had Close Contact With A Person Who Is Under Investigation For COVID-19 While That Person Was Ill? No [email or web address] Information not available 08/09/2020 Have You Been To An Area Known To Be High Risk For COVID-19? No [email or web address] Information not available 02/11/2021 Are You Deaf Or Do You Have Serious Difficulty Hearing? No [email or web address] Information not available 08/09/2020 What Type Of Diet Are You Following? REGULAR [email or web address] Information not available 08/09/2020 What Is The Highest Grade Or Level Of School You Have Completed Or The Highest Degree You Have Received? AE88856-5 [email or web address] Information not available 08/09/2020 Are There Any Guns Present In Your Home? No [email or web address] Information not available 08/09/2020 What Was The Date Of Your Most Recent Tobacco Screening? 08/26/2023 [email or web address] Information not available 08/26/2023 Do You Use Protection During Sex? Always [email or web address] Information not available 08/09/2020 Do You Use Your Seat Belt Or Car Seat Routinely? Yes [email or web address] Information not available 08/09/2020 Do You Have Smoke And Carbon Monoxide Detectors In Your Home? Yes [email or web address] Information not available 08/09/2020 How Much Tobacco Do You Smoke? No [email or web address] Information not available 08/09/2020 Do You Use Sunscreen Routinely? Yes [email or web address] Information not available 08/09/2020 Have You Used IV Drugs? No [email or web address] Information not available 08/09/2020 Do You Have Difficulty Walking Or Climbing Stairs? No [email or web address] Information not available 08/26/2023 Sex: Unknown Functional Status Question Answer Note LastModified by Organizat ion Details LastModified Time Do you use any illicit or recreational drugs? No [email or web address] Information not available 08/09/2020 Do you or have you ever used any other forms of tobacco or nicotine? No [email or web address] Information not available 04/07/2023 What is your level of alcohol consumption? None [email or web address] Information not available 09/08/2019 Are you currently employed? Yes [email or web address] Information not available 09/20/2023 Are you able to walk? YESWOREST [email or web address] Information not available 08/09/2020 Are you able to care for yourself? 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 No [email or web address] Information not available 08/26/2023 What is your exercise level? Moderate Information not available 08/09/2020 Mental Status Question Answer Note LastModified by Organization D etails LastModified Time Do you feel stressed (tense, restless, nervous, or anxious, or unable to sleep at night)? [id number] [email or web address] Information not available 08/09/2020 Family History Relationship Description Onset Age of this Age Resolved Age Notes LastModified by Organization Details LastModified Time Maternal Aunt Acute hepatitis Not available 2023 13:52:26 Mother Depressive disorder [email or web address] Not available 2023 13:52:26 Medical History Condition Response Other N Blood Transfusion N Dermatologic Disorders N Gestational Diabetes N Anxiety Disorder N Autoimmune disease N Arthritis N Polyps N Infertility N Acid Reflux (GERD) N Cancer N Varicosities N Stroke N Neurologic/Epilepsy Y Fibromyalgia N Headaches N Kidney Disease N Heart Problems N Kidney or Bladder Problems N Eating Disorder N Art (IVF or FET) Y Hepatitis/Liver Disease N No Past Medical History N Urinary Tract Infection N Asthma N Trauma/Violence N Thrombophilias N Allergies (Food, seasonal, environmental ) N Breast Cancer N Drug/Latex Allergies/Reactions N Lung Disease N Defects or Inherited Disease N Breast Problem N Hematologic disorders N Anesthesia Complications N History of STI Y Deep Vein Thrombosis N Polycystic ovary syndrome N History of abnormal pap N Endometriosis N High Cholesterol N Thyroid Problems N GI Problems N Anemia N Psychiatric Illness N Ovarian Cancer N Diabetes N Pulmonary (TB, Asthma) N Eczema N Abuse/Domestic Violence N Depression/ depression N Heart Disease N Pre-Eclampsia N Hypertension N Osteoporosis N Gynecological History Statement/Question Response Flow Moderate Date of Last Mammogram 04/29/2023 Date of LMP 10/11/2024 N On BCP's at Conception? N STIs/STDs Y Was last menstrual period normal N HPV Vaccine N Duration of Flow (days) 6 14 Current Control Method IUD Age at First Child 31 Frequency of Cycle (Q days) 30 Sexually Active? N Menses Monthly Y Date of DEXA bone scan Age of first menstrual cycle 16 Date of Last Pap Smear 04/07/2023 Sexual Problems? N LMP Definite N Obstetrics History GPAL:G 5 P 3 0 1 3 Type Value Full Term 3 Spontaneous 1 Living 3 Total 5 Past Encounters Encounter ID Performer Location Encounter Start Date Encounter Closed Date Diagnosis/Indication Diagnosis SNOMED-CT Code Diagnosis ICD10 Code Diagnosis Note [id number] [facility] [address],[place] [address] 09/08/2019 10:34:09 09/08/2019 11:45:01 [id number] [facility] [address],[place] [address] 08/09/2020 13:56:28 08/09/2020 15:46:17 Amenorrhea 55132474 N91.2 reviewed folder, precaution s, office, f/u new ob and first look [id number] Alexis Bailey MD [facility] [address],[place] [address] 08/09/2020 13:57:13 08/12/2020 08:01:48 [id number] MD [facility] [address],[place] [address] 08/20/2020 11:51:20 08/20/2020 12:42:05 screening [id number] Z36.89 [id number] Alexis Bailey MD [place] [address],[place] [address] 09/06/2020 15:35:29 09/06/2020 16:52:33 Routine care 136323740 Z34.82 [id number] Ofelia Gonzales CNM [facility] [place] [address],[place] [address] 10/08/2020 11:51:50 10/08/2020 12:07:59 Routine care 910528991 Z34.92 [id number] [facility] [address],[place] [address] 11/05/2020 10:17:22 11/05/2020 10:50:14 Routine care 915827415 Z34.92 [id number] Ofelia Gonzales [facility] [address],[place] [address] 12/03/2020 11:05:47 12/04/2020 13:28:33 Routine care 711113669 Z34.92 [id number] Ofelia Gonzales [facility] [address],[place] [address] 12/17/2020 10:12:17 12/17/2020 11:03:58 Routine care 788176325 Z34.92 [id number] Alexis Bailey MD [place] [address],[place] [address] 12/13/2020 12:24:11 12/13/2020 13:20:37 Gestational diabetes mellitus class A1 65608536 O24.410 Diet teaching completed over the phone. [...] and pt verbalized understand ing. MICAH good [id number] Ofelia Gonzales [facility] [address],[place] [address] 12/31/2020 10:42:25 12/31/2020 11:52:06 Routine care 534150229 Z34.92 [id number] Alexis Bailey MD [place] [address],[place] [address] 12/31/2020 10:40:50 12/31/2020 11:16:04 Gestational diabetes mellitus 03057774 O24.410 O36.63X0 Z3A.31 [id number] Alexis Bailey MD [place] [address],[place] [address] 01/07/2021 09:25:07 01/07/2021 10:09:14 Gestational diabetes mellitus class A1 [id number] O24.410 Diet teaching completed over the phone. [...] and pt verbalized understand ing. MICAH good [id number] Alexis Bailey MD [place] [address],[place] [address] 01/07/2021 09:26:23 01/07/2021 10:31:17 Gestational diabetes mellitus 39153629 O24.410 O36.63X0 Z3A.32 [id number] Alexis Bailey MD [place] [address],[place] [address] 01/07/2021 09:26:39 01/07/2021 11:29:20 Routine care [id number] Z34.92 [id number] Alexis Bailey MD [place] [address],[place] [address] 01/14/2021 09:39:34 01/14/2021 10:44:37 Gestational diabetes mellitus 32113860 O24.410 Z3A.33 [id number] Alexis Bailey MD [place] [address],[place] [address] 01/14/2021 09:39:34 01/14/2021 10:44:37 Gestational diabetes mellitus class A1 68755739 O24.410 Diet teaching completed over the phone. [...] and pt verbalized understand ing. MICAH good [id number] [facility] [address],[place] [address] 01/14/2021 09:39:34 01/14/2021 10:44:37 Routine care [id number] Z34.93 [id number] Alexis Bailey MD [place] [address],[place] [address] 01/21/2021 09:26:12 01/21/2021 11:03:11 Gestational diabetes mellitus class A1 01732975 O24.410 Diet teaching completed over the phone. [...] and [place] [id number] Alexis Bailey MD [place] [address],[place] [address] 01/21/2021 09:27:39 01/21/2021 11:04:50 Gestational diabetes mellitus 16361961 O24.410 Z3A.34 [id number] Alexis Bailey MD [place] [address],[place] [address] 01/21/2021 09:27:56 01/21/2021 11:26:33 Routine care [id number] Z34.92 [id number] Radha Rosado MD [place] [address],[place] [address] 01/28/2021 09:31:47 01/28/2021 12:21:48 Gestational diabetes mellitus 53939468 O24.410 O36.8330 Z3A.35 [id number] Radha Rosado MD [place] [address],[place] [address] 01/28/2021 09:34:07 01/28/2021 10:40:08 Gestational diabetes mellitus class A1 29504412 O24.410 Diet teaching completed over the phone. [...] and pt verbalized understand ing. MICAH good [id number] Radha [place]ado MD [place] [address],[place] [address] 01/28/2021 09:39:14 01/29/2021 12:46:06 Routine care 561368515 Z34.83 IVF - in-v itro fertilization [id number] 2102 O09.819 [id number] Radha [place]ado MD [place] [address],[place] [address] 02/04/2021 09:22:14 02/04/2021 11:53:50 Gestational diabetes mellitus class A1 72341550 O24.410 Diet teaching completed over the phone. [...] and pt verbalized understand ing. MICAH good [id number] Alexis Bailey MD [place] [address],[place] [address] 02/04/2021 09:22:44 02/04/2021 12:12:02 condition affecting obstetrical care of mother [id number] O36.8330 [id number] Radha [place]ado MD [place] [address],[place] [address] 02/04/2021 09:23:06 02/05/2021 14:26:13 Advanced maternal age 415651786 O09.523 Gestationa l diabetes mellitus class A1 [id number] O24.410 [id number] Alexis Bailey MD [place] [address],[facility] [place] [address] 02/11/2021 09:38:41 02/11/2021 11:01:00 Gestational diabetes mellitus class A1 44644027 O24.410 Diet teaching completed over the phone. [...] and [place] [id number] Alexis Baliey MD [place] [address],[facility] [place] [address] 02/11/2021 09:39:20 02/11/2021 11:59:34 Routine care 297866638 Z34.92 [id number] Alexis Bailey MD [place] [address],[facility] [place] [address] 02/11/2021 09:40:24 02/11/2021 13:38:05 Gestational diabetes mellitus class A1 59851167 O24.410 Z3A.37 Diet teaching completed over the [...] and pt verbalized understand ing. MICAH good [id number] Radha [place]ado MD [place] [address],[facility] [place] [address] 02/18/2021 09:31:47 02/18/2021 10:37:11 Gestational diabetes mellitus class A1 57104796 O24.410 [id number] Radha [place]ado MD [place] [address],[place] [address] 02/18/2021 09:34:30 02/18/2021 11:21:07 Gestational diabetes mellitus class A1 63340284 O24.410 Z3A.37 Diet teaching completed over the [...] ing. MICAH good Gestationa l diabetes mellitus 25704958 O24.410 Z3A.38 [id number] Radha [place]ado MD [place] [address],[facility] [place] [address] 02/18/2021 09:34:48 02/18/2021 11:21:19 Routine care 661103174 Z34.83 Gestationa l diabetes mellitus class A1 61520242 O24.410 [id number] Alexis Bailey MD [place] [address],[place] [address] 02/28/2021 10:53:52 02/28/2021 11:47:48 Postoperative care 068851933 Z48.89 This patient is a 40-year-ol d female who presents for postop follow-up. She is 1 week postop from a delivery. Her incision is clean dry and intact. She has no complaints . Her bleeding is minimal. She denies any nausea, vomiting, fever, chills. She denies any chest pain or shortness of breath. Her baby is doing well. Her mood is good. [id number] Alexis Bailey MD [place] [address],[place] [address] 03/12/2021 16:35:02 03/12/2021 17:06:57 Complication of obstetrical surgical wound 25853745 O90.89 40-year-ol d female who is about 2 weeks post from a delivery. She had concerned about a a subcuticul ar suture that was exposed. It was a staple. The staple was removed. There was an area that was weeping slightly. I think it will be fine. She will observe closely. [id number] Alexis Bailey MD [place] [address],[place] [address] 03/19/2021 15:14:24 03/19/2021 15:47:43 care 510242592 Z39.2 this patient is a 40-year-ol d female presents for follow-up. She is not bleeding. She is no longer breastfeed ing. She would like Mirena IUD. Her mood is good. The baby is well. She has not had sex. She will follow-up for IUD insertion. [id number] Alexis Bailey MD [place] [address],[place] [address] 04/02/2021 14:47:10 04/02/2021 15:56:04 Screening procedure 53532386 Z13.9 Venereal d isease screening 344032360 Z11.3 Contracept ion care management 536950737 Z30.9 IUD was inserted. She tolerated well. She will follow-up in 1 month. [id number] Alexis Bailey MD [place] [address],[facility] [place] [address] 04/29/2021 15:30:25 04/30/2021 09:58:50 Contraception care management 974325628 Z30.9 This patient is a 40-year-ol d who presents for IUD check. She has no complaints . She was examined with a speculum. The cervix appears normal, the IUD string appears normally placed, the IUD was not visible. She will follow up as needed. [id number] MELITA Shirley [place] [address],[place] [address] 04/07/2023 15:33:04 04/07/2023 16:21:47 Gynecologic examination 22048978 Z01.419 WWEpap updatedSTI testing declinedUT D with PCP for routine labs Suggested Calcium with Vitamin D daily. Patient advised to get an annual flu shot in the fall and she could obtain at [facility] or [facility] clinic. Also to obtain TDap vaccinatio n [...] this email. Lesion of skin of breast [id number] 35338 L98.8 imaging orderedpre cautions discussed [id number] Alexis Bailey MD [place] [address],[place] [address] 08/26/2023 14:54:46 08/26/2023 15:21:01 [id number] Alexis Bailey MD [place] [address],[place] [address] 08/26/2023 14:55:29 08/26/2023 16:27:21 Amenorrhea 31553681 N91.2 42-year-ol d female, multiparou s with [...] care next visit Venereal d isease screening 155894534 Z11.3 [id number] Alexis Bailey MD [place] [address],[place] [address] 09/16/2023 13:52:18 09/16/2023 14:38:47 screening 412958745 Z36.82 Z3A.12 [id number] MD [facility] [address],[place] [address] 09/20/2023 12:15:03 09/20/2023 13:41:25 Routine care 181754350 Z34.92 [id number] Alexis Bailey MD [place] [address],[place] [address] 10/12/2023 10:57:25 10/12/2023 12:03:10 Anemia 229236119 D64.9 -mate rnal hemorrhage [id number] O36.8999 this patient is a 42-year-ol d [...] ce. More than 50% was counseling . [id number] Alexis Bailey MD [place] [address],[place] [address] 08/12/2024 10:50:12 08/12/2024 12:59:08 Abnormal uterine bleeding 9101783461 9100 N93.9 Pain in pelvis 80850756 R10.2 Menorrhagia 462119848 N9 2.0 Endometrial polyp 948424 9339 N84.0 this patient is a 43-year-ol d female presents for intermenst rual bleeding, dysmenorrh ea, pelvic pain, endometria l polyps, menorrhagi a. She will obtain pelvic ultrasound and labs. She will return for discussion of treatment options. Spent over 30 minutes on her care in total. [id number] Alexis Bailey MD [place] [address],[place] [address] 08/17/2024 11:12:44 08/17/2024 12:01:00 Abnormal uterine bleeding 4746267891 9100 N93.9 [id number] Alexis Bailey MD [place] [address],[place] [address] 08/31/2024 10:51:56 08/31/2024 13:25:54 Irregular intermenstrual bleeding 14932638 N92.1 43-year-ol d female with intermenst rual bleeding. Discussed ultrasound results. Discussed laboratory evaluation . I spent more than 20 minutes on care in total. We went through her treatment options for intermenst rual bleeding. He agreed to Mirena IUD insertion next week. We discussed risks, benefits, and alternativ es. She was given precaution s instructio ns. [id number] Alexis Bailey MD [place] [address],[place] [address] 09/04/2024 12:09:18 09/04/2024 12:50:59 Insertion of intrauterine contraceptive device 01716899 Z30.430 She has been counseled on all of the r/b/a of placement of an intrauteri ne device that include but are not limited to uterine perforatio n, injury to cervix, vagina, bladder, and bowel.Risk s of bleeding due to injury or increased irregular bleeding due to progestin effect of the device. Risks of infection would be increased within the first 21 days of placement with concomitan t cervicitis . She understand s that the device will need to be removed in this instance due to increased risk of Pelvic inflammato ry disease. Patient is aware she is at higher risk for STD and if contracted she could lose her fertility. Pt is aware that if occurs that she should contact office immediatel y to rule out ectopic which could be life threatenin g. IUD will also need to be removed and this could cause miscarriag e. Patient also informed that in the event her strings are absent or embedded at the time of removal she may need to have the IUD surgically removed. She was informed of the above and properly consented. Mirena IUD placed w/o complicati on. Patient should return to office in 4-6 weeks to check for string placement. Patient to expect irregular bleeding but should be seen in the ED if bleeding increases to soaking a pad an hour for at least 2 hours. She verbalized understand ing. [id number] Alexis Bailey MD [place] [address],[place] [address] 10/11/2024 14:06:17 10/11/2024 15:04:42 Uses contraception 93164618 Z30.40 - Mirena IUD placed 09/04/24, due for removal 09/04/32- Patient to continue to monitor bleeding over the next two months. Discussed that if prolonged spotting continues or becomes bothersome , pelvic ultrasound is recommende d to check IUD placement Health Concerns Section Related Observation LastModified by Organization Detai ls LastModified Time None Recorded Concern Status LastModified by Organization Details LastModified Time None Recorded Advance Directives Directive N: Payers Insurance Date Sequence Insurance Name Policy Number Policy Gonzalez Covered Member ID Gonzalez Member ID Guarantor Name 10/08/2024 1 [id number] Stacey Gonzáles [id number] Stacey Gonzáles Notes Date Note Type Note Provider Name and Address Organization Details Recorded Time 08/12/2024 text/html this patient is a 43-year-old female presents for intermenstrual bleeding and pelvic pain. Patient has menorrhagia as well. She has longstanding very heavy bleeding. Her menses are regular. However, they require double protection. Patient has accidents, getting blood on her bedding and clothing. Is affected work. She changes a pad or tampon every hour. She leaks blood around the pad and tampon. This bleeding has a profound impact on her quality of life and her activities of daily living.Her pain is at the time of her menses. It is left-sided. She has old blood that leaks from the vagina in between her menses. She is known endometrial polyps. Alexis Bailey MD [address], [place], [address], [facility] 08/12/2024 11:38:54 08/31/2024 text/html 43-year-old fema le with intermenstrual bleeding. Discussed ultrasound results. Discussed laboratory evaluation. I spent more than 20 minutes on care in total. We went through her treatment options for intermenstrual bleeding. He agreed to Mirena IUD insertion next week. We discussed risks, benefits, and alternatives. She was given precautions instructions. Alexis Bailey MD [address], [place], [address], [facility] 08/31/2024 13:21:20 09/04/2024 text/html Patient presents for Mirena IUD insertion. Risks/benefits discussed. Informed consent obtained. UPT negative. SVITLANA CONTRERAS NP [address], [place], [address], [facility] 09/04/2024 12:49:43 10/11/2024 text/html Presents today f or IUD check. Had mirena IUD placed 09/04/24. Has had intermittent brown discharge and small blood clots since insertion. Patient has not had any cramping or pain. She is overall happy with the IUD, but concerned that this bleeding will remain. SVITLANA CONTRERAS NP [address], [place], [address], [facility] 10/11/2024 14:54:32 OBGyn Episode Ob Episode Information Episode Created Date Number of Fetuses Patient Bloodtype Patient rh Status Prepregnancy Weight lbs Domestic Partner Domestic Partner Phone Father Name Director Of Finance Status 09/08/19 20 1 CLOSED Fetus Data [...] Domestic Partner Domestic Partner Phone Father Name Director Of Finance Status 09/08/19 20 1 CLOSED Fetus Data [...] Domestic Partner Domestic Partner Phone Father Name Director Of Finance Status 09/08/19 20 1 CLOSED Fetus Data [...] Post Complications Tubal Sterilization Discharge Date Comments 9 2008 miscarria ge Discharge Information Feeding Method Contraceptive Method Maternal HG B and HCT Levels Ob Episode Information Episode Created Date Number of Fetuses Patient Bloodtype Patient rh Status Prepregnancy Weight lbs Domestic Partner Domestic Partner Phone Father Name Director Of Finance Status 09/07/19 1 B Negative 223 CLOSED Fetus Data First Name Last Name Admitted to NICU Weight (g) Sex Living Outcome Pediatric Complications Fetus ID Race Codes Race Delivery Type Sarah krishnamurthy 3657.08 55 F true Full Term 9173 Repeat Problems Problem Notes declines CF/SMAKP spoke with Amina Pedraza and pt is allowed to have 1 support person and 2 parents in the hospital with her as of 12/31/20 Problem Name Start Date End Date Resolution Snomed Code Not e Advanced maternal age 013046489 ASA per [facility] Obesity 904626649 37 wk ante testing - 1x/wk IVF - in-vitro fertilization [id number] Surrogate- [facility] - 12/04/20 1430. echo was WNL.36 wk testing Low lying placenta 11/05/2020 12/04/2020 SELFRESOLVED [id number] Complete Previa noted 10/09/20. Placenta location being followed by [facility]. REsolved Gestational diabetes mellitus 83422871 BS QID, Getting 1x/wk testing Deliveries by [id number] X2 - to repeat - Pt schd [...] Gestation 0 [email or web address] 09/06/2020 02/28/20 21 0 Pre-josue Flowsheet Flowsheet Date 09/06/2020 Wright Score Blood Edema Fundus Height Fundus Units Glucose Ketones Leukocytes Nitrite Labor Signs Protein Cervic Dilation Cervic Effacement Cervic Station 15 Type Weight in lbs Pre/Post Dialysis Refused Weight 230.768822046731 BP Diastolic BP Location Tested BP Systolic [...] Weight in lbs Pre/Post Dialysis Refused Weight 228.286051958219 BP Diastolic BP Location Tested BP Systolic [...] Weight in lbs Pre/Post Dialysis Refused Weight 231.426088376008 BP Diastolic BP Location Tested BP Systolic [...] Weight in lbs Pre/Post Dialysis Refused Weight 233.026490165613 BP Diastolic BP Location Tested BP Systolic [...] Weight in lbs Pre/Post Dialysis Refused Weight 228.700243846464 BP Diastolic BP Location Tested BP Systolic [...] Weight in lbs Pre/Post Dialysis Refused Weight 225.073188957456 BP Diastolic BP Location Tested BP Systolic [...] Weight in lbs Pre/Post Dialysis Refused Weight 224.911636852608 BP Diastolic BP Location Tested BP Systolic [...] Weight in lbs Pre/Post Dialysis Refused Weight 224.071790936213 BP Diastolic BP Location Tested BP Systolic BP Type 66 100 Fetus Heart Rate Present Fetus Movement A Yes Comments patient states that having s ome BH contractions and swelling. growth 80% BPP 8/8, doing well, preadmit scheduled Flowsheet Date 01/21/2021 [...] Weight in lbs Pre/Post Dialysis Refused Weight 224.170825746943 BP Diastolic BP Location Tested BP Systolic [...] Weight in lbs Pre/Post Dialysis Refused Weight 224.053314365869 BP Diastolic BP Location Tested BP Systolic [...] Weight in lbs Pre/Post Dialysis Refused Weight 228.124655718672 BP Diastolic BP Location Tested BP Systolic [...] Weight in lbs Pre/Post Dialysis Refused Weight 227.505346096689 BP Diastolic BP Location Tested BP Systolic [...] Weight in lbs Pre/Post Dialysis Refused Weight 228.104338854466 BP Diastolic BP Location Tested BP Systolic [...] Weight in lbs Pre/Post Dialysis Refused Weight 214.029635103888 BP Diastolic BP Location Tested BP Systolic [...] Estim ated Date of Delivery false Thalassemia (Slovenian, Japanese, Mediterranean, Or Background): MCV < 80 false Neural Tube Defect (Meningomyelocele, Spina Bifi da, Or Anencephaly) false Congenital Heart Defect false Down Syndrome false Nghia-Sachs (eg, Holiness, Cajun, [place]) f alse Sawyer Disease false Sickle Cell Disease Or Trait () false Hemophilia Or Other Blood Disorders false Muscular Dystrophy false Cystic Fibrosis false [place]'s Chorea false Intellectual Disability/Autism false If Yes, [...] Domestic Partner Domestic Partner Phone Father Name Director Of Finance Status 09/20/19 24 1 B Negative 227 CLOSED Fetus Data First Name Last Name Admitted to NICU Weight (g) Sex Living Outcome Pediatric Complications Fetus ID Race Codes Race Delivery Type [id number] Problems Problem Notes Problem Name Start Date End Date Resolution Snomed Code Not e Deliveries by [id number] X3 IVF - in-vitro fertilization [id number] Surrogate [id number] discontinue Lovenox at 18 weeks Geovanny Calculation Initial Geovanny Date Initial Exam Date Initial Exam Provider Initial Ultrasound Date Last Menstrual Period Date Ultra Sound Weeks Gestation 03/28/2024 09/20/2023 09/16/2023 06/24/2023 12 Eighteen To Twenty Week Goevanny Update Ultra Sound Date Fundal Height At [...] Weight in lbs Pre/Post Dialysis Refused Weight 225.359222832629 BP Diastolic BP Location Tested BP Systolic [...] week ultrasound here and echo at [facility]. Discussed genetic testing. Discussed care in detail : Vaccinations, precautions. To begin care. Flowsheet Date 10/12/2023 Wright Score Blood Edema Fundus Height Fundus Units Glucose Ketones Leukocytes Nitrite Labor Signs Protein Cervic Dilation Cervic Effacement Cervic Station Type Weight in lbs Pre/Post Dialysis Refused Weight 220.172220637501 BP Diastolic BP Location Tested BP Systolic [...] Estim ated Date of Delivery false Thalassemia (Slovenian, Japanese, Mediterranean, Or Background): MCV < 80 false Neural Tube Defect (Meningomyelocele, Spina Bifi da, Or Anencephaly) false Congenital Heart Defect false Down Syndrome false Nghia-Sachs (eg, Holiness, Cajun, Senegalese-[place]more) f alse Sawyer Disease false Sickle Cell Disease Or Trait () false Hemophilia Or Other Blood Disorders false Muscular Dystrophy false Cystic Fibrosis false Mainor's Chorea false Intellectual Disability/Autism false If Yes, [...]
[2024-11-21 16:28] LABS: Hematocrit 37.7 % (37.0-47.0); Hemoglobin 12.2 g/dL (12.0-15.0); Immature Granulocyte Percent A 0.1 % (0-0.5); Lymphocytes Absolute Auto 2.51 K/mm3 (0.9-3.2); Mean Corpuscular HGB Conc 32.4 g/dl (32-36); Mean Corpuscular Hemoglobin 26.1 pg (26-34); Mean Corpuscular Volume 80.6 fl (80-100); Nucleated Red Blood Cells Absolute Auto 0.000 K/mm3 (0.0-0.012); Nucleated Red Blood Cells Perc 0.0 % (0.0-0.2); Platelet Count Result 255 k/mm3 (150-375); Red Blood Count 4.68 M/mm3 (4.2-5.4); White Blood Count 7.7 K/mm3 (4.5-10.0)
== END 2024-11-21 15:58 | disposition home or self-care (01) ==
LOC: ANHLAB 15:59
PROVIDERS: PCP Family Medicine; Visit Provider Nurse Practitioner
DX: D64.9 Anemia, unspecified (principal)
CPT/HCPCS: 36415; 85025

== ENCOUNTER 2024-11-22 16:24 | Outpatient (CLI) | payer BC, SELFPAY ==
--- OUTSIDE RECORDS SUMMARY | 2024-11-22 16:29 | XMS_ITS | Patient Health Record ---
Author Organization [facility] [place] Address [address] [facility] [place] [place] [address] Care Team Providers Care Personal Carer Name Role Phone Roberth Sunshine [phone] Allergies No Known Allergies Reason For Referral [...] Status Risk Notes Problem Cervical post-laminectomy syndrome (017810129) Cervical post-laminectomy syndrome (M96.1) Active confirmed Problem Cervical spinal stenosis (61204162) Cervical spinal stenosis (M48.02) Active confirmed Problem Displacement of cervical intervertebral disc without myelopathy (90733489) Bulge of cervical disc without myelopathy (M50.20) Active confirmed Problem Cervical spondylosis without myelopathy (334620093) Spondylosis of cervicothoracic region w/o myelopathy or radiculopathy (M47.813) Active confirmed Plan Of Treatment Pending Test Test Name Order Date MRI : Cervical without Contrast 11/19/19 22 Medical (General) History Surgical History Surgery Date(Month/Year) section x3 cholecystectomy 08/2021 achilles tendon repair 12/2019 cervical fusion 05/2019 Hospitalization History Reason Date(Month/Year) section x3 cervical fusion 05/2019
--- OUTSIDE RECORDS SUMMARY | 2024-11-22 16:29 | XMS_ITS | Clinical Summary ---
Author Organization [facility] Address [address] [place] [address] Care Team Providers Care Instructional Support Specialist Name Role Phone Mark Gonzalez MD Primary Care Provider [phone] Allergies Active Allergy Reactions Criticality Noted Date [...] Orders Only [facility] [address] [place] [address] Unknown, Notinfile from Last 3 Months Surgical [...] on file Legal Sex Female 5:58 AM GRAPHIC MANAGER Gender Identity Not on file Sexual [...] 82.1 kg (181 lb) 05/31/2018 1:08 PM GRAPHIC MANAGER Height 165.1 cm (5' 5) 05/31/2018 1:08 PM GRAPHIC MANAGER Body Mass Index 30.12 05/31/2018 1:08 PM GRAPHIC MANAGER Plan of Treatment Health Maintenance Due Date [...] results best viewed via link to PDF [facility] [address] [place] [address], [address], [place] [address] [email or web address] Note to Patients: This report may [...] REPORTED: 10/31/2024 Submitting Physician Information: Josette Miranda, [facility], [facility] [id number], DERMATOPATHOLOGY REPORT RESULTS DIAGNOSIS: SKIN, LEFT INFERIOR [...] This is confirmed by an immunostain for [place]-1. latonya/[facility] By this signature, I attest that the [...] than those at the time of procedure. [facility] Clerical Data A; 29567, 88880-FM The characteristics of special, immunohistochemical, and immunofluorescence stains and in-situ hybridization tests performed by the [facility] were deemed acceptable in ongoing director supplier quality measures and in compliance with regulations drawn from the Clinical Laboratory Improvement Act xb3908 (CLIA '88). Control reactions for all stains performed were deemed adequate and appropriate by a pathologist prior to evaluation of patient tissue. Some diagnoses were rendered with the assistance of laboratory-developed tests utilizing analyte-specific reagents; the performance characteristic of these tests were determined by [facility] and are not cleared or approved by the US Food an Drug administration. Laboratory developed test may only be performed in a facility that is certified by the [facility] as a high-complexity laboratory under CLIA '88. These tests are used for clinical purposes and are not investigational. us Notinfile Unknown LAB PATHOLOGY ORDERABLES Final Result from Last 3 Months Insurance [facility] CHOICE PLUS [facility] Care Teams Instructional Support Specialist Relationship Specialty Start Date End Date Mark Gonzalez MD [address] [place] [address] PCP - General Family Medicine 12/29/17
--- OUTSIDE RECORDS SUMMARY | 2024-11-22 16:29 | XMS_ITS | Continuity of Care Document ---
Author Organization [facility] Address [address] [place] [address] Phone Care Team Providers Care Plaster Mixer Name Role Phone No Information Unavailable Unavailable [...] Diagnoses Date Provider Providers Copied on Encounter [facility], [facility] [place], [place], [id number], tel:[phone] No Information Jan- 2200 7 No Information [facility], [address] [place] [address], [id number], tel:[phone] [facility] No Information Jan- 2200 7 Dilcia Johnston. [facility] [place], [place], [facility], . tel:[phone] Referring Provider: Black Can MD B, [address] [place] [address] [address], [place], [address]. tel:[phone] Family History Family Member Type Diagnosis Age [...]
--- OUTSIDE RECORDS SUMMARY | 2024-11-22 16:29 | XMS_ITS ---
Author Organization [facility] [place] ([address]) Address [address] [place] [address] Care Team Providers Care Nutrition Services Associate Name Role Phone Bal Antonio Unavailable [phone] ZZ-Migration, Provider Unavailable Unavailab le Allergies Allergen (clinical drug ingredient) Drug/Non Drug Allergy documented on EMR Reaction Allergy Type Onset Date Status Penicillin Urinary burning Drug Allergy Active REASON FOR VISIT [facility] Encounter Medications Medication SIG (Take, Route, Frequency, Duration) Notes Start Date End Date Status NASAL WASHES N/A DIRECTED INTRANASALLY NEEDED; Duration: 30 *Please review for potential replacement for e-prescription and drug interaction check* Active Methylphenidate 20 MG/8 HR 1 TAB(S) ORALLY ONCE A DAY; Duration: 30 DAY(S) *Please review and pick correct strength-formulat ion from [facility] options. If intended option is not shown, discontinue and re-order from Quick Search* Active Fluticasone Propionate 50 MCG/ACT 2 spray(s) in each nostril BID; Duration: 30 day(s) Active Cetirizine HCl 10 MG 1 tab(s) orally once a day; Duration: 30 days Active Encounters Encounter Location Date Provider Diagnosis [facility] [address] [address] 11/06/2023 Provider ZZ-Migration Plan Of Treatment No Information Progress Notes * Stacey NAVARRETEDOB: 3 (43 yo F)Acc No.[id number]:11/06/2023 Patient: Stacey GRIDER Provider: Zoya Dimas :1980 A ge:42 Y S ex:Female Date:11/06/2023 Address:[facility] Subjective: * Chief Complaints: * 1 . [facility] Encounter. * Medical History: * Medications: T aking Methylphenidate 20 MG/8 HR TABLET, EXTENDED RELEASE 1 TAB(S) ORALLY ONCE A DAY , Notes to Pharmacist: *Please review and pick [facility]ulation [facility]. If intended option is not shown, [...] * Electronic signature of Aure LEAL-Migration on 11/22/2024 at 04:29 PM CDT Sign off status: Pending * Provider: Zoya Dimas Date: 0 11/06/2023 Generated for Ja santana/Kalie/Sharath on: 11/22/2024 04:29 PM CDT
--- OUTSIDE RECORDS SUMMARY | 2024-11-22 16:30 | XMS_ITS | Clinical Summary ---
Author Organization [facility] Address [address] [place] [address] Care Team Providers Care Outreach Clinician Name Role Phone Crow Jay MD [facility] Viki Covington MD Primary Care Provider [phone] Allergies Active Allergy Reactions Criticality Noted Date [...] Comments Blood Pressure 130/70 07/03/2019 9:31 AM TOP EXECUTIVE Pulse 66 07/03/2019 9:31 AM TOP EXECUTIVE Temperature 36.8 C (98.3 F) 06/14/2019 8:18 AM TOP EXECUTIVE Respiratory Rate 18 06/08/2019 12:1 6 PM TOP EXECUTIVE Oxygen Saturation 98% 07/03/2019 9:31 AM TOP EXECUTIVE Inhaled Oxygen Concentration - - Weight 100.1 kg (220 lb 9.6 oz) 07/03/2019 9:31 AM TOP EXECUTIVE Height 165.1 cm (5' 5) 07/03/2019 9:31 AM TOP EXECUTIVE Body Mass Index 36.71 07/03/2019 9:31 AM TOP EXECUTIVE Plan of Treatment Health Maintenance Due Date [...] this topic Medical Devices Implanted Type Area Direct Support Worker Device Identifier Shelf Expiration Date Model / Serial / Lot Putty [place] Matrix Dbm/Dbf Bone 6cc - [id number] Implanted:Qty : 1 on 06/07/2019 by Crow Jay MD at [facility] N/A: Spine Cervical [employer] 06/14/2019 [id number] / / [id number] [place] Rachele Metalene 6mm Spacer Implanted:Qty : 1 on 06/07/2019 by Crow Jay MD at [facility] N/A: Spine Cervical SEASPINE [id number] 04/06/2023 [id number] / / [id number] Screw Variable Self Drilling Redig 14mm - [id number] Implanted:Qty : 4 on 06/07/2019 by Crow Jay MD at [facility] N/A: Spine Cervical CHAVA SPINE - DIV CHAVA HERMINIO [id number] / / Plate Cervical Aviator Chava 12mm - [id number] Implanted:Qty : 1 on 06/07/2019 by Crow Jay MD at [facility] N/A: Spine Cervical CHAVA SPINE - DIV CHAVA HERMINIO [id number] / / Explanted Type Area Direct Support Worker Device Identifier Shelf Expiration Date Model / Serial / Lot Distration Pin 12mm - [id number] Explanted:Qty: 2 on 06/07/2019 at [facility] N/A: Spine Cervical MEDICAL INC DP-12-TB / / Insurance [facility] Advance Directives * Full Code (Latest Code Status on File) Date Activated Date Inactivated Comments 06/07/2019 2:41 PM 06/08/2019 6:48 PM Care Teams Outreach Clinician Relationship Specialty Start Date End Date Viki Martin MD [facility] [place] [place] [address] PCP - General RHEUMATOLOGY 06/13/19 Crow Jay MD Surgeon NEUROLOGICAL SURGERY 05/26/19
--- OUTSIDE RECORDS SUMMARY | 2024-11-22 16:30 | XMS_ITS | Clinical Summary ---
Author Organization [facility] Address [address] [place] [address] Phone Care Team Providers Care Dredge Captain Name Role Phone Unavailable Primary Care Provider [...] or vomiting 20 Tablet 06/28/2024 9:57 AM STRATEGIC MARKETING SPECIALIST 5 Active HYDROcodone-acet aminophen (NORCO) 5-325 mg tabletIndication s:Left knee pain, unspecified chronicity Take 1-2 Tablets by mouth every 6 hours as needed for Pain, Moderate. Max Daily Amount: 8 Tablets 20 Tablet 5 Active Active Problems No known active problems Encounters Date Type Department Care Team Description 11/07/2024 External Device Data ST[facility] ABSTRACTION Provider, Abstract 10/24/2024 External Device Data [facility] ABSTRACTION Provider, Abstract 10/12/2024 External Device Data [facility] ABSTRACTION Provider, [...] on file Legal Sex Female 11:56 AM STRATEGIC MARKETING SPECIALIST Gender Identity Not on file Sexual Orientation Not on file Last Filed Vital Signs Vital Sign Reading Time Taken Comments Blood Pressure 107/63 06/28/2024 1:00 PM STRATEGIC MARKETING SPECIALIST Pulse 50 06/28/2024 1:00 PM STRATEGIC MARKETING SPECIALIST Temperature 36.4 C (97.6 F) 06/28/2024 11:55 AM STRATEGIC MARKETING SPECIALIST Respiratory Rate 13 06/28/2024 1:00 PM STRATEGIC MARKETING SPECIALIST Oxygen Saturation 100% 06/28/2024 1:00 PM STRATEGIC MARKETING SPECIALIST Inhaled Oxygen Concentration - - Weight 84.8 kg (187 lb) 06/28/2024 6:53 AM STRATEGIC MARKETING SPECIALIST Height 165.1 cm (5' 5) 06/28/2024 6:53 AM STRATEGIC MARKETING SPECIALIST Body Mass Index 31.12 06/28/2024 6:53 AM STRATEGIC MARKETING SPECIALIST Plan of Treatment Health Maintenance Due Date [...] this topic Medical Devices Implanted Type Area Nursing Director Device Identifier Shelf Expiration Date Model / Serial / Lot Barrier Interceed Adh 3x4in 4350 - [id number] Implanted:Qty: 1 on 03/12/2022 by Mitch Gee MD at [facility] Adhesion Barrier N/A: Uterus J&J- [employer] INC [id number] 07/21/2026 [id number] / / [id number] Tightrope Ii Btb W/ Deploying Suture [id number] - [id number] Implanted:Qty: 1 on 06/28/2024 by Rodolfo Dinh MD at [facility] [place] Left: Knee [employer]X INC 01/22/2028 [id number] TB-2J / / [id number] Description:REQ [id number] Screw Mary Intfr [id number] - [id number] Implanted:Qty: 1 on 06/28/2024 by Rodolfo Dinh MD at [facility] Screw Left: Knee J&J- DEPUY MITEK INC 10/21/2026 [id number] / [id number] Description:Requisition # [id number] Acdf Plate And Screws Whole Patella Ligament Implanted:Qty: 1 on 06/28/2024 by Rodolfo Dinh MD at [facility] Left: Knee LIFENET 09/19/[id number] / [id number] / Explanted Type Area Nursing Director Device Identifier Shelf Expiration Date Model / Serial / Lot Iud Explanted:Qty: 1 on 03/12/2022 by Mitch Gee MD at [facility] N/A: Uterus Insurance BCBS BLUE ACCESS/TRUE BLUE PPO RX [employer] Commercial [facility] BLUE ACCESS CHOICE Advance Directives For more information, please contact: [phone] * Full Code (Latest Code Status on File) Date Activated Date Inactivated Comments 06/28/2024 6:40 AM 06/28/2024 3:26 PM * Full Code Date Activated Date Inactivated Comments 03/12/2022 9:23 AM 03/12/2022 6:26 PM
--- OUTSIDE RECORDS SUMMARY | 2024-11-22 16:30 | XMS_ITS | Referral Summary ---
Author Organization [facility] Address [address] [facility] [place] [address] Care Team Providers Care Supervisor Hot Strip Mill Name Role Phone Mark Gonzalez MD Primary Care Provider [phone] Encounters Date Type Department Care Team Description 10/26/2024 Orders Only [facility] [address] [place] [address] Unknown, Notinfile from Last 3 Months Allergies [...] on file Legal Sex Female 5:58 AM REVENUE STAMP CUTTER Gender Identity Not on file Sexual Orientation [...] 82.1 kg (181 lb) 05/31/2018 1:08 PM REVENUE STAMP CUTTER Height 165.1 cm (5' 5) 05/31/2018 1:08 PM REVENUE STAMP CUTTER Body Mass Index 30.12 05/31/2018 1:08 PM REVENUE STAMP CUTTER Plan of Treatment Not on file Procedures Procedure Name Priority Date/Time Associated Diagnosis Comments SURGICAL PATHOLOGY Routine 10/26/2024 11 :50 AM CDT from Last 3 Months Results * Surgical pathology (10/26/2024 11:50 AM CDT) Skin, shave biopsy 10/26/2024 11:50 AM CDT 10/27/2024 7:29 AM CDT Narrative 10/31/2024 2:20 PM CDT EPIC results best viewed via link to PDF [facility] [address], [place] [address] [email or web address] Note to Patients: This report may contain [...] REPORTED: 10/31/2024 Submitting Physician Information: Josette Miranda, [facility], [address] [place] [address], DERMATOPATHOLOGY REPORT RESULTS DIAGNOSIS: SKIN, LEFT INFERIOR [...] This is confirmed by an immunostain for [place]-1. latonya/ibrahima By this signature, I attest that [...] than those at the time of procedure. [facility] Clerical Data A; 91237, [address]2831-AD The characteristics of special, immunohistochemical, and immunofluorescence stains and in-situ hybridization tests performed by the [facility] were deemed acceptable in ongoing research quality assurance specialist measures and in compliance with regulations drawn from the Clinical Laboratory Improvement Act jo1434 (CLIA '88). Control reactions for all stains performed were deemed adequate and appropriate by a pathologist prior to evaluation of patient tissue. Some diagnoses were rendered with the assistance of laboratory-developed tests utilizing analyte-specific reagents; the performance characteristic of these tests were determined by [facility] and are not cleared or approved by the [place] Food an Drug administration. Laboratory developed test may only be performed in a facility that is certified by the [facility] as a high-complexity laboratory under CLIA '88. These tests are used for clinical purposes and are not investigational. us Notinfile Unknown LAB PATHOLOGY ORDERABLES Final Result from Last 3 Months Insurance [facility] CHOICE PLUS [facility] HMO/PPO Address: [address] [address] [place] [address] [facility] Care Teams Supervisor Hot Strip Mill Relationship Specialty Start Date End Date Mark Gonzalez MD [facility] [place] [address] PCP - General Family Medicine 12/29/17
--- OUTSIDE RECORDS SUMMARY | 2024-11-22 16:30 | XMS_ITS | Clinical Summary ---
Author Organization [facility] Address [address] [place] [address] Care Team Providers Care Biofuels Plant Operations Engineer Name Role Phone Mark Gonzalez MD Primary Care Provider [phone] Source Comments [facility],non-[facility] Affiliates and Associated Physician Practices is amultiple site organization consisting of ambulatory clinics and hospital sitesin [place], [place], [place] and [place]. This disclosure is being madepursuant to the Care Everywhere program and may not contain all information available regarding this patient. Last updated 18.[facility] Allergies Active Allergy Reactions Criticality Noted Date [...] issues and opiate induced hyperalgesia (use of intermediate designer opiate/narcotic actually causing more pain rather than [...] without contraindication to use but will defer intermediate designer treatment management decisions to her primary care [...] Assessment & Plan (10/11/2024 9:48 AM CDT): [id number]+ anticardiolipin antibody IGM + No current criteria for SLE or APS; would recommend follow up testing in 2-3 months to exclude APS False positive rahel 1:80 homogenous and speckled 10/11/2024 Assessment & Plan (10/11/2024 9:52 AM CDT): By itself, a positive RHAEL test does not indicate the presence of [...] erythematosus or systemic inflammatory rheumatic disorder by [place] [employer] (ACR) diagnostic classification criteria [...] Description 10/11/2024 8:40 AM CDT Office Visit [facility] - Rheumatology [address] [place] [address], [address] [place] [address] Karthik Courtney DO Fibromyalgia syndrome (Primary Dx); Anticardiolipin antibody positive; False positive rahel; Acne rosacea 09/26/2024 Telephone [facility] - Rheumatology [address] [place] [address], [address] [place] [address] Karthik Courtney DO Referral from [...] on file Legal Sex Female 8:15 AM CONTENT SPECIALIST Gender Identity Not on file Sexual [...] patient's age to complete this topic Insurance [address] [place], [place] [id number] ANTHEM * Guarantor: MARYLIN NAVARRETE Account Type Relation to Patient Date of Phone Billing Address Personal/Family 1980 [id number] [facility] SELF PAY NO INSURANCE Member Subscriber Plan / Payer (Ef fective for All Dates) Name:Marylin Navarrete Member ID:Not on file Relation to Subscriber:Not on file Name:MARYLIN NAVARRETE Subscriber ID:Not on file Address: [address] [place] [address] Payer ID:Not on file Group ID:Not on file Type:Self Pay Address: [place], [place] SELF PAY NO INSURANCE Member Subscriber Plan / Payer (Ef fective for All Dates) Name:Marylin Navarrete Member ID:Not on file Relation to Subscriber:Not on file Name:MARYLIN NAVARRETE Subscriber ID:Not on file Address: [address] [place] [address] Payer ID:Not on file Group ID:Not on file Type:Self Pay Address: [place], [place] [facility] SELF PAY NO INSURANCE Member Subscriber Plan / Payer (Ef fective for All Dates) Name:Marylin Navarrete Member ID:Not on file Relation to Subscriber:Not on file Name:MARYLIN NAVARRETE Subscriber ID:Not on file Address: [address] [place] [id number] Payer ID:Not on file Group ID:Not on file Type:Self Pay Address: [place], [place] Care Teams Biofuels Plant Operations Engineer Relationship Specialty Start Date End Date Mark Gonzalez MD [facility] [place] [address] PCP - General Family Medicine 05/02/18
--- OUTSIDE RECORDS SUMMARY | 2024-11-22 16:30 | XMS_ITS | Encounter Summary ---
Author Organization [facility] Address [address] [place] [address] Care Team Providers Care Official Greeter Name Role Phone Mark Gonzalez MD Primary Care Provider [phone] Reason for Visit * Reason Onset Date Comments Appointment 01/04/2024 Encounter Details Date Type Department Care Team (Late st Contact Info) Description 01/04/2024 Telephone [facility] - Centralized Scheduling [address] [place] [id number] Jayy Argueta MD [address] [id number] Appointment Social History Tobacco Use Types Packs/Day Years Used Date Smoking Tobacco: Never Smokeless Tobacco: Never Alcohol Use Standard Drinks/Week Comments Not Currently 0 (1 standard drink = 0.6 oz pur e alcohol) Comments No Sex and Gender Information Value Date Recorded Sex Assigned at Not on file Legal Sex Female 8:15 AM DIE REAMER Gender Identity Not on file Sexual Orientation Not on file documented as of this encounter Miscellaneous Notes * Telephone Encounter - May Meza - 01/04/2024 12:32 PM CDT Pt returning office call to schedule for MFM. Pt can be reached at [phone]. documented in this encounter Plan of Treatment Not on file documented as of this encounter Visit Diagnoses Not on filedocumented in this encounter Care Teams Official Greeter Relationship Specialty Start Date End Date Mark Gonzalez MD [address] [id number] PCP - General Family Medicine 05/02/18 documented as of this encounter
--- OUTSIDE RECORDS SUMMARY | 2024-11-22 16:30 | XMS_ITS | Patient Health Record ---
Author Organization [facility] [employer] [place] ([address]) Address [address] [place] [address] Care Team Providers Care Bowling Ball Patcher Name Role Phone Bal Antonio Unavailable [phone] Allergies Allergen (clinical drug ingredient) Drug/Non Drug [...] review and pick correct strength-formulat ion from [employer] options. If intended option is not shown, [...] Status Risk Notes Problem Chronic allergic conjunctivitis (23466890) Other chronic allergic conjunctivitis (H10.45) Active confirmed Problem Allergic rhinitis caused by pollen (disorder) (07439939) Allergic rhinitis due to pollen (J30.1) Active confirmed Problem Allergic rhinitis (53279584) Other allergic rhinitis (J30.89) Active confirmed Problem Allergic rhinitis caused by animal hair and dander (624371771460891) Allergic rhinitis due to animal (cat) (dog) hair and dander (J30.81) Active confirmed Problem Elevated blood pressure reading without diagnosis of hypertension (350196670) Elevated blood-pressure reading, without diagnosis of hypertension (R03.0) Active confirmed Problem Pruritus (761765741) Pruritus, unspecified (L29.9) Active confirmed Problem Allergy to penicillin (02073146) Allergy status to penicillin (Z88.0) Active confirmed Problem Intolerance to lactose (finding) (053811143) Lactose intolerance, unspecified (E73.9) Active confirmed Plan Of Treatment No Information Insurance Providers Payer Name Payer Address Payer Phone Subscriber Number Group Number Insured Name Patient Relationship to Insured Coverage Start Date Coverage End Date [facility] [id number] [place] [address] [id number] Stacey Gonzáles Self - patient is the insured Medical (General) History Medical History History ICD Code acdf Torn ACL Csection 2011, 11/2013, 02/2021 Gall bladder removal Surgical History Surgery Date(Month/Year) ACDF 05/2019 ACL 12/2019 C sections gall bladder 10/2021
--- OUTSIDE RECORDS SUMMARY | 2024-11-22 16:30 | XMS_ITS | Data Portability ---
Author Organization [facility] Address [address] [place] [address] Care Team Providers Care Clinical Advisor Name Role Phone MULTICARE SPECIALIST Primary Care [...] more than 30 minutes face to face. [email or web address] Not available 08/12/2024 11:00:37 Plan of Treatment Reminders Order Date Submit Date Provider Last Modified By Organization Details Last Modified Time Details Appointments None recorded. Lab test, urine 2024 025 [email or web address] [facility], [address], [place], [address], 12:48:24 unlisted lab - 17-oh progesteron e, lc/MS/MS [address] [facility] (Lab), [address], [place], [address], 21:34:11 dhea-sulfat e, serum [address] [facility] (Lab), [address], [place], [address], 5 21:34:08 hormone panel, serum or plasma [address] [facility] (Lab), [address], [place], [address], 5 21:34:09 HbA1c (hemoglobin A1c), blood [address] [facility] (Lab), [address], [place], [address], 5 21:34:10 progesteron e, serum [address] [facility] (Lab), [address], [place], [address], 5 21:34:08 prolactin, serum [address] [facility] (Lab), [address] [place], [address], 5 21:34:09 shbg (sex hormone-bin ding globulin), serum [address] [facility] (Lab), [address], [place], [address], 5 21:34:10 testosteron e free/testos terone total, ratio, serum [address] [facility] (Lab), [address] [place], [address], 5 21:34:10 TSH, serum or plasma [address] [facility] (Lab), [address] [place], [address], 21:34:09 Referral None recorded. Procedures None recorded. Surgeries None recorded. Imaging US, pelvis 2024 025 [email or web address] [facility], [address], [address], [place], [address], 21:06:13 US, transvagina l 2024 025 [email or web address] [facility], [address], [address], [place], [address], 21:06:13 US, pelvis, complete 2024 025 [email or web address] [facility], [address], [address] [facility], [place], [address], 15:33:58 Medication Orders Mirena 21 mcg/24 hr (up to 8 years) 52 mg intrauterin e device 2024 025 [id number], [address], [place], [place], [id number], 12:48:24 Patient TargetsNo targets recorded. Patient InstructionsNo [...] 9-246 > 75 12-15 4 Not Available [facility] (Lab) [address], [place], [address], 08/27/2024 21:34:08 08/18/1908/17/2024 PROGE STERO NE progesterone 12.10 NG/mL This assay was perfo rmed using [employer] ratio n reage nts and test kits. Value s obtai nila with other assay metho ds or kits canno t be used [facility] . Femal e Proge stero ne Range s: Folli cular phase 0.06- 0.89 ng/mL Ovula tion phase 0.12- 12.00 ng/mL Lutea l phase 1.83- 23.90 ng/mL Postm enopa usal <0.05 -0.13 ng/mL Healt hy Pregn ant Women 1st Trime ster 11.0- 44.30 2nd Trime ster 25.40 -83.3 0 3rd Trime ster 58.70 -214. 00 Not Available [facility] (Lab) [address] [place], [address], 08/27/2024 21:34:08 08/18/19 25 08/17/2024 PROLA CTIN prolactin, total 14.50 NG/mL 4.79-2 3.30 This assay was perfo rmed using [employer] ratio n reage nts and test kits. Value s obtai nila with other assay metho ds or kits canno t be used [facility] . Not Available [facility] (Lab) [address] [place], [address], 08/27/2024 21:34:09 08/18/19 25 08/17/2024 FSH, LH, ESTRA DIOL estradiol 144.0 pg/mL This assay was perfo rmed using [employer] ratio n reage nts and test kits. Value s obtai nila with other assay metho ds or kits canno t be used [facility] . Femal e Estra diol Range s: Folli cular phase 12.4- 233 pg/mL Ovula tion phase 41.0- 398 pg/mL Lutea l phase 22.3- 341 pg/mL Postm enopa usal <5-13 8 pg/mL Healt hy Pregn ant Women 1st Trime ster 154-3 243 pg/mL 2nd Trime ster 1561- 05964 pg/mL 3rd Trime ster 8525- >3000 0 pg/mL Not Available [facility] (Lab) [address] , [place], [address], 08/27/2024 21:34:09 08/18/1908/17/2024 FSH, LH, ESTRA DIOL [...] use: 25.8- 134.8 mIU/m L Not Available [facility] (Lab) [address], [place], [address], 08/27/2024 21:34:09 08/18/19 25 08/17/2024 FSH, LH, [...] use: 7.7-5 8.5 mIU/m L Not Available [facility] (Lab) [address] , [place], [address], 08/27/2024 21:34:09 08/18/1908/17/2024 TSH, REFLE X FREE T4 TSH 1.14 uIU/m L 0.30-5 .33 Not Available [facility] (Lab) [address], [place], [address], 08/27/2024 21:34:09 08/18/19 25 08/17/2024 HUMAN SEX HORMO NE VANESA NG GLOBU LÁZARO sex hormone binding globulin 73.9 nmole s/L 18.2-1 35.5 Not Available [facility] (Lab) [address], [place], [address], 08/27/2024 21:34:10 08/18/19 25 08/17/2024 HEMOG LOBIN [...] magaly >=6.5 % Diagn ostic of diabe amgaly <7.0% Goal of thera py >8.0% Actio n sugge sted Not Available [facility] (Lab) [address], [place], [address], 08/27/2024 21:34:10 08/18/19 25 08/17/2024 TESTO STERO [...] for clini amauri purpo ses. Not Available [facility] (Lab) [address] [place], [address], 08/27/2024 21:34:10 08/18/19 25 08/17/2024 TESTO STERO NE, FREE( DIALY SIS) AND TOTAL (LC/M S/MS) testosterone , free 2.2 pg/mL 0.1-6. 4 This test was devel rodney and its sam tical perfo rmanc e cheri cteri stics have been deter mined by [employer] [facility] marisol s [place], [place]. It has not been clear ed or appro rayshawn by the U.S. Food and Drug Admin istra tion. This assay has been valid ated pursu ant to the CLIA regul ation s and is used for clini amauri purpo ses. Perfo rming Organ izati on Infor matio n: Site ID: AMD Name: [employer] ostjeffrey s [place] romero [facility] tree Addre ss: [id number] [employer] [address] [place], [place] Direc tor: Braulio Miranda MD PhD Not Available [facility] (Lab) [address] [place], [address], 08/27/2024 21:34:10 08/18/19 25 08/17/2024 17-OH PROGE [...] [facility] adrien Iglesias trano , Addre ss: [id number] [address] [facility] [address] [place] [place] [address] Direc tor: Estefani maya MD,Ph D,MERCEDEZ Not Available [facility] (Lab) [address], [place], [address], 08/27/2024 21:34:11 09/05/19 25 09/04/2024 pregn scott test, urine HCG negati ve Not Available [place] [address], [place], [address], 09/04/2024 12:34:39 08/18/19 25 08/17/2024 US, pelvi s No observ ation record ed. [email or web address] [place] [address], [place], [address], 08/17/2024 12:14:14 08/18/19 25 08/17/2024 US, trans vagin al No observ ation record ed. [email or web address] [place] [address], [place], [address], 08/17/2024 12:14:28 08/18/19 25 08/17/2024 US, pelvi s No observ ation record ed. [email or web address] [address], [place], [address], 08/21/2024 21:01:01 Result Notes None recorded. Problems Name Problem SNOMED Code Status Onset Date Resolution Date Notes Provider Name and Address Organization Details Recorded Time Pregnanc y 09524556 Completed 202003/10/2021 Maria coombs [facility] 4 13:52:40 IVF - in-vitro fertiliz ation pregnanc y [id number] 102 Completed Surrogat e- MFM - 12/04/20 1430. echo was WNL. 36 wk antenata l testing Kerline coombs [facility] 12:02:46 Deliveri es by Completed X2 - to repeat - Pt schd 02/21/21 Kerline coombs [facility] 12:02:46 Low lying placenta 152680206 Completed 202012/04/2020 Complete Previa noted 10/09/20. Placenta location being followed by MFM. REsolved Kerline coombs, [facility] 12:02:46 Advanced maternal age 652114568 Completed ASA per MFM Kerline coombs [facility] 12:02:46 Gestatio nal diabetes mellitus 85534126 Completed BS QID, Getting 1x/wk antenata l testing Kerline hernandez [facility] 12:02:46 Obesity 177666055 Completed 37 wk antenata l testing - 1x/wk Kerline hernandez [facility] 12:02:46 Pregnanc y 00870055 Completed 202310/15/2023 Maria coombs [facility] 4 13:52:40 Deliveri es by [id number] Completed X3 Maria coombs [facility] 4 13:52:38 IVF - in-vitro fertiliz ation pregnanc y 40002749280 102 Completed Maria Cohen [facility], [facility] 4 13:52:38 Surrogat e pregnanc y 877279086 Completed disconti nue Lovenox at 18 weeks Mariaafshan Kaiser[facility], [facility] 4 13:52:38 Problem Notes None recorded. Procedures Surgical History Date Name Laterality Status Provider Name and Address Organization Details Recorded Time 025 IUD Insertion completed SVITLANA CONTRERAS NP [address], [place], [address], [facility] 09/04/2024 12:46:34 024 embryo transfer completed [facility] 08/27/2023 20:05:57 023 Date of Last Mammogram completed [facility] 08/27/2023 20:03:03 023 Date of Last Pap Smear completed [facility] 08/26/2023 15:58:46 022 Hysteroscopy completed [facility] 08/26/2023 16:02:36 022 SECTION (SURG) completed [facility] 08/26/2023 16:03:33 022 cholecystectomy completed [facility] 08/26/2023 16:03:00 021 IUD Insertion completed [facility] 04/29/2021 15:50:56 021 IUD Insertion completed Alexis Bailey MD [address], [place], [address], [facility] 04/02/2021 15:23:53 021 SECTION (SURG) completed Selina Blackmon [facility] 02/24/2021 10:39:01 021 embryo transfer completed Estefanía Espinal [facility] 08/27/2023 20:06:35 020 reconstruction of anterior cruciate ligament of knee joint completed Estefanía Espinal [facility] 08/09/2020 14:47:19 020 IUD Removal completed Rona Morelos CNM [address], [place], [address], [facility] 09/08/2019 11:07:49 020 cervical discography completed Estefanía Espinal [facility] 09/08/2019 19:16:55 014 section completed Estefanía Espinal [facility] 01/16/2021 12:13:14 012 section completed Estefanía Espinal [facility] 01/16/2021 12:13:21 Endometrial Biopsy completed [facility] 08/26/2023 15:57:36 Imaging Results None recorded. Procedure Notes None recorded. Medical Equipment None Reported. Allergies Allergen ID Allergen Name Allergen Category Reaction Reaction Severity Criticality Documentation Date Start Date Code Code System Note Provider Name and Address Organization Details Recorded Time 214 Product containin g penicilli n (product) medicatio n Not available Not available Not available 09/08/2019 95906 8001 SNOMED Estefanía Espinal [facility] 0 11:08:40 Medications Name Sig Start [...] Not Available Not Available BD Regular Bevel Axtell 22 gauge x 1 1/2 USE TO [...] Not Available Not Available BD Regular Bevel Axtell 21 gauge x 1 1/2 USE TO INJECT PROGESTER ONE 08/25 completed Not Available Not Available Not Available BD Regular Bevel Axtell 18 gauge x 1 1/2 USE DIRECTED [...] Updated DateTime 08/12/2024 165.1 cm 32 kg/m2 55035.17 g 107 mm[Hg] 73 mm[Hg] Alka Seaman [facility] 10:54:30 Date Recorded Body height Body mass index (BMI) Body weight Systolic blood pressure Diastolic blood pressure Provider Name and Address Organization Details Last Updated DateTime 08/31/2024 165.1 cm 32.6 kg/m2 09358.1 g 108 mm[Hg] 66 mm[Hg] Guerda Freeman [facility] 5 11:23:31 Date Recorded Body height Body mass index (BMI) Body weight Systolic blood pressure Diastolic blood pressure Provider Name and Address Organization Details Last Updated DateTime 09/04/2024 165.1 cm 32.6 kg/m2 43434.1 g 106 mm[Hg] 69 mm[Hg] Alka Gottliebton [facility] 5 12:29:46 Date Recorded Body height Body mass index (BMI) Body weight Systolic blood pressure Diastolic blood pressure Provider Name and Address Organization Details Last Updated DateTime 10/11/2024 165.1 cm 33.5 kg/m2 58889.5 g 140 mm[Hg] 82 mm[Hg] KEN Cheek [facility] 5 14:13:33 Social History Question Answer Notes LastModified by Organizat ion Details LastModified Time Tobacco Smoking Status Former Smoker Maria Bogdan coombs, [facility] 04/07/2023 15:33:35 Do You Have An Advance Directive? No [email or web address] Information not available 08/09/2020 If You Are , What Was Your Level Of Alcohol Consumption Prior To ? Occasional [email or web address] Information not available 04/07/2023 Are You Blind Or Do You Have Difficulty Seeing? No [email or web address] Information not available 08/09/2020 What Is Your Level Of Caffeine Consumption? Occasional [email or web address] Information not available 09/06/2020 How Much Tobacco Do You Chew? None [email or web address] Information not available 08/09/2020 In The 14 Days Before Symptom Onset, Have You Had Close Contact With A Laboratory-confir [facility] COVIL-19 While That Case Was Ill? No [email or web address] Information not available 08/09/2020 In The 14 Days Before Symptom Onset, Have You Had Close Contact With A Person Who Is Under Investigation For COVID-19 While That Person Was Ill? No [email or web address] Information not available 08/09/2020 Have You Been To An Area Known To Be High Risk For COVID-19? No [email or web address] Information not available 02/11/2021 Are You Deaf Or Do You Have Serious Difficulty Hearing? No [email or web address] Information not available 08/09/2020 What Type Of Diet Are You Following? REGULAR [email or web address] Information not available 08/09/2020 What Is The Highest Grade Or Level Of School You Have Completed Or The Highest Degree You Have Received? [id number] [email or web address] Information not available 08/09/2020 Are There Any Guns Present In Your Home? No [email or web address] Information not available 08/09/2020 What Was The Date Of Your Most Recent Tobacco Screening? 08/26/2023 [email or web address] Information not available 08/26/2023 Do You Use Protection During Sex? Always [email or web address] Information not available 08/09/2020 Do You Use Your Seat Belt Or Car Seat Routinely? Yes [email or web address] Information not available 08/09/2020 Do You Have Smoke And Carbon Monoxide Detectors In Your Home? Yes [email or web address] Information not available 08/09/2020 How Much Tobacco Do You Smoke? No Information not available 08/09/2020 Do You Use Sunscreen Routinely? Yes [email or web address] Information not available 08/09/2020 Have You Used IV Drugs? No [email or web address] Information not available 08/09/2020 Do You Have Difficulty Walking Or Climbing Stairs? No [email or web address] Information not available 08/26/2023 Sex: Unknown Functional Status Question Answer Note LastModified by Organizat ion Details LastModified Time Do you use any illicit or recreational drugs? No [email or web address] Information not available 08/09/2020 Do you or have you ever used any other forms of tobacco or nicotine? No [email or web address] Information not available 04/07/2023 What is your level of alcohol consumption? None [email or web address] Information not available 09/08/2019 Are you currently employed? Yes [email or web address] Information not available 09/20/2023 Are you able to walk? YESWOREST [email or web address] Information not available 08/09/2020 Are you able to care for yourself? 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 No [email or web address] Information not available 08/26/2023 What is your exercise level? Moderate [email or web address] Information not available 08/09/2020 Mental Status Question Answer Note LastModified by Organization D etails LastModified Time Do you feel stressed (tense, restless, nervous, or anxious, or unable to sleep at night)? [id number] [email or web address] Information not available 08/09/2020 Family History Relationship Description Onset Age of this Age Resolved Age Notes LastModified by Organization Details LastModified Time Maternal Aunt Acute hepatitis [email or web address] Not available 2023 13:52:26 Mother Depressive disorder [email or web address] Not available 2023 13:52:26 Medical History Condition [...] Diagnosis ICD10 Code Diagnosis Note [id number] [facility] [address] [address] 09/08/2019 10:34:09 09/08/2019 11:45:01 [id number] [facility] [address],[place] [address] 08/09/2020 13:56:28 08/09/2020 15:46:17 Amenorrhea 34770308 N91.2 reviewed folder, precaution s, office, f/u new ob and first look [id number] Alexis Bailey MD [facility] [address],[place] [address] 08/09/2020 13:57:13 08/12/2020 08:01:48 [id number] MD Meet Veronica [address],[place] [address] 08/20/2020 11:51:20 08/20/2020 12:42:05 screening 073751214 Z36.89 [id number] Alexis Bailey MD [facility] [address],[place] [address] 09/06/2020 15:35:29 09/06/2020 16:52:33 Routine care 616220700 Z34.82 [id number] Ofelia Gonzales CNM [facility] [address],[place] [address] 10/08/2020 11:51:50 10/08/2020 12:07:59 Routine care 449230792 Z34.92 [id number] [facility] [address],[place] [address] 11/05/2020 10:17:22 11/05/2020 10:50:14 Routine care 638649772 Z34.92 [id number] Ofelia Gonzales [facility] [address],[place] [address] 12/03/2020 11:05:47 12/04/2020 13:28:33 Routine care 649734291 Z34.92 [id number] Ofelia Gonzales [facility] [address],[place] [address] 12/17/2020 10:12:17 12/17/2020 11:03:58 Routine care 581332662 Z34.92 [id number] Alexis Bailey MD [facility] [address],[place] [address] 12/13/2020 12:24:11 12/13/2020 13:20:37 Gestational diabetes mellitus class A1 04061677 O24.410 Diet teaching completed over the phone. [...] and pt verbalized understand ing. MICAH [place] [id number] Ofelia Gonzales [facility] [address],[place] [address] 12/31/2020 10:42:25 12/31/2020 11:52:06 Routine care 873262359 Z34.92 [id number] Alexis Bailey MD [facility] [address],[place] [address] 12/31/2020 10:40:50 12/31/2020 11:16:04 Gestational diabetes mellitus 76709216 O24.410 O36.63X0 Z3A.31 [id number] Alexis Bailey MD [facility] [address],[place] [address] 01/07/2021 09:25:07 01/07/2021 10:09:14 Gestational diabetes mellitus class A1 99424734 O24.410 Diet teaching completed over the phone. [...] and pt verbalized understand ing. MICAH good [id number] Alexis Bailey MD [facility] [address],[place] [address] 01/07/2021 09:26:23 01/07/2021 10:31:17 Gestational diabetes mellitus 94486827 O24.410 O36.63X0 Z3A.32 [id number] Alexis Bailey MD [facility] [address],[place] [address] 01/07/2021 09:26:39 01/07/2021 11:29:20 Routine care 015871444 Z34.92 [id number] Alexis Bailey MD [facility] [address],[place] [address] 01/14/2021 09:39:34 01/14/2021 10:44:37 Gestational diabetes mellitus 90726643 O24.410 Z3A.33 [id number] Alexis Bailey MD [facility] [address],[place] [address] 01/14/2021 09:39:34 01/14/2021 10:44:37 Gestational diabetes mellitus class A1 73333133 O24.410 Diet teaching completed over the phone. [...] and pt verbalized understand ing. MICAH good [id number] [facility] [address],[place] [address] 01/14/2021 09:39:34 01/14/2021 10:44:37 Routine care 570678002 Z34.93 [id number] Alexis Bailey MD [facility] [address],[place] [address] 01/21/2021 09:26:12 01/21/2021 11:03:11 Gestational diabetes mellitus class A1 11515391 O24.410 Diet teaching completed over the phone. [...] [place] [id number] Alexis Bailey MD [facility] [address],[place] [address] 01/21/2021 09:27:39 01/21/2021 11:04:50 Gestational diabetes mellitus 73216124 O24.410 Z3A.34 [id number] Alexis Bailey MD [facility] [address],[place] [address] 01/21/2021 09:27:56 01/21/2021 11:26:33 Routine care 509913308 Z34.92 [id number] Radha Rosado MD [facility] [address],[place] [address] 01/28/2021 09:31:47 01/28/2021 12:21:48 Gestational diabetes mellitus 86207242 O24.410 O36.8330 Z3A.35 [id number] Radha Rosado MD [facility] [address],[place] [address] 01/28/2021 09:34:07 01/28/2021 10:40:08 Gestational diabetes mellitus class A1 08464452 O24.410 Diet teaching completed over the phone. [...] and pt verbalized understand ing. MICAH [place] [id number] Radha Rosado MD [facility] [address],[place] [address] 01/28/2021 09:39:14 01/29/2021 12:46:06 Routine care 999657269 Z34.83 IVF - in-v itro fertilization 2143904269 2102 O09.819 [id number] Radha Rosado MD [facility] [address],[place] [address] 02/04/2021 09:22:14 02/04/2021 11:53:50 Gestational diabetes mellitus class A1 05196710 O24.410 Diet teaching completed over the phone. [...] and pt verbalized understand ing. MICAH good [id number] Alexis Bailey MD [facility] [address],[place] [address] 02/04/2021 09:22:44 02/04/2021 12:12:02 condition affecting obstetrical care of mother 920461798 O36.8330 [id number] Radha Rosado MD [facility] [address],[place] [address] 02/04/2021 09:23:06 02/05/2021 14:26:13 Advanced maternal age 026190483 O09.523 Gestationa l diabetes mellitus class A1 79187187 O24.410 [id number] Alexis Bailey MD [facility] [address],[facility] [place] [address] 02/11/2021 09:38:41 02/11/2021 11:01:00 Gestational diabetes mellitus class A1 49529905 O24.410 Diet teaching completed over the phone. [...] and [place] [id number] Alexis Bailey MD [facility] [address],[facility] [place] [address] 02/11/2021 09:39:20 02/11/2021 11:59:34 Routine care 269130155 Z34.92 [id number] Alexis Bailey MD [facility] [address],[facility] [place] [address] 02/11/2021 09:40:24 02/11/2021 13:38:05 Gestational diabetes mellitus class A1 17819235 O24.410 Z3A.37 Diet teaching completed over the [...] and pt verbalized understand ing. MICAH good [id number] Radha Rosado MD [facility] [address],[facility] [place] [address] 02/18/2021 09:31:47 02/18/2021 10:37:11 Gestational diabetes mellitus class A1 04008601 O24.410 [id number] Radha Rosado MD [facility] [address],[place] [address] 02/18/2021 09:34:30 02/18/2021 11:21:07 Gestational diabetes mellitus class A1 16424260 O24.410 Z3A.37 Diet teaching completed over the [...] ing. MICAH good Gestationa l diabetes mellitus 35652269 O24.410 Z3A.38 [id number] Radha Rosado MD [facility] [address],[facility] [place] [place] [address] 02/18/2021 09:34:48 02/18/2021 11:21:19 Routine care 750212237 Z34.83 Gestationa l diabetes mellitus class A1 36987920 O24.410 [id number] Alexis Bailey MD [facility] [address],[place] [address] 02/28/2021 10:53:52 02/28/2021 11:47:48 Postoperative care 572116304 Z48.89 This patient is a 40-year-ol d female who presents for postop follow-up. She is 1 week postop from a delivery. Her incision is clean dry and intact. She has no complaints . Her bleeding is minimal. She denies any nausea, vomiting, fever, chills. She denies any chest pain or shortness of breath. Her baby is doing well. Her mood is good. [id number] Alexis Bailey MD [facility] [address],[place] [address] 03/12/2021 16:35:02 03/12/2021 17:06:57 Complication of obstetrical surgical wound [id number] O90.89 40-year-ol d female who is about 2 weeks post from a delivery. She had concerned about a a subcuticul ar suture that was exposed. It was a staple. The staple was removed. There was an area that was weeping slightly. I think it will be fine. She will observe closely. [id number] Alexis Bailey MD [facility] [address],[place] [address] 03/19/2021 15:14:24 03/19/2021 15:47:43 care 547055295 Z39.2 this patient is a 40-year-ol d female presents for follow-up. She is not bleeding. She is no longer breastfeed ing. She would like Mirena IUD. Her mood is good. The baby is well. She has not had sex. She will follow-up for IUD insertion. [id number] Alexis Bailey MD [facility] [address],[place] [address] 04/02/2021 14:47:10 04/02/2021 15:56:04 Screening procedure 44598103 Z13.9 Venereal d isease screening 988894526 Z11.3 Contracept ion care management 987142372 Z30.9 IUD was inserted. She tolerated well. She will follow-up in 1 month. [id number] Alexis Bailey MD [facility] [address],[facility] [place] [address] 04/29/2021 15:30:25 04/30/2021 09:58:50 Contraception care management 803149164 Z30.9 This patient is a 40-year-ol d who presents for IUD check. She has no complaints . She was examined with a speculum. The cervix appears normal, the IUD string appears normally placed, the IUD was not visible. She will follow up as needed. [id number] MELITA Shirley [facility] [address],[place] [address] 04/07/2023 15:33:04 04/07/2023 16:21:47 Gynecologic examination 19684712 Z01.419 WWEpap updatedSTI testing declinedUT D with PCP for routine labs Suggested Calcium with Vitamin D daily. Patient advised to get an annual flu shot in the fall and she could obtain at [facility] or [facility] clinic. Also to obtain TDap vaccinatio n [...] this email. Lesion of skin of breast [id number] 97350 L98.8 imaging orderedpre cautions discussed [id number] Alexis Bailey MD [facility] [address] [address] 08/26/2023 14:54:46 08/26/2023 15:21:01 [id number] Alexis Bailey MD [facility] [address],[place] [address] 08/26/2023 14:55:29 08/26/2023 16:27:21 Amenorrhea 42869370 N91.2 42-year-ol d female, multiparou s with [...] care next visit Venereal d isease screening 720603471 Z11.3 [id number] Alexis Bailey MD [facility] [address],[place] [address] 09/16/2023 13:52:18 09/16/2023 14:38:47 screening 442726665 Z36.82 Z3A.12 [id number] MD Meet [facility] [address],[place] [address] 09/20/2023 12:15:03 09/20/2023 13:41:25 Routine care 042268628 Z34.92 [id number] Alexis Bailey MD [facility] [address],[place] [address] 10/12/2023 10:57:25 10/12/2023 12:03:10 Anemia 548838149 D64.9 -mate rnal hemorrhage 95869973 O36.8999 this patient is a 42-year-ol d [...] ce. More than 50% was counseling . [id number] Alexis Bailey MD [facility] [address] [address] 08/12/2024 10:50:12 08/12/2024 12:59:08 Abnormal uterine bleeding 5488714179 9100 N93.9 Pain in pelvis 59666353 R10.2 Menorrhagia 419193943 N9 2.0 Endometrial polyp 288940 3969 N84.0 this patient is a 43-year-ol d female presents for intermenst rual bleeding, dysmenorrh ea, pelvic pain, endometria l polyps, menorrhagi a. She will obtain pelvic ultrasound and labs. She will return for discussion of treatment options. Spent over 30 minutes on her care in total. [id number] Alexis Bailey MD [facility] [address],[place] [address] 08/17/2024 11:12:44 08/17/2024 12:01:00 Abnormal uterine bleeding 4450567694 9100 N93.9 [id number] Alexis Bailey MD [facility] [address],[place] [address] 08/31/2024 10:51:56 08/31/2024 13:25:54 Irregular intermenstrual bleeding 38563663 N92.1 43-year-ol d female with intermenst rual bleeding. Discussed ultrasound results. Discussed laboratory evaluation . I spent more than 20 minutes on care in total. We went through her treatment options for intermenst rual bleeding. He agreed to Mirena IUD insertion next week. We discussed risks, benefits, and alternativ es. She was given precaution s instructio ns. [id number] Alexis Bailey MD [facility] [address] [address] 09/04/2024 12:09:18 09/04/2024 12:50:59 Insertion of intrauterine contraceptive device 73480255 Z30.430 She has been counseled on all [...] least 2 hours. She verbalized understand ing. [id number] Alexis Bailey MD [facility] [address],[place] [address] 10/11/2024 14:06:17 10/11/2024 15:04:42 Uses contraception 93226587 Z30.40 - Mirena IUD placed 09/04/24, due [...] Gonzalez Member ID Guarantor Name 10/08/2024 1 [employer] ([place] [id number] Stacey Gonzáles [id number] Stacey Gonzáles Notes Date Note Type [...] polyps. Alexis Bailey MD [address], [place], [address], [facility] 08/12/2024 11:38:54 08/31/2024 text/html 43-year-old fema le with intermenstrual bleeding. Discussed ultrasound results. Discussed laboratory evaluation. I spent more than 20 minutes on care in total. We went through her treatment options for intermenstrual bleeding. He agreed to Mirena IUD insertion next week. We discussed risks, benefits, and alternatives. She was given precautions instructions. Alexis Bailey MD [address], [place], [address], [facility] 08/31/2024 13:21:20 09/04/2024 text/html Patient presents for Mirena IUD insertion. Risks/benefits discussed. Informed consent obtained. UPT negative. SVITLANA CONTRERAS NP [address], [place], [address], [facility] 09/04/2024 12:49:43 10/11/2024 text/html Presents today f or IUD check. Had mirena IUD placed 09/04/24. Has had intermittent brown discharge and small blood clots since insertion. Patient has not had any cramping or pain. She is overall happy with the IUD, but concerned that this bleeding will remain. SVITLANA CONTRERAS NP [address], [place], [address], [facility] 10/11/2024 14:54:32 OBGyn Episode Ob Episode Information Episode Created Date Number of Fetuses Patient Bloodtype Patient rh Status Prepregnancy Weight lbs Domestic Partner Domestic Partner Phone Father Name Electron Beam Welder Status 09/08/19 20 1 CLOSED Fetus Data [...] Domestic Partner Domestic Partner Phone Father Name Electron Beam Welder Status 09/08/19 20 1 CLOSED Fetus Data [...] Domestic Partner Domestic Partner Phone Father Name Electron Beam Welder Status 09/08/19 20 1 CLOSED Fetus Data [...] Domestic Partner Domestic Partner Phone Father Name Electron Beam Welder Status 09/07/19 1 B Negative 223 CLOSED [...] Snomed Code Not e Advanced maternal age [id number] ASA per [facility] Obesity 988566360 37 wk ante testing - 1x/wk IVF - in-vitro fertilization [id number] Surrogate- [facility] - 12/04/20 1430. echo was WNL.36 wk testing Low lying placenta 11/05/2020 12/04/2020 SELFRESOLVED [id number] Complete Previa noted 10/09/20. Placenta location being followed by [facility]. REsolved Gestational diabetes mellitus 59266929 BS QID, Getting 1x/wk testing Deliveries by [id number] X2 - to repeat - Pt schd [...] Weight in lbs Pre/Post Dialysis Refused Weight 230.054992482137 BP Diastolic BP Location Tested BP Systolic [...] Weight in lbs Pre/Post Dialysis Refused Weight 228.903095527026 BP Diastolic BP Location Tested BP Systolic [...] Weight in lbs Pre/Post Dialysis Refused Weight 231.033046317600 BP Diastolic BP Location Tested BP Systolic [...] Weight in lbs Pre/Post Dialysis Refused Weight 233.604912788024 BP Diastolic BP Location Tested BP Systolic [...] Weight in lbs Pre/Post Dialysis Refused Weight 228.484380332412 BP Diastolic BP Location Tested BP Systolic [...] Weight in lbs Pre/Post Dialysis Refused Weight 225.660790881243 BP Diastolic BP Location Tested BP Systolic [...] Weight in lbs Pre/Post Dialysis Refused Weight 224.361396313261 BP Diastolic BP Location Tested BP Systolic [...] Weight in lbs Pre/Post Dialysis Refused Weight 224.203613568187 BP Diastolic BP Location Tested BP Systolic [...] Weight in lbs Pre/Post Dialysis Refused Weight 224.231450348768 BP Diastolic BP Location Tested BP Systolic [...] Weight in lbs Pre/Post Dialysis Refused Weight 224.847496615815 BP Diastolic BP Location Tested BP Systolic [...] Weight in lbs Pre/Post Dialysis Refused Weight 228.720570983639 BP Diastolic BP Location Tested BP Systolic BP Type 68 111 Fetus Heart Rate Present A 135 Fetus Movement A Yes Comments Doing very well. GBS done. NST reactive. BS perfect with fastings 69-86, Flowsheet [...] Weight in lbs Pre/Post Dialysis Refused Weight 227.728140982540 BP Diastolic BP Location Tested BP Systolic [...] Weight in lbs Pre/Post Dialysis Refused Weight 228.428768319303 BP Diastolic BP Location Tested BP Systolic [...] Weight in lbs Pre/Post Dialysis Refused Weight 214.202444146172 BP Diastolic BP Location Tested BP Systolic [...] Estim ated Date of Delivery false Thalassemia (English, British, Mediterranean, Or Background): MCV < 80 false Neural Tube Defect (Meningomyelocele, Spina Bifi da, Or Anencephaly) false Congenital Heart Defect false Down Syndrome false Nghia-Sachs (eg, Jain, Cajun, Monegasque-Alhambra) f alse Sawyer Disease false Sickle Cell Disease Or Trait () false Hemophilia Or Other Blood Disorders false Muscular Dystrophy false Cystic Fibrosis false Maiden's Chorea false Intellectual Disability/Autism false If Yes, [...] Domestic Partner Domestic Partner Phone Father Name Electron Beam Welder Status 09/20/19 24 1 B Negative 227 CLOSED Fetus Data First Name Last Name Admitted to NICU Weight (g) Sex Living Outcome Pediatric Complications Fetus ID Race Codes Race Delivery Type [id number] Problems Problem Notes Problem Name Start Date End Date Resolution Snomed Code Not e Deliveries by [id number] X3 IVF - in-vitro fertilization [id number] Surrogate [id number] discontinue Lovenox at 18 weeks Geovanny Calculation [...] Weight in lbs Pre/Post Dialysis Refused Weight 225.435588775494 BP Diastolic BP Location Tested BP Systolic [...] week ultrasound here and echo at [facility]. Discussed genetic testing. Discussed care in detail : Vaccinations, precautions. To begin care. Flowsheet Date 10/12/2023 Wright Score Blood Edema Fundus Height Fundus Units Glucose Ketones Leukocytes Nitrite Labor Signs Protein Cervic Dilation Cervic Effacement Cervic Station Type Weight in lbs Pre/Post Dialysis Refused Weight 220.312126667799 BP Diastolic BP Location Tested BP Systolic [...] Estim ated Date of Delivery false Thalassemia (English, British, Mediterranean, Or Background): MCV < 80 false Neural Tube Defect (Meningomyelocele, Spina Bifi da, Or Anencephaly) false Congenital Heart Defect false Down Syndrome false Nghia-Sachs (eg, Jain, Cajun, Monegasque-Alhambra) f alse Sawyer Disease false Sickle Cell [...]
[2024-11-23 23:24] LABS: Lupus dRVVT Screen 36 sec (< OR = 45); PTT-LA Screen 42 sec (< OR = 40)
[2024-11-25 08:23] LABS: Anti Cardio Antibody IgM <2.0 MPL-U/mL; Anti Cardiolipin Antibody IgA 2.0 APL-U/mL; Anti Cardiolipin Antibody IgG <2.0 GPL-U/mL
== END 2024-11-22 16:25 | disposition home or self-care (01) ==
LOC: ANHLAB 16:27
PROVIDERS: PCP Family Medicine; Visit Provider Internal Medicine Rheumatology
DX: R76.0 Raised antibody titer (principal)
CPT/HCPCS: 36415; 85613; 85730; 86147

== ENCOUNTER 2025-01-02 10:03 | Outpatient (CLI) | payer BC, SELFPAY ==
--- OUTSIDE RECORDS SUMMARY | 2025-01-02 10:44 | XMS_ITS | Clinical Summary ---
Author Organization [facility] [address] Address [address] [place] [address] Care Team Providers Care Paper Colorer Name Role Phone Mark Gonzalez MD Primary Care Provider [phone] Allergies Active Allergy Reactions Criticality Noted Date [...] Orders Only [facility] [address] [place] [address] Unknown, Notinfile from Last 3 Months Surgical [...] on file Legal Sex Female 5:58 AM BUILDING DISMANTLER Gender Identity Not on file Sexual Orientation [...] 82.1 kg (181 lb) 05/31/2018 1:08 PM BUILDING DISMANTLER Height 165.1 cm (5' 5) 05/31/2018 1:08 PM BUILDING DISMANTLER Body Mass Index 30.12 05/31/2018 1:08 PM BUILDING DISMANTLER Plan of Treatment Health Maintenance Due Date Last Done Comments Breast Cancer Screening-Mammogram 1982 Cervical Cancer Screening 1982 Depression Screening 1982 Hepatitis C Screening 1982 Varicella Vaccines (1 of 2 - 13+ 2-dose series) 12/12/1995 Hepatitis B Screening 2000 Regular Well Visit/Exam 18-64 2000 Pneumococcal vaccine <65 (1 of 2 - PCV) 2001 Zoster Vaccine (1 of 2) 2001 HPV Vaccines (1 - 3-dose SCDM series) 2009 Covid-19 Vaccine (3 - Pfizer risk series) 09/08/2020 08/11/2020, 07/18/2020 Influenza Vaccine (#1) 2025 02/23/2021 DTaP/Tdap/Td Vaccine (2 - Td or Tdap) 12/31/203002/2021 Procedures Procedure Name Priority Date/Time Associated Diagnosis Comments SURGICAL PATHOLOGY Routine 10/26/2024 11 :50 AM CDT from Last 3 Months Results * Surgical pathology (10/26/2024 11:50 AM CDT) Skin, shave biopsy 10/26/2024 11:50 AM CDT 10/27/2024 7:29 AM CDT Narrative 10/31/2024 2:20 PM CDT EPIC results best viewed via link to PDF [facility] [address] [place] [address], [address], [place] [address] [email or web address] Note to Patients: This report may contain [...] REPORTED: 10/31/2024 Submitting Physician Information: Josette Miranda, [facility], [facility] [id number], DERMATOPATHOLOGY REPORT RESULTS DIAGNOSIS: SKIN, LEFT INFERIOR [...] This is confirmed by an immunostain for Empire-1. latonya/[facility] By this signature, I attest that the [...] than those at the time of procedure. [facility] Clerical Data A; [address], [address]GO The characteristics of special, immunohistochemical, and immunofluorescence stains and in-situ hybridization tests performed by the [facility] were deemed acceptable in ongoing quality lab technician measures and in compliance with regulations drawn from the Clinical Laboratory Improvement Act yw3858 (CLIA '88). Control reactions for all stains performed were deemed adequate and appropriate by a pathologist prior to evaluation of patient tissue. Some diagnoses were rendered with the assistance of laboratory-developed tests utilizing analyte-specific reagents; the performance characteristic of these tests were determined by [facility] and are not cleared or approved by the [place] Food an Drug administration. Laboratory developed test may only be performed in a facility that is certified by the [facility] as a high-complexity laboratory under CLIA '88. These tests are used for clinical purposes and are not investigational. us Notinfile Unknown LAB PATHOLOGY ORDERABLES Final Result from Last 3 Months Insurance [employer] [place] [facility] CHOICE PLUS [employer] [facility] [place] Care Teams Paper Colorer Relationship Specialty Start Date End Date Mark Gonzalez MD [address] [place] [address] PCP - General Family Medicine 12/29/17
--- OUTSIDE RECORDS SUMMARY | 2025-01-02 10:44 | XMS_ITS | Patient Health Record ---
Author Organization [facility] [place] Address [address] [facility] [facility] [place] [address] Care Team Providers Care Interactive Developer Name Role Phone Roberth Sunshine [phone] Allergies No Known Allergies Reason For Referral [...] Status Risk Notes Problem Cervical post-laminectomy syndrome (475941516) Cervical post-laminectomy syndrome (M96.1) Active confirmed Problem Cervical spinal stenosis (04169997) Cervical spinal stenosis (M48.02) Active confirmed Problem Displacement of cervical intervertebral disc without myelopathy (97063146) Bulge of cervical disc without myelopathy (M50.20) Active confirmed Problem Cervical spondylosis without myelopathy (562221399) Spondylosis of cervicothoracic region w/o myelopathy or radiculopathy (M47.813) Active confirmed Plan Of Treatment Pending Test Test Name Order Date MRI : Cervical without Contrast 11/19/19 22 Medical (General) History Surgical History Surgery Date(Month/Year) section x3 cholecystectomy 08/2021 achilles tendon repair 12/2019 cervical fusion 05/2019 Hospitalization History Reason Date(Month/Year) section x3 cervical fusion 05/2019
--- OUTSIDE RECORDS SUMMARY | 2025-01-02 10:45 | XMS_ITS | Clinical Summary ---
Author Organization [facility] Address [address] [place] [address] Phone Care Team Providers Care Principal Archaeologist Name Role Phone Unavailable Primary Care Provider [...] or vomiting 20 Tablet 06/28/2024 9:57 AM HPLC CHEMIST 5 Active HYDROcodone-acet aminophen (NORCO) 5-325 mg tabletIndication s:Left knee pain, unspecified chronicity Take 1-2 Tablets by mouth every 6 hours as needed for Pain, Moderate. Max Daily Amount: 8 Tablets 20 Tablet 5 Active Active Problems No known active problems Encounters Date Type Department Care Team Description 12/26/2024 External Device Data [facility] ABSTRACTION Provider, Abstract 12/06/2024 External Device Data [facility] ABSTRACTION Provider, Abstract 12/05/2024 External Device Data [facility] ABSTRACTION Provider, Abstract 11/07/2024 External Device Data [facility] ABSTRACTION Provider, [...] on file Legal Sex Female 11:56 AM HPLC CHEMIST Gender Identity Not on file Sexual Orientation Not on file Last Filed Vital Signs Vital Sign Reading Time Taken Comments Blood Pressure 107/63 06/28/2024 1:00 PM HPLC CHEMIST Pulse 50 06/28/2024 1:00 PM HPLC CHEMIST Temperature 36.4 C (97.6 F) 06/28/2024 11:55 AM HPLC CHEMIST Respiratory Rate 13 06/28/2024 1:00 PM HPLC CHEMIST Oxygen Saturation 100% 06/28/2024 1:00 PM HPLC CHEMIST Inhaled Oxygen Concentration - - Weight 84.8 kg (187 lb) 06/28/2024 6:53 AM HPLC CHEMIST Height 165.1 cm (5' 5) 06/28/2024 6:53 AM HPLC CHEMIST Body Mass Index 31.12 06/28/2024 6:53 AM HPLC CHEMIST Plan of Treatment Health Maintenance Due Date Last Done Comments Pre-Diabetes and Diabetes Screening 1982 HPV VACCINES (1 - 3-dose series) 1997 DTAP/TDAP/TD VACCINES (1 - Tdap) 2001 HEPATITIS B VACCINES (1 of 3 - 19+ 3-dose series) 11/22 HPV/Cotest (21-29) 12/12/2003 CERVICAL CANCER SCREENING 2012 HPV/Cotest (30-65) 2012 PAP SMEAR 2012 BREAST CANCER SCREENING 2022 INFLUENZA VACCINE (#1) 2024 Medical Devices Implanted Type Area Skin Care Technician Device Identifier Shelf Expiration Date Model / Serial / Lot Barrier Interceed Adh 3x4in 4350 - [id number] Implanted:Qty: 1 on 03/12/2022 by Mitch Gee MD at [facility] Adhesion Barrier N/A: Uterus J[employer]J- [employer] [id number] 07/21/2026 [id number] / / [id number] Tightrope Ii Btb W/ Deploying Suture [id number] - [id number] Implanted:Qty: 1 on 06/28/2024 by Rodolfo Dinh MD at [facility] [place] Left: Knee [employer] 01/22/2028 [id number] / / [id number] Description:REQ [id number] Screw Mary Intfr [id number] - [id number] Implanted:Qty: 1 on 06/28/2024 by Rodolfo Dinh MD at [facility] Screw Left: Knee J&J- [employer] 10/21/2026 [id number] Description:Requisition # [id number] Acdf Plate And Screws Whole Patella Ligament Implanted:Qty: 1 on 06/28/2024 by Rodolfo Dinh MD at [facility] Left: Knee [employer] 09/19/[id number] / [id number] / Explanted Type Area Skin Care Technician Device Identifier Shelf Expiration Date Model / Serial / Lot Iud Explanted:Qty: 1 on 03/12/2022 by Mitch Gee MD at [facility] N/A: Uterus Insurance BCBS BLUE ACCESS/TRUE BLUE PPO RX [employer] Commercial [facility] BLUE ACCESS CHOICE Advance Directives For more information, please contact: [phone] * Full Code (Latest Code Status on File) Date Activated Date Inactivated Comments 06/28/2024 6:40 AM 06/28/2024 3:26 PM * Full Code Date Activated Date Inactivated Comments 03/12/2022 9:23 AM 03/12/2022 6:26 PM
--- OUTSIDE RECORDS SUMMARY | 2025-01-02 10:45 | XMS_ITS | Clinical Summary ---
Author Organization [facility] Address [address] [place] [address] Care Team Providers Care Lead Auditor Name Role Phone Mark Gonzalez MD Primary Care Provider [phone] Source Comments [facility],non[facility] Affiliates and Associated Physician Practices is amultiple site organization consisting of ambulatory clinics and hospital sitesin [place], [place], [place] and [place]. This disclosure is being madepursuant to the Care Everywhere program and may not contain all information available regarding this patient. Last updated 18.[facility] Allergies Active Allergy Reactions Criticality Noted Date [...] issues and opiate induced hyperalgesia (use of local company intermodal truck driver opiate/narcotic actually causing more pain rather than [...] without contraindication to use but will defer [place] [facility] treatment management decisions to her primary care [...] Assessment & Plan (10/11/2024 9:48 AM CDT): [id number]+ anticardiolipin antibody IGM + No current criteria [...] erythematosus or systemic inflammatory rheumatic disorder by [employer] (ACR) diagnostic classification criteria [...] Encounters Date Type Department Care Team Description 11/27/2024 Results Follow-Up [facility] - Rheumatology [address] [place] [address], [address] [place] [address] Karthik Courtney DO 10/11/2024 8:40 AM CDT Office Visit [facility] - Rheumatology 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 Gender Identity Not on file Sexual Orientation [...] 19+ 3-dose series) 2001 PAP SMEAR 12/12/2003 HPV VACCINE (1 - 3-dose SCDM series) 2009 COVID-19 VACCINE (3 - season) 2024 08/11/2020, 07/18/2020 INFLUENZA VACCINE (#1) 2025 02/23/2021 SCREENING FOR DIABETES 08/18/2027 , [...] Procedure Name Priority Date/Time Associated Diagnosis Comments CARDIOLIPIN ANTIBODY IGG/IGM PANEL Routine 11/27/2024 11:25 AM CDT Anticardiolipin antibody positive LUPUS ANTICOAGULANT PANEL Routine 11/27/2024 10:24 AM CDT Anticardiolipin antibody positive from Last 3 Months Results * CARDIOLIPIN ANTIBODY IGG/IGM PANEL (11/27/2024 11:25 AM CDT) Blood BLOOD SPECIMEN / Unknown us Karthik Courtney DO LAB - SEROLOGY ORDERABLES Final Result Performing Organization Address [facility] Co de Phone Number OTHER LAB * LUPUS ANTICOAGULANT PANEL (11/27/2024 10:24 AM CDT) Blood BLOOD SPECIMEN / Unknown us Karthik Courtney DO LAB - HEMATOLOGY ORDERABLES Edit ed Result - Final Performing Organization Address [facility] Co de Phone Number OTHER LAB from Last 3 Months Insurance MARELY ANTHEM [facility] SELF PAY NO INSURANCE Member Subscriber Plan / Payer (Ef fective for All Dates) Name:Marylin Navarrete Member ID:Not on file Relation to Subscriber:Not on file Name:MAYRLIN NAVARRETE Subscriber ID:Not on file Address: [address] [place] [address] Payer ID:Not on file Group ID:Not on file Type:Self Pay Address: [place] [facility] SELF PAY NO INSURANCE Member Subscriber Plan / Payer (Ef fective for All Dates) Name:Marylin Navarrete Member ID:Not on file Relation to Subscriber:Not on file Name:MARYLIN NAVARRETE Subscriber ID:Not on file Address: [address] [place] [address] Payer ID:Not on file Group ID:Not on file Type:Self Pay Address: [place] SELF PAY NO INSURANCE Member Subscriber Plan / Payer (Ef fective for All Dates) Name:Marylin Navarrete Member ID:Not on file Relation to Subscriber:Not on file Name:MARYLIN NAVARRETE Subscriber ID:Not on file Address: [address] [place] [address] Payer ID:Not on file Group ID:Not on file Type:Self Pay Address: [place], [place] Care Teams Lead Auditor Relationship Specialty Start Date End Date Mark Gonzalez MD [facility] [place] [address] PCP - General Family Medicine 05/02/18
--- OUTSIDE RECORDS SUMMARY | 2025-01-02 10:45 | XMS_ITS | Encounter Summary ---
Author Organization [facility] Address [address] [place] [address] Care Team Providers Care Debt Collection Specialist Name Role Phone Mark Gonzalez MD Primary Care Provider [phone] Reason for Visit * Reason Onset Date Comments Appointment 01/04/2024 Encounter Details Date Type Department Care Team (Late st Contact Info) Description 01/04/2024 Telephone [facility] - Centralized Scheduling [address] [place] [id number] Jayy Argueta MD [address] [id number] Appointment Social History Tobacco Use Types Packs/Day Years Used Date Smoking Tobacco: Never Smokeless Tobacco: Never Alcohol Use Standard Drinks/Week Comments Not Currently 0 (1 standard drink = 0.6 oz pur e alcohol) Comments No Sex and Gender Information Value Date Recorded Sex Assigned at Not on file Legal Sex Female 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 Pt can be reached at [phone]. documented in this encounter Plan of Treatment Not on file documented as of this encounter Visit Diagnoses Not on filedocumented in this encounter Care Teams Debt Collection Specialist Relationship Specialty Start Date End Date Mark Gonzalez MD [address] [id number] PCP - General Family Medicine 05/02/18 documented as of this encounter
--- OUTSIDE RECORDS SUMMARY | 2025-01-02 10:45 | XMS_ITS | Clinical Summary ---
Author Organization [facility] Address [address] [place] [address] Care Team Providers Care Chemical Lab Supervisor Name Role Phone Crow Jay MD [facility] Viki Covington MD Primary Care Provider [phone] Allergies Active Allergy Reactions Criticality Noted Date [...] Comments Blood Pressure 130/70 07/03/2019 9:31 AM MOTORCYCLE MECHANIC APPRENTICE Pulse 66 07/03/2019 9:31 AM MOTORCYCLE MECHANIC APPRENTICE Temperature 36.8 C (98.3 F) 06/14/2019 8:18 AM MOTORCYCLE MECHANIC APPRENTICE Respiratory Rate 18 06/08/2019 12:1 6 PM MOTORCYCLE MECHANIC APPRENTICE Oxygen Saturation 98% 07/03/2019 9:31 AM MOTORCYCLE MECHANIC APPRENTICE Inhaled Oxygen Concentration - - Weight 100.1 kg (220 lb 9.6 oz) 07/03/2019 9:31 AM MOTORCYCLE MECHANIC APPRENTICE Height 165.1 cm (5' 5) 07/03/2019 9:31 AM MOTORCYCLE MECHANIC APPRENTICE Body Mass Index 36.71 07/03/2019 9:31 AM MOTORCYCLE MECHANIC APPRENTICE Plan of Treatment Health Maintenance Due Date Last Done Comments Cervical Cancer Screening Pa p Smear (Age 30 to 64) Every 3 Years 1982 Annual Physical 1985 Hepatitis C 2000 DTaP, Tdap and Td Vaccines ( 1 - Tdap) 2001 Hepatitis B Vaccines (1 of 3 - 19+ 3-dose series) 2001 HPV Vaccines (1 - 3-dose SCD M series) 2009 Cervical Cancer Screening Pa p with HPV Testing (Age 30 to 64) Every 5 Years 2012 Cervical Cancer Screening with HPV 2012 Mammogram Screening 2022 COVID-19 Vaccine (2023-2 5 season) 2024 Meningococcal B Vaccine Aged Out No l [...] this topic Medical Devices Implanted Type Area Water Safety Instructor Device Identifier Shelf Expiration Date Model / Serial / Lot Putty Kassandra Matrix Dbm/Dbf Bone 6cc - [id number] Implanted:Qty : 1 on 06/07/2019 by Crow Jay MD at [facility] N/A: Spine Cervical [employer] 06/14/2019 [id number] / / [id number] Yuba Rachele Metalene 6mm Spacer Implanted:Qty : 1 on 06/07/2019 by Crow Jay MD at [facility] N/A: Spine Cervical SEASPINE [id number] 04/06/2023 [id number] / / [id number] Screw Variable Self Drilling Effie 14mm - [id number] Implanted:Qty : 4 on 06/07/2019 by Crow Jay MD at [facility] N/A: Spine Cervical LAKESHA SPINE - DIV LAKESHA HERMINIO [id number] / / Plate Cervical Aviator Effie 12mm - [id number] Implanted:Qty : 1 on 06/07/2019 by Crow Jay MD at [facility] N/A: Spine Cervical LAKESHA SPINE - DIV LAKESHA HERMINIO [id number] / / Explanted Type Area Water Safety Instructor Device Identifier Shelf Expiration Date Model / Serial / Lot Distration Pin 12mm - [id number] Explanted:Qty: 2 on 06/07/2019 at [facility] N/A: Spine Cervical MEDICAL INC [id number]-12-[id number] / / Insurance [address] Advance Directives * Full Code (Latest Code Status on File) Date Activated Date Inactivated Comments 06/07/2019 2:41 PM 06/08/2019 6:48 PM Care Teams Chemical Lab Supervisor Relationship Specialty Start Date End Date Viki Martin MD [facility] [place] [address] PCP - General RHEUMATOLOGY 06/13/19 Crow Jay MD Surgeon NEUROLOGICAL SURGERY 05/26/19
--- OUTSIDE RECORDS SUMMARY | 2025-01-02 10:45 | XMS_ITS ---
Author Organization [facility] ([address]) Address [address] [place] [address] Care Team Providers Care Frame Hand Name Role Phone Bal Antonio Unavailable [phone] ZZ-Migration, Provider Unavailable Unavailab le Allergies Allergen (clinical drug ingredient) Drug/Non Drug Allergy documented on EMR Reaction Allergy Type Onset Date Status Penicillin Urinary burning Drug Allergy Active REASON FOR VISIT [facility] Encounter Medications Medication SIG (Take, Route, Frequency, Duration) Notes Start Date End Date Status NASAL WASHES N/A DIRECTED INTRANASALLY NEEDED; Duration: 30 *Please review for potential replacement for e-prescription and drug interaction check* Active Methylphenidate 20 MG/8 HR 1 TAB(S) ORALLY ONCE A DAY; Duration: 30 DAY(S) *Please review and pick correct strength-formulat ion [facility] options. If intended option is not shown, discontinue and re-order from Quick Search* Active Fluticasone Propionate 50 MCG/ACT 2 spray(s) in each nostril BID; Duration: 30 day(s) Active Cetirizine HCl 10 MG 1 tab(s) orally once a day; Duration: 30 days Active Encounters Encounter Location Date Provider Diagnosis [facility] [place] [address] 11/06/2023 Provider ZZ-Migration Plan Of Treatment No Information Progress Notes * Stacey NAVARRETEDOB: 3 (44 yo F)Acc No.[id number]:11/06/2023 Patient: Stacey GRIDER Provider: Zoya Dimas :1980 A ge:42 Y S ex:Female Date:11/06/2023 Address:[place] [facility] Subjective: * Chief Complaints: * 1 . [facility] Encounter. * Medical History: * Medications: T aking Methylphenidate 20 MG/8 HR TABLET, EXTENDED RELEASE 1 TAB(S) ORALLY ONCE A DAY , Notes to Pharmacist: *Please review and pick correct [facility]. If intended option is not [...] * Electronic signature of Aure LEAL-Migration on 01/02/2025 at 10:44 AM CDT Sign off status: Pending * Provider: Zoya Dimas Date: 0 11/06/2023 Generated for Ja santana/Kalie/Sharath on: 0 01/02/2025 10:44 AM CDT
--- OUTSIDE RECORDS SUMMARY | 2025-01-02 10:45 | XMS_ITS | Encounter Summary ---
Author Organization [facility] Address [address] [place] [address] Care Team Providers Care Education Director Name Role Phone Mark Gonzalez MD Primary Care Provider [phone] Encounter Details Date Type Department Care Team (Late st Contact Info) Description 11/27/2024 Results Follow-Up [facility] - Rheumatology [address], [address] [place] [address] Karthik Courtney DO 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
--- OUTSIDE RECORDS SUMMARY | 2025-01-02 10:45 | XMS_ITS | Patient Health Record ---
Author Organization [facility] [facility] ([address]) Address [address] [place] [address] Care Team Providers Care It Integration Architect Name Role Phone Bal Antonio Unavailable [phone] Allergies Allergen (clinical drug ingredient) Drug/Non Drug [...] review and pick correct strength-formulat ion from [facility] options. If intended option is not shown, [...] Status Risk Notes Problem Chronic allergic conjunctivitis (56161661) Other chronic allergic conjunctivitis (H10.45) Active confirmed Problem Allergic rhinitis caused by pollen (disorder) (68882158) Allergic rhinitis due to pollen (J30.1) Active confirmed Problem Allergic rhinitis (26618821) Other allergic rhinitis (J30.89) Active confirmed Problem Allergic rhinitis caused by animal hair and dander (799753247195524) Allergic rhinitis due to animal (cat) (dog) hair and dander (J30.81) Active confirmed Problem Elevated blood pressure reading without diagnosis of hypertension (703033678) Elevated blood-pressure reading, without diagnosis of hypertension (R03.0) Active confirmed Problem Pruritus (468938864) Pruritus, unspecified (L29.9) Active confirmed Problem Allergy to penicillin (51097055) Allergy status to penicillin (Z88.0) Active confirmed Problem Intolerance to lactose (finding) (925502855) Lactose intolerance, unspecified (E73.9) Active confirmed Plan Of Treatment No Information Insurance Providers Payer Name Payer Address Payer Phone Subscriber Number Group Number Insured Name Patient Relationship to Insured Coverage Start Date Coverage End Date [facility] [id number] [place] [address] [id number] Stacey Gonzáles Self - patient is the insured Medical (General) History Medical History History ICD Code acdf Torn ACL Csection 2011, 11/2013, 02/2021 Gall bladder removal Surgical History Surgery Date(Month/Year) ACDF 05/2019 ACL 12/2019 C sections gall bladder 10/2021
== END 2025-01-02 10:04 | disposition home or self-care (01) ==
PROVIDERS: PCP Family Medicine; Visit Provider Obstetrics & Gynecology
DX: N92.6 Irregular menstruation, unspecified (principal)
CPT/HCPCS: 36415; 86850; 86900; 86901

== ENCOUNTER 2025-01-03 01:47 | Day surgery (SDC) | payer BC, SELFPAY ==
[2024-12-28 09:16] VITALS: BMI 34.2
--- NOTE | 2024-12-28 09:24 | PC.NURSE ---
Report to the Outpatient Waiting Room, entrance under the green pavilion located off [facility], at time _1000_ on date _[id number]_. Planned Procedure Time: _1200_.? Time changes happen often and if your time is changed the preop area will call you the afternoon before. - You and your visitor will be asked to self-screen and do not enter if you have any COVID symptoms. Please call surgeon if you need to reschedule. - A mask is optional within the hospital at this time. Patients may have clear liquids (water, carbonated beverages, clear teas, apple juice) until 3 hours prior to surgery with a maximum of 20 ounces. - No food from midnight until time of surgery and no smoking, or chewing tobacco (or any form of nicotine). No chewing gum, candy or mints. Take only the following medications with a SIP of water on the morning of surgery: ___None____ DO NOT STOP ANY OF YOUR OTHER PRESCRIPTION MEDICATIONS PRIOR TO SURGERY EXCEPT THE FOLLOWING Hold all vitamins and supplements for 3 days per anesthesiologist. Medications to discontinue per physician Date to take last dose Please no make-up, nail bulgarian, hairspray, perfume, deodorant, or body powder the day of surgery.? No jewelry (including any body piercings) or valuables the day of surgery, leave them at home.? Please take a shower or bath the night before, or the morning of, surgery with an antibacterial soap.? Wear comfortable, loose fitting clothing.? - Jewelry must be removed prior to entering the operating room.? Rings and piercings that are not removed may be cut off. - The hospital will not accept responsibility for valuables.? - Please leave all valuables, including medications, at home the day of surgery. If you are going home after surgery, a licensed delivery truck driver heavy must drive you home.? - NO public transportation without another adult if you receive anesthesia. - We recommend that an adult stay with you for 24 hours following discharge. - We also recommend that you do not drive, make important decision, drink alcoholic beverages, or take any drugs that were not prescribed by your health care provider for at least 24 hours after your discharge time. Follow any additional instructions given to you from your surgeon. Telephone instructions given to __Stacey__and asked if any additional questions and then verbalized understanding. Patient advised to call surgeon office or pre surgery nurse liaison [phone] if any additional questions.
[2025-01-03] VITALS (12 sets, daily range): BP systolic 86–116; BP diastolic 50–69; PULSE 58–70; RESP 10–18; TEMP 36.3–36.7; O2SAT 92–100
--- OUTSIDE RECORDS SUMMARY | 2025-01-03 01:56 | XMS_ITS | Patient Health Record ---
Author Organization [facility] Address [address] [facility] [place] [address] Care Team Providers Care Fighter Pilot Name Role Phone Roberth Sunshine [phone] Allergies No Known Allergies Reason For Referral [...] Status Risk Notes Problem Cervical post-laminectomy syndrome (986838880) Cervical post-laminectomy syndrome (M96.1) Active confirmed Problem Cervical spinal stenosis (88806777) Cervical spinal stenosis (M48.02) Active confirmed Problem Displacement of cervical intervertebral disc without myelopathy (82637664) Bulge of cervical disc without myelopathy (M50.20) Active confirmed Problem Cervical spondylosis without myelopathy (947829930) Spondylosis of cervicothoracic region w/o myelopathy or radiculopathy (M47.813) Active confirmed Plan Of Treatment Pending Test Test Name Order Date MRI : Cervical without Contrast 11/19/19 22 Medical (General) History Surgical History Surgery Date(Month/Year) section x3 cholecystectomy 08/2021 achilles tendon repair 12/2019 cervical fusion 05/2019 Hospitalization History Reason Date(Month/Year) section x3 cervical fusion 05/2019
--- OUTSIDE RECORDS SUMMARY | 2025-01-03 01:56 | XMS_ITS | Clinical Summary ---
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 [address] [place] [address], [address], [place] [address] [email or web address] Note to Patients: This report [...] REPORTED: 10/31/2024 Submitting Physician Information: Josette Miranda, [facility], [facility] [place] [id number], DERMATOPATHOLOGY REPORT RESULTS DIAGNOSIS: SKIN, LEFT INFERIOR [...] This is confirmed by an immunostain for [place]-1. [facility] By this signature, I attest [...] than those at the time of procedure. [facility] Clerical Data A; 96067, 35630-BM The characteristics of special, immunohistochemical, and immunofluorescence stains and in-situ hybridization tests performed by the [facility] were deemed acceptable in ongoing quality assurance qa lab technician measures and in compliance with regulations drawn from the Clinical Laboratory Improvement Act ku0920 (CLIA '88). Control reactions for all stains performed were deemed adequate and appropriate by a pathologist prior to evaluation of patient tissue. Some diagnoses were rendered with the assistance of laboratory-developed tests utilizing analyte-specific reagents; the performance characteristic of these tests were determined by [facility] and are not cleared or approved by the US Food an Drug administration. Laboratory developed test may only be performed in a facility that is certified by the [facility] as a high-complexity laboratory under CLIA '88. These tests are used for clinical purposes and are not investigational. us Notinfile Unknown LAB PATHOLOGY ORDERABLES Final Result from Last 3 Months Insurance [place] [facility] CHOICE PLUS [employer] [facility] [place] Care Teams Tin Tie Machine Operator Automatic Relationship Specialty Start Date End Date Mark Gonzalez MD [address] [place] [address] PCP - General Family Medicine 12/29/17
--- OUTSIDE RECORDS SUMMARY | 2025-01-03 01:57 | XMS_ITS | Clinical Summary ---
Author Organization [facility] Address [address] [facility] [place] [address] Phone Care Team Providers Care Sanitation Director Name Role Phone Unavailable Primary Care Provider [...] or vomiting 20 Tablet 06/28/2024 9:57 AM SBA BUSINESS DEVELOPMENT OFFICER 5 Active HYDROcodone-acet aminophen (NORCO) 5-325 mg [...] on file Legal Sex Female 11:56 AM SBA BUSINESS DEVELOPMENT OFFICER Gender Identity Not on file Sexual Orientation Not on file Last Filed Vital Signs Vital Sign Reading Time Taken Comments Blood Pressure 107/63 06/28/2024 1:00 PM SBA BUSINESS DEVELOPMENT OFFICER Pulse 50 06/28/2024 1:00 PM SBA BUSINESS DEVELOPMENT OFFICER Temperature 36.4 C (97.6 F) 06/28/2024 11:55 AM SBA BUSINESS DEVELOPMENT OFFICER Respiratory Rate 13 06/28/2024 1:00 PM SBA BUSINESS DEVELOPMENT OFFICER Oxygen Saturation 100% 06/28/2024 1:00 PM SBA BUSINESS DEVELOPMENT OFFICER Inhaled Oxygen Concentration - - Weight 84.8 kg (187 lb) 06/28/2024 6:53 AM SBA BUSINESS DEVELOPMENT OFFICER Height 165.1 cm (5' 5) 06/28/2024 6:53 AM SBA BUSINESS DEVELOPMENT OFFICER Body Mass Index 31.12 06/28/2024 6:53 AM SBA BUSINESS DEVELOPMENT OFFICER Plan of Treatment Health Maintenance Due Date [...] (#1) 2024 Medical Devices Implanted Type Area Vanstone Machine Operator Device Identifier Shelf Expiration Date Model / Serial / Lot Barrier Interceed Adh 3x4in 4350 - [id number] Implanted:Qty: 1 on 03/12/2022 by Mitch Gee MD at [facility] Adhesion Barrier N/A: Uterus J&J- [employer] INC [id number] 07/21/2026 4350 / / [id number] Tightrope Ii Btb W/ Deploying Suture [id number] - [id number] Implanted:Qty: 1 on 06/28/2024 by Rodolfo iDnh MD at [facility] [place] Left: Knee [employer] INC 01/22/2028 [id number]-[id number] / / [id number] Description:REQ [id number] Screw Mary Intfr [id number] 200568 - [id number] Implanted:Qty: 1 on 06/28/2024 by Rodolfo Dinh MD at [facility] Screw Left: Knee J&J- DEPUY MITEK INC 10/21/2026 [id number] Description:Requisition # [id number] Acdf Plate And Screws Whole Patella Ligament Implanted:Qty: 1 on 06/28/2024 by Rodolfo Dinh MD at [facility] Left: Knee LIFENET 09/19/[id number] / [id number] / Explanted Type Area Vanstone Machine Operator Device Identifier Shelf Expiration Date Model / Serial / Lot Iud Explanted:Qty: 1 on 03/12/2022 by Mitch Gee MD at [facility] N/A: Uterus Insurance BCBS BLUE ACCESS/TRUE BLUE PPO RX PR[employer]ER[employer] Commercial [facility] BLUE ACCESS CHOICE Advance Directives For more information, please contact: [phone] * Full Code (Latest Code Status on File) Date Activated Date Inactivated Comments 06/28/2024 6:40 AM 06/28/2024 3:26 PM * Full Code Date Activated Date Inactivated Comments 03/12/2022 9:23 AM 03/12/2022 6:26 PM
--- OUTSIDE RECORDS SUMMARY | 2025-01-03 01:57 | XMS_ITS | Clinical Summary ---
Author Organization [facility] Address [address] [place] [address] Care Team Providers Care Operations Research Scientist Name Role Phone Mark Gonzalez MD Primary Care Provider [phone] Source Comments [facility] Affiliates and Associated Physician Practices is amultiple site organization consisting of ambulatory clinics and hospital sitesin [place], [place], [place] and [place]. This disclosure is being madepursuant to the Care Everywhere program and may not contain all information available regarding this patient. Last updated 18.[facility] Allergies Active Allergy Reactions Criticality Noted Date [...] issues and opiate induced hyperalgesia (use of emt intermediate opiate/narcotic actually causing more pain rather than [...] without contraindication to use but will defer correction treatment management decisions to her primary care [...] Assessment & Plan (10/11/2024 9:48 AM CDT): [id number] anticardiolipin antibody IGM + No current criteria [...] erythematosus or systemic inflammatory rheumatic disorder by [employer] (ACR) diagnostic classification criteria [...] Department Care Team Description 11/27/2024 Results Follow-Up [facility] - Rheumatology [address] [place] [address], [address] [place] [address] Karthik Courtney DO 10/11/2024 8:40 AM CDT Office Visit [facility] - Rheumatology [address], [address] [place] [address] Karthik Courtney DO Fibromyalgia syndrome (Primary Dx); [...] on file Legal 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 Gender Identity Not on file Sexual Orientation [...] SEROLOGY ORDERABLES Final Result Performing Organization Address [facility] Co de Phone Number OTHER LAB * LUPUS ANTICOAGULANT PANEL (11/27/2024 10:24 AM CDT) Blood BLOOD SPECIMEN / Unknown us Karthik Courtney DO LAB - HEMATOLOGY ORDERABLES Edit ed Result - Final Performing Organization Address [facility] Co de Phone Number OTHER LAB from Last 3 Months Insurance MARELY ANTHEM [facility] SELF PAY NO INSURANCE Member Subscriber Plan / Payer (Ef fective for All Dates) Name:Marylin Navarrete Member ID:Not on file Relation to Subscriber:Not on file Name:MARYLIN NAVARRETE Subscriber ID:Not on file Address: [address] [place] [id number] Payer ID:Not on file Group ID:Not on file Type:Self Pay Address: [place] [facility] SELF PAY NO INSURANCE Member Subscriber Plan / Payer (Ef fective for All Dates) Name:Marylin Navarrete Member ID:Not on file Relation to Subscriber:Not on file Name:MARYLIN NAVARRETE Subscriber ID:Not on file Address: [address] [place] [address] Payer ID:Not on file Group ID:Not on file Type:Self Pay Address: [place], [place] SELF PAY NO INSURANCE Member Subscriber Plan / Payer (Ef fective for All Dates) Name:Marylin Navarrete Member ID:Not on file Relation to Subscriber:Not on file Name:MARYLIN NAVARRETE Subscriber ID:Not on file Address: [address] [place] [address] Payer ID:Not on file Group ID:Not on file Type:Self Pay Address: [place], [place] Care Teams Operations Research Scientist Relationship Specialty Start Date End Date Mark Gonzalez MD [facility] [place] [address] PCP - General Family Medicine 05/02/18
--- OUTSIDE RECORDS SUMMARY | 2025-01-03 01:57 | XMS_ITS | Continuity of Care Document ---
Author Organization [facility] Address [address] [place] [address] Phone Care Team Providers Care Parts Runner Name Role Phone No Information Unavailable Unavailable [...] Encounter [facility], [facility] [place], [place], [id number], tel:[phone] No Information Jan- 2200 7 No Information [facility], [address] [place] [address], [id number], tel:[phone] No Information Jan- 2200 7 Dilcia Johnston. [facility] [place], [place], [facility], . tel:[phone] Referring Provider: Black Can MD B, [address] [place] [address] [address], [place], [address]. tel:[phone] Family History Family Member Type Diagnosis Age [...]
--- OUTSIDE RECORDS SUMMARY | 2025-01-03 01:57 | XMS_ITS | Encounter Summary ---
Author Organization [facility] Address [address] [place] [address] Care Team Providers Care Goggles Assembler Name Role Phone Mark Gonzalez MD Primary Care Provider [phone] Encounter Details Date Type Department Care Team (Late st Contact Info) Description 11/27/2024 Results Follow-Up [facility] - Rheumatology [address], [address] [place] [address] Karthik Courtney DO [address] [place] [address] Social History Tobacco Use Types [...] on file Legal Sex Female 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
--- OUTSIDE RECORDS SUMMARY | 2025-01-03 01:57 | XMS_ITS | Encounter Summary ---
Author Organization [facility] Address [address] [place] [address] Care Team Providers Care Biomedical Engineer Name Role Phone Mark Gonzalez MD Primary Care Provider [phone] Reason for Visit * Reason Onset Date Comments Appointment 01/04/2024 Encounter Details Date Type Department Care Team (Late st Contact Info) Description 01/04/2024 Telephone [facility] - Centralized Scheduling [address] [place] [id number] Jayy Argueta MD [address] [id number] Appointment Social History Tobacco Use Types Packs/Day Years Used Date Smoking Tobacco: Never Smokeless Tobacco: Never Alcohol Use Standard Drinks/Week Comments Not Currently 0 (1 standard drink = 0.6 oz pur e alcohol) Comments No Sex and Gender Information Value Date Recorded Sex Assigned at Not on file Legal 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 Pt can be reached at [phone]. documented in this encounter Plan of Treatment Not on file documented as of this encounter Visit Diagnoses Not on filedocumented in this encounter Care Teams Biomedical Engineer Relationship Specialty Start Date End Date Mark Gonzalez MD [address] [id number] PCP - General Family Medicine 05/02/18 documented as of this encounter
--- OUTSIDE RECORDS SUMMARY | 2025-01-03 01:57 | XMS_ITS ---
Author Organization [facility] ([address]) Address [address] [place] [address] Care Team Providers Care Medicinal Chemist Name Role Phone Bal Antonio Unavailable [phone] ZZ[facility], Provider Unavailable Unavailab le Allergies Allergen (clinical drug ingredient) Drug/Non Drug Allergy documented on EMR Reaction Allergy Type Onset Date Status Penicillin Urinary burning Drug Allergy Active REASON FOR VISIT [facility] Encounter Medications Medication SIG (Take, Route, Frequency, Duration) Notes Start Date End Date Status NASAL WASHES N/A DIRECTED INTRANASALLY NEEDED; Duration: 30 *Please review for potential replacement for e-prescription and drug interaction check* Active Methylphenidate 20 MG/8 HR 1 TAB(S) ORALLY ONCE A DAY; Duration: 30 DAY(S) *Please review and pick correct strength-formulat ion from [facility] options. If intended option is not shown, discontinue and re-order from Quick Search* Active Fluticasone Propionate 50 MCG/ACT 2 spray(s) in each nostril BID; Duration: 30 day(s) Active Cetirizine HCl 10 MG 1 tab(s) orally once a day; Duration: 30 days Active Encounters Encounter Location Date Provider Diagnosis [facility] [address] 11/06/2023 Provider ZZ-Migration Plan Of Treatment No Information Progress Notes * Stacey NAVARRETEDOB: 3 (44 yo F)Acc No.[id number]:11/06/2023 Patient: Stacey GRIDER Provider: Zoya Dimas :1980 A ge:42 Y S ex:Female Date:11/06/2023 Address:[facility] Subjective: * Chief Complaints: * 1 . [facility] Con[facility] Encounter. * Medical History: * Medications: T aking Methylphenidate 20 MG/8 HR TABLET, EXTENDED RELEASE 1 TAB(S) ORALLY ONCE A DAY , Notes to Pharmacist: *Please review and pick [facility]. If intended option is not shown, [...] * Electronic signature of Aure LEAL-Migration on 01/03/2025 at 01:56 AM CDT Sign off status: Pending * Provider: Zoya Dimas Date: 11/06/2023 Generated for Ja santana/Kalie/Sharath on: 01/03/2025 01:56 AM CDT
--- OUTSIDE RECORDS SUMMARY | 2025-01-03 01:57 | XMS_ITS | Patient Health Record ---
Author Organization [facility] [place] ([address]) Address [address] [place] [address] Care Team Providers Care Data Management Engineer Name Role Phone Bal Antonio Unavailable [phone] Allergies Allergen (clinical drug ingredient) Drug/Non Drug [...] review and pick correct strength-formulat ion from [facility] options. If intended option is not shown, [...] Status Risk Notes Problem Chronic allergic conjunctivitis (48213995) Other chronic allergic conjunctivitis (H10.45) Active confirmed Problem Allergic rhinitis caused by pollen (disorder) (88672304) Allergic rhinitis due to pollen (J30.1) Active confirmed Problem Allergic rhinitis (08046215) Other allergic rhinitis (J30.89) Active confirmed Problem Allergic rhinitis caused by animal hair and dander (666872805568793) Allergic rhinitis due to animal (cat) (dog) hair and dander (J30.81) Active confirmed Problem Elevated blood-pressure reading, without diagnosis of hypertension (R03.0) Active confirmed Problem Pruritus (193762270) Pruritus, unspecified (L29.9) Active confirmed Problem Allergy to penicillin (98955094) Allergy status to penicillin (Z88.0) Active confirmed Problem Intolerance to lactose (finding) (417289857) Lactose intolerance, unspecified (E73.9) Active confirmed Plan Of Treatment No Information Insurance Providers Payer Name Payer Address Payer Phone Subscriber Number Group Number Insured Name Patient Relationship to Insured Coverage Start Date Coverage End Date [facility] [address] [place] [address] [phone] [id number] Stacey Gonzáles Self - patient is the insured Medical (General) History Medical History History ICD Code acdf Torn ACL Csection 2011, 11/2013, 02/2021 Gall bladder removal Surgical History Surgery Date(Month/Year) ACDF 05/2019 ACL 12/2019 C sections gall bladder 10/2021
--- OUTSIDE RECORDS SUMMARY | 2025-01-03 01:57 | XMS_ITS | Clinical Summary ---
Author Organization [facility] Address [address] [place] [address] Care Team Providers Care Production Material Handler Name Role Phone Crow Jay MD [facility] Viki Covington MD Primary Care Provider [phone] Allergies Active Allergy Reactions Criticality Noted Date [...] Comments Blood Pressure 130/70 07/03/2019 9:31 AM DENTAL SALES REPRESENTATIVE Pulse 66 07/03/2019 9:31 AM DENTAL SALES REPRESENTATIVE Temperature 36.8 C (98.3 F) 06/14/2019 8:18 AM DENTAL SALES REPRESENTATIVE Respiratory Rate 18 06/08/2019 12:1 6 PM DENTAL SALES REPRESENTATIVE Oxygen Saturation 98% 07/03/2019 9:31 AM DENTAL SALES REPRESENTATIVE Inhaled Oxygen Concentration - - Weight 100.1 kg (220 lb 9.6 oz) 07/03/2019 9:31 AM DENTAL SALES REPRESENTATIVE Height 165.1 cm (5' 5) 07/03/2019 9:31 AM DENTAL SALES REPRESENTATIVE Body Mass Index 36.71 07/03/2019 9:31 AM DENTAL SALES REPRESENTATIVE Plan of Treatment Health Maintenance Due Date [...] this topic Medical Devices Implanted Type Area Arrow Point Attacher Device Identifier Shelf Expiration Date Model / Serial / Lot Putty Kassandra Matrix Dbm/Dbf Bone 6cc - [id number] Implanted:Qty : 1 on 06/07/2019 by Crow Jay MD at [facility] N/A: Spine Cervical [employer] 06/14/2019 [id number] / / [id number] [place]le Metalene 6mm Spacer Implanted:Qty : 1 on 06/07/2019 by Crow Jay MD at [facility] N/A: Spine Cervical SE[employer]INE [id number] 04/06/2023 [id number] / / [id number] Screw Variable Self Drilling Rose Bud 14mm - [id number] Implanted:Qty : 4 on 06/07/2019 by Crow Jay MD at [facility] N/A: Spine Cervical LAKESHA SPINE - DIV LAKESHA HERMINIO [id number] / / Plate Cervical Aviator Rose Bud 12mm - [id number] Implanted:Qty : 1 on 06/07/2019 by Crow Jay MD at [facility] N/A: Spine Cervical LAKESHA SPINE - DIV LAKESHA HERMINIO [id number] / / Explanted Type Area Arrow Point Attacher Device Identifier Shelf Expiration Date Model / Serial / Lot Distration Pin 12mm - [id number] Explanted:Qty: 2 on 06/07/2019 at [facility] N/A: Spine Cervical MED[employer] [id number] / / Insurance Advance Directives * Full Code (Latest Code Status on File) Date Activated Date Inactivated Comments 06/07/2019 2:41 PM 06/08/2019 6:48 PM Care Teams Production Material Handler Relationship Specialty Start Date End Date Viki Martin MD [facility] [place] [address] PCP - General RHEUMATOLOGY 06/13/19 Crow Jay MD Surgeon NEUROLOGICAL SURGERY 05/26/19
[2025-01-03] MEDS: ACETAMINOPHEN 500 MG TABLET 1000 MG PO ×3 (10:12→23:22)
[2025-01-03] MEDS: LACTATED RINGERS 1,000 ML 30 ML IV CONT ×2 (10:15→15:40)
[2025-01-03] MEDS: KETOROLAC 15 MG/ML VIAL (*BKC) IV PUSH (10:20)
--- NOTE | 2025-01-03 11:23 | SUR.PREOP ---
1115 PT INFORMED OF POTENTIAL DELAY IN SURGERY TIME, DENIES NEEDS AT THIS TIME.
--- NOTE | 2025-01-03 12:00 | WPDHPUPDATE1 ---
History and Physical Update Update Date/Time: 01/03/25 12:00 History and Physical has been reviewed, including an updated exam of the patient. There are NO changes in the patient's condition. Risks, benefits, and alternatives have been discussed and questions answered. Patient agrees to proceed with procedure.
--- NOTE | 2025-01-03 12:04 | PM.IMHP ---
H&P: HPI History of Present Illness Date/Time: 01/03/25 12:04 Chief Complaint: Heavy vaginal bleeding Narrative: This patient is a 44-year-old female with severe menorrhagia. We agreed to perform robotic assisted hysterectomy with bilateral salpingectomy. She understands risks, benefits, and alternatives. She has completed informed consent process is ready to proceed The patient understands the details of the procedure. The procedure has been explained in detail. She understands the risks. She understands that injuries may occur that result in hospitalization, more surgery, and severe illness. She understands risk of hemorrhage and infection. She denies any chest pain or shortness of breath. She denies any nausea, vomiting, fever, chills. Review of Systems Review of Systems: All systems reviewed & are unremarkable except as noted in HPI and below Constitutional: Constitutional: Denies chills, Denies fatigue, Denies fever(s) and Denies weakness Eyes: Eyes: Denies blurry vision, Denies change in vision, Denies loss of peripheral vision, Denies loss of vision, Denies other visual disturbances and Denies eye pain ENT: Denies vertigo, Denies dizziness, Denies hearing loss, Denies mouth pain, Denies nasal obstruction, Denies neck mass and Denies neck pain Cardiovascular: Cardiovascular: Denies chest pain, Denies diaphoresis, Denies syncope, Denies leg edema and Denies dyspnea Respiratory: Respiratory: Denies chest congestion, Denies cough, Denies hemoptysis, Denies dyspnea and Denies wheezing Gastrointestinal: Gastrointestinal: Denies abdominal pain, Denies constipation, Denies diarrhea, Denies nausea and Denies vomiting Genitourinary: Genitourinary: Denies hematuria, Denies change in libido, Denies nocturia, Denies genital lesions, Denies flank pain and Denies urinary urgency Musculoskeletal: Musculoskeletal: Denies abnormal gait, Denies back pain, Denies myalgias, Denies arthralgias, Denies joint swelling, Denies muscle weakness and Denies neck pain Integumentary/Breasts: Skin/Breast: Denies swelling, Denies breast pain, Denies breast mass, Denies dry skin, Denies nipple discharge, Denies unusual bruising and Denies jaundice Neurologic: Denies Neuro-related abnormal movements, Denies Abnormal speech present, Denies abnormal gait, Denies behavioral changes, Denies confusion, Denies vertigo, Denies dizziness, Denies syncope, Denies loss of vision, Denies memory loss, Denies convulsions and Denies weakness Psychiatric: Psychiatric: Denies abnormal sleep pattern, Denies behavioral changes, Denies change in libido, Denies confusion, Denies depression, Denies anhedonia and Denies memory loss Endocrine: Endocrine: Reports no additional endocrine complaints, Denies change in libido and Denies fatigue Hematologic/Lymphatic: Hematologic/Lymphatic: Reports no additional hematologic/lymphatic complaints Allergic/Immunologic: Allergic/Immunologic: Reports no additional allergic/immunologic complaints and Denies wheezing PMFSH Past Medical History Medical History Anxiety Depression Gestational diabetes Herniated disc Mastitis Nausea and vomiting in adult Surgical History Surgical History History of section History of fusion of cervical spine C5-C6 History of repair of ACL Hx laparoscopic cholecystectomy with IOC 10/08/21 Family History Family History Mother ALS (amyotrophic lateral sclerosis) Father Brain cancer Social History Social History Social History: Ms. Gonzáles lives at home with her significant other and her 2 children. She is independent in her daily activities. 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 Shoemaker. She designates her significant other, Sanjay, as her surrogate decision maker. She would like to be a full code. Smoking packs per day: 1 Smoking cigarettes per day: 20.0 Years smoked: 7 Smoking pack-years: 7.00 Smoking status: Former smoker Tobacco type: cigarettes Smoking end date: 12/29/11 Alcohol intake: current Alcohol use details: very rarely Substance use: never Substance use type: does not use Living arrangements: with family Gender identity (if verbalized by the patient): Female Spiritual care concerns: No Meds Home Medications and Allergies Home Medications ?Medication ?Instructions ?Recorded ?Confirmed ?Type No Home Medications 12/28/24 12/28/24 History Allergies Allergy/AdvReac Type Severity Reaction Status Date / Time Penicillins AdvReac Mild RASH Verified 01/03/25 10:21 Vital Signs Vital Signs - 24 hr 01/03/25 09:55 Temperature 98.0 F Pulse Rate 64 Respiratory Rate 16 Blood Pressure 102/63 Pulse Oximetry 100 Oxygen Delivery Room Air Exam Const: General: cooperative, healthy appearing, comfortable and no acute distress Orientation/consciousness: oriented to person, oriented to place and oriented to time HENMT: Head: normal to inspection Ears: external ears normal Face/Nose/Sinus: Normal external nose present and normal facial exam Face and sinus: normal facial exam Eyes: General: appearance normal, both eyes and all related structures Neck: Neck: normal visual inspection, trachea midline and supple Resp: Auscultation: clear to auscultation bilaterally, no crackles, no rales, no rhonchi and no wheezes Cardio: Rate: regular rate Rhythm: regular rhythm Heart sounds: no click, no murmurs and no rubs GI: GI Palp: No abdominal tenderness, No Soft to palpation, No Tenderness to palpation present (GI) and No Palpable mass present Auscultation: normal bowel sounds Skin: General skin exam: normal color and no rashes or lesions noted Neuro: General: oriented to person, oriented to place and oriented to time Extrem: General: normal to inspection, no joint enlargement, no clubbing, cyanosis or edema, no pedal edema and no calf tenderness Psych: Appearance: grossly normal Mental Status: mental status grossly normal Speech and movement: Normal speech and movement present Assessment and Plan Assessment and plan (1) Menorrhagia: Code(s): N92.0 - Excessive and frequent menstruation with regular cycle Status: Acute Plan This patient is a 44-year-old female with severe menorrhagia. We agreed to perform robotic assisted hysterectomy with bilateral salpingectomy. She understands risks, benefits, and alternatives. She has completed informed consent process is ready to proceed
[2025-01-03] MEDS: SCOPOLAMINE 1 MG PATCH 1 PATCH TRANSDERM (12:30)
--- NOTE | 2025-01-03 12:31 | P.PNAN_ITS ---
Anes - Initial Pre Proc Eval Procedure: Operation Date: 01/03/25 12:00 Proposed Procedures p Robotic Assisted Hysterectomy, Bilateral Salpingectomy - Alexis Bailey MD Date/Time: 01/03/25 12:31 Surgeon: Alexis Bailey MD Pre Op Diagnosis: menorhagia with irreg cycle Patient Data Age: 44 Gender: F Height: 1.65 m Weight: 93 kg Last Vital Signs Temp 36.7 C 01/03/25 09:55 Pulse 64 01/03/25 09:55 Resp 16 01/03/25 09:55 BP 102/63 01/03/25 09:55 Pulse Ox 100 01/03/25 09:55 O2 Del Method Room Air 01/03/25 09:55 Allergies Allergy/AdvReac Type Severity Reaction Status Date / Time Penicillins AdvReac Mild RASH Verified 01/03/25 10:21 Home Medications ?Medication ?Instructions ?Recorded ?Confirmed ?Type No Home Medications 12/28/24 12/28/24 History Patient hx anesthesia problems: none Family hx anesthesia problems: none Results Review: All pre-operative results and documents have been reviewed as part of the pre- operative evaluation. [facility] Past Medical History Medical History Nausea and vomiting in adult Gestational diabetes Anxiety Depression Herniated disc Mastitis Surgical History Surgical History Hx laparoscopic cholecystectomy with IOC 10/08/21 History of fusion of cervical spine C5-C6 History of repair of ACL History of section Family History Family History Mother ALS (amyotrophic lateral sclerosis) Father Brain cancer Social History Social History Social History: Ms. Gonzáles lives at home with her significant other and her 2 children. She is independent in her daily activities. 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. 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 Shoemaker. She designates her significant other, Sanjay, as her surrogate decision maker. She would like to be a full code. Smoking packs per day: 1 Smoking cigarettes per day: 20.0 Years smoked: 7 Smoking pack-years: 7.00 Smoking status: Former smoker Tobacco type: cigarettes Smoking end date: 12/29/11 Alcohol intake: current Alcohol use details: very rarely Substance use: never Substance use type: does not use Living arrangements: with family Gender identity (if verbalized by the patient): Female Spiritual care concerns: No Anes - Eval Final PreProcedure Day of Procedure 01/03/25 12:31 Patient weight: obese Heart: regular rate and rhythm Lungs: clear to auscultation Airway: Mallampati scale class II Neurological: alert and oriented Last oral intake: >/= 8 hours ASA classification: II Emergent: no Anesthetic plan: proceed Anesthesia type and monitoring: general ETT and standard monitoring Results Review: All pre-operative results and documents have been reviewed as part of the pre- operative evaluation. Informed Consent: The patient's anesthetic plan and its attendant risks and benefits were discussed with the patient/family/POA. Questions were solicited and answers provided to the satisfaction of the patient/family/POA.
[2025-01-03] MEDS: ceFAZolin 2 GM in SODIUM CHLORIDE 0.9% IV 50 ML 100 ML IVPB (13:00)
--- NOTE | 2025-01-03 14:09 | S_PTH ---
PATIENT: Stacey Gonzáles LOC: [facility] U#:[id number] AGE/SX: 44/F ROOM: RE01/03/[address]: Alexis Bailey MD : 1980 BED: DIS: 01/04/2025 SPEC #: [id number] RECD: 01/04/25 08:05 STATUS: YVETTE REQ #: [id number] ALEXX: 01/03/25 14:[address]: Alexis Bailey DEPT: [facility] Surgical RECD BY: Fanny Manjarrez ENTERED: 01/04/25 08:05 SP TYPE: Surgical OTHR DR: Mark GonzalezMD Tissues: A - Peritoneal Bx B - Uterus Procedures: Hematoxylin and Eosin Stain Gross and Microscopic Level 4 Gross and Microscopic Level 5
--- NOTE | 2025-01-03 15:22 | W.PM.PROC2 ---
Procedure Note - Detailed Date of Procedure 01/03/25 Pre-op Diagnosis menorhagia with irreg cycle Post-op Diagnosis Same Procedure Performed Robot assisted Total hysterectomy with bilateral salpingectomy. Surgeon Alexis Bailey MD Anesthesia General Indications heavy vaginal bleeding, pelvic pain Findings Marked vascularity of the of the parametrium. Normal-appearing ovaries and fallopian tubes. Mildly enlarged uterus. Description of Procedure This patient was taken to the operating room. She was prepped and draped in the dorsal lithotomy position after induction of general anesthesia. The uterine manipulator and Flako cup were placed. This was done with a speculum and tenaculum. The speculum was placed. The cervix was grasped with a tenaculum. The stay sutures were placed at 3 and 9:00 a.m.. The stay sutures of 0 Vicryl were tied to the appropriately Size scope after it was slipped around the cervix.. The tip of the CHAYO manipulator was placed in the intrauterine cavity. The cup was slid into place around the cervix and into the fornices. It was locked into place. The sutures were then wrapped around the handle and tied under tension. A 8 mm skin incision was made in the left upper quadrant the abdomen. a 5 mm Visiport trocar was inserted into abdominal cavity and pneumoperitoneum was achieved. A 8 mm supraumbilical incision was made and a 8 mm trocar was inserted into the intrauterine cavity under direct visualization of the scope. an 8 mm incision was made in the right upper quadrant of the abdomen and an 8 mm robotic trocar was placed the inter uterine cavity under direct visualization the scope. An 11 mm trocar was inserted in the right upper quadrant of the abdomen rectal is a cystoscope after an incision was made there as well. The robot was docked. Electronic Orientation of the robot was performed. Bilateral ureteral lysis was performed. This was done from the pelvic brim down to the uterine artery. This was done with careful dissection using sharp and blunt dissection. The fallopian tubes were removed bilaterally. The mesosalpinx around the fallopian tubes were cauterized transected with LigaSure cautery. This was done in a bilateral fashion from the ovary to the uterine cornua. The fallopian tube was transected at the uterine cornu and amputated. The tube was taken out the left lower quadrant trocar site. In a stepwise fashion along the lateral aspects of the uterus the round ligament and broad ligaments were cauterized transected down to the level of the uterine arteries. A bladder flap was created in the bladder was moved distally to the end of the cervix and over the Flako cup. The bilateral uterine arteries were cauterized and transected. Colpotomy was then performed. In a circumferential fashion the vagina was transected using unipolar cautery. The incision was made down on the Flako cup. The uterus and cervix were taken out through the vagina. A pneumo occluder was placed in the vagina. The vaginal cuff was closed with a 0 V lock suture in a running fashion. The pelvis was irrigated with copious amounts antibiotic irrigation. The ureters were again examined and found to be intact and flowing freely under the uterine arteries into the bladder. The bladder was intact. It was examined directly. Cystoscopy was performed after administration of methylene blue. The cystoscope was inserted. Bladder was distended with fluid. The ureteric meatus was observed bilaterally. Blue fluid was seen to egress bilaterally. The bladder was drained and the cystoscope was withdrawn. The vagina was irrigated with Betadine solution after removal of the Pneumo occluder. the trocars were removed after the robot was undocked. The skin was closed with subacute or Dermabond. The patient was taken to recovery room. She was stable condition. Sponge lap and needle counts were correct x2. Estimated Blood Loss 250 Urine Output 800 Drains Yes Packing No Pathology Yes Complications No immediate complications Condition Stable Disposition Floor
[2025-01-03] MEDS: LACTATED RINGERS 1,000 ML 100 ML IV CONT (16:00)
[2025-01-03] MEDS: fentaNYL CITRATE INJ (*CRX) 100 MCG/2 ML VIAL 25 MCG IV PUSH ×4 (16:30→16:42)
[2025-01-03] MEDS: ONDANSETRON INJ 4 MG/2 ML VIAL IV PUSH (16:30)
--- NOTE | 2025-01-03 17:46 | PC.NURSE ---
Pt transported to room #289 via bed with [employer]ET INSPECTOR's at bedside
[2025-01-03] MEDS: DEXTROSE 5%/0.45% SOD CHL 1,000 ML 125 ML IV CONT (18:00)
[2025-01-03] MEDS: DOCUSATE SODIUM 100 MG CAPSULE PO (18:00)
[2025-01-03] MEDS: SIMETHICONE 80 MG TAB.CHEW PO (18:00)
[2025-01-03] MEDS: KETOROLAC 30 MG/ML VIAL (*BKC) IV PUSH ×2 (18:00→23:22)
[2025-01-03] MEDS: oxyCODONE HCL (*CRX) 5 MG TAB IR PO ×2 (18:55→23:21)
[2025-01-04] MEDS: KETOROLAC 30 MG/ML VIAL (*BKC) IV PUSH (04:35)
[2025-01-04] MEDS: ACETAMINOPHEN 500 MG TABLET 1000 MG PO ×2 (04:35→12:05)
[2025-01-04 04:43] VITALS: BP 99/56; PULSE 58; RESP 18; TEMP 36.4; O2SAT 97
[2025-01-04] MEDS: SIMETHICONE 80 MG TAB.CHEW PO ×2 (08:04→12:05)
[2025-01-04] MEDS: DOCUSATE SODIUM 100 MG CAPSULE PO (08:04)
[2025-01-04] MEDS: oxyCODONE HCL (*CRX) 5 MG TAB IR PO (08:05)
[2025-01-04 08:10] VITALS: BP 86/50; PULSE 41; RESP 16; TEMP 36.9; O2SAT 99
[2025-01-04] MEDS: IBUPROFEN 600 MG TABLET PO (12:05)
--- NOTE | 2025-01-04 12:33 | WPDANESPN ---
Anes - Prog Note Post-Op Date/Time: 01/04/25 12:33 Cardiovascular status: normal Respiratory status: normal Airway patency: baseline Mental status: baseline Vital Signs: Last Vital Signs Temp 36.9 C 01/04/25 08:10 Pulse 41 L 01/04/25 08:10 Resp 16 01/04/25 08:10 BP 86/50 L 01/04/25 08:10 Pulse Ox 99 01/04/25 08:10 O2 Del Method Room Air 01/04/25 08:10 O2 Flow Rate 2 01/03/25 17:33 Pain Score (VAS): 3 I/O: Intake & Output 01/03/25 01/04/25 01/04/25 23:59 07:59 15:59 Intake Total 1100 Output Total 30 1000 100 Balance 1070 -1000 -100 Patient Feedback: Patient satisfied with anesthetic care.
--- NOTE | 2025-01-04 13:09 | P.PNOB_ITS ---
[employer] - A/P Postoperative Procedures: Procedures Operation Date: 01/03/25 12:00 Actual Procedure Side Surgeon p Robotic Assisted Hysterectomy, Bilateral Salpingectomy, Resection of Endometriosis Bilateral Alexis Bailey MD Postoperative day: 1 Postoperative status: doing well Postoperative plan: see orders Time Spent With Patient Time: Total time spent is greater than 50% in coordination of care (as documented) at patient's floor/unit and/or counseling patient: Time with patient: less than 15 minutes [employer]- PN:Subj Post-Op Subjective Date/time seen: 01/04/25 13:09 Subjective: patient reports feeling better, patient has no complaints and pain is well controlled Exam Const: General: healthy appearing, comfortable and no acute distress Resp: Auscultation: clear to auscultation bilaterally, no rales, no rhonchi and no wheezes Cardio: Rate: regular rate Heart sounds: no click, no murmurs and no rubs GI: Inspection: non-distended Auscultation: normal bowel sounds Extrem: General: normal to inspection, no pedal edema and no calf tenderness [employer] - PN: Obj Data Vital Signs Vital Signs: Vital Signs - 24 hr 01/03/25 15:40 01/03/25 15:55 01/03/25 16:10 Temperature 97.8 F Pulse Rate 70 62 59 L Respiratory Rate 10 L 15 11 L Blood Pressure 106/66 116/63 116/68 Pulse Oximetry 100 100 100 Oxygen Delivery Simple Face Mask Simple Face Mask Simple Face Mask Oxygen Flow Rate 8 8 8 01/03/25 16:25 01/03/25 16:40 01/03/25 16:55 Temperature Pulse Rate 58 L 64 64 Respiratory Rate 12 10 L 10 L Blood Pressure 110/62 104/68 106/64 Pulse Oximetry 94 92 99 Oxygen Delivery Room Air Room Air Nasal Cannula Oxygen Flow Rate 2 01/03/25 17:10 01/03/25 17:25 01/03/25 17:33 Temperature 97.3 F L Pulse Rate 61 64 60 Respiratory Rate 10 L 12 15 Blood Pressure 113/67 109/63 109/69 Pulse Oximetry 98 98 99 Oxygen Delivery Nasal Cannula Nasal Cannula Nasal Cannula Oxygen Flow Rate 2 2 2 01/03/25 18:19 01/03/25 23:23 01/03/25 23:23 Temperature 97.9 F 97.6 F Pulse Rate 60 62 Respiratory Rate 16 18 Blood Pressure 110/56 L 86/50 L Pulse Oximetry 99 100 Oxygen Delivery Room Air Oxygen Flow Rate 01/04/25 04:43 01/04/25 08:10 01/04/25 08:10 Temperature 97.6 F 98.5 F Pulse Rate 58 L 41 L Respiratory Rate 18 16 Blood Pressure 99/56 L 86/50 L Pulse Oximetry 97 99 Oxygen Delivery Room Air Oxygen Flow Rate Intake/Output Intake/Output: Intake & Output 01/01/25 01/02/25 01/03/25 01/04/25 23:59 23:59 23:59 23:59 Intake Total 1150 Output Total 830 1100 Balance 320 -1100 Meds/Results Medications: Active Medications Generic Name Dose Route Start Last Admin Trade Name Freq PRN Reason Stop Dose Admin Acetaminophen 1,000 mg 01/03/25 18:00 01/04/25 12:05 Acetaminophen 500 Mg Tablet PO 1,000 mg Q6HR DALIA Administration Docusate Sodium 100 mg 01/03/25 17:32 01/04/25 08:04 Docusate Sodium 100 Mg Capsule PO 100 mg BID DALIA Administration Dextrose/Sodium Chloride 1,000 mls @ 125 mls/hr 01/03/25 17:32 01/04/25 04:46 Dextrose 5% Sodium Chloride 0.45% IV CONT Not Given .Q8H DALIA Ibuprofen 600 mg 01/04/25 12:00 01/04/25 12:05 Ibuprofen 600 Mg Tablet PO 600 mg Q6HR DALIA Administration Naloxone HCl 0.1 mg 01/03/25 17:32 Naloxone Hcl 0.4 Mg/Ml Vial IV PUSH Q2M PRN Respiratory rate less than 10 Ondansetron HCl 4 mg 01/03/25 17:32 Ondansetron Inj 4 Mg/2 Ml Vial IV PUSH Q6H PRN Nausea And Vomiting Oxycodone HCl 5 mg 01/03/25 17:32 01/04/25 08:05 Oxycodone Hcl (*Crx) 5 Mg Tab Ir PO 5 mg Q4H PRN Administration Pain Rated 4-6 Oxycodone HCl 10 mg 01/03/25 17:32 Oxycodone Hcl (*Crx) 5 Mg Tab Ir PO Q6H PRN Pain Rated 7-10 Simethicone 80 mg 01/03/25 17:32 08/14/25 12:05 Simethicone 80 Mg Tab.Chew PO 80 mg TIDWM DALIA Administration
== END 2025-01-04 13:33 | disposition home or self-care (01) ==
LOC: ANHSURGERY 12:45 → ANHOB2 17:40
PROVIDERS: PCP Family Medicine; Visit Provider Obstetrics & Gynecology
PROC: (CPT 58571; principal; 2025-01-03 12:00)
DX: N88.8 Other specified noninflammatory disorders of cervix uteri (principal); N83.8 Other noninflammatory disorders of ovary, fallopian tube and broad ligament; G89.18 Other acute postprocedural pain; F41.9 Anxiety disorder, unspecified; F32.A Depression, unspecified; E66.9 Obesity, unspecified; Z68.34 Body mass index [BMI] 34.0-34.9, adult; Z97.5 Presence of (intrauterine) contraceptive device; Z98.890 Other specified postprocedural states; Z98.1 Arthrodesis status; Z90.49 Acquired absence of other specified parts of digestive tract; Z87.891 Personal history of nicotine dependence; Z80.8 Family history of malignant neoplasm of other organs or systems
CPT/HCPCS: 58571; S2900; 88305; 88307; 99199; J0690; A9270; J1100; J1885; J2250; J2270; J2405; J2704; J3010; J7030; J7120

== ENCOUNTER 2025-03-02 12:17 | Outpatient (CLI) | payer BC, SELFPAY ==
--- NOTE | ~2025-03-02 | MR_ITS ---
EXAMINATION: MR lumbar spine wo con DATE: 03/02/2025 13:08 INDICATION: Low back pain. TECHNIQUE: Magnetic resonance imaging (MRI) of the lumbar spine was performed without intravenous contrast. Sequences included sagittal T2-weighted FSE, sagittal T2-weighted FS FSE, sagittal T1-weighted FSE, and axial T2-weighted FSE. COMPARISON: Lumbar spine MRI 09/24/2018 FINDINGS: There is 8 degrees levocurvature of lumbar spine. Vertebral body heights are normal. There is mildly decreased disc height at L4-L5 and L5-S1. The distal spinal cord signal intensity is normal. The conus medullaris is at L2. The following disc levels are specifically discussed: L1-L2: The disc does not extend beyond the endplate margin. There is mild bilateral facet joint osteoarthritis. There is no neural foraminal stenosis. There is no central canal stenosis. L2-L3: The disc does not extend beyond the endplate margin. There is moderate bilateral facet joint osteoarthritis. There is no neural foraminal stenosis. There is no central canal stenosis. L3-L4: The disc does not extend beyond the endplate margin. There is moderate bilateral facet joint osteoarthritis. There is no neural foraminal stenosis. There is no central canal stenosis. L4-L5: The disc is bulging. There is moderate bilateral facet joint osteoarthritis. There is moderate bilateral neural foraminal stenosis. There is mild central canal stenosis. L5-S1: The disc is bulging and has an annular fissure. There is mild right and moderate left facet joint osteoarthritis. There is mild right and moderate left neural foraminal stenosis. There is mild central canal stenosis. IMPRESSION: 1. Moderate lower lumbar spondylosis, stable from 09/24/2018. Reviewed, dictated and finalized at location E.
--- NOTE | ~2025-03-02 | MR_ITS ---
EXAMINATION: MR cervical spine wo con DATE: 03/02/2025 12:58 INDICATION: Neck pain. TECHNIQUE: Magnetic resonance imaging (MRI) of the cervical spine was performed without intravenous contrast. COMPARISON: Cervical spine MRI 09/24/2018 FINDINGS: Alignment is normal. Vertebral body heights are normal. There is mildly decreased disc height at C4-C5. There are changes of anterior fusion procedure at C5-C6 with interbody bone graft and anterior plate and screws. There is mildly decreased disc height at C6-C7. The spinal cord signal intensity is normal. The following disc levels are specifically discussed: C2-C3: The disc does not extend beyond the endplate margin. There is no uncovertebral joint osteoarthritis. There is mild bilateral facet joint osteoarthritis. There is no neural foraminal stenosis. There is no central canal stenosis. C3-C4: The disc does not extend beyond the endplate margin. There is mild bilateral uncovertebral joint osteoarthritis. There is mild bilateral facet joint osteoarthritis. There is no neural foraminal stenosis. There is no central canal stenosis. C4-C5: The disc does not extend beyond the endplate margin. There is no uncovertebral joint osteoarthritis. There is mild bilateral facet joint osteoarthritis. There is no neural foraminal stenosis. There is no central canal stenosis. C5-C6: There is no uncovertebral joint hypertrophy. There is no facet joint osteoarthritis. There is no neural foraminal stenosis. There is no central canal stenosis. C6-C7: There is a central protrusion. There is mild bilateral uncovertebral joint osteoarthritis. There is no facet joint osteoarthritis. There is mild bilateral neural foraminal stenosis. There is mild central canal stenosis. C7-T1: The disc does not extend beyond the endplate margin. There is no uncovertebral joint osteoarthritis. There is moderate bilateral facet joint osteoarthritis. There is mild bilateral neural foraminal stenosis. There is no central canal stenosis. IMPRESSION: 1. Mild cervical spondylosis. 2. Anterior fusion procedure at C5-C6. Reviewed, dictated and finalized at location E.
== END 2025-03-02 12:18 | disposition home or self-care (01) ==
LOC: MICIMG 12:18
PROVIDERS: PCP Family Medicine; Visit Provider Internal Medicine Rheumatology
DX: M47.892 Other spondylosis, cervical region (principal); Z98.1 Arthrodesis status; M47.896 Other spondylosis, lumbar region
CPT/HCPCS: 72141; 72148